=== PATIENT | male | born 1955 | race African-American/Black ===

== ENCOUNTER → 2017-11-17 | Day surgery (SDC) | payer OTHER ==
[2017-11-16 10:23] VITALS: Ht 172.7 cm; Wt 116.4 kg
[~2017-11-17] VITALS: Ht 172.7 cm; Wt 116.4 kg
[~2017-11-17] MED LIST: ATOR-24 PO; LIDOCAINE HCL 1% MPF 5 ML VIAL ONE; LOSA50TA6 PO; NAPR1TAB9 PO; SODIUM CHLORIDE 0.9% INJ 10 ML VIAL ONE
--- NOTE | 2017-11-17 14:51 | History & Physical Bridge - [place] ---
H&P Re-Evaluation Bridge Note: I have examined the patient, reviewed the History & Physical and in the interval since the performance of the History & Physical I have noted the following changes of clinical significance: No changes noted
--- NOTE | 2017-11-17 15:10 | [facility] Post Operative Brief Note ---
Immediate Operative Summary Operative Date Nov 17, 2017. Pre-Operative Diagnosis Lumbar spondylosis, history of lumbar diskectomy with increased onset bilateral S1 radiculopathies Post-Operative Diagnosis Same Procedure(s) Performed Caudal Epidural Steroid Injection Surgeon Dr. Josue Eid Hyperbaric Nurse Surgeon(s) None Estimated Blood Loss 0 Findings Consistent with Post-Op Diagnosis Specimens NA Drains None Anesthesia Type Local Complication(s) none Disposition Disposition:
[2017-11-17 15:11] VITALS: TEMP 36.7
--- NOTE | 2017-11-17 15:11 | Discharge Instructions ---
Discharge Instructions Date of Service Nov 17, 2017. Visit Reason for Visit: Radiculopathy,Lumbar Region Discharge Discharge Diagnosis / Problem: bilateral leg pain Discharge Goals Goal(s): Decrease discomfort, Improve function Activity Recommendations Activity Limitations: resume your previous activity Anesthesia . Post Anesthesia Instructions: If you have had General Anesthesia or IV Sedation: * Do not drive today. * Resume driving when surgeon permits. * Do not make important decisions or sign legal documents today. * Call surgeon for: 1. Temperature elevations greater than 101 degrees F. 2. Uncontrollable pain. 3. Excessive bleeding. 4. Persistent nausea and vomiting. 5. Medication intolerance (nausea, vomiting or rash). * For nausea and vomiting use only clear liquids such as: tea, soda, bouillon until nausea subsides, then gradually increase diet as tolerated. * If you have any concerns or questions, call your surgeon's office. If physician is unavailable and it is an emergency, call 911 or go to the nearest emergency room. . Diet Recommendations Recommended Home Diet: resume previous diet Procedures Procedures Performed: Caudal Epidural Steroid Injection Pending Studies Studies pending at discharge: no Medical Emergencies . Who to Call and When: Medical Emergencies: If at any time you feel your situation is an emergency, please call 911 immediately. . Non-Emergent Contact Non-Emergency issues call your: Specialist . . "Provider Documentation" section prepared by Gerard Eid. .
--- NOTE | 2017-11-17 15:26 | OPERATIVE REPORT ---
DATE OF OPERATION: 11/17/2017 PREOPERATIVE DIAGNOSIS: Lumbar spondylosis with bilateral S1 radiculopathies. POSTOPERATIVE DIAGNOSES: Same. OPERATIVE PROCEDURE: Caudal epidural steroid injection under fluoroscopic guidance. INDICATIONS: The patient is a 61-year-old -[place] male who was seen 2 years ago and responded favorably to caudal injection for chronic radicular pain. He reports that he is managed since that time, recently has been increasing in severity. He presents today for an injection to provide him with relief. He is describing classic S1 dermatomal pain that radiates down into the bottom to the both feet. PHYSICAL EXAMINATION: Pleasant male seated comfortably. He is without focal weakness. Positive seated straight leg raise with decreased subjective sensations in the S1 dermatomes bilaterally. CONSENT: Verbal and written consent was obtained from the patient. Risks and benefits were reviewed. Risks include but are not limited to abscess and allergic reaction and wishes to proceed. DESCRIPTION OF PROCEDURE: The patient was taken back to the special procedures room of the [facility] where he was maintained in a prone position. Backside was cleansed with Betadine x3 and a dry sterile dressing was applied. Fluoroscope was used to identify the sacral hiatus and overlying skin was anesthetized with 5 mL of lidocaine 1% with a 25 gauge 1.5-inch needle. A 22 gauge 5-inch spinal needle was then directed under lateral fluoroscopic guidance into the sacral hiatus and advanced into the sacral canal distance of a few inches. He then underwent injection after negative aspiration of 40 mg of Depo-Medrol and 4 mL of preservative free sodium chloride. Injection was fairly well tolerated and reproduced a familiar transient radicular sensation down the legs. DISPOSITION: 1. The patient is taken out into the discharge recovery area where he will be discharged home once discharge criteria are met. 2. Follow up in the [facility] office in 2-4 weeks. I attest to the content of the Intraoperative Record and any orders documented therein. Any exception s are noted below.
[2017-11-17 15:34] VITALS: BP 198/100; PULSE 62; O2SAT 99
== END | disposition home or self-care (01) ==
LOC: X.SURG 14:02
PROVIDERS: ATTEND Physical Medicine & Rehabilitation
DX: M47.896 Other spondylosis, lumbar region (principal)

== ENCOUNTER 2019-10-01 14:29 | Observation (INO) ==
[2019-10-01] MEDS ORDERED: LOSARTAN POTASSIUM 50 MG TAB PO STA (15:03)
[2019-10-01 15:50] LABS: Basophils # (auto) 0.01 K/uL (0-0.2); Basophils % (auto) 0.1 %; Eosinophils # (auto) 0.11 K/uL (0-0.5); Eosinophils % (auto) 1.2 %; Hematocrit (blood only) 42.5 % (42-52); Hemoglobin 13.3 g/dL (14.0-18.0); Immature Granulocytes # (auto) 0.02 K/uL (0.00-0.02); Immature Granulocytes % (auto) 0.2 %; Lymphocytes # (auto) 3.14 K/uL (1.2-3.4); Lymphocytes % (auto) 35.4 %; Mean Corpuscular Hemoglobin 26.9 pg (25-34); Mean Corpuscular Hgb Conc 31.3 g/dL (32-36); Mean Corpuscular Volume 85.9 fL (80-100); Mean Platelet Volume 11.7 fL (7.4-10.4); Monocytes # (auto) 0.47 K/uL (0.11-0.59); Monocytes % (auto) 5.3 %; Neutrophils # (auto) 5.12 K/uL (1.4-6.5); Neutrophils % (auto) 57.8 %; Platelet Count 158 K/uL (130-400); RDW Coefficient of Variation 14.7 % (11.5-14.5); Red Blood Count 4.95 M/uL (4.7-6.1); White Blood Count 8.87 K/uL (4.8-10.8)
[2019-10-01 15:59] LABS: Partial Thromboplastin Ratio 0.9; Partial Thromboplastin Time 23.1 Seconds (21.0-31.0); Prothrombin Time 10.5 Seconds (9.0-12.0)
[2019-10-01 16:10] LABS: Albumin Globulin Ratio 0.9 (0.9-2); Albumin Level 3.6 gm/dl (3.4-5.0); BUN Creatinine Ratio 14.2 (10-20); Bilirubin,Total 0.3 mg/dl (0.2-1); Calcium 8.8 mg/dl (8.5-10.1); Creatinine Clr Calc Pharmacy 64.2 ml/min; Est GFR (African American) 66.4; Est GFR (Non-African American) 57.3; Globulin 4.2 gm/dl (2.5-4.0); Total Protein 7.8 gm/dl (6.4-8.2)
[2019-10-01 16:19] LABS: Potassium 4.1 mmol/L (3.5-5.1)
[2019-10-01] MEDS ORDERED: IOVERSOL 100ml IV PRN (16:34)
--- NOTE | 2019-10-01 16:46 | CT Scan Report ---
CT SCAN OF THE ABDOMEN AND PELVIS WITH IV CONTRAST CLINICAL HISTORY: Left lower quadrant abdominal pain. Hematochezia. COMPARISON STUDY: No priors. TECHNIQUE: Following the IV administration of 94 cc of Optiray 320, CT scan of the abdomen and pelvi s is performed from the lung bases to the proximal femora. Images are reviewed in the axial, sagittal , and coronal planes. IV contrast was administered without complication. A dose lowering technique wa s utilized adhering to the principles of ALARA. CT DOSE: 1468.70 mGy.cm FINDINGS: Lung bases: The heart is normal in size and without pericardial effusion. There are coronary artery c alcifications. The lung bases are clear. Liver: The contrast-enhanced liver is normal in size, contour, and attenuation. There is no intrahepa tic biliary ductal dilatation. The hepatic veins and portal veins are patent. Gallbladder: Unremarkable. Spleen: Normal in size and attenuation. A 1.5 cm splenic calcification is of doubtful significance. Pancreas: Unremarkable. Adrenal glands: Unremarkable. Kidneys: The contrast enhanced kidneys are normal in size and without hydronephrosis. The kidneys enh ance symmetrically. There are small bilateral nonobstructing renal calculi. Abdominal vasculature: The abdominal aorta is normal in course and caliber noting moderate atheroscle rotic calcification. Bowel: There is moderate colonic diverticulosis without CT evidence of acute diverticulitis. Moderate fecal retention is seen throughout the colon. The appendix is not identified and reported surgicall y absent. Peritoneum: There is no intraperitoneal free air or abdominal ascites. There is a large fat-containin g umbilical hernia. Lymphadenopathy: None. Pelvic viscera: The prostate gland is enlarged and heterogeneous, measuring 5.5 cm in transverse diam eter. There is median lobe hypertrophy. The bladder wall is thickened and trabeculated indicating chr onic outlet obstruction. Skeletal structures: No lytic or blastic lesions are seen. IMPRESSION: 1. There are no acute infectious or inflammatory findings identified in the abdomen or pelvis. 2. Moderate colonic diverticulosis without clear CT evidence of acute diverticulitis. 3. Moderate constipation. 4. Nephrolithiasis. 5. Additional findings as above. ACT 112: Negative or not required by law. Electronically signed by: Edmar Field M.D. 10/01/2019 4:45 PM
--- NOTE | 2019-10-01 17:37 | Emergency Department Note ---
Entered by Maya Haq acting as a scribe for Yojana Zimmerman MD History of Present Illness General Chief complaint: Rectal Bleed Stated complaint: PASSING BLOOD Source: patient History of Present Illness Provider complaint: Rectal Bleed Onset (ago): day(s) 1 Location: abdomen Relieved By: + none Exacerbated By: + none Associated symptoms: + denies other symptoms (Dizziness) and + other (Diarrhea); no weakness The patient is a 63 year old male who presents to the Emergency Room with complaints of rectal bleeding that began yesterday around 1pm. The patient states that his symptoms are not relieved nor exacerbated by anything specific. The patient reports experiencing diarrhea but denies any dizziness or weakness. The patient denies taking any blood thinners but does note that he has had diverticulitis before, with diverticulosis and polyps noted on colonoscopy. Home Medications Home Medications Medication Instructions Recorded Confirmed Type atorvastatin 40 mg PO QAM 10/21/18 10/01/19 History naproxen sodium [Aleve] 2 tab PO QAM 10/21/18 10/01/19 History travoprost [Travatan Z] 1 drp OPB HS 10/21/18 10/01/19 History losartan 50 mg PO QAM 10/01/19 10/01/19 History Allergies Allergy/AdvReac Type Severity Reaction Status Date / Time Sulfa (Sulfonamide Allergy Mild RASH Verified 10/01/19 14:56 Antibiotics) Past Med/Surg History Medical History Glaucoma Hyperlipidemia Hypertension Osteoarthritis Pre-diabetes Sleep apnea CPAP Spinal stenosis Surgical History History of adenoidectomy History of appendectomy History of arthroscopy KNEE History of carpal tunnel release RT/LEFT History of colonoscopy History of tonsillectomy History of tooth extraction Trigger finger RELEASE Family History Father Family history of diabetes mellitus Mother Family history of diabetes mellitus Social History Preferred Language: Hungarian Communication Ability: Effective [employer] Required: No Beliefs That Will Affect Care: None Current Living Situation: Spouse Feels Safe at Home: Yes Safety Concerns: Feels Safe At This Time Smoking Status: Former smoker Do You Dip or Chew Tobacco: No ; Second Hand Exposure: Yes ; Hx Alcohol Use: Yes Alcohol type: beer Hx Substance Use: No Review of Systems See HPI for pertinent positives & negatives. and A total of 10 systems reviewed and were otherwise negative Physical Exam Vital Signs Vital Signs - 24 hr 10/01/19 14:34 10/01/19 14:51 10/01/19 14:56 Temperature 36.4 C L Temperature Source Oral Pulse Rate 71 65 70 Pulse Rate [Finger] Pulse Rate from SpO2 Sensor Respiratory Rate 20 19 19 Blood Pressure 180/94 H 198/83 H Blood Pressure [Right Arm] Blood Pressure Mean 122 103 Blood Pressure Mean [Right Arm] Blood Pressure Position Sitting Pulse Oximetry 97 Oxygen Delivery Method Sepsis Recent Fever Within 48 Hours No Sepsis New/Unexplained Change in Mental Status No Sepsis Action Taken by Nursing No Action Required 10/01/19 15:00 10/01/19 15:01 10/01/19 15:03 Temperature Temperature Source Pulse Rate 69 68 66 Pulse Rate [Finger] Pulse Rate from SpO2 Sensor Respiratory Rate 17 19 20 Blood Pressure 211/102 H 222/95 H Blood Pressure [Right Arm] Blood Pressure Mean 135 159 Blood Pressure Mean [Right Arm] Blood Pressure Position Pulse Oximetry Oxygen Delivery Method Sepsis Recent Fever Within 48 Hours Sepsis New/Unexplained Change in Mental Status Sepsis Action Taken by Nursing 10/01/19 15:48 10/01/19 15:50 10/01/19 16:00 Temperature Temperature Source Pulse Rate 68 69 Pulse Rate [Finger] Pulse Rate from SpO2 Sensor Respiratory Rate 18 21 Blood Pressure Blood Pressure [Right Arm] Blood Pressure Mean Blood Pressure Mean [Right Arm] Blood Pressure Position Pulse Oximetry 99 Oxygen Delivery Method Room Air Sepsis Recent Fever Within 48 Hours Sepsis New/Unexplained Change in Mental Status Sepsis Action Taken by Nursing 10/01/19 16:01 10/01/19 16:37 10/01/19 17:00 Temperature Temperature Source Pulse Rate 69 67 70 Pulse Rate [Finger] Pulse Rate from SpO2 Sensor Respiratory Rate 17 19 19 Blood Pressure 276/117 H Blood Pressure [Right Arm] Blood Pressure Mean 160 Blood Pressure Mean [Right Arm] Blood Pressure Position Pulse Oximetry Oxygen Delivery Method Sepsis Recent Fever Within 48 Hours Sepsis New/Unexplained Change in Mental Status Sepsis Action Taken by Nursing 10/01/19 17:30 10/01/19 17:44 10/01/19 17:45 Temperature Temperature Source Pulse Rate 65 63 Pulse Rate [Finger] 64 Pulse Rate from SpO2 Sensor Respiratory Rate 17 8 L 18 Blood Pressure 209/181 H Blood Pressure [Right Arm] 209/181 H Blood Pressure Mean 187 Blood Pressure Mean [Right Arm] 190 Blood Pressure Position Pulse Oximetry 97 Oxygen Delivery Method Room Air Sepsis Recent Fever Within 48 Hours Sepsis New/Unexplained Change in Mental Status Sepsis Action Taken by Nursing 10/01/19 17:46 10/01/19 18:00 10/01/19 18:01 Temperature Temperature Source Pulse Rate 63 69 70 Pulse Rate [Finger] Pulse Rate from SpO2 Sensor Respiratory Rate 22 17 18 Blood Pressure 224/89 H 176/83 H Blood Pressure [Right Arm] Blood Pressure Mean 116 119 Blood Pressure Mean [Right Arm] Blood Pressure Position Pulse Oximetry Oxygen Delivery Method Sepsis Recent Fever Within 48 Hours Sepsis New/Unexplained Change in Mental Status Sepsis Action Taken by Nursing 10/01/19 18:30 10/01/19 18:31 10/01/19 18:32 Temperature Temperature Source Pulse Rate 72 70 72 Pulse Rate [Finger] Pulse Rate from SpO2 Sensor Respiratory Rate 18 19 21 Blood Pressure 183/78 H Blood Pressure [Right Arm] Blood Pressure Mean 97 Blood Pressure Mean [Right Arm] Blood Pressure Position Pulse Oximetry Oxygen Delivery Method Sepsis Recent Fever Within 48 Hours Sepsis New/Unexplained Change in Mental Status Sepsis Action Taken by Nursing 10/01/19 18:40 10/01/19 18:51 10/01/19 19:00 Temperature Temperature Source Pulse Rate 70 69 69 Pulse Rate [Finger] Pulse Rate from SpO2 Sensor Respiratory Rate 21 20 Blood Pressure Blood Pressure [Right Arm] Blood Pressure Mean Blood Pressure Mean [Right Arm] Blood Pressure Position Pulse Oximetry Oxygen Delivery Method Sepsis Recent Fever Within 48 Hours Sepsis New/Unexplained Change in Mental Status Sepsis Action Taken by Nursing 10/01/19 19:01 10/01/19 19:12 10/01/19 19:14 Temperature Temperature Source Pulse Rate 69 68 Pulse Rate [Finger] Pulse Rate from SpO2 Sensor 67 Respiratory Rate 18 13 19 Blood Pressure 155/108 H Blood Pressure [Right Arm] Blood Pressure Mean 120 Blood Pressure Mean [Right Arm] Blood Pressure Position Pulse Oximetry 98 Oxygen Delivery Method Sepsis Recent Fever Within 48 Hours Sepsis New/Unexplained Change in Mental Status Sepsis Action Taken by Nursing 10/01/19 19:16 10/01/19 19:21 Temperature Temperature Source Pulse Rate 66 68 Pulse Rate [Finger] Pulse Rate from SpO2 Sensor 66 68 Respiratory Rate 16 14 Blood Pressure 208/91 H Blood Pressure [Right Arm] Blood Pressure Mean 120 Blood Pressure Mean [Right Arm] Blood Pressure Position Pulse Oximetry 98 98 Oxygen Delivery Method Sepsis Recent Fever Within 48 Hours Sepsis New/Unexplained Change in Mental Status Sepsis Action Taken by Nursing Vital signs reviewed: patient noted to be hypertensive. General: Well-appearing male, in no significant distress, obese abdomen. HEENT: No scleral icterus, PERRLA, neck supple. Atraumatic. Cardiovascular: Regular rate and rhythm, no extra sounds. Pulmonary: Clear to auscultation bilaterally, normal work of breathing. Abdomen: Soft, nontender, nondistended, positive bowel sounds. Musculoskeletal: Atraumatic, no peripheral edema. Rectal: Normal external mucosa with melanotic stool. Neurologic: Patient awake alert and oriented x 3 Skin: Warm, dry, no rash Course Course 1501: Past medical records reviewed. The patient was evaluated in room C12B. A complete history and physical exam was performed. 1740: I spoke with Dr. Bliss- Hospitalist about the patient's case and he will accept the patient for further evaluation. Administered Medications Pantoprazole Sodium 40 mg/ (Dextrose) 100 mls @ 20 mls/hr IV Q5H DEVORAH Stop: 10/31/19 17:59 Last Admin: 10/01/19 19:28 Dose: 20 mls/hr Documented by: [id number] Ioversol (Optiray 320 100ml) 94 ml IV ONCE PRN PRN Reason: Interaction Checking Stop: 10/05/19 16:33 Last Admin: 10/01/19 16:35 Dose: 94 ml Documented by: [id number] Discontinued Medications Hydralazine HCl (Hydralazine Hcl) 10 mg IV NOW STA Stop: 10/01/19 17:48 Last Admin: 10/01/19 17:52 Dose: 10 mg Documented by: [id number] Pantoprazole Sodium 80 mg/ (Dextrose) 120 mls @ 480 mls/hr IV NOW ONE Stop: 10/01/19 17:59 Last Infusion: 10/01/19 19:29 Dose: 0 mls/hr Documented by: [id number] Admin: 10/01/19 19:10 Dose: 480 mls/hr Documented by: [id number] Losartan Potassium (Cozaar) 50 mg PO NOW STA Stop: 10/01/19 15:04 Last Admin: 10/01/19 15:20 Dose: 50 mg Documented by: [id number] Medical Decision Making Differential Diagnosis Differential diagnosis: Etiologies such as esophagitis, variceal bleed, Boer[place]aves, [place] tear, gastritis, peptic ulcer disease, AVM, inflammatory bowel disease, ischemia, diverticulosis, colitis, malignancy, coagulopathy, thrombocytopenia, fissure, hemorrhoid, epistaxis , as well as others were entertained. Medical Records Attestation: I reviewed the patient's medical records. Home Medications Current Medication List: was personally reviewed by me Laboratory Data Attestation: I reviewed the patient's lab results. Result diagrams: 10/01/19 15:42 10/01/19 15:42 Lab Results 10/01/19 10/01/19 10/01/19 Range/Units 15:42 15:42 15:42 WBC 8.87 (4.8-10.8) K/uL RBC 4.95 (4.7-6.1) M/uL Hgb 13.3 L (14.0-18.0) g/dL Hct 42.5 (42-52) % MCV 85.9 (80-100) fL MCH 26.9 (25-34) pg MCHC 31.3 L (32-36) g/dL RDW Std Deviation 46.0 (36.4-46.3) fL RDW Coeff of Anisha 14.7 H (11.5-14.5) % Plt Count 158 (130-400) K/uL MPV 11.7 H (7.4-10.4) fL Immature Gran % (Auto) 0.2 % Neut % (Auto) 57.8 % Lymph % (Auto) 35.4 % [place] % (Auto) 5.3 % Eos % (Auto) 1.2 % Baso % (Auto) 0.1 % Immature Gran # (Auto) 0.02 (0.00-0.02) K/uL Neut # (Auto) 5.12 (1.4-6.5) K/uL Lymph # (Auto) 3.14 (1.2-3.4) K/uL [place] # (Auto) 0.47 (0.11-0.59) K/uL Eos # (Auto) 0.11 (0-0.5) K/uL Baso # (Auto) 0.01 (0-0.2) K/uL PT 10.5 (9.0-12.0) Seconds INR 1.0 (0.9-1.1) APTT 23.1 (21.0-31.0) Seconds PTT Ratio 0.9 Sodium 141 (136-145) mmol/L Potassium 4.1 (3.5-5.1) mmol/L Chloride 108 H (98-107) mmol/L Carbon Dioxide 31 (21-32) mmol/L Anion Gap 2.0 L (3-11) BUN 18 (7-18) mg/dl Creatinine 1.30 (0.6-1.4) mg/dl Est Cr Clr Drug Dosing 64.2 ml/min Est GFR ( Amer) 66.4 Est GFR (Non-Af Amer) 57.3 BUN/Creatinine Ratio 14.2 (10-20) Glucose 87 (70-99) mg/dl Calcium 8.8 (8.5-10.1) mg/dl Total Bilirubin 0.3 (0.2-1) mg/dl AST 14 L (15-37) U/L ALT 26 (12-78) U/L Alkaline Phosphatase 61 (45-117) U/L Total Protein 7.8 (6.4-8.2) gm/dl Albumin 3.6 (3.4-5.0) gm/dl Globulin 4.2 H (2.5-4.0) gm/dl Albumin/Globulin Ratio 0.9 (0.9-2) Specimen Hemolysis Blood Type Antibody Screen Crossmatch 10/01/19 Range/Units 15:42 WBC (4.8-10.8) K/uL RBC (4.7-6.1) M/uL Hgb (14.0-18.0) g/dL Hct (42-52) % MCV (80-100) fL MCH (25-34) pg MCHC (32-36) g/dL RDW Std Deviation (36.4-46.3) fL RDW Coeff of Anisha (11.5-14.5) % Plt Count (130-400) K/uL MPV (7.4-10.4) fL Immature Gran % (Auto) % Neut % (Auto) % Lymph % (Auto) % [place] % (Auto) % Eos % (Auto) % Baso % (Auto) % Immature Gran # (Auto) (0.00-0.02) K/uL Neut # (Auto) (1.4-6.5) K/uL Lymph # (Auto) (1.2-3.4) K/uL [place] # (Auto) (0.11-0.59) K/uL Eos # (Auto) (0-0.5) K/uL Baso # (Auto) (0-0.2) K/uL PT (9.0-12.0) Seconds INR (0.9-1.1) APTT (21.0-31.0) Seconds PTT Ratio Sodium (136-145) mmol/L Potassium (3.5-5.1) mmol/L Chloride (98-107) mmol/L Carbon Dioxide (21-32) mmol/L Anion Gap (3-11) BUN (7-18) mg/dl Creatinine (0.6-1.4) mg/dl Est Cr Clr Drug Dosing ml/min Est GFR ( Amer) Est GFR (Non-Af Amer) BUN/Creatinine Ratio (10-20) Glucose (70-99) mg/dl Calcium (8.5-10.1) mg/dl Total Bilirubin (0.2-1) mg/dl AST (15-37) U/L ALT (12-78) U/L Alkaline Phosphatase (45-117) U/L Total Protein (6.4-8.2) gm/dl Albumin (3.4-5.0) gm/dl Globulin (2.5-4.0) gm/dl Albumin/Globulin Ratio (0.9-2) Specimen Hemolysis Blood Type B Negative Antibody Screen NEGATIVE Crossmatch See Detail Imaging Data Radiologist's Impression: Radiology results as stated below per my review and the radiologist's interpretation: CT SCAN OF THE ABDOMEN AND PELVIS WITH IV CONTRAST CLINICAL HISTORY: Left lower quadrant abdominal pain. Hematochezia. COMPARISON STUDY: No priors. TECHNIQUE: Following the IV administration of 94 cc of Optiray 320, CT scan of the abdomen and pelvis is performed from the lung bases to the proximal femora. Images are reviewed in the axial, sagittal, and coronal planes. IV contrast was administered without complication. A dose lowering technique was utilized a dhering to the principles of ALARA. CT DOSE: 1468.70 mGy.cm FINDINGS: Lung bases: The heart is normal in size and without pericardial effusion. There are coronary artery calcifications. The lung bases are clear. Liver: The contrast-enhanced liver is normal in size, contour, and attenuation. There is no intrahepatic biliary ductal dilatation. The hepatic veins and portal veins are patent. Gallbladder: Unremarkable. Spleen: Normal in size and attenuation. A 1.5 cm splenic calcification is of doubtful significance. Pancreas: Unremarkable. Adrenal glands: Unremarkable. Kidneys: The contrast enhanced kidneys are normal in size and without hydronephrosis. The kidneys enhance symmetrically. There are small bilateral nonobstructing renal calculi. Abdominal vasculature: The abdominal aorta is normal in course and caliber noting moderate atherosclerotic calcification. Bowel: There is moderate colonic diverticulosis without CT evidence of acute diverticulitis. Moderate fecal retention is seen throughout the colon. The appendix is not identified and reported surgically absent. Peritoneum: There is no intraperitoneal free air or abdominal ascites. There is a large fat-containing umbilical hernia. Lymphadenopathy: None. Pelvic viscera: The prostate gland is enlarged and heterogeneous, measuring 5.5 cm in transverse diameter. There is median lobe hypertrophy. The bladder wall is thickened and trabeculated indicating chronic outlet obstruction. Skeletal structures: No lytic or blastic lesions are seen. IMPRESSION: 1. There are no acute infectious or inflammatory findings identified in the abdomen or pelvis. 2. Moderate colonic diverticulosis without clear CT evidence of acute diverticulitis. 3. Moderate constipation. 4. Nephrolithiasis. 5. Additional findings as above. ACT 112: Negative or not required by law. Electronically signed by: Edmar Field M.D. 10/01/2019 4:45 PM ECG Data Attestation: I personally reviewed and interpreted this ECG as follows: Indication: + other (GI Bleed) Rate (beats per minute): 69 Rhythm: + normal sinus ECG Intervals/blocks: + Normal QT-c ECG ST segments: no ST depression and no ST elevation ECG Findings: no PACs and no PVCs Additional Comments: An order was placed for cardiac monitoring and the patient was found to be in a normal sinus rhythm at 63 bpm. Blood Pressure Blood Pressure Findings: Elevated blood pressure Blood Pressure Disposition: further management by hospitalist HERLINDA Narrative This patient was evaluated and appeared to be in no significant distress. IV access was obtained and laboratory work was drawn. The patient was placed on the cardiac rn and found to be in a normal sinus rhythm. Patient was noted to be tender in the left lower quadrant. Given the GI bleed, CT scan of the abdomen pelvis was ordered. CT imaging reveals no acute infectious or inflammatory findings. There is evidence of diverticulosis without evidence of acute diverticulitis. Patient's hemoglobin is stable at 13.3. Follow-up rectal exam reveals melanotic stool. Stool is guaiac positive. Patient is markedly hypertensive despite the p.o. losartan, his home medication. He was given 10 mg of IV hydralazine and started on a Protonix bolus and drip. He will be evaluated by the hospitalist service for further management. Patient is aware of the plan and agrees. Impression & Plan GI bleed, Hypertension Discharge Plan Visit Data *Final* Discharge Date/Time: 10/01/19 20:20 Chief Complaint: Rectal Bleed Stated Complaint: PASSING BLOOD ED Provider: Yojana Zimmerman Discharge Problem: GI bleed, Hypertension Patient Disposition: Admitted As Inpatient Discharge Instructions Interventions: ED Discharge Assessment Last Done: 10/01/19 20:20 Discharge Problem: GI bleed Qualifiers: GI bleed type/associated pathology: unspecified gastrointestinal hemorrhage type Qualified Code(s): K92.2 - Gastrointestinal hemorrhage, unspecified Hypertension Qualifiers: Hypertension type: unspecified Qualified Code(s): I10 - Essential (primary) hypertension The scribe's documentation has been prepared under my direction and personally reviewed by me in its entirety. I confirm that the note above accurately refle cts all work, treatment, procedures, and medical decision making performed by me.
[2019-10-01] MEDS ORDERED: PANTOprazole 80 MG in DEXTROSE 5% 100 ML IV ONE (17:45)
[2019-10-01] MEDS ORDERED: HydrALAZINE HCL 20 MG/ML VIAL IV STA (17:47)
--- NOTE | 2019-10-01 19:23 | History & Physical Report ---
Date of Service October 01, 2019 Assessment & Plan (1) GI bleed: Presented with 24 hours of dark red blood per rectum and had gross melena on exam by ER MD Last colonoscopy 2013 normal Never had EGD, no symptoms of GERD Hemodynamically stable, actually hypertensive Hgb unknown recent baseline but 13.3 on admission and then down to 12.4 Takes daily Aleve but no signs or symptoms of PUD -follow serial CBCs q4 hours -typed and cross matched for 2 units PRBCs, consent signed on admission -transfuse if continues to actively bleed and hemodynamically unstable, or transfuse if Hgb<7-8 -consult GI-discussed with Dr. Grigsby on phone--> ok for clears this evening and then NPO after midnight for EGD tomorrow -started Protonix gtt -give gentle IVFs while NPO (2) Acute blood loss anemia: as above (3) Hypertensive urgency: BPs severely elevated-he missed his meds today Losartan 50mg was given po x 1 and IV hydralazine given in ER, yet BPs remain quite high -continue losartan but is actually 100mg daily -continue hydralazine 10mg IV q8hr prn -give IV labetalol 10mg IV q6h prn (4) Hypertension: uncontrolled -continue losartan and IV labetalol, hydralazine as above (5) Sleep apnea: noncompliant at home as pressure set too high -ordered CPAP for here at 10 mmHg (6) Pre-diabetes: holding home metformin -check hgb A1C -no need for glucose checks (7) Osteoarthritis: hold Aleve and would recommend tylenol instead (8) Glaucoma: continue home eye drops (9) Hyperlipidemia: continue statin (10) DVT prophylaxis: SCDs Dispo-admit to Tele unit EGD tomorrow History of Present Illness Chief Complaint: Rectal bleeding Primary Care Provider: Matilda Fallon MD This pt is a 63 yo male with a h/o HTN, obesity, prediabetes, arthritis, and QUOC noncompliant with CPAP, who presents to the ER with 2 days of rectal bleeding. He reports he ate Life cereal with milk that turned out to be sour on Sat AM. A few hours later he had a bowel movement that had dark red blood in it. He then had another similar episode both Sat evening and again this AM, some clots. He had some left flank pain in the middle of last week after doing some painting of baseboard and having to lie on his side on the floor, but that resolved before the bleeding occurred. Otherwise no abdominal pain or back pain. No N/V. He denies lightheadedness or chest pain, no SOB. He came to the ER and was found to have gross melena on rectal exam by ER MD. Hgb at 13 on arrival. He reports having a colonoscopy in 2013 that showed polyps. Never had an EGD He takes 2 Aleve every day. BPs severely elevated and was given IV hydralazine in the ER. He will be admitted for observation for GI bleeding. Allergies Allergy/AdvReac Type Severity Reaction Status Date / Time Sulfa (Sulfonamide Allergy Mild RASH Verified 10/01/19 14:56 Antibiotics) Home Medications Home Medications Medication Instructions Recorded Confirmed Type atorvastatin 40 mg PO QAM 10/21/18 10/01/19 History naproxen sodium [Aleve] 2 tab PO QAM 10/21/18 10/01/19 History travoprost [Travatan Z] 1 drp OPB HS 10/21/18 10/01/19 History losartan 100 mg PO QAM 10/01/19 10/02/19 History metformin 1,000 mg PO BID 10/02/19 10/02/19 History Past Med/Surg History Family History Father Family history of diabetes mellitus Mother Family history of diabetes mellitus Social History Preferred Language: Yemeni Communication Ability: Effective Recovery Operator Required: No Beliefs That Will Affect Care: None Current Living Situation: Spouse Feels Safe at Home: Yes Safety Concerns: Feels Safe At This Time Smoking Status: Former smoker Do You Dip or Chew Tobacco: No ; Second Hand Exposure: Yes ; Hx Alcohol Use: Yes Alcohol type: beer Hx Substance Use: No Review of Systems Review of Systems: All systems reviewed & are unremarkable except as noted in HPI & below Physical Exam Constitutional: WD/WN, vitals as above + morbidly obese Eyes: PERRL, conjunctivae normal, anicteric sclerae ENMT: external ear and nose normal, oropharynx normal Neck: trachea midline, no thyromegaly Respiratory: normal respiratory effort, lungs clear to auscultation Cardiovascular: RRR, no murmur, no edema Chest (Breasts): Chest: normal inspection of chest Gastrointestinal (Abdomen): normal bowel sounds, soft, nontender, no hepatosplenomegaly Musculoskeletal: Extremities: extremities normal to inspection; no cyanosis and no clubbing Skin: no rashes, warm and dry Neurologic: moves all extremities and awake; no focal motor deficits Psychiatric: Orientation: alert and oriented x 3 Eye Contact: good eye contact Affect: + anxious affect Mood: + anxious mood Lymphatic: no lymphedema Results & Data Vital Signs (Past 12 Hours) Vital Signs Temp Pulse Pulse Resp BP BP Pulse Ox 10/01/19 18:51 69 10/01/19 18:40 70 21 10/01/19 18:32 72 21 10/01/19 18:31 70 19 183/78 H 10/01/19 18:30 72 18 10/01/19 18:01 70 18 176/83 H 10/01/19 18:00 69 17 10/01/19 17:46 63 22 224/89 H 10/01/19 17:45 63 18 209/181 H 10/01/19 17:44 64 8 L 209/181 H 97 10/01/19 17:30 65 17 10/01/19 17:00 70 19 10/01/19 16:37 67 19 10/01/19 16:01 69 17 276/117 H 10/01/19 16:00 69 21 10/01/19 15:50 99 10/01/19 15:48 68 18 10/01/19 15:03 66 20 222/95 H 10/01/19 15:01 68 19 10/01/19 15:00 69 17 211/102 H 10/01/19 14:56 70 19 10/01/19 14:51 65 19 198/83 H 10/01/19 14:34 36.4 C L 71 20 180/94 H 97 Laboratory Results 10/01/19 10/01/19 10/01/19 Range/Units 23:59 21:03 21:03 WBC 8.33 9.29 (4.8-10.8) K/uL RBC 4.70 4.64 L (4.7-6.1) M/uL Hgb 12.6 L 12.4 L (14.0-18.0) g/dL Hct 39.8 L 38.9 L (42-52) % MCV 84.7 83.8 (80-100) fL MCH 26.8 26.7 (25-34) pg MCHC 31.7 L 31.9 L (32-36) g/dL RDW Std Deviation 45.1 45.0 (36.4-46.3) fL RDW Coeff of Anisha 14.5 14.5 (11.5-14.5) % Plt Count 156 163 (130-400) K/uL MPV 11.3 H 10.4 (7.4-10.4) fL Immature Gran % (Auto) 0.2 0.2 % Neut % (Auto) 52.5 54.9 % Lymph % (Auto) 40.2 38.5 % [place] % (Auto) 5.3 5.0 % Eos % (Auto) 1.6 1.3 % Baso % (Auto) 0.2 0.1 % Immature Gran # (Auto) 0.02 0.02 (0.00-0.02) K/uL Neut # (Auto) 4.37 5.10 (1.4-6.5) K/uL Lymph # (Auto) 3.35 3.58 H (1.2-3.4) K/uL [place] # (Auto) 0.44 0.46 (0.11-0.59) K/uL Eos # (Auto) 0.13 0.12 (0-0.5) K/uL Baso # (Auto) 0.02 0.01 (0-0.2) K/uL PT (9.0-12.0) Seconds INR (0.9-1.1) APTT (21.0-31.0) Seconds PTT Ratio Sodium (136-145) mmol/L Potassium (3.5-5.1) mmol/L Chloride (98-107) mmol/L Carbon Dioxide (21-32) mmol/L Anion Gap (3-11) BUN (7-18) mg/dl Creatinine (0.6-1.4) mg/dl Est Cr Clr Drug Dosing ml/min Est GFR ( Amer) Est GFR (Non-Af Amer) BUN/Creatinine Ratio (10-20) Glucose (70-99) mg/dl Calcium (8.5-10.1) mg/dl Total Bilirubin (0.2-1) mg/dl AST (15-37) U/L ALT (12-78) U/L Alkaline Phosphatase (45-117) U/L Total Protein (6.4-8.2) gm/dl Albumin (3.4-5.0) gm/dl Globulin (2.5-4.0) gm/dl Albumin/Globulin Ratio (0.9-2) Specimen Hemolysis Blood Type Blood Type Recheck B Negative Antibody Screen Crossmatch 10/01/19 10/01/19 10/01/19 Range/Units 15:42 15:42 15:42 WBC (4.8-10.8) K/uL RBC (4.7-6.1) M/uL Hgb (14.0-18.0) g/dL Hct (42-52) % MCV (80-100) fL MCH (25-34) pg MCHC (32-36) g/dL RDW Std Deviation (36.4-46.3) fL RDW Coeff of Anisha (11.5-14.5) % Plt Count (130-400) K/uL MPV (7.4-10.4) fL Immature Gran % (Auto) % Neut % (Auto) % Lymph % (Auto) % [place] % (Auto) % Eos % (Auto) % Baso % (Auto) % Immature Gran # (Auto) (0.00-0.02) K/uL Neut # (Auto) (1.4-6.5) K/uL Lymph # (Auto) (1.2-3.4) K/uL [place] # (Auto) (0.11-0.59) K/uL Eos # (Auto) (0-0.5) K/uL Baso # (Auto) (0-0.2) K/uL PT 10.5 (9.0-12.0) Seconds INR 1.0 (0.9-1.1) APTT 23.1 (21.0-31.0) Seconds PTT Ratio 0.9 Sodium 141 (136-145) mmol/L Potassium 4.1 (3.5-5.1) mmol/L Chloride 108 H (98-107) mmol/L Carbon Dioxide 31 (21-32) mmol/L Anion Gap 2.0 L (3-11) BUN 18 (7-18) mg/dl Creatinine 1.30 (0.6-1.4) mg/dl Est Cr Clr Drug Dosing 64.2 ml/min Est GFR ( Amer) 66.4 Est GFR (Non-Af Amer) 57.3 BUN/Creatinine Ratio 14.2 (10-20) Glucose 87 (70-99) mg/dl Calcium 8.8 (8.5-10.1) mg/dl Total Bilirubin 0.3 (0.2-1) mg/dl AST 14 L (15-37) U/L ALT 26 (12-78) U/L Alkaline Phosphatase 61 (45-117) U/L Total Protein 7.8 (6.4-8.2) gm/dl Albumin 3.6 (3.4-5.0) gm/dl Globulin 4.2 H (2.5-4.0) gm/dl Albumin/Globulin Ratio 0.9 (0.9-2) Specimen Hemolysis Blood Type B Negative Blood Type Recheck Antibody Screen NEGATIVE Crossmatch See Detail 10/01/19 Range/Units 15:42 WBC 8.87 (4.8-10.8) K/uL RBC 4.95 (4.7-6.1) M/uL Hgb 13.3 L (14.0-18.0) g/dL Hct 42.5 (42-52) % MCV 85.9 (80-100) fL MCH 26.9 (25-34) pg MCHC 31.3 L (32-36) g/dL RDW Std Deviation 46.0 (36.4-46.3) fL RDW Coeff of Anisha 14.7 H (11.5-14.5) % Plt Count 158 (130-400) K/uL MPV 11.7 H (7.4-10.4) fL Immature Gran % (Auto) 0.2 % Neut % (Auto) 57.8 % Lymph % (Auto) 35.4 % [place] % (Auto) 5.3 % Eos % (Auto) 1.2 % Baso % (Auto) 0.1 % Immature Gran # (Auto) 0.02 (0.00-0.02) K/uL Neut # (Auto) 5.12 (1.4-6.5) K/uL Lymph # (Auto) 3.14 (1.2-3.4) K/uL [place] # (Auto) 0.47 (0.11-0.59) K/uL Eos # (Auto) 0.11 (0-0.5) K/uL Baso # (Auto) 0.01 (0-0.2) K/uL PT (9.0-12.0) Seconds INR (0.9-1.1) APTT (21.0-31.0) Seconds PTT Ratio Sodium (136-145) mmol/L Potassium (3.5-5.1) mmol/L Chloride (98-107) mmol/L Carbon Dioxide (21-32) mmol/L Anion Gap (3-11) BUN (7-18) mg/dl Creatinine (0.6-1.4) mg/dl Est Cr Clr Drug Dosing ml/min Est GFR ( Amer) Est GFR (Non-Af Amer) BUN/Creatinine Ratio (10-20) Glucose (70-99) mg/dl Calcium (8.5-10.1) mg/dl Total Bilirubin (0.2-1) mg/dl AST (15-37) U/L ALT (12-78) U/L Alkaline Phosphatase (45-117) U/L Total Protein (6.4-8.2) gm/dl Albumin (3.4-5.0) gm/dl Globulin (2.5-4.0) gm/dl Albumin/Globulin Ratio (0.9-2) Specimen Hemolysis Blood Type Blood Type Recheck Antibody Screen Crossmatch Code Status & VTE Plan Code Status FULL CODE VTE Prophylaxis Plan VTE Prophylaxis will be ordered: Yes PG Care Time/CCT Total # of Minutes Spent Total Time Spent with Patient: Total time spent is greater than 50% in coordin ation of care (as documented) at patient's floor/unit and/or counseling patient: Coding Level of Care Code 66038 OBS Care - Level 3 Diagnoses GI bleed K92.2 GI bleed type/associated pathology: unspecified gastrointestinal hemorrhage type Acute blood loss anemia D62 Hypertensive urgency I16.0 Hypertension I10 Sleep apnea G47.30 Pre-diabetes R73.03 Osteoarthritis M19.90 Glaucoma H40.9 Hyperlipidemia E78.5 DVT prophylaxis Z29.9 (1) GI bleed GI bleed type/associated pathology: unspecified gastrointestinal hemorrhage type Qualified Code(s): K92.2 - Gastrointestinal hemorrhage, unspecified
[2019-10-01] MEDS: PANTOprazole 40 MG in DEXTROSE 5% 100 ML IV SCH (19:28)
[2019-10-01] MEDS ORDERED: SODIUM CHLORIDE 0.9% 250 ML IV PRN (20:39)
[2019-10-01] MEDS ORDERED: ACETAMINOPHEN 325 MG TAB PO PRN (20:39)
[2019-10-01] MEDS ORDERED: ONDANSETRON INJ 2 MG/ML 2 ML VIAL IV PRN (20:39)
[2019-10-01] MEDS ORDERED: TRAVOPROST Z 0.004% OPH SOLN 2.5 ML BTL OPB SCH (21:00)
[2019-10-01 21:12] LABS: Basophils # (auto) 0.01 K/uL (0-0.2); Basophils % (auto) 0.1 %; Eosinophils # (auto) 0.12 K/uL (0-0.5); Eosinophils % (auto) 1.3 %; Hematocrit (blood only) 38.9 % (42-52); Hemoglobin 12.4 g/dL (14.0-18.0); Immature Granulocytes # (auto) 0.02 K/uL (0.00-0.02); Immature Granulocytes % (auto) 0.2 %; Lymphocytes # (auto) 3.58 K/uL (1.2-3.4); Lymphocytes % (auto) 38.5 %; Mean Corpuscular Hemoglobin 26.7 pg (25-34); Mean Corpuscular Hgb Conc 31.9 g/dL (32-36); Mean Corpuscular Volume 83.8 fL (80-100); Mean Platelet Volume 10.4 fL (7.4-10.4); Monocytes # (auto) 0.46 K/uL (0.11-0.59); Neutrophils % (auto) 54.9 %; Platelet Count 163 K/uL (130-400); RDW Coefficient of Variation 14.5 % (11.5-14.5); Red Blood Count 4.64 M/uL (4.7-6.1); White Blood Count 9.29 K/uL (4.8-10.8)
[2019-10-01] MEDS: HydrALAZINE HCL 20 MG/ML VIAL IV PRN (23:56)
[2019-10-01] MEDS: SODIUM CHLORIDE 0.9% 1000ML 1,000 ML IV SCH (23:57)
[2019-10-02 00:23] LABS: Basophils # (auto) 0.02 K/uL (0-0.2); Basophils % (auto) 0.2 %; Eosinophils # (auto) 0.13 K/uL (0-0.5); Eosinophils % (auto) 1.6 %; Hematocrit (blood only) 39.8 % (42-52); Hemoglobin 12.6 g/dL (14.0-18.0); Immature Granulocytes # (auto) 0.02 K/uL (0.00-0.02); Immature Granulocytes % (auto) 0.2 %; Lymphocytes # (auto) 3.35 K/uL (1.2-3.4); Lymphocytes % (auto) 40.2 %; Mean Corpuscular Hemoglobin 26.8 pg (25-34); Mean Corpuscular Hgb Conc 31.7 g/dL (32-36); Mean Corpuscular Volume 84.7 fL (80-100); Mean Platelet Volume 11.3 fL (7.4-10.4); Monocytes # (auto) 0.44 K/uL (0.11-0.59); Monocytes % (auto) 5.3 %; Neutrophils # (auto) 4.37 K/uL (1.4-6.5); Neutrophils % (auto) 52.5 %; Platelet Count 156 K/uL (130-400); RDW Coefficient of Variation 14.5 % (11.5-14.5); RDW Standard Deviation 45.1 fL (36.4-46.3); White Blood Count 8.33 K/uL (4.8-10.8)
[2019-10-02] MEDS: PANTOprazole 40 MG in DEXTROSE 5% 100 ML IV SCH ×4 (00:27→15:26)
[2019-10-02] MEDS ORDERED: LABETALOL HCL IV 5 MG/ML 20ML IV PRN (01:29)
[2019-10-02 06:18] LABS: Basophils # (auto) 0.01 K/uL (0-0.2); Basophils % (auto) 0.1 %; Eosinophils # (auto) 0.09 K/uL (0-0.5); Eosinophils % (auto) 1.2 %; Hematocrit (blood only) 40.8 % (42-52); Hemoglobin 12.7 g/dL (14.0-18.0); Immature Granulocytes # (auto) 0.01 K/uL (0.00-0.02); Immature Granulocytes % (auto) 0.1 %; Lymphocytes # (auto) 1.99 K/uL (1.2-3.4); Lymphocytes % (auto) 26.5 %; Mean Corpuscular Hemoglobin 26.4 pg (25-34); Mean Corpuscular Hgb Conc 31.1 g/dL (32-36); Mean Corpuscular Volume 84.8 fL (80-100); Mean Platelet Volume 11.6 fL (7.4-10.4); Monocytes # (auto) 0.33 K/uL (0.11-0.59); Monocytes % (auto) 4.4 %; Neutrophils # (auto) 5.09 K/uL (1.4-6.5); Neutrophils % (auto) 67.7 %; Platelet Count 163 K/uL (130-400); RDW Coefficient of Variation 14.5 % (11.5-14.5); RDW Standard Deviation 45.3 fL (36.4-46.3); Red Blood Count 4.81 M/uL (4.7-6.1); White Blood Count 7.52 K/uL (4.8-10.8)
[2019-10-02 06:54] LABS: BUN Creatinine Ratio 12.4 (10-20); Calcium 8.5 mg/dl (8.5-10.1); Creatinine Clr Calc Pharmacy 89.9 ml/min; Est GFR (African American) 85.9; Est GFR (Non-African American) 74.1; Estimated Average Glucose 151 mg/dl; Hemoglobin A1C 6.9 % (4.5-5.6); Potassium 3.8 mmol/L (3.5-5.1)
[2019-10-02] MEDS ORDERED: LOSARTAN POTASSIUM 50 MG TAB PO SCH ×2 (09:00)
[2019-10-02] MEDS ORDERED: ATORVASTATIN 40 MG TAB PO SCH (09:00)
[2019-10-02] MEDS: HydrALAZINE HCL 20 MG/ML VIAL IV PRN (12:21)
[2019-10-02] MEDS: SODIUM CHLORIDE 0.9% 1000ML 1,000 ML IV SCH (15:26)
--- NOTE | 2019-10-02 15:28 | History & Physical Report ---
Date of Service October 02, 2019 History of Present Illness Chief Complaint: Melena Primary Care Provider: Matilda Fallon MD For EGD Allergies Allergy/AdvReac Type Severity Reaction Status Date / Time Sulfa (Sulfonamide Allergy Mild RASH Verified 10/01/19 14:56 Antibiotics) Home Medications Home Medications Medication Instructions Recorded Confirmed Type atorvastatin 40 mg PO QAM 10/21/18 10/01/19 History naproxen sodium [Aleve] 2 tab PO QAM 10/21/18 10/01/19 History travoprost [Travatan Z] 1 drp OPB HS 10/21/18 10/01/19 History losartan 100 mg PO QAM 10/01/19 10/02/19 History metformin 1,000 mg PO BID 10/02/19 10/02/19 History Past Med/Surg History Medical History Glaucoma Hyperlipidemia Hypertension Osteoarthritis Pre-diabetes Sleep apnea CPAP Spinal stenosis Surgical History History of adenoidectomy History of appendectomy History of arthroscopy KNEE History of carpal tunnel release RT/LEFT History of colonoscopy History of tonsillectomy History of tooth extraction Trigger finger RELEASE Family History Father Family history of diabetes mellitus Mother Family history of diabetes mellitus Social History Preferred Language: Latvian Communication Ability: Effective Talent Partner Required: No Beliefs That Will Affect Care: None Current Living Situation: Spouse Feels Safe at Home: Yes Safety Concerns: Feels Safe At This Time Smoking Status: Former smoker Do You Dip or Chew Tobacco: No ; Second Hand Exposure: Yes ; Hx Alcohol Use: Yes Alcohol type: beer Hx Substance Use: No Physical Exam Constitutional: + obese Respiratory: normal respiratory effort Cardiovascular: Rate/Rhythm: regular rate and regular rhythm Gastrointestinal (Abdomen): Percussion/Palpation: abdomen soft Results & Data Vital Signs (Past 12 Hours) Vital Signs Temp Pulse Pulse Resp BP BP Pulse Ox 10/02/19 15:23 81 10/02/19 15:07 36 C L 83 18 188/96 H 98 10/02/19 12:20 71 185/79 H 10/02/19 11:25 36.4 C L 72 19 184/100 H 97 10/02/19 08:00 69 10/02/19 07:41 66 158/96 H 10/02/19 07:13 36.5 C 64 20 192/100 H 95 Code Status & VTE Plan VTE Prophylaxis Plan VTE Prophylaxis will be ordered: Yes
--- NOTE | 2019-10-02 15:29 | Anesthesiology Consultation ---
Date of Service October 02, 2019 Assessment & Plan Chart Review Chart Review: Acceptable Risk for Surgery and Patient NOT seen in Pre Admission Testing Consults Requested none ASA ASA3 Proposed Anesthesia Anesthesia Type: MAC Risk / Benefits Reviewed With: PT / POA / Parent / Guardian, Accepts Plan and Informed Consent Obtained History Surgery Operation Date: 10/02/19 17:45 Proposed Procedures p Esophagogastroduodenoscopy Dr Seb Grigsby Height/Weight Height: 5 ft 8 in Weight: 124 kg Allergies Allergy/AdvReac Type Severity Reaction Status Date / Time Sulfa (Sulfonamide Allergy Mild RASH Verified 10/01/19 14:56 Antibiotics) Medications Home Medications Medication Instructions Recorded Confirmed Last Taken atorvastatin 40 mg PO QAM 10/21/18 10/01/19 10/01/19 naproxen sodium [Aleve] 2 tab PO QAM 10/21/18 10/01/19 10/01/19 travoprost [Travatan Z] 1 drp OPB HS 10/21/18 10/01/19 09/30/19 losartan 100 mg PO QAM 10/01/19 10/02/19 10/01/19 metformin 1,000 mg PO BID 10/02/19 10/02/19 Unknown Active Medications Generic Name Dose Route Start Last Admin Trade Name Freq PRN Reason Stop Dose Admin Atorvastatin Calcium 40 mg 10/02/19 09:00 10/02/19 07:43 Lipitor PO 11/01/19 08:59 40 mg QAM DEVORAH Administration Hydralazine HCl 10 mg 10/01/19 20:39 10/02/19 12:21 Hydralazine Hcl IV 10/31/19 20:38 10 mg Q8 PRN Administration SBP>180 or DBP>110 Pantoprazole Sodium 40 mg/ 100 mls @ 20 mls/hr 10/01/19 18:00 10/02/19 15:26 Dextrose IV 10/31/19 17:59 Not Given Q5H DEVORAH Sodium Chloride 1,000 mls @ 70 mls/hr 10/01/19 23:59 10/02/19 15:26 Nss 1000ml IV 10/31/19 23:58 Not Given .[id number] DEVORAH Ioversol 94 ml 10/01/19 16:34 10/01/19 16:35 Optiray 320 100ml IV 10/05/19 16:33 94 ml ONCE PRN Administration Interaction Checking Losartan Potassium 100 mg 10/02/19 09:00 10/02/19 07:42 Cozaar PO 11/01/19 08:59 100 mg QAM DEVORAH Administration NPO Date Last Intake of Fluids: 10/02/19 Time Last Intake of Fluids: 09:00 Date Last Intake of Solids: 10/01/19 Time Last Intake of Solids: 09:00 Past Medical History Medical History Glaucoma Hyperlipidemia Hypertension Osteoarthritis Pre-diabetes Sleep apnea CPAP Spinal stenosis Exercise / Class Metabolic Activity II 4-5 Yardwork/Stairs/Walk up hill Past Family History Family History Father Family history of diabetes mellitus Mother Family history of diabetes mellitus Past Surgical History Surgical History History of adenoidectomy History of appendectomy History of arthroscopy KNEE History of carpal tunnel release RT/LEFT History of colonoscopy History of tonsillectomy History of tooth extraction Trigger finger RELEASE Past Anesthesia History No Hx of Anesthesia Complications and No Family Hx of Anesthesia Complications Social History Smoking Status: Former smoker Do You Dip or Chew Tobacco: No Hx Alcohol Use: Yes Alcohol type: beer alcohol intake frequency: holidays/special occasions only Hx Substance Use: No substance use type: does not use Review of Systems no chest pain or sob Physical Exam Vital Signs Last Vital Signs Temp 36 C L 10/02/19 15:07 Pulse 81 10/02/19 15:23 Resp 18 10/02/19 15:07 BP 188/96 H 10/02/19 15:07 Pulse Ox 98 10/02/19 15:07 ENMT Mouth: no TMJ abnormality Thyromental Distance: > or= 3.5 Finger Breadths Mallampati Class: II Neck normal visual inspection Respiratory normal respiratory effort Auscultation: lungs clear to auscultation bilaterally Cardiovascular Rate/Rhythm: regular rate and regular rhythm Neurologic moves all extremities Psychiatric Orientation: alert and oriented x 3 Testing Laboratory Results 10/02/19 06:01 10/02/19 06:01 PT 10.5 Seconds (9.0-12.0) 10/01/19 15:42 INR 1.0 (0.9-1.1) 10/01/19 15:42 APTT 23.1 Seconds (21.0-31.0) 10/01/19 15:42 Hemoglobin A1c 6.9 % (4.5-5.6) H 10/02/19 06:01 Blood Type B Negative 10/01/19 15:42 Antibody Screen NEGATIVE 10/01/19 15:42 10/02/19 11:25 WBC Smear - Final Stool
[2019-10-02] MEDS ORDERED: SODIUM CHLORIDE 0.9% 1000ML 1,000 ML IV SCH (15:30)
--- NOTE | 2019-10-02 15:55 | GI REPORT ---
Patient Name: Joe Reardon Procedure Date: 10/02/2019 3:17 PM Date of : 1955 Admit Type: Inpatient Age: 63 Gender: Male Attending MD: Rashad Grigsby MD Procedure: Upper GI endoscopy Providers: Rashad Grigsby MD Referring MD: Eber Daniels Md Indications: Melena Medicines: Propofol total dose 170 mg IV, Lidocaine 80 mg IV Complications: No immediate complications. Estimated Blood Loss: Estimated blood loss: none. Procedure: Pre-Anesthesia Assessment: - Prior to the procedure, a History and Physical was performed, and patient medications, allergies and sensitivities were reviewed. The patient's tolerance of previous anesthesia was reviewed. - The risks and benefits of the procedure and the sedation options and risks were discussed with the patient. All questions were answered and informed consent was obtained. After obtaining informed consent, the endoscope was passed under direct vision. Throughout the procedure, the patient's blood pressure, pulse, and oxygen saturations were monitored continuously. The Endoscope was introduced through the mouth, and advanced to the second part of duodenum. The upper GI endoscopy was accomplished without difficulty. The patient tolerated the procedure well. Findings: The Z-line was regular and was found 40 cm from the incisors. The examined esophagus was normal. Three non-bleeding linear gastric ulcers with pigmented material were found at the incisura. The largest lesion was 6 mm in largest dimension. Estimated blood loss: none. A 10 mm scar was found in the duodenal bulb. The scar tissue was healthy in appearance. Impression: - Z-line regular, 40 cm from the incisors. - Normal esophagus. - Non-bleeding gastric ulcers with pigmented material. - Duodenal scar. - No specimens collected. Recommendation: - [facility]. Rashad Grigsby M.D. Rashad Grigsby MD 10/02/2019 3:55:06 PM This report has been signed electronically. Note Initiated On: 10/02/2019 3:17 PM Number of Addenda: 0 I attest to the content of the Intraoperative Record and orders documented therein, exceptions below {[id number]}
[2019-10-02] MEDS ORDERED: PROPOFOL IV EMULSION 10 MG/ML 20 ML VIAL IV ONE (15:59)
[2019-10-02] MEDS ORDERED: LIDOCAINE HCL 2% 2 ML VIAL/AMP(20MG/ML) INFIL ONE (15:59)
--- NOTE | 2019-10-02 16:10 | Anesthesiology Progress Note ---
Date of Service October 02, 2019 Anesthesia Post Procedure Vital Signs Vital Signs: Temp Pulse Pulse Resp BP BP BP 10/02/19 15:54 36 C L 95 H 18 147/74 H 10/02/19 15:23 81 10/02/19 15:07 36 C L 83 18 188/96 H 10/02/19 12:20 71 185/79 H 10/02/19 11:25 36.4 C L 72 19 184/100 H 10/02/19 08:00 69 10/02/19 07:41 66 158/96 H 10/02/19 07:13 36.5 C 64 20 192/100 H 10/02/19 02:28 36.4 C L 70 19 150/73 H 10/01/19 23:45 36.8 C 67 16 208/84 H 10/01/19 20:39 36.3 C L 70 16 175/109 H 10/01/19 19:51 68 20 10/01/19 19:40 68 19 10/01/19 19:31 64 20 10/01/19 19:30 67 17 10/01/19 19:21 68 14 10/01/19 19:16 66 16 208/91 H 10/01/19 19:14 68 19 10/01/19 19:12 13 10/01/19 19:01 69 18 155/108 H 10/01/19 19:00 69 20 10/01/19 18:51 69 10/01/19 18:40 70 21 10/01/19 18:32 72 21 10/01/19 18:31 70 19 183/78 H 10/01/19 18:30 72 18 10/01/19 18:01 70 18 176/83 H 10/01/19 18:00 69 17 10/01/19 17:46 63 22 224/89 H 10/01/19 17:45 63 18 209/181 H 10/01/19 17:44 64 8 L 209/181 H 10/01/19 17:30 65 17 10/01/19 17:00 70 19 10/01/19 16:37 67 19 Pulse Ox Pulse Ox 10/02/19 15:54 98 10/02/19 15:23 10/02/19 15:07 98 10/02/19 12:20 10/02/19 11:25 97 10/02/19 08:00 10/02/19 07:41 10/02/19 07:13 95 10/02/19 02:28 96 10/01/19 23:45 97 10/01/19 20:39 96 96 10/01/19 19:51 97 10/01/19 19:40 98 10/01/19 19:31 98 10/01/19 19:30 97 10/01/19 19:21 98 10/01/19 19:16 98 10/01/19 19:14 98 10/01/19 19:12 10/01/19 19:01 10/01/19 19:00 10/01/19 18:51 10/01/19 18:40 10/01/19 18:32 10/01/19 18:31 10/01/19 18:30 10/01/19 18:01 10/01/19 18:00 10/01/19 17:46 10/01/19 17:45 10/01/19 17:44 97 10/01/19 17:30 10/01/19 17:00 10/01/19 16:37 Transfer of Care Handoff Completed per policy Notes Mental Status: alert / awake / arousable Patient Amnestic to Procedure: Yes Nausea / Vomiting: adequately controlled Pain: adequately controlled Airway Patency, RR, SpO2: stable & adequate BP & HR: stable & adequate Hydration State: stable & adequate Anesthetic Complications: no major complications apparent and Pt Satisfied with anesthetic care
--- NOTE | 2019-10-02 16:13 | Hospitalist Progress Note ---
Date of Service October 02, 2019 Assessment & Plan (1) GI bleed: Due to multiple ulcers seen in the stomach with some mild oozing noted during EGD. - Continue PPI IV for now - Will discuss with GI re: further care (2) Acute blood loss anemia: Due to acute GI bleeding. - As above (3) Hypertension: BPs severely elevated on admission due to missed his meds. BP today is 165/95. - Continue home losartan 100mg daily - Continue hydralazine IV PRN (4) Sleep apnea: Non-compliant at home as pressure set too high. - Continue CPAP at 10 mmHg (5) Pre-diabetes: A1c is 6.9%. - Holding home metformin - Sliding scale insulin (6) Osteoarthritis: Hold Aleve and would recommend tylenol instead. (7) Glaucoma: No acute issues. - Continue home eye drops (8) Hyperlipidemia: - Continue statin (9) DVT prophylaxis: SCDs - No heparin due to bleeding. Admission and Anticipated Discharge Date Admission Date: October 01, 2019 Anticipated date of discharge: 10/03/19 Subjective No further abdominal pain, but having some dark stools. Reports no fevers/chills, chest pain, shortness of breath, abdominal pain, nausea, or vomiting. Physical Exam Constitutional: WD/WN, vitals as above Eyes: EOM intact bilaterally; no conjunctival abnormality ENMT: external ear and nose normal, oropharynx normal Neck: trachea midline, no thyromegaly normal visual inspection Respiratory: normal respiratory effort, lungs clear to auscultation no respiratory distress Cardiovascular: RRR, no murmur, no edema Gastrointestinal (Abdomen): Inspection/Auscultation: abdomen normal to inspection; abdomen not distended Musculoskeletal: no cyanosis or clubbing, extremities motor strength 5/5 Skin: no rashes, warm and dry Neurologic: moves all extremities and awake Psychiatric: Orientation: alert, oriented to person and cooperative Results & Data ([facility]) Vital Signs (Past 12 Hours) Vital Signs Temp Pulse Pulse Resp BP BP Pulse Ox 10/02/19 15:54 36 C L 95 H 18 147/74 H 98 10/02/19 15:23 81 10/02/19 15:07 36 C L 83 18 188/96 H 98 10/02/19 12:20 71 185/79 H 10/02/19 11:25 36.4 C L 72 19 184/100 H 97 10/02/19 08:00 69 10/02/19 07:41 66 158/96 H 10/02/19 07:13 36.5 C 64 20 192/100 H 95 PG Care Time/CCT Total # of Minutes Spent Total Time Spent with Patient: Total time spent is greater than 50% in coordination of care (as documented) at patient's floor/unit and/or counseling patient: Coding Level of Care Code 78086 Subseq Hosp Care Lvl 3 Diagnoses GI bleed K92.2 GI bleed type/associated pathology: unspecified gastrointestinal hemorrhage type Acute blood loss anemia D62 Hypertension I10 Sleep apnea G47.30 Pre-diabetes R73.03 Osteoarthritis M19.90 Glaucoma H40.9 Hyperlipidemia E78.5 DVT prophylaxis Z29.9 (1) GI bleed GI bleed type/associated pathology: unspecified gastrointestinal hemorrhage type Qualified Code(s): K92.2 - Gastrointestinal hemorrhage, unspecified
--- NOTE | 2019-10-02 16:15 | Consultation Report ---
DATE OF CONSULTATION: 10/02/2019 REASON FOR EVALUATION: Melena. 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 The patient presented to the hospital with melena for 2 days. He reports no abdominal pain. The patient has had no hematemesis. His vital signs are normal. At baseline his hemoglobin is 13.3; when seen in the Emergency Room it was 12.4. He was typed and crossed and admitted for further evaluation while being started on a Protonix drip and having his Aleve held. PAST MEDICAL HISTORY: Remarkable for hypertension, sleep apnea, prediabetes, osteoarthritis, glaucoma, and hyperlipidemia. MEDICATIONS: Atorvastatin, Naprosyn, Travatan, losartan and Metformin. ALLERGIES: SULFA. FAMILY HISTORY: Noncontributory. SOCIAL HISTORY: The patient is and lives with his spouse. Former smoker, drinks alcohol in the form of beer. REVIEW OF SYSTEMS: Otherwise negative other than what has stated in his HPI. PHYSICAL EXAMINATION: GENERAL: The patient is overweight, in no acute distress. VITAL SIGNS: Normal. LUNGS: Clear. HEART: Showed normal S1 and S2. Regular rate and rhythm. ABDOMEN: Soft and nontender. EGD was performed in the endoscopy center under propofol sedation. The patient's esophagus was normal. Stomach showed 3 superficial ulcers in the lesser curve of the stomach with some adherent blood, but no active bleeding. Duodenal bulb showed some scarring probably from an old ulcer, but no active ulcer in the duodenal bulb or second portion. Endoscopic treatment of the ulcers was not necessary at this time. IMPRESSION: The patient has gastric ulcers, most likely associated with the Naprosyn that he has been taking for back pain. I recommend that the patient continue taking Protonix for 2 months to heal the ulcers. Will do a stool test for H. pylori and instead of Aleve recommend Tylenol and lidocaine patches for his back pain to prevent further ulcerations.
--- NOTE | 2019-10-02 17:06 | Discharge Summary ---
Date of Service October 02, 2019 Admission HPI Per Admitting Provider For EGD Principal Diagnosis Stomach ulcers Discharge Exam Constitutional WD/WN, vitals as above Eyes EOM intact bilaterally; no conjunctival abnormality ENMT external ear and nose normal, oropharynx normal Neck trachea midline, no thyromegaly normal visual inspection Respiratory normal respiratory effort, lungs clear to auscultation no respiratory distress Cardiovascular RRR, no murmur, no edema Gastrointestinal (Abdomen) Inspection/Auscultation: abdomen normal to inspection; abdomen not distended Musculoskeletal no cyanosis or clubbing, extremities motor strength 5/5 Skin no rashes, warm and dry Neurologic moves all extremities and awake Psychiatric Orientation: alert, oriented to person and cooperative Discharge Data Allergies Allergy/AdvReac Type Severity Reaction Status Date / Time Sulfa (Sulfonamide Allergy Mild RASH Verified 10/01/19 14:56 Antibiotics) Consultations 10/01/19 17:40 ED Decision to Admit Stat 10/01/19 20:39 Consult Gastroenterology Routine Procedures Performed Operation Date: 10/02/19 17:45 Actual Procedures p Esophagogastroduodenoscopy - Rashad Grigsby Ordered Studies 10/01/19 15:04 CT abd pelvis IV con only Stat Hospital Course (1) GI bleed: Due to multiple ulcers seen in the stomach with some mild oozing noted during EGD. - PPI daily x 2 months. - Stop Aleve; start Tylenol and lidocaine patch instead. - Follow up H. pylori testing as an outpatient. (2) Acute blood loss anemia: Due to acute GI bleeding. - As above (3) Hypertension: BPs severely elevated on admission due to missed his meds. BP today is 165/95. - Continue home losartan 100mg daily - Continue hydralazine IV PRN - Will need to get BP check with PCP in 1-2 weeks. (4) Sleep apnea: Non-compliant at home as pressure set too high. - Continue CPAP at 10 mmHg (5) Pre-diabetes: A1c is 6.9%. - Resume home metformin on discharge. (6) Osteoarthritis: Hold Aleve and would recommend Tylenol instead. (7) Glaucoma: No acute issues. - Continue home eye drops (8) Hyperlipidemia: - Continue statin (9) DVT prophylaxis: SCDs - No heparin due to bleeding. Total Time Total Time Spent Total Time Spent (In Minutes): 35 Total Time Includes: Medication Reconciliation Discharge Plan Discharge Items Patient Disposition: Home - Self-Care Reason For Visit: GI BLEED Discharge Diagnosis: Stomach ulcers -> Presumed to be from NSAID use (ibuprofen, Motrin, naproxen) Activity: Resume your previous activity Non-emergency contact: Primary Care Provider Call non-emergency contact if: your symptoms worsen, your pain is not controlled, your pain is worsening and your temperature is above 101 Follow-up/Referrals: Matilda Fallon MD [Primary Care Provider] - Diet: Carb Consistent or DM2 and Heart Healthy Addtl Attending Provider Instructions: You were admitted to the hospital for dark stools. This was caused by stomach ulcers. The stomach ulcers were likely caused by the naproxen that you were using for your back pain. We would like you to switch from naproxen to Tylenol (acetaminophen) for your back pain. We also sent in lidocaine patches to the pharmacy to help. If these are not covered by your insurance, you can also try A[employer]-[place] with lidocaine patches over the counter which are about $6-$8 per box at a pharmacy. Please take the pantoprazole 1 time per day for the next two months. This will help your stomach ulcers heal and avoid any further bleeding. You can stop the pantoprazole after 2 months. However, if you restart any NSAID (for example, naproxen, ibuprofen, Motrin, Aleve, etc.), you need to be on a stomach acid que to prevent more ulcers from forming. Please follow up with your PCP about the stool testing that is still pending. If it is positive, you may need to start on antibiotics. You might have some dark stools over the next few days as the blood that is already in your intestines is passed. Your stool should gradually get equipment scheduler and more back to normal. If it gets darker, if you feel lightheaded or dizzy, if you pass out, or have other concerning symptoms, call your doctor or go to the Emergency Department. Pending Studies at Discharge: Yes (H. pylori stool testing) Stand-Alone Forms: My [employer] Ratio, Smoking Cessation Medications and DC Order Prescriptions: New pantoprazole 40 mg tablet,delayed release (DR/EC) 40 mg PO DAILY Qty: 30 RF: 0 lidocaine 5 % adhesive patch,medicated 1 patch TOP DAILY Qty: 30 RF: 0 acetaminophen [Mapap (acetaminophen)] 325 mg Tablet 650 mg PO Q4H PRN (Reason: pain) Qty: 1 RF: 0 Continued losartan 50 mg Tablet 100 mg PO QAM RF: 0 metformin 500 mg tablet 1,000 mg PO BID RF: 0 atorvastatin 40 mg Tablet 40 mg PO QAM RF: 0 travoprost [Travatan Z] 0.004 % Drops 1 drp OPB HS RF: 0 Discontinued naproxen sodium [Aleve] 220 mg Capsule 2 tab PO QAM RF: 0 Discharge Orders: Discharge Order (Routine); Ordered 10/02/19 Ordered By: Eber Lagunas/Other Patient Handouts: Diabetes Mcc Complications, Diabetes Healthy Meals, Understanding Carbohydrates, Diabetes Exercise Benefits, A1C Admission Data Admit Date/Time: 10/01/19 19:22 Attending Provider: Eber Daniels Admit Provider: Beata Bliss Primary Care Provider: Matilda Fallon Other Providers: Rashad Grigsby ; Eber Daniels Other Interventions: Discharge Summary Assessment (RN) Last Done: 10/02/19 16:20 Coding Level of Care Code 00778 OBS Care - Discharge Diagnoses GI bleed K92.2 GI bleed type/associated pathology: unspecified gastrointestinal hemorrhage type Acute blood loss anemia D62 Hypertension I10 Sleep apnea G47.30 Pre-diabetes R73.03 Osteoarthritis M19.90 Glaucoma H40.9 Hyperlipidemia E78.5 DVT prophylaxis Z29.9
--- NOTE | 2019-10-02 22:46 | Electrocardiogram Report ---
Test Reason : Blood Pressure : / mmHG Vent. Rate : 069 BPM Atrial Rate : 069 BPM P-R Int : 142 ms QRS Dur : 078 ms QT Int : 410 ms P-R-T Axes : 056 012 040 degrees QTc Int : 439 ms Normal sinus rhythm Possible Left atrial enlargement Borderline ECG When compared with ECG of 01-JUL-2007 13:06, QT has lengthened Confirmed by Guillermo Membreno ([id number]) on 10/02/2019 10:46:28 PM Referred By: REFERRED SELF Confirmed By:Guillermo Membreno
== END 2019-10-02 18:10 | disposition home or self-care (01) ==
LOC: ED 14:29 → 2S 14:29 → SUATTDRO 19:22 → 2S 20:20

== ENCOUNTER 2021-03-11 05:22 | Inpatient (IN) ==
--- NOTE | 2021-02-13 11:24 | PAT Medication Instructions ---
Medication Instructions Date of Service February 13, 2021 Home Medications travoprost [Travatan Z] 1 drp OPB HS losartan 100 mg PO QAM metformin 1,000 mg PO BID ibuprofen 600 mg PO Q6H PRN ASK your surgeon for instructions ibuprofen 600 mg PO Q6H PRN DO NOT take the morning of surgery losartan 100 mg PO QAM metformin 1,000 mg PO BID Take evening before surgery travoprost [Travatan Z] 1 drp OPB HS metformin 1,000 mg PO BID Other Notes If you have any questions please call us at [phone] or [phone] or [phone] or [phone]
--- NOTE | 2021-02-17 15:28 | Anesthesiology Consultation ---
Date of Service February 17, 2021 Assessment & Plan (1) Encounter for pre-operative examination: - COVID screening: Per assessment on 02/17: Travel screen- Returned from travel to [facility] 02/14 via car. Travelled for vacation with and granddaughter (all vaccinated). No large crowds and masked in public. Preop COVID testing will be > 2 weeks prior to preop COVID testing. No known COVID-19 positive contacts or current COVID-19 related symptoms. Surgeon arranging preop COVID testing. Awaiting results. - Check BSG AM DOS - PCP office visit (02/17/21): " He does note a past history of exertional shortness of breath, although appropriate for activity and fitness level. He is able to climb stairs on his own. Denies any anginal symptoms. He did have the symptoms of shortness of breath worked up in 2014 with a normal stress test. Today we did get an EKG which showed normal sinus rhythm, no ST changes. we will have cardiology review.. RCRI score is low to moderate risk for orthopedic surgery at 3.9% risk. I discussed this with the patient. While his conditions are stable, well controlled, he has a number of risk factors that are not captured by this calculator. His risk factors include#1 tenuous management of chronic conditionsdiabetes, hypertension although well controlled over the past 4 months #2 obesity/QUOC." Chart Review Chart Review: Acceptable Risk for Surgery (pending preop EKG) and Patient seen in Pre Admission Testing History Surgery Operation Date: 03/11/21 10:20 Proposed Procedures p Right Total Knee Arthroplasty - Joe Preciado MD Height/Weight Height: 5 ft 8 in Weight: 124.6 kg Allergies Allergy/AdvReac Type Severity Reaction Status Date / Time Sulfa (Sulfonamide Allergy Intermediate Hives Verified 02/13/21 11:05 Antibiotics) Medications Home Medications Medication Instructions Recorded Confirmed Last Taken travoprost [Travatan Z] 1 drp OPB HS 10/21/18 02/13/21 12/24/20 losartan 100 mg PO QAM 10/01/19 02/13/21 12/24/20 metformin 1,000 mg PO BID 10/02/19 02/13/21 12/24/20 ibuprofen 600 mg PO Q6H PRN 02/13/21 02/13/21 Unknown Past Medical History Medical History Chronic anemia baseline hgb 12-13 range per chart review Diabetes mellitus, type 2 NIDDM Glaucoma History of stomach ulcers 1+ years ago Hyperlipidemia Hypertension Morbid obesity Osteoarthritis Sleep apnea No CPAP currently > "does not work" per pt Spinal stenosis Exercise / Class Metabolic Activity III < 4 Walking/Shop/Light housework (one FS (no CP, + SOB)) Past Family History Family History Father Family history of diabetes mellitus Mother Family history of diabetes mellitus Other No family history of adverse response to anesthesia Past Surgical History Surgical History History of appendectomy History of arthroscopy Right knee History of carpal tunnel release R/L History of colonoscopy History of esophagogastroduodenoscopy (EGD) EGD (10/02/19): MAC at [facility] History of tonsillectomy and adenoidectomy History of tooth extraction S/P epidural steroid injection Trigger finger Left hand trigger finger release Past Anesthesia History No Hx of Anesthesia Complications and No Family Hx of Anesthesia Complications History of PONV No Hx of PONV and No Hx of Motion Sickness Social History Smoking Status: Former smoker tobacco type: cigarettes Do You Dip or Chew Tobacco: No Smoking End Date: Quit 2001 Hx Alcohol Use: Yes Alcohol type: beer alcohol intake frequency: holidays/special occasions only Hx Substance Use: No substance use type: does not use Review of Systems Patient denies chest pain, shortness of breath, fever, chills, cough, wheezing, palpitations. Physical Exam Vital Signs VITALS BP 142/2 P 72 TEMP 98.8 SP02 97%RA RESP 18 PHYSICAL Full cervical extension range of motion. Full TMJ range of motion. TMD 3.5 finger breaths Mallampati Score 3 Dentition: missing molars, + cap Lungs: clear throughout to auscultation Cardiac: regular rate and rhythm, no murmurs noted Spine: normal Carotid arteries: negative bruit Extremities: no edema Very short, thick neck Lab Results Anesthesia Preop Results Results Anesthesia Widget: WBC 9.49 K/uL (4.8-10.8) 02/17/21 Hgb 12.5 g/dL (14.0-18.0) L 02/17/21 Hct 39.6 % (42-52) L 02/17/21 Plt 178 K/uL (130-400) 02/17/21 Na 143 mmol/L (136-145) 02/17/21 K 4.0 mmol/L (3.5-5.1) 02/17/21 Cl 107 mmol/L (98-107) 02/17/21 CO2 35 mmol/L (21-32) H 02/17/21 BUN 16 mg/dl (7-18) 02/17/21 Creat 1.17 mg/dl (0.6-1.4) 02/17/21 Glucose Level 145 mg/dl (70-99) H 02/17/21 PT 10.3 Seconds (9.0-12.0) 02/17/21 PTT 26.2 Seconds (21.0-31.0) 02/17/21 INR 1.0 (0.9-1.1) 02/17/21 Blood Type B Negative 02/17/21 Antibody Screen NEGATIVE 02/17/21 Testing Chest X-Ray Date: 02/17/21 FINDINGS: The cardiac silhouette is top normal in size. The lungs are clear. No pleural effusions. No pneumothorax. Calcification within the left upper quadrant is likely splenic. There is an old, healed right clavicle fracture. IMPRESSION: No acute process. Stress Test Date: 12/02/14 Type: exercise LVEF 60%. Negative stress exercise ECG/stress echo for ischemia at 83% MPHR. 6 METS.
[2021-03-11] MEDS ORDERED: METOCLOPRAMIDE HCL 10 MG TABLET PO SCH (06:00)
[2021-03-11] MEDS ORDERED: TRANEXAMIC ACID 1,000 MG **IV Pre-op IV SCH (06:00)
[2021-03-11] MEDS ORDERED: traMADol HCL 50 MG TABLET PO SCH (06:00)
[2021-03-11] MEDS ORDERED: ACETAMINOPHEN 500 MG TAB PO SCH (06:00)
[2021-03-11] MEDS ORDERED: ROPIVACAINE 0.5% HCL/PF 150 MG, BUPIVACAINE 0.75% MPF 20 ML, EPINEPHrine 0.15 MG, Ketor... INFIL SCH (06:00)
[2021-03-11] MEDS ORDERED: LR 500ML BOLUS, THEN 15ML/HR IV SCH (06:00)
[2021-03-11] MEDS ORDERED: cloNIDine HCL 0.1 MG/24 HR TRANSDERM SYS TD SCH (06:00)
[2021-03-11] MEDS ORDERED: TRANEXAMIC ACID 1,000 MG **IV Intra-op IV SCH (06:00)
[2021-03-11] MEDS ORDERED: LR 60ML/HR IV SCH (06:00)
[2021-03-11] MEDS ORDERED: FAMOTIDINE 20 MG TAB PO SCH (06:00)
[2021-03-11] MEDS ORDERED: oxyCODONE HCL 10 MG TABCR (OxyCONTIN) PO SCH (06:00)
[2021-03-11] MEDS ORDERED: GABAPENTIN 300 MG CAP ONE (06:06)
[2021-03-11] MEDS ORDERED: BUPIVACAINE 0.5 % 5 MG/1 ML PF 10ML VIAL ONE (06:26)
[2021-03-11] MEDS ORDERED: ROPIVACAINE 0.5% 5 MG/ML 30 ML VIAL ONE (06:26)
[2021-03-11] MEDS ORDERED: EPINEPHrine INJ 1 MG/ML AMP ONE (06:26)
[2021-03-11] MEDS ORDERED: ORTHO JOINT ANESTHETIC ONE (06:36)
[2021-03-11] MEDS ORDERED: MIDAZOLAM HCL 1 MG/ML 2ML VIAL ONE (06:38)
[2021-03-11] MEDS ORDERED: VANCOMYCIN HCL 1000MG/20ML VIAL ONE ×2 (06:50→07:17)
--- NOTE | 2021-03-11 06:59 | History & Physical Bridge Note ---
Date of Service March 11, 2021 History & Physical Bridge Note I have examined the patient, reviewed the History & Physical and in the interval since the performance of the History & Physical I have noted the following changes of clinical significance: no changes noted, BP high, stopped all meds ??
[2021-03-11] MEDS ORDERED: HYDROmorphone INJ 1 MG/ML SYRINGE IV PRN (08:23)
[2021-03-11] MEDS ORDERED: fentaNYL citrate 100 MCG/2 ML VIAL IV PRN (08:23)
[2021-03-11] MEDS ORDERED: ONDANSETRON INJ 2 MG/ML 2 ML VIAL IV PRN ×2 (08:23→13:24)
[2021-03-11] MEDS ORDERED: ATROPINE SULFATE 0.1 MG/ML 10ML SYR IV PRN (08:23)
[2021-03-11] MEDS ORDERED: ePHEDrine sulfate 50 MG/ML AMP IV PRN (08:23)
[2021-03-11] MEDS ORDERED: PHENYLEPHRINE 100MCG/ML 5ML SYR IV PRN (08:23)
[2021-03-11] MEDS ORDERED: LIDOCAINE 2% 2 ML VIAL/AMP(20MG/ML) INFIL ONE (09:09)
[2021-03-11] MEDS ORDERED: PROPOFOL IV EMULSION 10 MG/ML 20 ML VIAL IV ONE ×2 (09:09)
--- NOTE | 2021-03-11 10:53 | Operative Report ---
Post Operative Report Pre & Post Diagnosis Operation Date: 03/11/21 07:00 Pre-Op Diagnosis: Right Knee degenerative joint disease Post-Op Diagnosis: Right Knee degenerative joint disease I identified the patient and participated in the time-out.: Yes Procedure Operation Date: 03/11/21 07:00 Actual Procedures p Right Total Knee Arthroplasty(Right) - Joe Preciado MD Surgeon Joe Preciado MD Housing Relocation Dulce Presley physicians shop assistant no resident or fellow available. Estimated Blood Loss 5 Findings Consistent with Post-Op Diagnosis Short patellar tendon. Medial compartment degenerative change. Extensive scarring. Specimens Bone and soft tissue. Drains None Anesthesia Type MAC Spinal Regional Complications None Disposition Disposition: Recovery Room Indications Joe 65 years old and he has right knee arthritis refractory to nonsurgical methods of management and he wishes to have operative intervention in the form of a knee replacement. Description of Procedure Informed consent obtained. Patient identified. He identified the operative site as the right knee. I marked with my initials. A preoperative surgical timeout was performed and a preop dose of IV antibiotics was given. He was taken to the operating room positioned supine on the OR table. A tourniquet was applied to the right thigh and a bump under the right hip and under the right calf. The leg was prepped and draped in the usual sterile fashion. DVT prophylaxis with foot pumps intraoperatively early mobility and Lovenox postoperatively. The exam under anesthesia revealed range of motion 0/3/115. The knee was stable to varus and valgus stress. Midline longitudinal incision was made followed by medial parapatellar arthrotomy. There was significant scarring around the patella and the patellar tendon was short resulting in difficulty with lateral displacement and eversion of the patella. The retropatellar fat pad was resected. The synovial reflection in the lateral gutter was released. Soft tissue on the anterior aspect distal femur was released. A medial release on the tibia was performed. The patella was able to be everted but the patellar tendon attached just centimeter or so distal to the crest of the plateau making exposure anteversion difficult. I inserted a pin to prevent avulsion and eventually after trying other releases around the patella and the lateral gutter I needed to do a quadriceps snip up into the vastus lateralis. The tendon at this area was se parated into 2 portions on the superior lateral aspect. I went ahead and imbricated this together with some #1 Vicryl. Thereafter was able to better jamin the patella but still the patellar tendon which was enlarged was obstructing the lateral compartment. There were grade 3 changes of the patella. The lateral compartment was relatively normal with an intact meniscus. The trochlea also had grade 3 changes. There were wholesale grade 4 changes on the femoral condyle over its entire area and a thin rim of cartilage remaining on the tibia. Marginal osteophytes are noted throughout the knee and these were removed as well. There were no loose bodies. I resected the cruciate ligaments and exposed the tibial plateau after resecting the menisci. The tibial tubercle was marked. A harbor pilot hole was placed just in front of and between the tibial spines and an intramedullary alignment guide was inserted. The guide was set to resect 10 mm off of the lateral side corresponding to a 4 mm cut medially. This was a 0 degree cutting block. This was pinned in place and the extra medullary alignment guide showed a few degrees of posterior slope which was partially corrected by torquing the guide and inserting another pin. The coronal alignment bisected the ankle joint and the second ray. The guide was pinned in place and this cut was carefully made using the large and small sawblade. I cannot thoroughly cut the entire plateau and had to freehand the far lateral and posterior medial aspect. I checked that the surface was flat and a meter recut as necessary. Flat in all planes. Then went ahead and drilled a harbor pilot hole in the distal femur inserted the distal femoral cutting guide 12 mm thick cut with a 6 degree valgus angle based upon preoperative templating. The guide was pinned into place and that cut was made. The extension gap was a symmetrical 10. I then marked out the transepicondylar access and applied the distal femoral sizing guide. It was a 4-1/2. I pinned i t for a 5 and then used a anterior down size 4 cutting block to make the cuts without notching. Collateral ligaments were protected. The back of the knee was inspected and osteophytes posterior medially were removed. The box cutting guide was applied and lateralized. This box cut was made and the trial component was inserted fitting well. The tibia was sized to a 4 and it was lateralized. Pinned in place keel was drilled and punched and trialing was performed. The knee was fully straight without any hyperextension. The knee was stable in full extension had 1+ laxity at 30 degrees for the LCL and was stable at 90. The patella measured 24 mm in thickness and the guide was set to preserve 15 mm of bone. The provided guide was utilized and the patella was resected. The residual thickness was 15 mm. The 38 mm 3 peg oval dome patella was applied distal lysed and medialized. It was aligned to the trochlea of the knee and the lug holes were drilled. Tracking showed lateral subluxation with no hands technique. This was corrected once the tourniquet was let down. The trial components were removed. The canals were plugged. Ortho joint mix was injected in the back of the knee and the bony surfaces were prepared with meticulous irrigation. 2 bags of Simplex P cement were mixed. 2 g of vancomycin per bag for total 4 g of vancomycin were pulverized and mixed into the cement. The cement was mixed for 1 minute and then the femur tibia and patella were cemented into place and the knee was held in full extension told cement hardened. This occurred at 130 minutes of inflation of the tourniquet which was then let down. There was no significant bleeding and meticulous hemostasis was performed. The back of the knee was inspected and some cement flakes were removed. There was no notable bleeding. The back of the knee was irrigated and trialing demonstrated that the size 10 was appropriate with the after mentioned laxity profile. The final 10 mm thick polyethylene insert was applied. Patellar tracking was fine with no hands technique. After the extensor mechanism was closed the gravity assisted flexion was 115 degrees. The knee had 0 degrees of extension. 1+ LCL laxity in mid position otherwise stable. Composite patellar thickness was 24 mm. The quad tendon was repaired using interrupted #2 FiberWire from the equator of the patella above. I reinforced this with running #1 Vicryl in a locked fashion and also repaired the quadriceps snip in a likewise fashion. The proximal and distal extents of the snip were incorporated into the medial quad tendon. Below the equator the patella interrupted and running 0 Vicryl were utilized.. 0 and 2-0 Vicryl in the skin followed by sheela. Leg was cleaned with wet and dry sponges bulky soft sterile dressing was applied Xeroform 4 x 4's ABD cast padding full-length Stewart wrap plus knee immobilizer. Patient was awakened from anesthesia without difficulty and taken to the recovery room in stable condition. There were no complications. The resected bone was sent for specimen. Counts were correct and blood loss is estimated to be 5 cc. At the conclusion the operation spoke the patient's informed her of my findings and postop instructions were given. Lovenox will start the evening of surgery and he will be given TXA. He will be rehabilitated according to the TKA protocol. He will receive a routine course of postop IV antibiotics. Components inserted with a [employer] PFC Sigma rotating platform knee. 38 mm 3 peg oval dome patella size 4 keeled tibial tray and a size 4 posterior stabilized right femur with a 10 mm thick mobile-bearing posterior stabilized polyethylene insert. I attest to the content of the Intraoperative Record and any orders documented therein. Any exceptions are noted below.
--- NOTE | 2021-03-11 11:09 | Operative Report ---
Post Operative Report Pre & Post Diagnosis Operation Date: 03/11/21 07:00 Pre-Op Diagnosis: Right Knee degenerative joint disease Post-Op Diagnosis: Right Knee degenerative joint disease I identified the patient and participated in the time-out.: Yes Procedure Operation Date: 03/11/21 07:00 Actual Procedures p Right Total Knee Arthroplasty(Right) - Joe Preciado MD Surgeon Naye Hogue. Purchasing Department Clerk Dulce Presley physicians research study assistant no resident or fellow available. Estimated Blood Loss 5 Findings Consistent with Post-Op Diagnosis DJD right knee Specimens Bone and soft tissue Drains None Description of Procedure Patient was taken to the operating room, placed under anesthesia, given 3gm IV ancef for surgical prophylaxis. Time out performed, prepped and draped in routine sterile fashion. I was present during the entire case, please see Dr. Preciado's operative report for further detail. Patient was awakened and taken to the recovery room in stable condition. I attest to the content of the Intraoperative Record and any orders documented therein. Any exceptions are noted below.
[2021-03-11] MEDS: LABETALOL HCL IV 5 MG/ML 20ML IV PRN ×3 (11:11→11:25)
[2021-03-11] MEDS ORDERED: PHARMACY GLYCEMIC MGMT CONSULT PRN (11:15)
[2021-03-11] MEDS ORDERED: hydrALAZINE HCL 20 MG/ML VIAL IV STA (11:28)
--- NOTE | 2021-03-11 11:44 | Anesthesiology Progress Note ---
Date of Service March 11, 2021 Anesthesia Post Procedure Vital Signs Vital Signs: Temp Pulse Pulse Resp BP Pulse Ox 03/11/21 11:40 36.6 C 70 15 156/96 H 95 03/11/21 11:30 68 15 149/105 H 94 03/11/21 11:20 70 14 138/100 93 03/11/21 11:10 75 14 148/109 H 94 03/11/21 11:00 77 14 146/112 H 99 03/11/21 10:52 36.4 C L 78 16 153/125 H 99 03/11/21 05:51 37.1 C 73 20 209/110 H 96 Pain Intensity Right Knee: Pain Intensity: 1 Transfer of Care Handoff Completed per policy Notes Mental Status: alert / awake / arousable Patient Amnestic to Procedure: Yes Nausea / Vomiting: adequately controlled Pain: adequately controlled Airway Patency, RR, SpO2: stable & adequate BP & HR: stable & adequate and see Notes below Hydration State: stable & adequate Neuraxial Anesthesia: was administered and sensory block is resolving Anesthetic Complications: no major complications apparent and Pt Satisfied with anesthetic care Notes: The patient had significant hypertension preoperatively due to not taking his BP meds for several days. He had a spinal anesthetic with a block and tolerated the procedure well. He was treated with labetalol and hydralazine in PACU and his BP is now 130s/80s. His other vital signs are stable. He is awake and comfortable. The patient was instructed to not skip his BP meds for several days if he has surgery again and to follow the preoperative instructions for any medications.
--- NOTE | 2021-03-11 11:55 | XRay Report ---
XR knee RT 1 or 2V routine CLINICAL HISTORY: Surgical Post Op COMPARISON: Right knee radiograph January 06, 2021. FINDINGS: Alignment of the total right knee arthroplasty is anatomic. No periprosthetic fracture or unexpected radiopaque foreign body. There are skin sheela. IMPRESSION: Expected findings following total right knee arthroplasty. ACT 112: Negative or not required by law. Electronically signed by: Grupo Li M.D. 03/11/2021 11:54 AM
[2021-03-11] MEDS ORDERED: traMADol HCL 50 MG TABLET PO PRN (13:24)
[2021-03-11] MEDS ORDERED: NALOXONE HCL 0.4 MG/1 ML VIAL/CARP IV PRN (13:24)
[2021-03-11] MEDS ORDERED: METOCLOPRAMIDE HCL INJ 5 MG/ML 2 ML VIAL IV PRN (13:24)
[2021-03-11] MEDS ORDERED: bisacodyL 10 MG SUPP PR PRN (13:24)
[2021-03-11] MEDS ORDERED: HYDROmorphone INJ 0.5 MG/0.5 ML SYR IV PRN (13:24)
[2021-03-11] MEDS: CHECK CLONIDINE PATCH PLACEMENT SCH ×3 (14:45→23:13)
[2021-03-11] MEDS: INSULIN ASPART 100 UNITS/ML 3 ML PEN SC SCH ×3 (15:01→21:55)
[2021-03-11] MEDS: SODIUM CHLORIDE 0.9% 1000ML 1,000 ML IV SCH ×2 (15:18→23:13)
[2021-03-11] MEDS: ACETAMINOPHEN 500 MG TAB PO SCH ×2 (15:20→20:55)
[2021-03-11] MEDS: KETOROLAC TROMETHAMINE 15 MG/ML VIAL IV SCH ×2 (15:21→20:55)
[2021-03-11] MEDS: LOSARTAN POTASSIUM 50 MG TAB PO SCH (16:32)
[2021-03-11] MEDS: amLODIPine BESYLATE 5 MG TAB PO SCH (16:32)
--- NOTE | 2021-03-11 16:41 | Orthopedic Progress Note ---
Date of Service March 11, 2021 Assessment & Plan (1) Status post total right knee replacement: Plan: POD 0 - right total knee arthroplasty Allowed out of bed, wbat RLE with walker Ice to right knee as needed for pain/swelling Regular diet as ordered Lovenox to start this evening for DVT prophylaxis. AV impulse boots and Teds stockings in place IS as ordered Pain medication as prescribed DM diet - glucose management consult place. Appreciate assistance. PT/OT to start tomorrow Case management for disposition - plan for discharge to home tomorrow with home health. Will discuss findings with Dr. Preciado. Will re-eval in the AM (2) Hypertension: Plan: Continue Hydralazine as ordered Discussed with nursing, chiloay to give regular BP home meds this afternoon. May need hospitalist consult if BP continues to be uncontrolled or elevated in lieu of treatment. Admission and Anticipated Discharge Date Admission Date: March 11, 2021 Subjective Patient doing well, resting in bed comfortably. No complaints of pain, chest pain or shortness of breath. States that he's eating well and no issues with nausea or vomiting. Has not been out of bed yet. Physical Exam Musculoskeletal: Dressings intact right leg. Distal N/V function normal. Full strength with platarflexion and dorsiflexion. Toes move well. Distal sensation normal. No calf tenderness, ice on right knee. Results & Data ([facility]) Vital Signs (Past 12 Hours) Vital Signs Temp Pulse Pulse Pulse Resp BP Pulse Ox 03/11/21 16:04 36.8 C 70 16 169/81 H 96 03/11/21 15:15 36.3 C L 72 18 173/97 H 96 03/11/21 14:10 36.7 C 70 18 172/80 H 97 03/11/21 13:40 36.8 C 69 18 168/86 H 98 03/11/21 13:10 36.7 C 71 18 166/84 H 98 03/11/21 12:40 70 12 139/91 95 03/11/21 12:25 69 12 129/99 96 03/11/21 12:10 70 16 145/107 H 96 03/11/21 12:00 69 12 126/92 96 03/11/21 11:50 67 12 122/101 H 93 03/11/21 11:40 36.6 C 70 15 156/96 H 95 03/11/21 11:30 68 15 149/105 H 94 03/11/21 11:20 70 14 138/100 93 03/11/21 11:10 75 14 148/109 H 94 03/11/21 11:00 77 14 146/112 H 99 03/11/21 10:52 36.4 C L 78 16 153/125 H 99 03/11/21 05:51 37.1 C 73 20 209/110 H 96 Diagnostic Findings XR knee RT 1 or 2V routine CLINICAL HISTORY: Surgical Post Op COMPARISON: Right knee radiograph January 06, 2021. FINDINGS: Alignment of the total right knee arthroplasty is anatomic. No periprosthetic fracture or unexpected radiopaque foreign body. There are skin sheela. IMPRESSION: Expected findings following total right knee arthroplasty.
[2021-03-11] MEDS: ceFAZolin 2000MG 2,000 MG/15 ML SYR IV SCH ×2 (16:55→23:13)
[2021-03-11] MEDS: SENNA 8.6 MG TAB PO SCH (20:54)
[2021-03-11] MEDS: TRAVOPROST Z 0.004% OPH SOLN 2.5 ML BTL OPB SCH ×2 (20:54→20:57)
[2021-03-11] MEDS: TAMSULOSIN HCL 0.4 MG CAP PO SCH (20:54)
[2021-03-11] MEDS: DOCUSATE SODIUM 100 MG CAP PO SCH (20:55)
[2021-03-11] MEDS: ENOXAPARIN INJ 30 MG/0.3 ML SYR SQ SCH (20:56)
[2021-03-11] MEDS ORDERED: INSULIN GLARGINE SOLOSTAR 100 UNITS/ML 3 ML PEN SC SCH (21:00)
[2021-03-11] MEDS: hydrALAZINE HCL 20 MG/ML VIAL IV PRN (21:04)
[2021-03-12] MEDS: KETOROLAC TROMETHAMINE 15 MG/ML VIAL IV SCH ×2 (03:04→09:04)
[2021-03-12] MEDS: oxyCODONE HCL IR 5 MG TAB (IMMEDIATE RELEASE) PO PRN (03:12)
[2021-03-12] MEDS: ACETAMINOPHEN 500 MG TAB PO SCH ×3 (05:32→20:55)
[2021-03-12 05:57] LABS: Hemoglobin 11.4 g/dL (14.0-18.0); Mean Corpuscular Hgb Conc 31.7 g/dL (32-36); Mean Corpuscular Volume 85.1 fL (80-100); Mean Platelet Volume 10.9 fL (7.4-10.4); Platelet Count 145 K/uL (130-400); RDW Coefficient of Variation 14.6 % (11.5-14.5); RDW Standard Deviation 45.8 fL (36.4-46.3); Red Blood Count 4.23 M/uL (4.7-6.1)
[2021-03-12 06:23] LABS: BUN Creatinine Ratio 13.5 (10-20); Calcium 8.4 mg/dl (8.5-10.1); Creatinine Clr Calc Pharmacy 77.8 ml/min; Est GFR (African American) 73.6 ml/min; Est GFR (Non-African American) 63.5 ml/min; Potassium 4.2 mmol/L (3.5-5.1)
[2021-03-12] MEDS: DOCUSATE SODIUM 100 MG CAP PO SCH ×2 (09:03→20:11)
[2021-03-12] MEDS: MULTIVITAMIN TAB PO SCH (09:03)
[2021-03-12] MEDS: CHECK CLONIDINE PATCH PLACEMENT SCH ×2 (09:05→16:28)
[2021-03-12] MEDS: INSULIN ASPART 100 UNITS/ML 3 ML PEN SC SCH ×4 (09:07→20:58)
[2021-03-12] MEDS: amLODIPine BESYLATE 5 MG TAB PO SCH (09:39)
[2021-03-12] MEDS: LOSARTAN POTASSIUM 50 MG TAB PO SCH (09:39)
--- NOTE | 2021-03-12 09:42 | Orthopedic Progress Note ---
Date of Service March 12, 2021 Assessment & Plan (1) Status post total right knee replacement: Plan: Doing well. Surgical findings discussed. Blood pressure running a little bit high. He was off his meds for for 5 days preop. We will see how he does today. Importance of adherence to medication protocols is stressed. Especially diabetes control postoperatively. We talked about appropriate activity levels. Bathing wound care medications. Home health services will likely be set up. If he does well we may consider discharge today after reviewing results of PT this afternoon. X-rays look fine. DVT prophylaxis with Lovenox has been started. (2) Hypertension: Admission and Anticipated Discharge Date Admission Date: March 11, 2021 Subjective Doing well. Pain is well controlled. No problems are noted. Physical Exam Physical Exam: Right leg examined. Posterior tib 1+ dressing clean and dry sensation intact ankle and toe plantarflexion dorsiflexion and eversion 5 out of 5. Results & Data ([facility]) Vital Signs (Past 12 Hours) Vital Signs Temp Pulse Pulse Pulse Resp BP Pulse Ox 03/12/21 07:59 36.8 C 81 18 179/97 H 97 03/12/21 04:15 82 148/85 H 03/12/21 02:58 37.1 C 75 16 164/75 H 95 03/11/21 23:12 68 137/75 03/11/21 23:03 36.9 C 65 16 95 Laboratory Results 03/12/21 03/12/21 03/12/21 Range/Units 08:09 05:33 05:33 WBC 9.90 (4.8-10.8) K/uL RBC 4.23 L (4.7-6.1) M/uL Hgb 11.4 L (14.0-18.0) g/dL Hct 36.0 L (42-52) % MCV 85.1 (80-100) fL MCH 27.0 (25-34) pg MCHC 31.7 L (32-36) g/dL RDW Std Deviation 45.8 (36.4-46.3) fL RDW Coeff of Anisha 14.6 H (11.5-14.5) % Plt Count 145 (130-400) K/uL MPV 10.9 H (7.4-10.4) fL Sodium 138 (136-145) mmol/L Potassium 4.2 (3.5-5.1) mmol/L Chloride 108 H (98-107) mmol/L Carbon Dioxide 27 (21-32) mmol/L Anion Gap 3.0 (3-11) BUN 16 (7-18) mg/dl Creatinine 1.18 (0.6-1.4) mg/dl Est Cr Clr Drug Dosing 77.8 ml/min Est GFR ( Amer) 73.6 ml/min Est GFR (Non-Af Amer) 63.5 ml/min BUN/Creatinine Ratio 13.5 (10-20) Glucose 169 H (70-99) mg/dl POC Glucose 154 H (70-99) mg/dl Calcium 8.4 L (8.5-10.1) mg/dl 03/11/21 03/11/21 03/11/21 Range/Units 20:31 17:11 13:42 WBC (4.8-10.8) K/uL RBC (4.7-6.1) M/uL Hgb (14.0-18.0) g/dL Hct (42-52) % MCV (80-100) fL MCH (25-34) pg MCHC (32-36) g/dL RDW Std Deviation (36.4-46.3) fL RDW Coeff of Anisha (11.5-14.5) % Plt Count (130-400) K/uL MPV (7.4-10.4) fL Sodium (136-145) mmol/L Potassium (3.5-5.1) mmol/L Chloride (98-107) mmol/L Carbon Dioxide (21-32) mmol/L Anion Gap (3-11) BUN (7-18) mg/dl Creatinine (0.6-1.4) mg/dl Est Cr Clr Drug Dosing ml/min Est GFR ( Amer) ml/min Est GFR (Non-Af Amer) ml/min BUN/Creatinine Ratio (10-20) Glucose (70-99) mg/dl POC Glucose 134 H 163 H 138 H (70-99) mg/dl Calcium (8.5-10.1) mg/dl 03/11/21 Range/Units 10:52 WBC (4.8-10.8) K/uL RBC (4.7-6.1) M/uL Hgb (14.0-18.0) g/dL Hct (42-52) % MCV (80-100) fL MCH (25-34) pg MCHC (32-36) g/dL RDW Std Deviation (36.4-46.3) fL RDW Coeff of Anisha (11.5-14.5) % Plt Count (130-400) K/uL MPV (7.4-10.4) fL Sodium (136-145) mmol/L Potassium (3.5-5.1) mmol/L Chloride (98-107) mmol/L Carbon Dioxide (21-32) mmol/L Anion Gap (3-11) BUN (7-18) mg/dl Creatinine (0.6-1.4) mg/dl Est Cr Clr Drug Dosing ml/min Est GFR ( Amer) ml/min Est GFR (Non-Af Amer) ml/min BUN/Creatinine Ratio (10-20) Glucose (70-99) mg/dl POC Glucose 161 H (70-99) mg/dl Calcium (8.5-10.1) mg/dl (1) Hypertension Hypertension type: unspecified Qualified Code(s): I10 - Essential (primary) hypertension
[2021-03-12] MEDS: ENOXAPARIN INJ 30 MG/0.3 ML SYR SQ SCH ×2 (10:41→20:57)
[2021-03-12] MEDS: hydrALAZINE HCL 20 MG/ML VIAL IV PRN (14:54)
--- NOTE | 2021-03-12 15:13 | Pharmacy Report ---
Pharmacy Glycemic Short Note 2 - Date of Service March 12, 2021 - Glycemic Short BSG Results (Last 24 hours): 03/11/21 03/11/21 03/12/21 17:11 20:31 05:33 Glucose 169 H POC Glucose 163 H 134 H 03/12/21 03/12/21 08:09 12:16 Glucose POC Glucose 154 H 144 H OUTPATIENT ANTIDIABETIC REGIMEN: * HbA1c = 7.5% * Metformin 1000 mg PO BID ASSESSMENT: * 65 y/o M admitted for R knee TKA. Pt with Type 2 DM managed only on oral Metformin at home. * Metformin was put on hold post op yesterday and patient was managed only on Novolog bolus based on BSG trends. * Fasting BSG was 154 mg/dl today without any basal yesterday. * Post-prandial BSGs have been near or at goal. Continued Novolog CF. * Metformin resumed with dinner today. Removed Novolog CR PLAN FOR INPATIENT GLYCEMIC CONTROL: * Resumed Metformin 1000 mg BID with dinner today. * Basal insulin * none * Bolus insulin: removed CR * NovoLog per scale ACHS or Q6hrs while NPO * Goal Range: Low 110 mg/dL - High 140 mg/dL * Correction Factor: 20 mg/dL/unit * Nutritional / Prandial insulin per carb ratio of 1 unit per __ grams CHO consumed PLAN FOR DISCHARGE: * HbA1c = 7.5%, Goal A1c is less than 7%. * Continue with Metformin 1000 mg PO BID on discharge.
[2021-03-12] MEDS ORDERED: metFORMIN HCL 500 MG TAB PO SCH (17:00)
[2021-03-12] MEDS ORDERED: hydrALAZINE HCL 20 MG/ML VIAL IV STA (17:41)
--- NOTE | 2021-03-12 18:01 | Hospitalist Consultation ---
Date of Consultation March 12, 2021 Assessment & Plan (1) Hypertension: BP elevated throughout entire admission reported not taking his BP medications 5 days prior to admission but had been getting them while inpatient BPs 207/113 this afternoon with fatigue, difficulty with word finding, htn urgency Got 2 doses of 5mg IV hydralazine since admission Clonidine patch operative perior Ordered Hydralazine 10mg IV x1 NOW STAT Will obtain CT head in setting of HTN urgency, does not appear to have focal deficit at this time but more confusion/slowed responses Has been on Lovenox, SCDs, radha hose for DVT prophylaxis Afebrile, WBC wnl CT HEAD -No acute intracranial hemorrhage, no midline shift or space occupying lesions. -No acute depressed skull fractures. -Chronic small vessel ischemia. Few lacunar infarcts within right and left basal ganglia. Cognition improved but still with aphasia after hydralazine administration. HCTZ 25mg x 1 now No official stroke alert given recent surgery and not candidate for TPA but will complete stroke work-up with CT angio head/neck, ECHO, EKG, labs, speech Will make NPO for now x chips/sips until clears dysphagia screening Aspirin 324mg x 1 now, ASA 81mg daily --> Of notes, issues with GI bleeding in past. Will order PPI push, consider oral at d/c however patient with poor medical compliance/taking pills Speech eval Moving to med tele Continue to monitor (2) Status post total right knee replacement: POD 1 s/p R TKA with Dr. Preciado Post-op management per ortho Lovenox ordered for DVT prophylaxis (3) Sleep apnea: CPAP HS -- ordered for tonight Has at home but has not been compliant per -- discussed importance of compliance as long standing untreated QUOC and worsening HTN (4) Hyperlipidemia: Reported hx although not on any medications Adding lipid panel to AM labs rec statin for prevention given his DM (5) Diabetes mellitus: Most recent A1c 7.5 Metformin 1000mg BID [employer] BSGs acceptable Will place metformin on hold and continue with ISS Continue to monitor Thank you for allowing hospitalist service to participate in the care of Mr Reardon. Hospitalist service will follow along while inpatient. Supervising Physician Co-Signing Physician Notes Patient seen and examined, chart reviewed, case discussed with PRESTON Mcrae and I agree with her assessment and plan as above. In brief, patient is a 65yo male with history of HTN, DM, HLP and QUOC s/p right TKA performed by Dr. Preciado yesterday 03/11/21. Surgery was well tolerated - no complications identified. We have been consulted to assist in management of hypertension as well as AMS. Blood pressure is elevated at baseline - upon review of records his systolic has been as high as 251 mmHg in October 2018. Patient is on Amlodipine and Losartan at home but has not been taking his medications for several days. He also has history of QUOC. Nursing notes some cognitive slowing, increased somnolence and difficulty word finding throughout the day. On exam he is afebrile, hypertensive and tachycardic. NAD Resting comfortably - answers some questions appropriately - oriented to self and location, slow to respond Skin - intact HEENT - NC/AT, PERRL, Neck supple Heart - +S1/S2, regular, no m/r/g Lungs- CTA Abd - +BS, soft, NT/ND Ext - RLE with dressing in place, c/d/i Neuro - AA&O to person and place, did not answer to date, slow to answer with word finding difficulty - speech is clear. CN II - XII grossly intact, sensation to light touch intact, MS 5/5 in UE/LE bilaterally Labs and images reviewed. WBC=13.12, Hgb=11.9, Hct=37.5 Vdw=689 CT with chronic small vessel ischemia. Few lacunar infarcts within right and left basal ganglia. CTA head and neck performed - read pending Assessment/Plan - 65yo male with HTN, DM, QUOC s/p right TKA with poorly controlled BP and AMS. Suspect HTN urgency rather than CVA. -BP management - patient should continue Amlodipine as well as Losartan. Will add HCTZ - preferred first line agent in AA -Hydralazine PRN -Neuro checks -Will transfer to monitored unit for CCM -Remainder of plan as above History of Present Illness Reason for Consultation: HTN Requesting Physician: Dr Preciado Attending Physician: Joe Preciado MD History of Present Illness 65yo male with PMHx significant for HTN, HLD, DM II (NIDDM, last A1c 7.5), obesity, glaucoma, QUOC on CPAP presented for R TKA with Dr Preciado on 03/11. Patient had been hypertensive since admission. Admitted to choosing not to take his blood pressure medications for 5 days prior to surgery, but had gotten his amlodipine 5mg and losartan 100mg during admission along with clonidine patch during surgery which could be causing worsening rebound HTN. Never tried HCTZ in the past. Got 2 doses 5mg IV hydralazine. Increased fatigue and lethargy this afternoon. Confirmed with at bedside, who states patient had been up in bed smiling and talking with her but has been very slow and stuporous since she arrived for visitation. She notes every provider that has asked if any visual changes, headache, blurred vision, chest pain, or shortness of breath have been denied but patient is slow with his responses. Endorses he knows what he wants to say but is having difficulty with word finding. Discussed with and patient we will order stat CT and give dose of hydralazine NOW, but consideration for addition of HCTZ should be considered. No fever, chills, chest pain, shortness of breath, abdominal pain, nausea, vomiting reported. Father drinker, at age 57 from [place], but per history did not have ischemia heart disease. Patient evaluated in 2014 with stress test that was negative at that time. Lives in one floor home with . Allergies Allergy/AdvReac Type Severity Reaction Status Date / Time Sulfa (Sulfonamide Allergy Intermediate Hives Verified 03/11/21 05:50 Antibiotics) Home Medications Medication Instructions Recorded Confirmed Type travoprost 0.004 % eye drops 1 drp OPB HS 10/21/18 03/11/21 History (Travatan Z) losartan 50 mg tablet 100 mg PO QAM 10/01/19 03/11/21 History metformin 500 mg tablet 1,000 mg PO BID 10/02/19 03/11/21 History ibuprofen 200 mg tablet 600 mg PO Q6H PRN 02/13/21 03/11/21 History amlodipine 5 mg tablet 5 mg PO DAILY 03/11/21 03/11/21 History tamsulosin 0.4 mg capsule 0.4 mg PO HS 03/11/21 03/11/21 History enoxaparin 30 mg/0.3 mL 30 mg SUBCUT Q12H 14 Days #8.4 ml 03/12/21 Rx subcutaneous syringe (Lovenox) Patient History Medical History Chronic anemia baseline hgb 12-13 range per chart review Diabetes mellitus, type 2 NIDDM Glaucoma History of stomach ulcers 1+ years ago Hyperlipidemia Hypertension Morbid obesity Osteoarthritis Sleep apnea No CPAP currently > "does not work" per pt Spinal stenosis Surgical History History of appendectomy History of arthroscopy Right knee History of carpal tunnel release R/L History of colonoscopy History of esophagogastroduodenoscopy (EGD) EGD (10/02/19): MAC at [facility] History of tonsillectomy and adenoidectomy History of tooth extraction S/P epidural steroid injection Trigger finger Left hand trigger finger release Family History Father Family history of diabetes mellitus Mother Family history of diabetes mellitus Other No family history of adverse response to anesthesia Social History Smoking Status: Former smoker Smoking End Date: Quit 2001; Second Hand Exposure: Yes (IN THE PAST); Do You Dip or Chew Tobacco: No; Tobacco Cessation Education Requested by Patient: No Hx Alcohol Use: Yes Alcohol type: beer Hx Substance Use: No Preferred Language: French Communication Ability: Effective Authorization Rep Required: No Beliefs That Will Affect Care: None marital status: Current Living Situation: Family Current Living Situation Comment: AND ADOPTED GRANDAUGHTER How many Children do You have: 2 Feels Safe at Home: Yes Safety Concerns: Feels Safe At This Time Assistive Devices: Glasses and Walker Review of Systems Review of Systems: All systems reviewed & are unremarkable except as noted in HPI & below Physical Exam Physical Exam: WD, WN, obese male, sitting up in chair, no acute distress but slowed with responses to questions. Alert and oriented, but difficulty with word finding. Able to give name, , difficulty naming year. Follows commands with frequent instruction Eyes: glaucoma, equal pupil size and reactive to light ENT: mmm, trachea midline without deviation Resp: CTAB, no w/c/r, diminished in the bases CV: tachycardia (102bpm), regular rhythm, no m/r/g appreciated ABD: +BS (decreased), distended, non-tender to palpation, no obvious organomegaly Ext: dressing to R knee c/d/i, drain with scant output, prevena intact. pulses palpable bilaterally, 1+ to posterior tibial. minimal edema, plantar/dorsiflexion intact Neuro: alert, oriented, reflexes intact, sensation to pressure, decreased to light touch, slowed responses, unable to evaluate gait, EOMI, no nystagmus, no pronator drift Results & Data Results & Data ([facility]) Vital Signs (Past 12 Hours) Vital Signs Temp Pulse Resp BP Pulse Ox 03/12/21 17:17 105 H 207/113 H 96 03/12/21 15:39 100 H 16 184/84 H 96 03/12/21 15:11 37.3 C 99 H 18 181/97 H 95 03/12/21 14:42 97 H 18 175/106 H 95 03/12/21 11:49 37.4 C 85 18 184/96 H 94 03/12/21 07:59 36.8 C 81 18 179/97 H 97 Laboratory Results 03/12/21 03/12/21 03/12/21 Range/Units 17:09 12:16 08:09 WBC (4.8-10.8) K/uL RBC (4.7-6.1) M/uL Hgb (14.0-18.0) g/dL Hct (42-52) % MCV (80-100) fL MCH (25-34) pg MCHC (32-36) g/dL RDW Std Deviation (36.4-46.3) fL RDW Coeff of Anisha (11.5-14.5) % Plt Count (130-400) K/uL MPV (7.4-10.4) fL Sodium (136-145) mmol/L Potassium (3.5-5.1) mmol/L Chloride (98-107) mmol/L Carbon Dioxide (21-32) mmol/L Anion Gap (3-11) BUN (7-18) mg/dl Creatinine (0.6-1.4) mg/dl Est Cr Clr Drug Dosing ml/min Est GFR ( Amer) ml/min Est GFR (Non-Af Amer) ml/min BUN/Creatinine Ratio (10-20) Glucose (70-99) mg/dl POC Glucose 136 H 144 H 154 H (70-99) mg/dl Calcium (8.5-10.1) mg/dl 07/03/12/21 03/11/21 Range/Units 05:33 05:33 20:31 WBC 9.90 (4.8-10.8) K/uL RBC 4.23 L (4.7-6.1) M/uL Hgb 11.4 L (14.0-18.0) g/dL Hct 36.0 L (42-52) % MCV 85.1 (80-100) fL MCH 27.0 (25-34) pg MCHC 31.7 L (32-36) g/dL RDW Std Deviation 45.8 (36.4-46.3) fL RDW Coeff of Anisha 14.6 H (11.5-14.5) % Plt Count 145 (130-400) K/uL MPV 10.9 H (7.4-10.4) fL Sodium 138 (136-145) mmol/L Potassium 4.2 (3.5-5.1) mmol/L Chloride 108 H (98-107) mmol/L Carbon Dioxide 27 (21-32) mmol/L Anion Gap 3.0 (3-11) BUN 16 (7-18) mg/dl Creatinine 1.18 (0.6-1.4) mg/dl Est Cr Clr Drug Dosing 77.8 ml/min Est GFR ( Amer) 73.6 ml/min Est GFR (Non-Af Amer) 63.5 ml/min BUN/Creatinine Ratio 13.5 (10-20) Glucose 169 H (70-99) mg/dl POC Glucose 134 H (70-99) mg/dl Calcium 8.4 L (8.5-10.1) mg/dl Diagnostic Findings Head CT 03/12/21 17:41 CT head/brain wo con CLINICAL HISTORY: ams, htn urgency COMPARISON STUDY: No previous studies for comparison. TECHNIQUE: Axial CT of the brain is performed from the vertex to the skull base. IV contrast was not administered for this examination. A dose lowering technique was utilized adhering to the principles of ALARA. CT DOSE: 884.08 mGy.cm FINDINGS: No acute intracranial hemorrhage, no midline shift or space occupying lesions are seen. There are patchy white matter hypodensities likely on a small vessel basis. There are a few lacunar infarct are seen within right and left basal ganglia. There is no evidence of pathologic ventricular dilatation. There is no acute depressed skull fractures seen. Visualized paranasal sinuses and mastoid air cells are patent and well-aerated. IMPRESSION: No acute intracranial hemorrhage, no midline shift or space occupying lesions. No acute depressed skull fractures. Chronic small vessel ischemia. Few lacunar infarcts within right and left basal ganglia. ACT 112: Negative or not required by law. The above report was generated using voice recognition software. It may contain grammatical, syntax or spelling errors. Electronically signed by: Nanette Eaton DO 03/12/2021 6:18 PM Medications Administered Acetaminophen (Acetaminophen 500 Mg Tab) 1,000 mg PO Q8 DEVORAH Stop: 04/10/21 13:59 Last Admin: 03/12/21 13:38 Dose: 1,000 mg Documented by: [id number] Admin: 03/12/21 05:32 Dose: 1,000 mg Documented by: [id number] Admin: 03/11/21 20:55 Dose: 1,000 mg Documented by: [id number] Admin: 03/11/21 15:20 Dose: 1,000 mg Documented by: [id number] Amlodipine Besylate (Amlodipine Besylate 5 Mg Tab) 5 mg PO DAILY DEVORAH Stop: 04/11/21 08:59 Last Admin: 03/12/21 09:39 Dose: 5 mg Documented by: [id number] Admin: 03/11/21 16:32 Dose: 5 mg Documented by: [id number] Docusate Sodium (Docusate Sodium 100 Mg Cap) 100 mg PO BID DEVORAH Stop: 04/10/21 20:59 Last Admin: 03/12/21 09:03 Dose: 100 mg Documented by: [id number] Admin: 03/11/21 20:55 Dose: 100 mg Documented by: [id number] Enoxaparin Sodium (Enoxaparin Inj 30 Mg/0.3 Ml Syr) 30 mg SQ Q12H DEVORAH Stop: 04/10/21 21:59 Last Admin: 03/12/21 10:41 Dose: 30 mg Documented by: [id number] Admin: 03/11/21 20:56 Dose: 30 mg Documented by: [id number] Hydralazine HCl (Hydralazine Hcl 20 Mg/Ml Vial) 5 mg IV Q8H PRN PRN Reason: Blood Pressure - High Stop: 04/10/21 11:05 Last Admin: 03/12/21 14:54 Dose: 5 mg Documented by: [id number] Admin: 03/11/21 21:04 Dose: 5 mg Documented by: [id number] Insulin Aspart (Insulin Aspart 100 Units/Ml 3 Ml Pen) 0 units SC ACHS [facility] Stop: 04/10/21 13:29 Last Admin: 03/12/21 13:10 Dose: Not Given Documented by: [id number] Admin: 03/12/21 09:07 Dose: 4 units Documented by: [id number] Cosigned by: [id number] Admin: 03/11/21 21:55 Dose: Not Given Documented by: [id number] Cosigned by: [id number] Admin: 03/11/21 17:47 Dose: 7 units Documented by: [id number] Cosigned by: [id number] Admin: 03/11/21 15:01 Dose: Not Given Documented by: [id number] Cosigned by: [id number] Losartan Potassium (Losartan Potassium 50 Mg Tab) 100 mg PO QAM [facility] Stop: 04/11/21 08:59 Last Admin: 03/12/21 09:39 Dose: 100 mg Documented by: [id number] Admin: 03/11/21 16:32 Dose: 100 mg Documented by: [id number] Miscellaneous (Check Clonidine Patch Placement) 1 ea N/A QS [facility] Stop: 04/10/21 00:00 Last Admin: 03/12/21 16:28 Dose: 1 ea Documented by: [id number] Admin: 03/12/21 09:05 Dose: 1 ea Documented by: [id number] Admin: 03/11/21 23:13 Dose: 1 ea Documented by: [id number] Admin: 03/11/21 17:46 Dose: 1 ea Documented by: [id number] Admin: 03/11/21 14:45 Dose: Not Given Documented by: [id number] Admin: 03/11/21 14:45 Dose: Not Given Documented by: [id number] [facility]ivitamins (Multivitamin Tab) [address] [place] Stop: 04/11/21 08:59 Last Admin: 03/12/21 09:03 Dose: 1 tab Documented by: [id number] Oxycodone HCl (Oxycodone Hcl Ir 5 Mg Tab (Immediate Release)) 5 - 10 mg PO Q4H PRN PRN Reason: Pain or Pre PT Stop: 03/25/21 13:23 Last Admin: 03/12/21 03:12 Dose: 10 mg Documented by: [id number] Sennosides (Senna 8.6 Mg Tab) 17.2 mg PO [facility] Stop: 04/10/21 20:59 Last Admin: 03/11/21 20:54 Dose: 17.2 mg Documented by: [id number] Tamsulosin HCl (Tamsulosin Hcl 0.4 Mg Cap) 0.4 mg PO [facility] Stop: 04/10/21 20:59 Last Admin: 03/11/21 20:54 Dose: 0.4 mg Documented by: [id number] Tramadol HCl (Tramadol Hcl 50 Mg Tablet) 50 - 100 mg PO Q4H PRN PRN Reason: Pain & Pre PT Stop: 04/10/21 13:23 Last Admin: 03/12/21 10:39 Dose: 100 mg Documented by: [id number] Travoprost (Travoprost Z 0.004% Oph Soln 2.5 Ml Btl) 1 drops OPB [facility] Stop: 04/10/21 20:59 Last Admin: 03/11/21 20:57 Dose: Not Given Documented by: [id number] PG Care Time/CCT Total # of Minutes Spent Total Time Spent with Patient: Total time spent is greater than 50% in coordination of care (as documented) at patient's floor/unit and/or counseling patient: Coding Level of Care Code 03333 Office/OBS Consult Lvl 3 Diagnoses Status post total right knee replacement Z96.651 Hypertension I10 Hypertension type: unspecified Sleep apnea G47.30 Hyperlipidemia E78.5 Diabetes mellitus E11.9 (1) Hypertension Hypertension type: unspecified Qualified Code(s): I10 - Essential (primary) hypertension
[2021-03-12] MEDS ORDERED: hydrALAZINE HCL 20 MG/ML VIAL IV PRN (18:16)
--- NOTE | 2021-03-12 18:19 | CT Scan Report ---
CT head/brain wo con CLINICAL HISTORY: ams, htn urgency COMPARISON STUDY: No previous studies for comparison. TECHNIQUE: Axial CT of the brain is performed from the vertex to the skull base. IV contrast was not administered for this examination. A dose lowering technique was utilized adhering to the principles of ALARA. CT DOSE: 884.08 mGy.cm FINDINGS: No acute intracranial hemorrhage, no midline shift or space occupying lesions are seen. There are patchy white matter hypodensities likely on a small vessel basis. There are a few lacunar i nfarct are seen within right and left basal ganglia. There is no evidence of pathologic ventricular dilatation. There is no acute depressed skull fractures seen. Visualized paranasal sinuses and mastoid air cells are patent and well-aerated. IMPRESSION: No acute intracranial hemorrhage, no midline shift or space occupying lesions. No acute depressed skull fractures. Chronic small vessel ischemia. Few lacunar infarcts within right and left basal ganglia. ACT 112: Negative or not required by law. The above report was generated using voice recognition software. It may contain grammatical, syntax o r spelling errors. Electronically signed by: Nanette Eaton DO 03/12/2021 6:18 PM
[2021-03-12] MEDS ORDERED: hydroCHLOROthiazide 25 MG TAB PO STA (18:34)
[2021-03-12] MEDS ORDERED: ASPIRIN 81 MG CHEW PO ONE (18:45)
[2021-03-12] MEDS ORDERED: ASPIRIN 81 MG CHEW ONE (18:49)
[2021-03-12 19:49] LABS: Basophils # (auto) 0.01 K/uL (0-0.2); Basophils % (auto) 0.1 %; Eosinophils # (auto) 0.11 K/uL (0-0.5); Eosinophils % (auto) 0.8 %; Hematocrit (blood only) 37.5 % (42-52); Hemoglobin 11.9 g/dL (14.0-18.0); Immature Granulocytes # (auto) 0.05 K/uL (0.00-0.02); Immature Granulocytes % (auto) 0.4 %; Lymphocytes # (auto) 1.04 K/uL (1.2-3.4); Lymphocytes % (auto) 7.9 %; Mean Corpuscular Hemoglobin 26.4 pg (25-34); Mean Corpuscular Hgb Conc 31.7 g/dL (32-36); Mean Corpuscular Volume 83.1 fL (80-100); Mean Platelet Volume 11.1 fL (7.4-10.4); Monocytes # (auto) 0.61 K/uL (0.11-0.59); Monocytes % (auto) 4.6 %; Neutrophils % (auto) 86.2 %; Platelet Count 127 K/uL (130-400); RDW Coefficient of Variation 14.5 % (11.5-14.5); RDW Standard Deviation 44.3 fL (36.4-46.3); Red Blood Count 4.51 M/uL (4.7-6.1); White Blood Count 13.12 K/uL (4.8-10.8)
[2021-03-12] MEDS ORDERED: OPTIRAY 320 125ml IV ONE (19:49)
[2021-03-12 19:50] LABS: Alanine Aminotransferase 17 U/L (12-78); Albumin Level 3.1 gm/dl (3.4-5.0); Aspartate Aminotransferase 13 U/L (15-37); BUN Creatinine Ratio 13.5 (10-20); Blood Urea Nitrogen 13 mg/dl (7-18); Calcium 8.5 mg/dl (8.5-10.1); Carbon Dioxide 23 mmol/L (21-32); Chloride 105 mmol/L (98-107); Creatinine Clr Calc Pharmacy 94.6 ml/min; Est GFR (African American) 93.2 ml/min; Est GFR (Non-African American) 80.5 ml/min; Glucose 159 mg/dl (70-99); Magnesium 1.9 mg/dl (1.8-2.4); Sodium 136 mmol/L (136-145)
[2021-03-12 19:55] LABS: Albumin Globulin Ratio 0.7 (0.9-2); Alkaline Phosphatase 60 U/L (45-117); Bilirubin,Total 0.4 mg/dl (0.2-1); Globulin 4.4 gm/dl (2.5-4.0); Total Protein 7.5 gm/dl (6.4-8.2); Troponin I < 0.015 ng/ml (0-0.045)
[2021-03-12 19:58] LABS: INR 1.1 (0.9-1.1); Partial Thromboplastin Ratio 1.2; Partial Thromboplastin Time 32.7 Seconds (21.0-31.0); Prothrombin Time 11.4 Seconds (9.0-12.0)
[2021-03-12] MEDS: TAMSULOSIN HCL 0.4 MG CAP PO SCH (20:11)
[2021-03-12] MEDS: TRAVOPROST Z 0.004% OPH SOLN 2.5 ML BTL OPB SCH (20:12)
[2021-03-12] MEDS: SENNA 8.6 MG TAB PO SCH (20:12)
--- NOTE | 2021-03-12 20:24 | CT Scan Report ---
CT angio head w con CLINICAL HISTORY: Stroke Like Symptoms TECHNIQUE: CT angiography of the head was performed in a dynamic helical fashion during intravenous a dministration of 119. cc of Optiray. MIP imaging was performed. A dose lowering technique was utilize d adhering to the principles of ALARA. CT DOSE: COMPARISON STUDY: No previous studies for comparison. FINDINGS: Distal aspect of bilateral internal carotid arteries shows minimal peripheral calcifications and no e vidence of hemodynamically significant stenosis. Minimal focal narrowing of M2 segment on the left MCA is seen (3/133). Distal branches of left MCA ar e normally opacified. Bilateral anterior cerebral arteries and right anterior communicating artery are normally opacified. Few areas of nodularity /minimal luminal irregularity is seen within proximal and distal aspect of th e left anterior communicating artery. Distal aspect of bilateral vertebral arteries are normally opacified. Basilar artery is normal. Partial origin of right and left posterior cerebral arteries from M1 segments of the right and left middle cerebral arteries are seen. Diffuse narrowing of P1 segments of the right and left posterior cerebral arteries are seen likely re presenting developmental variant. No focal occlusion of bilateral technical coordinator are seen. Distal branches of b ilateral posterior cerebral arteries are normally opacified. IMPRESSION: 1. No evidence of focal occlusion of intracranial arteries are seen. 2. Minimal focal narrowing of M2 segment of the left MCA. 3. Minimal nodularity of the left anterior communicating artery with few areas of mild narrowing. 4. Partial origin of the right and left posterior cerebral arteries with minimal narrowing of P1 segment might represent developmental variant. No focal occlusion seen. ACT 112: Negative or not required by law. The above report was generated using voice recognition software. It may contain grammatical, syntax o r spelling errors. Electronically signed by: Nanette Eaton DO 03/12/2021 8:23 PM
--- NOTE | 2021-03-12 20:45 | CT Scan Report ---
CT angio neck with con CLINICAL HISTORY: Stroke Like Symptoms COMPARISON STUDY: No previous studies for comparison. TECHNIQUE: CT angiography was performed from the aortic arch to the skull base. MIP imaging was perfo rmed. The patient was scanned in a dynamic helical fashion during intravenous administration of 119 c c of Optiray. A dose lowering technique was utilized adhering to the principles of ALARA. CT DOSE: 648.81 mGy.cm Technique: CT angiogram of the carotid and vertebral arteries was obtained using intravenous contrast and 3-D reconstruction. NASCET criteria was utilized. Findings: Short retropharyngeal course of the bilateral common carotid arteries with heavy partially calcified plaques and 50-69% stenosis within right carotid bulb. Extensive partial calcified plaques within lef t carotid bulb is causing less than 50% stenosis. Peripherally calcified plaques within the distal aspect of the right and left internal carotid arteri es without hemodynamically significant stenosis. Proximal aspect of the bilateral vertebral artery appear normal. Evaluation of lower neck and thoraci c inlet is limited due to motion and beam hardening artifact from patient's body habitus. Severe, approximately 90% stenosis is seen within foraminal aspect of the right vertebral artery. Above 80% stenosis within foraminal portion of the left vertebral artery seen at the same level (4/15 5). Overall evaluation is limited due to mild motion and beam hardening artifact. Distal portion of right and left vertebral arteries are normally opacified and show no evidence of he modynamically significant stenosis, focal occlusion or aneurysmal dilatation. There is no evidence of vertebral dissection. IMPRESSION: 1. Partial calcified plaques within bilateral carotid bulb which seen within retropharyngeal region and associated with 50-69% stenosis on the right and less than 50 % stenosis on the left. 2. Focal severe stenosis within foraminal portion of the right and left vertebral arteries as detail ed above. 3. Limited exam as detailed above. Findings will be sent to emergency Department. ACT 112: Negative or not required by law. The above report was generated using voice recognition software. It may contain grammatical, syntax o r spelling errors. Electronically signed by: Nanette Eaton DO 03/12/2021 8:43 PM
[2021-03-12] MEDS ORDERED: PANTOprazole 40 MG in SYRINGE 0 ML IV ONE (21:27)
[2021-03-12] MEDS ORDERED: NALOXONE HCL INJ 1 MG/ML 2ML SYR INTNAS ONE (21:51)
[2021-03-12 22:56] LABS: Appearance Urine Clear (Clear); Bilirubin Urine Negative (Negative); Blood Urine Negative (Negative); Color Urine Yellow; Glucose Urine UA Negative (Negative); Ketones Urine 2+ (Negative); Leukocyte Esterase Urine Negative (Negative); Nitrite Urine Negative (Negative); Protein Urine Negative (Negative); Specific Gravity Urine 1.035 (1.000-1.030); Urobilinogen Urine Negative (Negative); pH Urine 6.5 (4.5-7.5)
[2021-03-13] MEDS: ACETAMINOPHEN 500 MG TAB PO SCH ×4 (05:31→21:27)
[2021-03-13 05:59] LABS: Basophils # (auto) 0.02 K/uL (0-0.2); Basophils % (auto) 0.2 %; Eosinophils # (auto) 0.13 K/uL (0-0.5); Hematocrit (blood only) 35.7 % (42-52); Hemoglobin 11.4 g/dL (14.0-18.0); Immature Granulocytes # (auto) 0.05 K/uL (0.00-0.02); Immature Granulocytes % (auto) 0.4 %; Lymphocytes # (auto) 1.32 K/uL (1.2-3.4); Lymphocytes % (auto) 10.6 %; Mean Corpuscular Hemoglobin 26.6 pg (25-34); Mean Corpuscular Hgb Conc 31.9 g/dL (32-36); Mean Corpuscular Volume 83.2 fL (80-100); Mean Platelet Volume 11.2 fL (7.4-10.4); Monocytes # (auto) 0.72 K/uL (0.11-0.59); Monocytes % (auto) 5.8 %; Neutrophils # (auto) 10.19 K/uL (1.4-6.5); Platelet Count 143 K/uL (130-400); RDW Coefficient of Variation 14.4 % (11.5-14.5); RDW Standard Deviation 43.9 fL (36.4-46.3); Red Blood Count 4.29 M/uL (4.7-6.1); White Blood Count 12.43 K/uL (4.8-10.8)
[2021-03-13 06:26] LABS: BUN Creatinine Ratio 10.2 (10-20); Calcium 8.9 mg/dl (8.5-10.1); Creatinine Clr Calc Pharmacy 92.7 ml/min; Est GFR (Non-African American) 78.5 ml/min; Potassium 3.6 mmol/L (3.5-5.1)
[2021-03-13 07:24] LABS: Estimated Average Glucose 163 mg/dl; Hemoglobin A1C 7.3 % (4.5-5.6)
[2021-03-13] MEDS ORDERED: hydroCHLOROthiazide 25 MG TAB PO STA (07:51)
--- NOTE | 2021-03-13 07:52 | Hospitalist Progress Note ---
Date of Service March 13, 2021 Assessment & Plan (1) Hypertensive encephalopathy: Plan: BP elevated throughout entire admission and prior to surgery. Not candidate for TPA given recent surgery Reported not taking BP meds 5 days prior to admit BPs up to 207/113 afternoon of 03/12 and hospitalist group consulted for persistent HTN. Had been ordered 5mg hydralazine Q8H without improvement Seen in afternoon with some difficulty word finding concerning for CVA. BSG acce ptable Moved to telemetry -- no arrhythmia noted CT Chronic small vessel ischemia. Few lacunar infarcts within right and left basal ganglia -- initially did appear to be old, but work-up initiated to be safe CTA Head/neck with significant vascular disease but no acute findings MRI Brain NEGATIVE for acute CVA but does show chronic ischemic microvascular changes, likely 2nd to his HTN/DM ECHO without valvular heart disease, does have concentric LVH likely from HTN. EF 50-55% and diastolic dysfunction grade I Imaging reviewed with Neurology and also felt old changes and does have vascular changes related to HTN/DM and would aim at better BP control HCTZ 25mg x 1 and ASA 324mg was administered on 03/11 and ASA 81mg daily scheduled (changed to Plavix for tomorrow given hx GI bleeding on aspirin and would continue at discharge) PPI added and would also continue this for GI proph Labetalol IV prn for elevated SBP/DBP Cognition improved and back to baseline, clear BP improved this morning but again elevated to 213/113 this afternoon and asked RN to administer 5mg extra amlodipine and dose of labetalol. Hydralazine also available prn Increased amlodipine to 10mg daily, scheduled 25mg HCTZ (first line in AA population) and would continue both of these. If BP remains elevated, consider increasing his losartan as well Could have some rebound HTN from removal of clonidine patch ordered operative period (d/c'd yesterday) Continue to monitor/adjustment of BP meds as needed Consideration for renal US to look for RSA Also highly recommend compliance with CPAP ALSO WOULD LIMIT PAIN MEDICATIONS -- DISCONTINUED TRAMADOL 100MG DAILY, DID GET DOSE OF OXYCODONE EARLY AM AND WAS FAIRLY LETHARGIC THIS MORNING. WOULD UTILIZE ALTERNATIVE AGENT AT DISCRETION OF PRIMARY SERVICE (2) Hypertension: Plan: As above Will need close f/u at d/c (3) Status post total right knee replacement: Plan: POD 2 s/p R TKA with Dr. Preciado Post-op management per ortho Lovenox ordered for DVT prophylaxis Plans for rehab at d/c --> SNF not able to take until Wednesday at earliest (4) Sleep apnea: Plan: CPAP HS -- ordered for tonight Has at home but has not been compliant per -- discussed importance of compliance as long standing untreated QUOC and worsening HTN Has continued to refuse -- would rec compliance given HTN as above (5) Hyperlipidemia: Plan: Reported hx although not on any medications Adding lipid panel to AM l -- acceptable, but added low dose atorvastatin given his risk factors (6) Diabetes mellitus: Plan: Most recent A1c 7.5 --> repeat 7.3 Metformin 1000mg BID LEASE BUYER BSGs acceptable Will place metformin on hold and continue with ISS Continue to monitor Plan: Thank you for allowing hospitalist service to participate in the care of Mr Reardon. Hospitalist service will follow along while inpatient. Admission and Anticipated Discharge Date Admission Date: March 11, 2021 Subjective Patient evaluated this morning. Initially by RN was lethargic and slow with responses and PO not felt safe to give. Of note, he did get oxycodone around 3-4am and this could also be contributing. Would avoid opiates moving forward and utilize tylenol or lower dose tramadol if needed at discretion of ortho. Given IV labetalol with improvement in cognition and then patient able to take PO. Passing dysphagia screening. Alert and oriented, answering questions appropriately. No fever, chills, headache, visual changes, chest pain, shortness of breath, a bdominal pain, nausea or dysuria at this time. Discussed IMPORTANCE of medication adherence to prevent CVA in future and that new medications added. Rec to check BPs at home to ensure stable and to call PCP if continues to be elevated as he would be at increased risk for stroke. Will increase amlodipine for BP 184/98 this afternoon, patient asymptomatic at this time. Review of Systems Review of Systems: All systems reviewed & are unremarkable except as noted in HPI & below Physical Exam Physical Exam: WD, WN, obese male, laying in bed, no acute distress Eyes: glaucoma, equal pupil size and reactive to light ENT: mmm, trachea midline without deviation Resp: CTAB, no w/c/r, diminished in the bases CV: tachycardia (100bpm), regular rhythm, no arrhythmia on monitor, no m/r/g appreciated ABD: +BS (decreased), distended, non-tender to palpation, no obvious organomegaly Ext: dressing to R knee c/d/i, drain with scant output, Prevena intact. pulses palpable bilaterally, 1+ to posterior tibial. minimal edema, plantar/dorsiflexi on intact Neuro: alert, oriented, reflexes intact, sensation to pressure, decreased to light touch, slowed responses alert and oriented x 4, answering questions appropriately, no focal deficits, no pronator drift, clear speech, alternating movements, finger-nose opposition intact. CN II-XII intact back to his baseline self Results & Data Results & Data ([facility]) Vital Signs (Past 12 Hours) Vital Signs Temp Pulse Pulse Pulse Resp BP BP 03/13/21 04:11 99 H 179/83 H 03/13/21 03:48 36.6 C 101 H 18 194/95 H 03/12/21 23:20 37.1 C 104 H 20 146/78 H 03/12/21 22:20 110 H 03/12/21 21:38 110 H 03/12/21 21:25 37.7 C H 108 H 18 178/94 H 03/12/21 20:50 115 H 204/117 H 03/12/21 20:01 114 H 194/102 H Pulse Ox 03/13/21 04:11 03/13/21 03:48 96 03/12/21 23:20 95 03/12/21 22:20 03/12/21 21:38 03/12/21 21:25 93 03/12/21 20:50 03/12/21 20:01 Laboratory Results 03/13/21 03/13/21 03/13/21 Range/Units 07:27 05:28 05:28 WBC 12.43 H (4.8-10.8) K/uL RBC 4.29 L (4.7-6.1) M/uL Hgb 11.4 L (14.0-18.0) g/dL Hct 35.7 L (42-52) % MCV 83.2 (80-100) fL MCH 26.6 (25-34) pg MCHC 31.9 L (32-36) g/dL RDW Std Deviation 43.9 (36.4-46.3) fL RDW Coeff of Anisha 14.4 (11.5-14.5) % Plt Count 143 (130-400) K/uL MPV 11.2 H (7.4-10.4) fL Immature Gran % (Auto) 0.4 % Neut % (Auto) 82.0 % Lymph % (Auto) 10.6 % Jack % (Auto) 5.8 % Eos % (Auto) 1.0 % Baso % (Auto) 0.2 % Neut # (Auto) 10.19 H (1.4-6.5) K/uL Lymph # (Auto) 1.32 (1.2-3.4) K/uL Jack # (Auto) 0.72 H (0.11-0.59) K/uL Eos # (Auto) 0.13 (0-0.5) K/uL Baso # (Auto) 0.02 (0-0.2) K/uL Immature Gran # (Auto) 0.05 H (0.00-0.02) K/uL PT (9.0-12.0) Seconds INR (0.9-1.1) APTT (21.0-31.0) Seconds PTT Ratio Sodium (136-145) mmol/L Potassium (3.5-5.1) mmol/L Chloride (98-107) mmol/L Carbon Dioxide (21-32) mmol/L Anion Gap (3-11) BUN (7-18) mg/dl Creatinine (0.6-1.4) mg/dl Est Cr Clr Drug Dosing ml/min Est GFR ( Amer) ml/min Est GFR (Non-Af Amer) ml/min BUN/Creatinine Ratio (10-20) Glucose (70-99) mg/dl POC Glucose 161 H (70-99) mg/dl Estimat Average Glucose 163 mg/dl Hemoglobin A1c 7.3 H (4.5-5.6) % Calcium (8.5-10.1) mg/dl Magnesium (1.8-2.4) mg/dl Total Bilirubin (0.2-1) mg/dl AST (15-37) U/L ALT (12-78) U/L Alkaline Phosphatase (45-117) U/L Troponin I (0-0.045) ng/ml Total Protein (6.4-8.2) gm/dl Albumin (3.4-5.0) gm/dl Globulin (2.5-4.0) gm/dl Albumin/Globulin Ratio (0.9-2) Triglycerides (0-150) mg/dl Cholesterol (0-200) mg/dl LDL Cholesterol, Calc mg/dl VLDL Cholesterol, Calc mg/dl HDL Cholesterol mg/dl Cholesterol/HDL Ratio Urine Color Urine Appearance (Clear) Urine pH (4.5-7.5) Ur Specific [place] (1.000-1.030) Urine Protein (Negative) Urine Glucose (UA) (Negative) Urine Ketones (Negative) Urine Blood (Negative) Urine Nitrite (Negative) Urine Bilirubin (Negative) Urine Urobilinogen (Negative) Ur Leukocyte Esterase (Negative) 03/13/21 03/12/21 03/12/21 Range/Units 05:28 22:30 20:47 WBC (4.8-10.8) K/uL RBC (4.7-6.1) M/uL Hgb (14.0-18.0) g/dL Hct (42-52) % MCV (80-100) fL MCH (25-34) pg MCHC (32-36) g/dL RDW Std Deviation (36.4-46.3) fL RDW Coeff of Anisha (11.5-14.5) % Plt Count (130-400) K/uL MPV (7.4-10.4) fL Immature Gran % (Auto) % Neut % (Auto) % Lymph % (Auto) % Jack % (Auto) % Eos % (Auto) % Baso % (Auto) % Neut # (Auto) (1.4-6.5) K/uL Lymph # (Auto) (1.2-3.4) K/uL Jack # (Auto) (0.11-0.59) K/uL Eos # (Auto) (0-0.5) K/uL Baso # (Auto) (0-0.2) K/uL Immature Gran # (Auto) (0.00-0.02) K/uL PT (9.0-12.0) Seconds INR (0.9-1.1) APTT (21.0-31.0) Seconds PTT Ratio Sodium 134 L (136-145) mmol/L Potassium 3.6 (3.5-5.1) mmol/L Chloride 102 (98-107) mmol/L Carbon Dioxide 27 (21-32) mmol/L Anion Gap 5.0 (3-11) BUN 10 (7-18) mg/dl Creatinine 0.99 (0.6-1.4) mg/dl Est Cr Clr Drug Dosing 92.7 ml/min Est GFR ( Amer) 91.0 ml/min Est GFR (Non-Af Amer) 78.5 ml/min BUN/Creatinine Ratio 10.2 (10-20) Glucose 166 H (70-99) mg/dl POC Glucose 167 H (70-99) mg/dl Estimat Average Glucose mg/dl Hemoglobin A1c (4.5-5.6) % Calcium 8.9 (8.5-10.1) mg/dl Magnesium (1.8-2.4) mg/dl Total Bilirubin (0.2-1) mg/dl AST (15-37) U/L ALT (12-78) U/L Alkaline Phosphatase (45-117) U/L Troponin I (0-0.045) ng/ml Total Protein (6.4-8.2) gm/dl Albumin (3.4-5.0) gm/dl Globulin (2.5-4.0) gm/dl Albumin/Globulin Ratio (0.9-2) Triglycerides 130 (0-150) mg/dl Cholesterol 124 (0-200) mg/dl LDL Cholesterol, Calc 61 mg/dl VLDL Cholesterol, Calc 26 mg/dl HDL Cholesterol 37 mg/dl Cholesterol/HDL Ratio 3 Urine Color Yellow Urine Appearance Clear (Clear) Urine pH 6.5 (4.5-7.5) Ur Specific [place] 1.035 H (1.000-1.030) Urine Protein Negative (Negative) Urine Glucose (UA) Negative (Negative) Urine Ketones 2+ H (Negative) Urine Blood Negative (Negative) Urine Nitrite Negative (Negative) Urine Bilirubin Negative (Negative) Urine Urobilinogen Negative (Negative) Ur Leukocyte Esterase Negative (Negative) 03/12/21 03/12/21 03/12/21 Range/Units 19:23 19:23 19:23 WBC 13.12 H (4.8-10.8) K/uL RBC 4.51 L (4.7-6.1) M/uL Hgb 11.9 L (14.0-18.0) g/dL Hct 37.5 L (42-52) % MCV 83.1 (80-100) fL MCH 26.4 (25-34) pg MCHC 31.7 L (32-36) g/dL RDW Std Deviation 44.3 (36.4-46.3) fL RDW Coeff of Anisha 14.5 (11.5-14.5) % Plt Count 127 L (130-400) K/uL MPV 11.1 H (7.4-10.4) fL Immature Gran % (Auto) 0.4 % Neut % (Auto) 86.2 % Lymph % (Auto) 7.9 % Jack % (Auto) 4.6 % Eos % (Auto) 0.8 % Baso % (Auto) 0.1 % Neut # (Auto) 11.30 H (1.4-6.5) K/uL Lymph # (Auto) 1.04 L (1.2-3.4) K/uL Jack # (Auto) 0.61 H (0.11-0.59) K/uL Eos # (Auto) 0.11 (0-0.5) K/uL Baso # (Auto) 0.01 (0-0.2) K/uL Immature Gran # (Auto) 0.05 H (0.00-0.02) K/uL PT 11.4 (9.0-12.0) Seconds INR 1.1 (0.9-1.1) APTT 32.7 H (21.0-31.0) Seconds PTT Ratio 1.2 Sodium 136 (136-145) mmol/L Potassium 4.0 (3.5-5.1) mmol/L Chloride 105 (98-107) mmol/L Carbon Dioxide 23 (21-32) mmol/L Anion Gap 8.0 (3-11) BUN 13 (7-18) mg/dl Creatinine 0.97 (0.6-1.4) mg/dl Est Cr Clr Drug Dosing 94.6 ml/min Est GFR ( Amer) 93.2 ml/min Est GFR (Non-Af Amer) 80.5 ml/min BUN/Creatinine Ratio 13.5 (10-20) Glucose 159 H (70-99) mg/dl POC Glucose (70-99) mg/dl Estimat Average Glucose mg/dl Hemoglobin A1c (4.5-5.6) % Calcium 8.5 (8.5-10.1) mg/dl Magnesium 1.9 (1.8-2.4) mg/dl Total Bilirubin 0.4 (0.2-1) mg/dl AST 13 L (15-37) U/L ALT 17 (12-78) U/L Alkaline Phosphatase 60 (45-117) U/L Troponin I < 0.015 (0-0.045) ng/ml Total Protein 7.5 (6.4-8.2) gm/dl Albumin 3.1 L (3.4-5.0) gm/dl Globulin 4.4 H (2.5-4.0) gm/dl Albumin/Globulin Ratio 0.7 L (0.9-2) Triglycerides (0-150) mg/dl Cholesterol (0-200) mg/dl LDL Cholesterol, Calc mg/dl VLDL Cholesterol, Calc mg/dl HDL Cholesterol mg/dl Cholesterol/HDL Ratio Urine Color Urine Appearance (Clear) Urine pH (4.5-7.5) Ur Specific [place] (1.000-1.030) Urine Protein (Negative) Urine Glucose (UA) (Negative) Urine Ketones (Negative) Urine Blood (Negative) Urine Nitrite (Negative) Urine Bilirubin (Negative) Urine Urobilinogen (Negative) Ur Leukocyte Esterase (Negative) 03/12/21 03/12/21 03/12/21 Range/Units 17:09 12:16 08:09 WBC (4.8-10.8) K/uL RBC (4.7-6.1) M/uL Hgb (14.0-18.0) g/dL Hct (42-52) % MCV (80-100) fL MCH (25-34) pg MCHC (32-36) g/dL RDW Std Deviation (36.4-46.3) fL RDW Coeff of Anisha (11.5-14.5) % Plt Count (130-400) K/uL MPV (7.4-10.4) fL Immature Gran % (Auto) % Neut % (Auto) % Lymph % (Auto) % Jack % (Auto) % Eos % (Auto) % Baso % (Auto) % Neut # (Auto) (1.4-6.5) K/uL Lymph # (Auto) (1.2-3.4) K/uL Jack # (Auto) (0.11-0.59) K/uL Eos # (Auto) (0-0.5) K/uL Baso # (Auto) (0-0.2) K/uL Immature Gran # (Auto) (0.00-0.02) K/uL PT (9.0-12.0) Seconds INR (0.9-1.1) APTT (21.0-31.0) Seconds PTT Ratio Sodium (136-145) mmol/L Potassium (3.5-5.1) mmol/L Chloride (98-107) mmol/L Carbon Dioxide (21-32) mmol/L Anion Gap (3-11) BUN (7-18) mg/dl Creatinine (0.6-1.4) mg/dl Est Cr Clr Drug Dosing ml/min Est GFR ( Amer) ml/min Est GFR (Non-Af Amer) ml/min BUN/Creatinine Ratio (10-20) Glucose (70-99) mg/dl POC Glucose 136 H 144 H 154 H (70-99) mg/dl Estimat Average Glucose mg/dl Hemoglobin A1c (4.5-5.6) % Calcium (8.5-10.1) mg/dl Magnesium (1.8-2.4) mg/dl Total Bilirubin (0.2-1) mg/dl AST (15-37) U/L ALT (12-78) U/L Alkaline Phosphatase (45-117) U/L Troponin I (0-0.045) ng/ml Total Protein (6.4-8.2) gm/dl Albumin (3.4-5.0) gm/dl Globulin (2.5-4.0) gm/dl Albumin/Globulin Ratio (0.9-2) Triglycerides (0-150) mg/dl Cholesterol (0-200) mg/dl LDL Cholesterol, Calc mg/dl VLDL Cholesterol, Calc mg/dl HDL Cholesterol mg/dl Cholesterol/HDL Ratio Urine Color Urine Appearance (Clear) Urine pH (4.5-7.5) Ur Specific [place] (1.000-1.030) Urine Protein (Negative) Urine Glucose (UA) (Negative) Urine Ketones (Negative) Urine Blood (Negative) Urine Nitrite (Negative) Urine Bilirubin (Negative) Urine Urobilinogen (Negative) Ur Leukocyte Esterase (Negative) Diagnostic Findings Head CT 03/12/21 17:41 CT head/brain wo con CLINICAL HISTORY: ams, htn urgency COMPARISON STUDY: No previous studies for comparison. TECHNIQUE: Axial CT of the brain is performed from the vertex to the skull base. IV contrast was not administered for this examination. A dose lowering technique was utilized adhering to the principles of ALARA. CT DOSE: 884.08 mGy.cm FINDINGS: No acute intracranial hemorrhage, no midline shift or space occupying lesions are seen. There are patchy white matter hypodensities likely on a small vessel basis. There are a few lacunar infarct are seen within right and left basal ganglia. There is no evidence of pathologic ventricular dilatation. There is no acute depressed skull fractures seen. Visualized paranasal sinuses and mastoid air cells are patent and well-aerated. IMPRESSION: No acute intracranial hemorrhage, no midline shift or space occupying lesions. No acute depressed skull fractures. Chronic small vessel ischemia. Few lacunar infarcts within right and left basal ganglia. ACT 112: Negative or not required by law. The above report was generated using voice recognition software. It may contain grammatical, syntax or spelling errors. Electronically signed by: Nanette Eaton DO 03/12/2021 6:18 PM Head CTA 03/12/21 18:41 CT angio head w con CLINICAL HISTORY: Stroke Like Symptoms TECHNIQUE: CT angiography of the head was performed in a dynamic helical fashion during intravenous administration of 119. cc of Optiray. MIP imaging was perform ed. A dose lowering technique was utilized adhering to the principles of ALARA. CT DOSE: COMPARISON STUDY: No previous studies for comparison. FINDINGS: Distal aspect of bilateral internal carotid arteries shows minimal peripheral calcifications and no evidence of hemodynamically significant stenosis. Minimal focal narrowing of M2 segment on the left MCA is seen (3/133). Distal branches of left MCA are normally opacified. Bilateral anterior cerebral arteries and right anterior communicating artery are normally opacified. Few areas of nodularity /minimal luminal irregularity is seen within proximal and distal aspect of the left anterior communicating artery. Distal aspect of bilateral vertebral arteries are normally opacified. Basilar artery is normal. Partial origin of right and left posterior cerebral arteries from M1 segments of the right and left middle cerebral arteries are seen. Diffuse narrowing of P1 segments of the right and left posterior cerebral arter ies are seen likely representing developmental variant. No focal occlusion of bilateral research scholar are seen. Distal branches of bilateral posterior cerebral arteries are normally opacified. IMPRESSION: 1. No evidence of focal occlusion of intracranial arteries are seen. 2. Minimal focal narrowing of M2 segment of the left MCA. 3. Minimal nodularity of the left anterior communicating artery with few areas of mild narrowing. 4. Partial origin of the right and left posterior cerebral arteries with minimal narrowing of P1 segment might represent developmental variant. No focal occlusion seen. ACT 112: Negative or not required by law. The above report was generated using voice recognition software. It may contain grammatical, syntax or spelling errors. Electronically signed by: Nanette Eaton DO 03/12/2021 8:23 PM Neck CTA 03/12/21 18:41 CT angio neck with con CLINICAL HISTORY: Stroke Like Symptoms COMPARISON STUDY: No previous studies for comparison. TECHNIQUE: CT angiography was performed from the aortic arch to the skull base. MIP imaging was performed. The patient was scanned in a dynamic helical fashion during intravenous administration of 119 cc of Optiray. A dose lowering technique was utilized adhering to the principles of ALARA. CT DOSE: 648.81 mGy.cm Technique: CT angiogram of the carotid and vertebral arteries was obtained using intravenous contrast and 3-D reconstruction. NASCET criteria was utilized. Findings: Short retropharyngeal course of the bilateral common carotid arteries with heavy partially calcified plaques and 50-69% stenosis within right carotid bulb. Extensive partial calcified plaques within left carotid bulb is causing less than 50% stenosis. Peripherally calcified plaques within the distal aspect of the right and left internal carotid arteries without hemodynamically significant stenosis. Proximal aspect of the bilateral vertebral artery appear normal. Evaluation of lower neck and thoracic inlet is limited due to motion and beam hardening artifact from patient's body habitus. Severe, approximately 90% stenosis is seen within foraminal aspect of the right vertebral artery. Above 80% stenosis within foraminal portion of the left vertebral artery seen at the same level (4/155). Overall evaluation is limited due to mild motion and beam hardening artifact. Distal portion of right and left vertebral arteries are normally opacified and show no evidence of hemodynamically significant stenosis, focal occlusion or aneurysmal dilatation. There is no evidence of vertebral dissection. IMPRESSION: 1. Partial calcified plaques within bilateral carotid bulb which seen within retropharyngeal region and associated with 50-69% stenosis on the right and less than 50 % stenosis on the left. 2. Focal severe stenosis within foraminal portion of the right and left vertebral arteries as detailed above. 3. Limited exam as detailed above. Findings will be sent to emergency Department. ACT 112: Negative or not required by law. The above report was generated using voice recognition software. It may contain grammatical, syntax or spelling errors. Electronically signed by: Nanette Eaton DO 03/12/2021 8:43 PM Brain MRI 03/13/21 08:03 Brain MRI WITHOUT CONTRAST HISTORY: Confusion. TECHNIQUE: Multiplanar multisequence MRI of the brain was performed without the use of contrast. COMPARISON STUDY: Head CT 03/12/2021. FINDINGS: There is no mass, hematoma, midline shift, or acute infarct. The paranasal sinuses are clear. The mastoid air cells are clear. The ventricles and sulci demonstrate mild age-related involutional changes. Patchy areas of T2 hyperintensity seen within the periventricular and subcortical white matter are nonspecific but suggestive of moderate microvascular ischemic changes. The major vascular flow voids at the skull base are well-maintained. Mild motion artifact. Old lacunar infarction within the bilateral thalami. IMPRESSION: 1. No acute infarct or intracranial hemorrhage. 2. Old bilateral thalamic lacunar infarcts. 3. Patchy periventricular matter T2 hyperintensity is nonspecific but favors moderate microvascular ischemic change. A demyelinating disease or Lyme's disease could also have a similar appearance but are considered less likely. ACT 112: Negative or not required by law. Electronically signed by: Mike Thompson M.D. 03/13/2021 10:54 AM PG Care Time/CCT Total # of Minutes Spent Total Time Spent with Patient: Total time spent is greater than 50% in coordination of care (as documented) at patient's floor/unit and/or counseling patient: Coding Level of Care Code 39570 Subseq Hosp Care Lvl 3 Diagnoses Hypertension I10 Hypertension type: unspecified Status post total right knee replacement Z96.651 Sleep apnea G47.30 Hyperlipidemia E78.5 Diabetes mellitus E11.9 Hypertensive encephalopathy I67.4 (1) Hypertension Hypertension type: unspecified Qualified Code(s): I10 - Essential (primary) hypertension
[2021-03-13] MEDS: LABETALOL HCL IV 5 MG/ML 20ML IV PRN ×2 (08:12→15:50)
[2021-03-13] MEDS: ENOXAPARIN INJ 30 MG/0.3 ML SYR SQ SCH ×2 (08:13→21:26)
[2021-03-13] MEDS: INSULIN ASPART 100 UNITS/ML 3 ML PEN SC SCH ×4 (08:14→21:23)
--- NOTE | 2021-03-13 08:23 | Electrocardiogram Report ---
Test Reason : Blood Pressure : / mmHG Vent. Rate : 108 BPM Atrial Rate : 108 BPM P-R Int : 140 ms QRS Dur : 084 ms QT Int : 334 ms P-R-T Axes : 053 030 010 degrees QTc Int : 447 ms Sinus tachycardia Borderline ECG When compared with ECG of 01-OCT-2019 15:46, Vent. rate has increased BY 39 BPM Confirmed by Stephan Holt ([id number]) on 03/13/2021 8:23:20 AM Referred By: Joe Preciado Confirmed By:Stephan Holt
[2021-03-13] MEDS: amLODIPine BESYLATE 5 MG TAB PO SCH (08:54)
[2021-03-13] MEDS: LOSARTAN POTASSIUM 50 MG TAB PO SCH (08:54)
[2021-03-13] MEDS: DOCUSATE SODIUM 100 MG CAP PO SCH ×2 (08:54→21:36)
[2021-03-13] MEDS: PANTOprazole 40 MG TAB PO SCH (08:54)
[2021-03-13] MEDS: MULTIVITAMIN TAB PO SCH (08:54)
[2021-03-13] MEDS ORDERED: ASPIRIN 81 MG ECTAB PO SCH (09:00)
[2021-03-13] MEDS ORDERED: FAMOTIDINE 20 MG in SYRINGE 3 ML IV SCH (09:00)
[2021-03-13] MEDS ORDERED: INSULIN GLARGINE SOLOSTAR 100 UNITS/ML 3 ML PEN SC SCH ×3 (09:00→21:00)
--- NOTE | 2021-03-13 09:32 | XCELERA ---
[id number]
--- NOTE | 2021-03-13 10:55 | Magnetic Resonance Report ---
Brain MRI WITHOUT CONTRAST HISTORY: Confusion. TECHNIQUE: Multiplanar multisequence MRI of the brain was performed without the use of contrast. COMPARISON STUDY: Head CT 03/12/2021. FINDINGS: There is no mass, hematoma, midline shift, or acute infarct. The paranasal sinuses are ken r. The mastoid air cells are clear. The ventricles and sulci demonstrate mild age-related involutiona l changes. Patchy areas of T2 hyperintensity seen within the periventricular and subcortical white ma tter are nonspecific but suggestive of moderate microvascular ischemic changes. The major vascular fl ow voids at the skull base are well-maintained. Mild motion artifact. Old lacunar infarction within t he bilateral thalami. IMPRESSION: 1. No acute infarct or intracranial hemorrhage. 2. Old bilateral thalamic lacunar infarcts. 3. Patchy periventricular matter T2 hyperintensity is nonspecific but favors moderate microvascular i schemic change. A demyelinating disease or Lyme's disease could also have a similar appearance but ar e considered less likely. ACT 112: Negative or not required by law. Electronically signed by: Mike Thompson M.D. 03/13/2021 10:54 AM
[2021-03-13] MEDS ORDERED: Nursing to Pharmacy Communication SCH (12:30)
[2021-03-13] MEDS: amLODIPine BESYLATE 5 MG TAB PO ONE ×2 (12:56→18:51)
--- NOTE | 2021-03-13 13:45 | Pharmacy Report ---
Pharmacy Glycemic Short Note 2 - Date of Service March 13, 2021 - Glycemic Short BSG Results (Last 24 hours): 03/12/21 03/12/21 03/12/21 17:09 19:23 20:47 Glucose 159 H POC Glucose 136 H 167 H 03/13/21 03/13/21 03/13/21 05:28 07:27 11:37 Glucose 166 H POC Glucose 161 H 140 H OUTPATIENT ANTIDIABETIC REGIMEN: * HbA1c = 7.5% * Metformin 1000 mg PO BID ASSESSMENT: 03/13 * BSGs reasonably well-controlled yesterday with only 6 units of Novolog * Patient is now reordered a diet - will reinstitute carb coverage * Fasting BSGs have been persistently above goal - will start basal insulin tod ay * Metformin was restarted yesterday, but discontinued prior to administration 03/12 * 65 y/o M admitted for R knee TKA. Pt with Type 2 DM managed only on oral Metformin at home. * Metformin was put on hold post op yesterday and patient was managed only on Novolog bolus based on BSG trends. * Fasting BSG was 154 mg/dl today without any basal yesterday. * Post-prandial BSGs have been near or at goal. Continued Novolog CF. * Metformin resumed with dinner today. Removed Novolog CR PLAN FOR INPATIENT GLYCEMIC CONTROL: * Hold metformin * Basal insulin * Lantus 8 units SC this morning * Lantus scale this evening to provide up to 8 additional units (see EHR for details) * Bolus insulin: * NovoLog per scale ACHS or Q6hrs while NPO * Goal Range: Low 110 mg/dL - High 140 mg/dL * Correction Factor: 20 mg/dL/unit * Nutritional / Prandial insulin per carb ratio of 1 unit per 7 grams CHO consumed PLAN FOR DISCHARGE: * HbA1c = 7.5%, Goal A1c is less than 7%. * May consider additional oral medication on discharge * Given patient's BMI - may benefit from addition of an SGLT-2 inhibitor such as Jardiance 10 mg PO daily, which has been associated with weight reduction * Continue with Metformin 1000 mg PO BIDM on discharge
--- NOTE | 2021-03-13 16:39 | Orthopedic Progress Note ---
Date of Service March 13, 2021 Assessment & Plan (1) Hypertensive encephalopathy: (2) Diabetes mellitus: (3) Status post total right knee replacement: Plan: Fortunately the work-up has not shown any evidence of cerebrovascular accident. He is still struggling with PT. Sounds like prison facility as an option. We will see how he does with PT tomorrow. Can transfer to the floor when permissible by medicine. We will check a Lyme test based upon the MRI report and recheck his CBC. Dressing is changed. We will continue PT and OT per protocol. (4) Acute blood loss anemia: Admission and Anticipated Discharge Date Admission Date: March 11, 2021 Subjective The events of the past 24 hours are noted. I have been in a routine contact with the medicine service via [place] text. Mr. Reardon's daughter is with him here today and he she states that he seems normal except for being in pain. He is noted that he has had to urinate a lot because of a diuretic. Otherwise he feels himself. The leg hurts. Blood pressures are better controlled. Physical Exam Physical Exam: Dressing changed. Sensation normal. Motor function intact at the foot and ankle. Mild swelling of the knee. Wound benign no drainage. No blistering. Full extension. Unable to do a leg raise. Fair quad set. Pedal pulses are 1+. He is awake and alert and oriented to person place and time except for month. Results & Data ([facility]) Vital Signs (Past 12 Hours) Vital Signs Temp Pulse Pulse Pulse Pulse Resp BP 03/13/21 15:02 37.1 C 100 H 19 03/13/21 12:02 36.6 C 93 H 19 03/13/21 08:50 86 161/91 H 03/13/21 08:40 98 H 03/13/21 07:50 37.2 C 94 H 20 205/79 H BP Pulse Ox 03/13/21 15:02 213/113 H 96 03/13/21 12:02 184/98 H 94 03/13/21 08:50 03/13/21 08:40 03/13/21 07:50 96 Laboratory Results 03/13/21 03/13/21 03/13/21 Range/Units 11:37 07:27 05:28 WBC (4.8-10.8) K/uL RBC (4.7-6.1) M/uL Hgb (14.0-18.0) g/dL Hct (42-52) % MCV (80-100) fL MCH (25-34) pg MCHC (32-36) g/dL RDW Std Deviation (36.4-46.3) fL RDW Coeff of Anisha (11.5-14.5) % Plt Count (130-400) K/uL MPV (7.4-10.4) fL Immature Gran % (Auto) % Neut % (Auto) % Lymph % (Auto) % [facility] % (Auto) % Eos % (Auto) % Baso % (Auto) % Neut # (Auto) (1.4-6.5) K/uL Lymph # (Auto) (1.2-3.4) K/uL [facility] # (Auto) (0.11-0.59) K/uL Eos # (Auto) (0-0.5) K/uL Baso # (Auto) (0-0.2) K/uL Immature Gran # (Auto) (0.00-0.02) K/uL PT (9.0-12.0) Seconds INR (0.9-1.1) APTT (21.0-31.0) Seconds PTT Ratio Sodium (136-145) mmol/L Potassium (3.5-5.1) mmol/L Chloride (98-107) mmol/L Carbon Dioxide (21-32) mmol/L Anion Gap (3-11) BUN (7-18) mg/dl Creatinine (0.6-1.4) mg/dl Est Cr Clr Drug Dosing ml/min Est GFR ( Amer) ml/min Est GFR (Non-Af Amer) ml/min BUN/Creatinine Ratio (10-20) Glucose (70-99) mg/dl POC Glucose 140 H 161 H (70-99) mg/dl Estimat Average Glucose 163 mg/dl Hemoglobin A1c 7.3 H (4.5-5.6) % Calcium (8.5-10.1) mg/dl Magnesium (1.8-2.4) mg/dl Total Bilirubin (0.2-1) mg/dl AST (15-37) U/L ALT (12-78) U/L Alkaline Phosphatase (45-117) U/L Troponin I (0-0.045) ng/ml Total Protein (6.4-8.2) gm/dl Albumin (3.4-5.0) gm/dl Globulin (2.5-4.0) gm/dl Albumin/Globulin Ratio (0.9-2) Triglycerides (0-150) mg/dl Cholesterol (0-200) mg/dl LDL Cholesterol, Calc mg/dl VLDL Cholesterol, Calc mg/dl HDL Cholesterol mg/dl Cholesterol/HDL Ratio Urine Color Urine Appearance (Clear) Urine pH (4.5-7.5) Ur Specific [place] (1.000-1.030) Urine Protein (Negative) Urine Glucose (UA) (Negative) Urine Ketones (Negative) Urine Blood (Negative) Urine Nitrite (Negative) Urine Bilirubin (Negative) Urine Urobilinogen (Negative) Ur Leukocyte Esterase (Negative) 03/13/21 03/13/21 03/12/21 Range/Units 05:28 05:28 22:30 WBC 12.43 H (4.8-10.8) K/uL RBC 4.29 L (4.7-6.1) M/uL Hgb 11.4 L (14.0-18.0) g/dL Hct 35.7 L (42-52) % MCV 83.2 (80-100) fL MCH 26.6 (25-34) pg MCHC 31.9 L (32-36) g/dL RDW Std Deviation 43.9 (36.4-46.3) fL RDW Coeff of Anisha 14.4 (11.5-14.5) % Plt Count 143 (130-400) K/uL MPV 11.2 H (7.4-10.4) fL Immature Gran % (Auto) 0.4 % Neut % (Auto) 82.0 % Lymph % (Auto) 10.6 % [facility] % (Auto) 5.8 % Eos % (Auto) 1.0 % Baso % (Auto) 0.2 % Neut # (Auto) 10.19 H (1.4-6.5) K/uL Lymph # (Auto) 1.32 (1.2-3.4) K/uL [facility] # (Auto) 0.72 H (0.11-0.59) K/uL Eos # (Auto) 0.13 (0-0.5) K/uL Baso # (Auto) 0.02 (0-0.2) K/uL Immature Gran # (Auto) 0.05 H (0.00-0.02) K/uL PT (9.0-12.0) Seconds INR (0.9-1.1) APTT (21.0-31.0) Seconds PTT Ratio Sodium 134 L (136-145) mmol/L Potassium 3.6 (3.5-5.1) mmol/L Chloride 102 (98-107) mmol/L Carbon Dioxide 27 (21-32) mmol/L Anion Gap 5.0 (3-11) BUN 10 (7-18) mg/dl Creatinine 0.99 (0.6-1.4) mg/dl Est Cr Clr Drug Dosing 92.7 ml/min Est GFR ( Amer) 91.0 ml/min Est GFR (Non-Af Amer) 78.5 ml/min BUN/Creatinine Ratio 10.2 (10-20) Glucose 166 H (70-99) mg/dl POC Glucose (70-99) mg/dl Estimat Average Glucose mg/dl Hemoglobin A1c (4.5-5.6) % Calcium 8.9 (8.5-10.1) mg/dl Magnesium (1.8-2.4) mg/dl Total Bilirubin (0.2-1) mg/dl AST (15-37) U/L ALT (12-78) U/L Alkaline Phosphatase (45-117) U/L Troponin I (0-0.045) ng/ml Total Protein (6.4-8.2) gm/dl Albumin (3.4-5.0) gm/dl Globulin (2.5-4.0) gm/dl Albumin/Globulin Ratio (0.9-2) Triglycerides 130 (0-150) mg/dl Cholesterol 124 (0-200) mg/dl LDL Cholesterol, Calc 61 mg/dl VLDL Cholesterol, Calc 26 mg/dl HDL Cholesterol 37 mg/dl Cholesterol/HDL Ratio 3 Urine Color Yellow Urine Appearance Clear (Clear) Urine pH 6.5 (4.5-7.5) Ur Specific [place] 1.035 H (1.000-1.030) Urine Protein Negative (Negative) Urine Glucose (UA) Negative (Negative) Urine Ketones 2+ H (Negative) Urine Blood Negative (Negative) Urine Nitrite Negative (Negative) Urine Bilirubin Negative (Negative) Urine Urobilinogen Negative (Negative) Ur Leukocyte Esterase Negative (Negative) 03/12/21 03/12/21 03/12/21 Range/Units 20:47 19:23 19:23 WBC (4.8-10.8) K/uL RBC (4.7-6.1) M/uL Hgb (14.0-18.0) g/dL Hct (42-52) % MCV (80-100) fL MCH (25-34) pg MCHC (32-36) g/dL RDW Std Deviation (36.4-46.3) fL RDW Coeff of Anisha (11.5-14.5) % Plt Count (130-400) K/uL MPV (7.4-10.4) fL Immature Gran % (Auto) % Neut % (Auto) % Lymph % (Auto) % [facility] % (Auto) % Eos % (Auto) % Baso % (Auto) % Neut # (Auto) (1.4-6.5) K/uL Lymph # (Auto) (1.2-3.4) K/uL [facility] # (Auto) (0.11-0.59) K/uL Eos # (Auto) (0-0.5) K/uL Baso # (Auto) (0-0.2) K/uL Immature Gran # (Auto) (0.00-0.02) K/uL PT 11.4 (9.0-12.0) Seconds INR 1.1 (0.9-1.1) APTT 32.7 H (21.0-31.0) Seconds PTT Ratio 1.2 Sodium 136 (136-145) mmol/L Potassium 4.0 (3.5-5.1) mmol/L Chloride 105 (98-107) mmol/L Carbon Dioxide 23 (21-32) mmol/L Anion Gap 8.0 (3-11) BUN 13 (7-18) mg/dl Creatinine 0.97 (0.6-1.4) mg/dl Est Cr Clr Drug Dosing 94.6 ml/min Est GFR ( Amer) 93.2 ml/min Est GFR (Non-Af Amer) 80.5 ml/min BUN/Creatinine Ratio 13.5 (10-20) Glucose 159 H (70-99) mg/dl POC Glucose 167 H (70-99) mg/dl Estimat Average Glucose mg/dl Hemoglobin A1c (4.5-5.6) % Calcium 8.5 (8.5-10.1) mg/dl Magnesium 1.9 (1.8-2.4) mg/dl Total Bilirubin 0.4 (0.2-1) mg/dl AST 13 L (15-37) U/L ALT 17 (12-78) U/L Alkaline Phosphatase 60 (45-117) U/L Troponin I < 0.015 (0-0.045) ng/ml Total Protein 7.5 (6.4-8.2) gm/dl Albumin 3.1 L (3.4-5.0) gm/dl Globulin 4.4 H (2.5-4.0) gm/dl Albumin/Globulin Ratio 0.7 L (0.9-2) Triglycerides (0-150) mg/dl Cholesterol (0-200) mg/dl LDL Cholesterol, Calc mg/dl VLDL Cholesterol, Calc mg/dl HDL Cholesterol mg/dl Cholesterol/HDL Ratio Urine Color Urine Appearance (Clear) Urine pH (4.5-7.5) Ur Specific [place] (1.000-1.030) Urine Protein (Negative) Urine Glucose (UA) (Negative) Urine Ketones (Negative) Urine Blood (Negative) Urine Nitrite (Negative) Urine Bilirubin (Negative) Urine Urobilinogen (Negative) Ur Leukocyte Esterase (Negative) 03/12/21 03/12/21 Range/Units 19:23 17:09 WBC 13.12 H (4.8-10.8) K/uL RBC 4.51 L (4.7-6.1) M/uL Hgb 11.9 L (14.0-18.0) g/dL Hct 37.5 L (42-52) % MCV 83.1 (80-100) fL MCH 26.4 (25-34) pg MCHC 31.7 L (32-36) g/dL RDW Std Deviation 44.3 (36.4-46.3) fL RDW Coeff of Anisha 14.5 (11.5-14.5) % Plt Count 127 L (130-400) K/uL MPV 11.1 H (7.4-10.4) fL Immature Gran % (Auto) 0.4 % Neut % (Auto) 86.2 % Lymph % (Auto) 7.9 % [facility] % (Auto) 4.6 % Eos % (Auto) 0.8 % Baso % (Auto) 0.1 % Neut # (Auto) 11.30 H (1.4-6.5) K/uL Lymph # (Auto) 1.04 L (1.2-3.4) K/uL [facility] # (Auto) 0.61 H (0.11-0.59) K/uL Eos # (Auto) 0.11 (0-0.5) K/uL Baso # (Auto) 0.01 (0-0.2) K/uL Immature Gran # (Auto) 0.05 H (0.00-0.02) K/uL PT (9.0-12.0) Seconds INR (0.9-1.1) APTT (21.0-31.0) Seconds PTT Ratio Sodium (136-145) mmol/L Potassium (3.5-5.1) mmol/L Chloride (98-107) mmol/L Carbon Dioxide (21-32) mmol/L Anion Gap (3-11) BUN (7-18) mg/dl Creatinine (0.6-1.4) mg/dl Est Cr Clr Drug Dosing ml/min Est GFR ( Amer) ml/min Est GFR (Non-Af Amer) ml/min BUN/Creatinine Ratio (10-20) Glucose (70-99) mg/dl POC Glucose 136 H (70-99) mg/dl Estimat Average Glucose mg/dl Hemoglobin A1c (4.5-5.6) % Calcium (8.5-10.1) mg/dl Magnesium (1.8-2.4) mg/dl Total Bilirubin (0.2-1) mg/dl AST (15-37) U/L ALT (12-78) U/L Alkaline Phosphatase (45-117) U/L Troponin I (0-0.045) ng/ml Total Protein (6.4-8.2) gm/dl Albumin (3.4-5.0) gm/dl Globulin (2.5-4.0) gm/dl Albumin/Globulin Ratio (0.9-2) Triglycerides (0-150) mg/dl Cholesterol (0-200) mg/dl LDL Cholesterol, Calc mg/dl VLDL Cholesterol, Calc mg/dl HDL Cholesterol mg/dl Cholesterol/HDL Ratio Urine Color Urine Appearance (Clear) Urine pH (4.5-7.5) Ur Specific [place] (1.000-1.030) Urine Protein (Negative) Urine Glucose (UA) (Negative) Urine Ketones (Negative) Urine Blood (Negative) Urine Nitrite (Negative) Urine Bilirubin (Negative) Urine Urobilinogen (Negative) Ur Leukocyte Esterase (Negative)
--- NOTE | 2021-03-13 16:43 | Discharge Summary ---
Date of Service March 13, 2021 Discharge Data Consultations 03/12/21 14:58 Consult Hospitalist Routine Procedures Performed Operation Date: 03/11/21 07:00 Actual Procedures p Right Total Knee Arthroplasty(Right) - Joe Preciado MD Hospital Course (1) Status post total right knee replacement: Patient was admitted to [facility] after undergoing an elective right total knee arthroplasty by Dr. Preciado on March 11, 2021. Surgery was performed with spinal anesthesia, peripheral nerve block and IV sedation. He was given 3 g of IV Ancef for surgical prophylaxis which was continued for 24 hours after surgery. He tolerated the procedure well without any intraoperative complications. Postoperative x-rays of his right knee were obtained in the recovery room and showed a stable prosthesis. Postoperatively, he was allowed out of bed, weight-bear as tolerated right lower extremity with the assistance of a knee immobilizer when out of bed and the use of a walker. Pain medication was provided with oral oxycodone, tramadol, Tylenol and IV Dilaudid. He did have some postoperative pain that was controlled with pain medication. He was seen and evaluated by physical therapy and Occupational Therapy on postoperative day 1 and needed a lot assistance when out of bed. He was not deemed safe for discharge to home. He was seen by case management and social media specialist and referrals were placed [facility] and [facility] facilities. [facility] health was denied by his insurance company. He tolerated regular diet while in the hospital, diabetic diet. He did not develop any postoperative nausea or vomiting. During his inpatient stay and even preoperatively he had elevated blood pressure which was managed with his oral blood pressure medications and IV hydralazine. His blood pressure continued to be elevated due to this treatment and hospitalist consult was placed on postoperative day 1. Postoperative day 2, dressings to his right knee were changed. His incision was noted to be clean and dry. New dressings were applied with a Vianey stocking. He was encouraged to do his bedside exercises. He was followed by physical therapy and Occupational Therapy and each day did improve with being out of bed and ambulation. He was placed on Lovenox 30mg BID for DVT prophylaxis along with AV impulse boots and VIANEY stockings. His lab work was followed daily. He continued to have slightly elevated WBC's but most likely due to post operative response. A lyme titer was ordered on 03/14/21 as well. POD 3, dressings were dry. He did better out of bed with therapy, but still not safe for discharge to home. Confirmed with case management that no bed was available to [facility] until Wednesday. States no BM yet, but passing gas. Bowel regimen ordered and taking. BP better controlled, vitals otherwise stable. POD 4 - patient continued to be unsafe in PT. POD 5 - patient seen and evaluated, continue to need assistance when out of bed and with ambulation. Will plan for discharge to [facility] on Wednesday. Case management saw and evaluated, assisted with disposition. Patient was discharged to [facility] on Wednesday03/17/21 in stable condition. On POD 6 - patient still unsafe for discharge to his home by PT/OT. Still needs too much assistance. Patient ready for discharge to [facility], but now no bed available for discharge to there today. New insurance authorization and SNF needs to be obtained. Case management will continue to follow. POD 7 - patient was doing well out of bed, continued to need assistance with getting out of bed. Continued to see PT/OT daily. HOspiltalist signed off. Authorization obtained for [facility], bed available. He was discharged to [facility] in stable condition on 03/18/21. (2) Diabetes mellitus: A glycemic consult was placed for management of diabetes during his inpatient stay. Encouraged good tight glucose control. (3) Hypertensive encephalopathy: Patient presented to the preoperative area prior to his surgery on March 11, 2021 with elevated blood pressure due to not taking his blood pressure medications for 5 days prior to his surgery. He states that he decided to stop this medication on his own. He was then given his regular home blood pressure medications with some IV hydralazine every 8 hours as needed. His blood pressure continued to be elevated and a hospitalist consult was placed for assistance with management. He was noted to have some possible aphasia and a CT scan of his head was ordered on 03/12/21, there was suggestion of lacunar infarcts and a Head and Neck CTA were performed on the same day. 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 Given IV hydralazine and EKG and SHRUTHI were ordered and performed on 03/12/21. Asprin started with PPI due to history of GI bleed. Started on Amlodipine and HCTZ, patient noncompliant with this in hospital and so on 03/13/21 he was placed on aldactone and HCTZ to only have to take things once a day. Speech eval was ordered. He was transferred to Med/Surg telemetry. He was followed by the hospitalist service during for the rest of his stay. Hospitalist recommended tight blood pressure control while at home, and getting a home blood pressure cuff. Started on Plavix for prevention of stroke prevention. Also started on PPI - protonix. Patient seen by Medicine on 03/16/21 with the following recommendations: BP remains well controlled and actually on the lower side last evening but back up to 166/79 this morning Suspect that combination Aldactone-HCTZ (decreased to 0.5 tablet on 03/15), along with 5mg amlodipine will be sufficient and will d/c losartan to prevent kidney damage/dehydration given renal US not indicated SAMARIA but upper limits of normal Sent message to Dr. Fallon with update of medication changes Continue Plavix 75mg, Atorvastatin 40mg daily, Protonix 40mg daily --. placed on d/c and discussed with primary service Mag citrate added for BM -- hopefully will also help with urinary retention
[2021-03-13] MEDS ORDERED: SPIRONOLACTONE 12.5 MG TAB PO ONE (17:36)
[2021-03-13] MEDS ORDERED: ATORVASTATIN 10 MG TAB PO SCH (21:00)
[2021-03-13] MEDS: SENNA 8.6 MG TAB PO SCH (21:28)
[2021-03-13] MEDS: TRAVOPROST Z 0.004% OPH SOLN 2.5 ML BTL OPB SCH (21:29)
[2021-03-13] MEDS: TAMSULOSIN HCL 0.4 MG CAP PO SCH (21:29)
[2021-03-14] MEDS: ACETAMINOPHEN 500 MG TAB PO SCH ×3 (06:22→20:09)
[2021-03-14 06:28] LABS: Basophils # (auto) 0.02 K/uL (0-0.2); Basophils % (auto) 0.2 %; Eosinophils # (auto) 0.17 K/uL (0-0.5); Eosinophils % (auto) 1.4 %; Hemoglobin 11.2 g/dL (14.0-18.0); Immature Granulocytes # (auto) 0.02 K/uL (0.00-0.02); Immature Granulocytes % (auto) 0.2 %; Lymphocytes # (auto) 1.86 K/uL (1.2-3.4); Mean Corpuscular Hemoglobin 26.8 pg (25-34); Mean Corpuscular Volume 83.7 fL (80-100); Monocytes # (auto) 0.79 K/uL (0.11-0.59); Monocytes % (auto) 6.4 %; Neutrophils # (auto) 9.53 K/uL (1.4-6.5); Neutrophils % (auto) 76.8 %; Platelet Count 150 K/uL (130-400); RDW Coefficient of Variation 14.4 % (11.5-14.5); RDW Standard Deviation 44.1 fL (36.4-46.3); Red Blood Count 4.18 M/uL (4.7-6.1); White Blood Count 12.39 K/uL (4.8-10.8)
[2021-03-14 06:45] LABS: BUN Creatinine Ratio 13.6 (10-20); Calcium 9.1 mg/dl (8.5-10.1); Creatinine Clr Calc Pharmacy 88.6 ml/min; Est GFR (African American) 86.7 ml/min; Est GFR (Non-African American) 74.8 ml/min; Potassium 3.5 mmol/L (3.5-5.1)
--- NOTE | 2021-03-14 08:09 | Hospitalist Progress Note ---
Date of Service March 14, 2021 Assessment & Plan (1) Hypertensive encephalopathy: Plan: BP elevated throughout entire admission and prior to surgery. Not candidate for TPA given recent surgery Reported not taking BP meds 5 days prior to admit BPs up to 207/113 afternoon of 03/12 and hospitalist group consulted for persistent HTN. Had been ordered 5mg hydralazine Q8H without improvement Seen in afternoon with some difficulty word finding concerning for CVA. BSG acce ptable Moved to telemetry -- no arrhythmia noted CT Chronic small vessel ischemia. Few lacunar infarcts within right and left basal ganglia -- initially did appear to be old, but work-up initiated to be safe CTA Head/neck with significant vascular disease but no acute findings MRI Brain NEGATIVE for acute CVA but does show chronic ischemic microvascular changes, likely 2nd to his HTN/DM ECHO without valvular heart disease, does have concentric LVH likely from HTN. EF 50-55% and diastolic dysfunction grade I Imaging reviewed with Neurology and also felt old changes and does have vascular changes related to HTN/DM and would aim at better BP control HCTZ 25mg x 1 and ASA 324mg was administered on 03/11 and ASA 81mg daily scheduled (changed to Plavix given hx GI bleeding on aspirin and would continue at discharge) PPI added and would also continue this for GI proph Labetalol IV prn for elevated SBP/DBP Cognition improved and back to baseline, clear 03/14 BPs improved today -- currently 138/87. Following changes have been made to obtain adequate control and should be continued at discharge with close follow up with PCP. Messaged Dr Fallon but will also send note on day of d/c to him:: * Amlodipine increased to 10mg daily * Continue losartan 100mg daily * HCTZ-Aldactone 25-25mg daily * Plavix 75mg daily * Atorvastatin 40mg daily * Protonix 40mg daily while on Plavix/Lovenox for DVT prophylaxis Renal Artery Duplex to look for SAMARIA pending -- may need to adjust/alter if evidence of stenosis but will continue current regimen as scheduled Recommended to ortho alternative pain control and to avoid ibuprofen which he had been taking 600mg almost daily for chronic pain Rec re-eval/compliance with CPAP as has this at home ALSO WOULD LIMIT PAIN MEDICATIONS -- DISCONTINUED TRAMADOL 100MG DAILY, DID GET DOSE OF OXYCODONE EARLY AM 03/13 AND WAS FAIRLY LETHARGIC THIS MORNING. WOULD UTILIZE ALTERNATIVE AGENT AT DISCRETION OF PRIMARY SERVICE (2) Hypertension: Plan: As above Will need close f/u at d/c forward note to Dr Fallon on day of d/c with changes as above (3) Status post total right knee replacement: Plan: POD 2 s/p R TKA with Dr. Preciado Post-op management per ortho Lovenox ordered for DVT prophylaxis Plans for rehab at d/c --> SNF not able to take until Wednesday at earliest 03/14 DIscussion with ortho about possible d/c to home tomorrow if does well in PT -- has been up and moving more today. If continues to make progress will d/c with home health/OPPT, but if not will continue to wait for bed at SNF which won't be available now until Wednesday/Wednesday next week (4) Sleep apnea: Plan: CPAP HS -- ordered for tonight Has at home but has not been compliant per -- discussed importance of compliance as long standing untreated QUOC and worsening HTN Has continued to refuse -- would rec compliance given HTN as above (5) Hyperlipidemia: Plan: Reported hx although not on any medications Adding lipid panel to AM l -- acceptable Low dose atorvastain increased to 40mg daily given his prior CVA -- continue at d/c as above (6) Diabetes mellitus: Plan: Most recent A1c 7.5 --> repeat 7.3 Metformin 1000mg BID MANAGER NUCLEAR BSGs acceptable Will place metformin on hold and continue with ISS Continue to monitor Plan: Thank you for allowing hospitalist service to participate in the care of Mr Reardon. Hospitalist service will follow along while inpatient. Admission and Anticipated Discharge Date Admission Date: March 13, 2021 Supervising Physician Co-Signing Physician Notes PA Supervision Note: I did not personally see or examine the patient today, but I verified all astudillo points of PRESTON Mcrae's assessment and plan with the following exceptions/additions: None Subjective Patient evaluated this afternoon. Moved to med/tele per primary service. NSR on monitor. Remains back at baseline cognition. Worked well with therapy and contemplating home with OPPT but will wait one more day and re-eval tomorrow. He did have reservations about taking medications given father with sudden . [place] to be crime scene but not and autopsy did not show anything wrong with him or his heart despite being on lots of medications for his heart. This has made him skeptical about medications being taken without need for such. Discussed his most recent event from high BP and that LVH and diastolic dysfunction on ECHO and need for BP control. Also with old infarcts and importance of antiplatelet and atorvastatin. Highly rec no ibuprofen while on plavix. Especially as will also be on DVT prophylaxis with Lovenox per Dr. Preciado. Patient demonstrates understanding and also discussed obtaining BP cuff at home to monitor pressures and to call PCP if SBP >180 or DBP >90. No fever, chills, chest pain, shortness of breath, abdominal pain, nausea or vomiting. Passing lots of gas but no BM. Review of Systems Review of Systems: All systems reviewed & are unremarkable except as noted in HPI & below Physical Exam Physical Exam: WD, WN, obese male, laying in bed, no acute distress Eyes: glaucoma, equal pupil size and reactive to light ENT: mmm, trachea midline without deviation Resp: CTAB, no w/c/r, diminished in the bases CV: tachycardia (100bpm), regular rhythm, no arrhythmia on monitor, no m/r/g appreciated ABD: +BS, distended, non-tender to palpation, no obvious organomegaly Ext: dressing to R knee c/d/i, drain with scant output. pulses palpable bilaterally, 1+ to posterior tibial. minimal edema, plantar/dorsiflexion intact Neuro: alert, oriented, reflexes intact, sensation to pressure, decreased to light touch alert and oriented x 4, answering questions appropriately, no focal deficits, no pronator drift, clear speech, alternating movements intact, finger-nose opposition intact. CN II-XII intact. speech clear and intact. back to his baseline self Results & Data Results & [facility] ([facility]) Vital Signs (Past 12 Hours) Vital Signs Temp Pulse Pulse Pulse Resp BP BP 03/14/21 08:03 36.6 C 89 18 147/81 H 03/14/21 03:20 96 H 03/14/21 03:15 37.1 C 95 H 18 144/83 H 03/13/21 23:06 37.3 C 100 H 18 159/99 H 03/13/21 21:20 102 H 168/89 H Pulse Ox 03/14/21 08:03 96 03/14/21 03:20 03/14/21 03:15 96 03/13/21 23:06 96 03/13/21 21:20 Laboratory Results 03/14/21 03/14/21 03/14/21 Range/Units 11:15 07:19 06:12 WBC (4.8-10.8) K/uL RBC (4.7-6.1) M/uL Hgb (14.0-18.0) g/dL Hct (42-52) % MCV (80-100) fL MCH (25-34) pg MCHC (32-36) g/dL RDW Std Deviation (36.4-46.3) fL RDW Coeff of Anisha (11.5-14.5) % Plt Count (130-400) K/uL MPV (7.4-10.4) fL Immature Gran % (Auto) % Neut % (Auto) % Lymph % (Auto) % Stewart % (Auto) % Eos % (Auto) % Baso % (Auto) % Neut # (Auto) (1.4-6.5) K/uL Lymph # (Auto) (1.2-3.4) K/uL Stewart # (Auto) (0.11-0.59) K/uL Eos # (Auto) (0-0.5) K/uL Baso # (Auto) (0-0.2) K/uL Immature Gran # (Auto) (0.00-0.02) K/uL Sodium (136-145) mmol/L Potassium (3.5-5.1) mmol/L Chloride (98-107) mmol/L Carbon Dioxide (21-32) mmol/L Anion Gap (3-11) BUN (7-18) mg/dl Creatinine (0.6-1.4) mg/dl Est Cr Clr Drug Dosing ml/min Est GFR ( Amer) ml/min Est GFR (Non-Af Amer) ml/min BUN/Creatinine Ratio (10-20) Glucose (70-99) mg/dl POC Glucose 175 H 141 H (70-99) mg/dl Calcium (8.5-10.1) mg/dl Lyme Disease IgG Ab Negative (Negative) Lyme Disease IgM Ab Negative (Negative) 03/14/21 03/14/21 03/13/21 Range/Units 06:12 06:12 20:26 WBC 12.39 H (4.8-10.8) K/uL RBC 4.18 L (4.7-6.1) M/uL Hgb 11.2 L (14.0-18.0) g/dL Hct 35.0 L (42-52) % MCV 83.7 (80-100) fL MCH 26.8 (25-34) pg MCHC 32.0 (32-36) g/dL RDW Std Deviation 44.1 (36.4-46.3) fL RDW Coeff of Anisha 14.4 (11.5-14.5) % Plt Count 150 (130-400) K/uL MPV 11.0 H (7.4-10.4) fL Immature Gran % (Auto) 0.2 % Neut % (Auto) 76.8 % Lymph % (Auto) 15.0 % Stewart % (Auto) 6.4 % Eos % (Auto) 1.4 % Baso % (Auto) 0.2 % Neut # (Auto) 9.53 H (1.4-6.5) K/uL Lymph # (Auto) 1.86 (1.2-3.4) K/uL Stewart # (Auto) 0.79 H (0.11-0.59) K/uL Eos # (Auto) 0.17 (0-0.5) K/uL Baso # (Auto) 0.02 (0-0.2) K/uL Immature Gran # (Auto) 0.02 (0.00-0.02) K/uL Sodium 135 L (136-145) mmol/L Potassium 3.5 (3.5-5.1) mmol/L Chloride 101 (98-107) mmol/L Carbon Dioxide 27 (21-32) mmol/L Anion Gap 8.0 (3-11) BUN 14 (7-18) mg/dl Creatinine 1.03 (0.6-1.4) mg/dl Est Cr Clr Drug Dosing 88.6 ml/min Est GFR ( Amer) 86.7 ml/min Est GFR (Non-Af Amer) 74.8 ml/min BUN/Creatinine Ratio 13.6 (10-20) Glucose 146 H (70-99) mg/dl POC Glucose 178 H (70-99) mg/dl Calcium 9.1 (8.5-10.1) mg/dl Lyme Disease IgG Ab (Negative) Lyme Disease IgM Ab (Negative) 03/13/21 Range/Units 16:48 WBC (4.8-10.8) K/uL RBC (4.7-6.1) M/uL Hgb (14.0-18.0) g/dL Hct (42-52) % MCV (80-100) fL MCH (25-34) pg MCHC (32-36) g/dL RDW Std Deviation (36.4-46.3) fL RDW Coeff of Anisha (11.5-14.5) % Plt Count (130-400) K/uL MPV (7.4-10.4) fL Immature Gran % (Auto) % Neut % (Auto) % Lymph % (Auto) % Stewart % (Auto) % Eos % (Auto) % Baso % (Auto) % Neut # (Auto) (1.4-6.5) K/uL Lymph # (Auto) (1.2-3.4) K/uL Stewart # (Auto) (0.11-0.59) K/uL Eos # (Auto) (0-0.5) K/uL Baso # (Auto) (0-0.2) K/uL Immature Gran # (Auto) (0.00-0.02) K/uL Sodium (136-145) mmol/L Potassium (3.5-5.1) mmol/L Chloride (98-107) mmol/L Carbon Dioxide (21-32) mmol/L Anion Gap (3-11) BUN (7-18) mg/dl Creatinine (0.6-1.4) mg/dl Est Cr Clr Drug Dosing ml/min Est GFR ( Amer) ml/min Est GFR (Non-Af Amer) ml/min BUN/Creatinine Ratio (10-20) Glucose (70-99) mg/dl POC Glucose 177 H (70-99) mg/dl Calcium (8.5-10.1) mg/dl Lyme Disease IgG Ab (Negative) Lyme Disease IgM Ab (Negative) PG Care Time/CCT Total # of Minutes Spent Total Time Spent with Patient: Total time spent is greater than 50% in coordination of care (as documented) at patient's floor/unit and/or counseling patient: Coding Level of Care Code 51796 Subseq Hosp Care Lvl 3 Diagnoses Hypertensive encephalopathy I67.4 Hypertension I10 Hypertension type: unspecified Status post total right knee replacement Z96.651 Sleep apnea G47.30 Hyperlipidemia E78.5 Diabetes mellitus E11.9 (1) Hypertension Hypertension type: unspecified Qualified Code(s): I10 - Essential (primary) hypertension
[2021-03-14] MEDS: INSULIN ASPART 100 UNITS/ML 3 ML PEN SC SCH ×4 (08:30→20:50)
[2021-03-14] MEDS: CLOPIDOGREL BISULFATE 75 MG TAB PO SCH (08:32)
[2021-03-14] MEDS: INSULIN GLARGINE SOLOSTAR 100 UNITS/ML 3 ML PEN SC SCH ×2 (08:33→20:50)
[2021-03-14] MEDS: LOSARTAN POTASSIUM 50 MG TAB PO SCH (08:34)
[2021-03-14] MEDS: PANTOprazole 40 MG TAB PO SCH (08:35)
[2021-03-14] MEDS: MULTIVITAMIN TAB PO SCH (08:35)
[2021-03-14] MEDS: DOCUSATE SODIUM 100 MG CAP PO SCH ×2 (08:35→20:09)
[2021-03-14 08:58] LABS: Lyme Ab IgG w/WB Rflx Negative (Negative); Lyme Ab IgM w/WB Rflx Negative (Negative)
[2021-03-14] MEDS ORDERED: amLODIPine BESYLATE 5 MG TAB PO SCH (09:00)
[2021-03-14] MEDS ORDERED: SPIRONOLACTONE 12.5 MG TAB PO SCH (09:00)
[2021-03-14] MEDS ORDERED: hydroCHLOROthiazide 25 MG TAB PO SCH (09:00)
[2021-03-14] MEDS ORDERED: SPIRONOLACTONE/HCTZ 25-25 PO SCH (09:00)
[2021-03-14] MEDS: ENOXAPARIN INJ 30 MG/0.3 ML SYR SQ SCH ×2 (09:29→20:06)
[2021-03-14] MEDS: MAGNESIUM HYDROXIDE SUSP 30 ML UDC PO PRN (11:00)
[2021-03-14] MEDS: oxyCODONE HCL IR 5 MG TAB (IMMEDIATE RELEASE) PO PRN (11:01)
--- NOTE | 2021-03-14 13:23 | Pharmacy Report ---
Pharmacy Glycemic Short Note 2 - Date of Service March 14, 2021 - Glycemic Short BSG Results (Last 24 hours): 03/13/21 03/13/21 03/14/21 16:48 20:26 06:12 Glucose 146 H POC Glucose 177 H 178 H 03/14/21 03/14/21 07:19 11:15 Glucose POC Glucose 141 H 175 H OUTPATIENT ANTIDIABETIC REGIMEN: * HbA1c = 7.3% (03/13/21) * Metformin 1000 mg PO BID ASSESSMENT: 03/14 * BSGs again reasonably well-controlled 161, 140, 177, 178 mg/dL * Fasting BSG of 141 mg/dL improved from yesterday with initiation of basal * Will increase by ~25% to 10 units BID today 03/13 * BSGs reasonably well-controlled yesterday with only 6 units of Novolog * Patient is now reordered a diet - will reinstitute carb coverage * Fasting BSGs have been persistently above goal - will start basal insulin today * Metformin was restarted yesterday, but discontinued prior to administration 03/12 * 65 y/o M admitted for R knee TKA. Pt with Type 2 DM managed only on oral Metformin at home. * Metformin was put on hold post op yesterday and patient was managed only on Novolog bolus based on BSG trends. * Fasting BSG was 154 mg/dl today without any basal yesterday. * Post-prandial BSGs have been near or at goal. Continued Novolog CF. * Metformin resumed with dinner today. Removed Novolog CR PLAN FOR INPATIENT GLYCEMIC CONTROL: * Hold metformin * Basal insulin * Lantus 10 units SC BID * Bolus insulin: * NovoLog per scale ACHS or Q6hrs while NPO * Goal Range: Low 110 mg/dL - High 140 mg/dL * Correction Factor: 20 mg/dL/unit * Nutritional / Prandial insulin per carb ratio of 1 unit per 7 grams CHO consumed PLAN FOR DISCHARGE: * HbA1c = 7.5%, Goal A1c is less than 7%. * May consider additional oral medication on discharge * Given patient's BMI - may benefit from addition of an SGLT-2 inhibitor such as Jardiance 10 mg PO daily, which has been associated with sustained weight reduction * Continue with Metformin 1000 mg PO BIDM on discharge
--- NOTE | 2021-03-14 14:43 | Orthopedic Progress Note ---
Date of Service March 14, 2021 Assessment & Plan (1) Diabetes mellitus: Plan: Continue ISS Will continue outpatient home medications at discharge (2) Status post total right knee replacement: Plan: POD 3 - Right total knee arthroplasty on 03/11/21 PT/OT while inpatient May WBAT RLE with assistance of a walker Continue regular diet Bowel regimen ordered Ice and elevation right leg as needed for swelling Plan for discharge to home over the weekend or to [facility] on Wednesday. (3) Hypertension: Plan: Continue medications as per hospitalist Recommended home BP machine to monitor blood pressure. Parameters to call physician to be recommended by hospitalist service CT/MRI/SHRUTHI/EKG - show not acute strokes Renal artery ultrasound report is pending. Started on Plavix by Hospitalist for prevention Started on PPI for protection of stomach (4) DVT prophylaxis: Plan: Continueu mobility, TEDS, AV impulse boots, lovenox BID (5) Acute blood loss anemia: Plan: Will continue to monitor. No need for transfusions. Subjective Patient sitting in bed, tolerating regular diet. Feeling better each day. States that he did better out of bed today, but still having pain after PT especially. states that his pain is well controlled with oral pain medication. Physical Exam Musculoskeletal: Right knee dressings in place, clean and dry. Rashaun stocking in place right leg. Minimal distal edema, full ROM right ankle. Distal sensation normal, distal pulses 1+ Results & Data ([facility]) Vital Signs (Past 12 Hours) Vital Signs Temp Pulse Pulse Pulse Resp BP BP 03/14/21 12:56 36.9 C 03/14/21 12:27 88 20 138/87 03/14/21 11:24 36.5 C 80 18 171/91 H 03/14/21 08:03 36.6 C 89 18 147/81 H 03/14/21 03:20 96 H 03/14/21 03:15 37.1 C 95 H 18 144/83 H Pulse Ox 03/14/21 12:56 03/14/21 12:27 94 03/14/21 11:24 95 03/14/21 08:03 96 03/14/21 03:20 03/14/21 03:15 96 Laboratory Results 03/14/21 03/14/21 03/14/21 Range/Units 11:15 07:19 06:12 WBC (4.8-10.8) K/uL RBC (4.7-6.1) M/uL Hgb (14.0-18.0) g/dL Hct (42-52) % MCV (80-100) fL MCH (25-34) pg MCHC (32-36) g/dL RDW Std Deviation (36.4-46.3) fL RDW Coeff of Anisha (11.5-14.5) % Plt Count (130-400) K/uL MPV (7.4-10.4) fL Immature Gran % (Auto) % Neut % (Auto) % Lymph % (Auto) % [place] % (Auto) % Eos % (Auto) % Baso % (Auto) % Neut # (Auto) (1.4-6.5) K/uL Lymph # (Auto) (1.2-3.4) K/uL [place] # (Auto) (0.11-0.59) K/uL Eos # (Auto) (0-0.5) K/uL Baso # (Auto) (0-0.2) K/uL Immature Gran # (Auto) (0.00-0.02) K/uL Sodium (136-145) mmol/L Potassium (3.5-5.1) mmol/L Chloride (98-107) mmol/L Carbon Dioxide (21-32) mmol/L Anion Gap (3-11) BUN (7-18) mg/dl Creatinine (0.6-1.4) mg/dl Est Cr Clr Drug Dosing ml/min Est GFR ( Amer) ml/min Est GFR (Non-Af Amer) ml/min BUN/Creatinine Ratio (10-20) Glucose (70-99) mg/dl POC Glucose 175 H 141 H (70-99) mg/dl Calcium (8.5-10.1) mg/dl Lyme Disease IgG Ab Negative (Negative) Lyme Disease IgM Ab Negative (Negative) 03/14/21 03/14/21 03/13/21 Range/Units 06:12 06:12 20:26 WBC 12.39 H (4.8-10.8) K/uL RBC 4.18 L (4.7-6.1) M/uL Hgb 11.2 L (14.0-18.0) g/dL Hct 35.0 L (42-52) % MCV 83.7 (80-100) fL MCH 26.8 (25-34) pg MCHC 32.0 (32-36) g/dL RDW Std Deviation 44.1 (36.4-46.3) fL RDW Coeff of Anisha 14.4 (11.5-14.5) % Plt Count 150 (130-400) K/uL MPV 11.0 H (7.4-10.4) fL Immature Gran % (Auto) 0.2 % Neut % (Auto) 76.8 % Lymph % (Auto) 15.0 % [place] % (Auto) 6.4 % Eos % (Auto) 1.4 % Baso % (Auto) 0.2 % Neut # (Auto) 9.53 H (1.4-6.5) K/uL Lymph # (Auto) 1.86 (1.2-3.4) K/uL [place] # (Auto) 0.79 H (0.11-0.59) K/uL Eos # (Auto) 0.17 (0-0.5) K/uL Baso # (Auto) 0.02 (0-0.2) K/uL Immature Gran # (Auto) 0.02 (0.00-0.02) K/uL Sodium 135 L (136-145) mmol/L Potassium 3.5 (3.5-5.1) mmol/L Chloride 101 (98-107) mmol/L Carbon Dioxide 27 (21-32) mmol/L Anion Gap 8.0 (3-11) BUN 14 (7-18) mg/dl Creatinine 1.03 (0.6-1.4) mg/dl Est Cr Clr Drug Dosing 88.6 ml/min Est GFR ( Amer) 86.7 ml/min Est GFR (Non-Af Amer) 74.8 ml/min BUN/Creatinine Ratio 13.6 (10-20) Glucose 146 H (70-99) mg/dl POC Glucose 178 H (70-99) mg/dl Calcium 9.1 (8.5-10.1) mg/dl Lyme Disease IgG Ab (Negative) Lyme Disease IgM Ab (Negative) 03/13/21 Range/Units 16:48 WBC (4.8-10.8) K/uL RBC (4.7-6.1) M/uL Hgb (14.0-18.0) g/dL Hct (42-52) % MCV (80-100) fL MCH (25-34) pg MCHC (32-36) g/dL RDW Std Deviation (36.4-46.3) fL RDW Coeff of Anisha (11.5-14.5) % Plt Count (130-400) K/uL MPV (7.4-10.4) fL Immature Gran % (Auto) % Neut % (Auto) % Lymph % (Auto) % [place] % (Auto) % Eos % (Auto) % Baso % (Auto) % Neut # (Auto) (1.4-6.5) K/uL Lymph # (Auto) (1.2-3.4) K/uL [place] # (Auto) (0.11-0.59) K/uL Eos # (Auto) (0-0.5) K/uL Baso # (Auto) (0-0.2) K/uL Immature Gran # (Auto) (0.00-0.02) K/uL Sodium (136-145) mmol/L Potassium (3.5-5.1) mmol/L Chloride (98-107) mmol/L Carbon Dioxide (21-32) mmol/L Anion Gap (3-11) BUN (7-18) mg/dl Creatinine (0.6-1.4) mg/dl Est Cr Clr Drug Dosing ml/min Est GFR ( Amer) ml/min Est GFR (Non-Af Amer) ml/min BUN/Creatinine Ratio (10-20) Glucose (70-99) mg/dl POC Glucose 177 H (70-99) mg/dl Calcium (8.5-10.1) mg/dl Lyme Disease IgG Ab (Negative) Lyme Disease IgM Ab (Negative) (1) Hypertension Hypertension type: unspecified Qualified Code(s): I10 - Essential (primary) hypertension
[2021-03-14] MEDS: POLYETHYLENE (MIRALAX) 17 GM PACK PO SCH (14:45)
--- NOTE | 2021-03-14 17:08 | Ultrasound Report ---
ACT 112: Negative or not required by law. DOPPLER ULTRASOUND OF THE RENAL ARTERIES CLINICAL HISTORY: Hypertension. COMPARISON STUDY: None TECHNIQUE: Doppler sonography of the renal arteries was performed to assess renal artery stenosis. Im ages are reviewed in the transverse and longitudinal planes. FINDINGS: Significantly limited exam due to patient's body habitus and prominent bowel gas. Right kidney is measuring 13 cm in size without evidence of hydronephrosis. 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 Highest resistive index measure 0.66 within mid pole of the right kidney. Right renal arteries: Is poorly visualized, but systolic velocity was seen within its distal aspect o nly and measured 34 cm/s. Right renal vein is patent. Left kidneys measured 12.2 cm in size and show no evidence of hydronephrosis. Highest resistive in the measured 0.68 and seen with within upper pole. Left renal artery is poorly visualized. Peak systolic velocity within its distal portion measured 170 .3 cm/s. Left renal vein is patent. IMPRESSION: Significantly limited exam due to patient body habitus and overlying bowel gas. Right and left resistive indicis less than 0.7 which is within upper limits of normal, no sonographi c evidence of renal artery stenosis is seen on this limited exam. No hydronephrosis. Right and left renal veins are patent. ACT 112: Negative or not required by law. Electronically signed by: Nanette Eaton DO 03/14/2021 5:06 PM
[2021-03-14] MEDS ORDERED: SODIUM CHLORIDE 0.9% 1000ML 250 ML IV ONE (19:31)
[2021-03-14] MEDS: SENNA 8.6 MG TAB PO SCH (20:06)
[2021-03-14] MEDS: TAMSULOSIN HCL 0.4 MG CAP PO SCH (20:07)
[2021-03-14] MEDS: ATORVASTATIN 40 MG TAB PO SCH (20:07)
[2021-03-14] MEDS: TRAVOPROST Z 0.004% OPH SOLN 2.5 ML BTL OPB SCH (20:08)
[2021-03-15] MEDS: oxyCODONE HCL IR 5 MG TAB (IMMEDIATE RELEASE) PO PRN ×3 (03:39→18:06)
[2021-03-15] MEDS: ACETAMINOPHEN 500 MG TAB PO SCH ×3 (06:15→20:32)
[2021-03-15] MEDS: POLYETHYLENE (MIRALAX) 17 GM PACK PO SCH (08:40)
[2021-03-15] MEDS: MAGNESIUM HYDROXIDE SUSP 30 ML UDC PO PRN (08:40)
[2021-03-15] MEDS: DOCUSATE SODIUM 100 MG CAP PO SCH ×2 (08:42→20:32)
[2021-03-15] MEDS: CLOPIDOGREL BISULFATE 75 MG TAB PO SCH (08:42)
[2021-03-15] MEDS: SPIRONOLACTONE/HCTZ 25-25 PO SCH (08:43)
[2021-03-15] MEDS: INSULIN GLARGINE SOLOSTAR 100 UNITS/ML 3 ML PEN SC SCH ×2 (08:44→20:23)
[2021-03-15] MEDS: LOSARTAN POTASSIUM 50 MG TAB PO SCH (08:44)
[2021-03-15] MEDS: MULTIVITAMIN TAB PO SCH (08:45)
[2021-03-15] MEDS: PANTOprazole 40 MG TAB PO SCH (08:45)
[2021-03-15] MEDS: ENOXAPARIN INJ 30 MG/0.3 ML SYR SQ SCH ×2 (08:46→20:18)
[2021-03-15] MEDS: INSULIN ASPART 100 UNITS/ML 3 ML PEN SC SCH ×4 (08:48→20:24)
--- NOTE | 2021-03-15 09:30 | Hospitalist Progress Note ---
Date of Service March 15, 2021 Assessment & Plan (1) Hypertensive encephalopathy: Plan: BP elevated throughout entire admission and prior to surgery. Not candidate for TPA given recent surgery Reported not taking BP meds 5 days prior to admit BPs up to 207/113 afternoon of 03/12 and hospitalist group consulted for persistent HTN. Had been ordered 5mg hydralazine Q8H without improvement Seen in afternoon with some difficulty word finding concerning for CVA. BSG acce ptable Moved to telemetry -- no arrhythmia noted CT Chronic small vessel ischemia. Few lacunar infarcts within right and left basal ganglia -- initially did appear to be old, but work-up initiated to be safe CTA Head/neck with significant vascular disease but no acute findings MRI Brain NEGATIVE for acute CVA but does show chronic ischemic microvascular changes, likely 2nd to his HTN/DM ECHO without valvular heart disease, does have concentric LVH likely from HTN. EF 50-55% and diastolic dysfunction grade I Imaging reviewed with Neurology and also felt old changes and does have vascular changes related to HTN/DM and would aim at better BP control HCTZ 25mg x 1 and ASA 324mg was administered on 03/11 and ASA 81mg daily scheduled (changed to Plavix given hx GI bleeding on aspirin and would continue at discharge) PPI added and would also continue this for GI proph Labetalol IV prn for elevated SBP/DBP Cognition improved and back to baseline, clear 03/14 BPs improved today -- currently 138/87. Following changes have been made to obtain adequate control and should be continued at discharge with close follow up with PCP. Updated Dr Fallon (PCP) 03/14: * Amlodipine increased to 10mg daily * Continue losartan 100mg daily * HCTZ-Aldactone 25-25mg daily * Plavix 75mg daily * Atorvastatin 40mg daily * Protonix 40mg daily while on Plavix/Lovenox for DVT prophylaxis Renal Artery Duplex to look for SAMARIA pending -- may need to adjust/alter if evidence of stenosis but will continue current regimen as scheduled Recommended to ortho alternative pain control and to avoid ibuprofen which he had been taking 600mg almost daily for chronic pain Rec re-eval/compliance with CPAP as has this at home 03/15 BPs much better controlled today and actually low normal last night and 250cc NSS bolus administered given increased diuretics Holding AM amlodipine (backed down to 5mg) Suspect that the HCTZ-aldactone will be sufficient --> decreased to 1/2 tablet for today and would monitor response/labs Monitor on Aldactazide, losartan for now Would be ideal if this combination would be sufficient as less medications for compliance would be best If regimen effective will update Dr. Fallon again regarding changes BP currently 111/74 --> Hypokalemia with K 3.4 likely from diuretic. Supplementation ordered but will check mag as well. If BP stable and electrolytes normal with adequate BP control, consider following regimen for BP/prevention at d/c: * Possible d/c amlodipine * Continue losartan 100mg daily * Decrease HCTZ-aldactone to 0.5 tablets daily as outlined * Continue Plavix 75mg, Atorvastatin 40mg daily, Protonix 40mg daily ALSO WOULD LIMIT PAIN MEDICATIONS -- DISCONTINUED TRAMADOL 100MG DAILY, DID GET DOSE OF OXYCODONE EARLY AM 03/13 AND WAS FAIRLY LETHARGIC THIS MORNING. 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 Preciado Post-op management per ortho Lovenox ordered for DVT prophylaxis Plans for rehab at d/c --> SNF not able to take until Wednesday at earliest 03/14 DIscussion with ortho about possible d/c to home tomorrow if does well in PT -- has been up and moving more today. If continues to make progress will d/c with home health/OPPT, but if not will continue to wait for bed at SNF which won't be available now until Wednesday/Wednesday next week 03/15--> still needing increased assistance and awaiting SNF on Wednesday (4) Sleep apnea: Plan: CPAP HS -- ordered for tonight Has at home but has not been compliant per -- discussed importance of compliance as long standing untreated QUOC and worsening HTN Has continued to refuse -- would rec compliance given HTN as above (5) Hyperlipidemia: Plan: Reported hx although not on any medications Adding lipid panel to AM l -- acceptable Low dose atorvastain increased to 40mg daily given his prior CVA -- continue at d/c as above (6) Diabetes mellitus: Plan: Most recent A1c 7.5 --> repeat 7.3 Metformin 1000mg BID [employer] BSGs acceptable Will place metformin on hold and continue with ISS Continue to monitor Plan: Thank you for allowing hospitalist service to participate in the care of Mr Reardon. Hospitalist service will follow along while inpatient. Admission and Anticipated Discharge Date Admission Date: March 13, 2021 Subjective Evaluated this afternoon. BP well controlled and feeling comfortable with decreased dose of the Aldactazide and continue to monitor. If stable on this and the losartan can d/c the amlodipine altogether to prevent extra number of pills to take. Patient agreeable to plan. Feeling well and back to baseline. Pain controlled with oral agents. [place] on BM. From ortho standpoint patient not stable for d/c and will await [facility] on Wednesday. Review of Systems Review of Systems: All systems reviewed & are unremarkable except as noted in HPI & below Physical Exam Physical Exam: WD, WN, obese male, laying in bed, no acute distress Eyes: glaucoma, equal pupil size and reactive to light ENT: mmm, trachea midline without deviation Resp: CTAB, no w/c/r, diminished in the bases CV: regular rate, regular rhythm, no arrhythmia on monitor, no m/r/g appreciated ABD: +BS, distended, non-tender to palpation, no obvious organomegaly Ext: dressing to R knee c/d/i, drain with scant output. pulses palpable bilaterally, 1+ to posterior tibial. minimal edema, plantar/dorsiflexion intact Neuro: alert, oriented, reflexes intact, sensation to pressure, decreased to light touch alert and oriented x 4, answering questions appropriately, no focal deficits, no pronator drift, clear speech, alternating movements intact, finger-nose opposition intact. CN II-XII intact. speech clear and intact. back to his baseline self Results & Data Results & [facility]) Vital Signs (Past 12 Hours) Vital Signs Temp Pulse Resp BP BP Pulse Ox 03/15/21 08:42 37.0 C 81 20 111/74 96 03/15/21 02:52 37 C 63 18 117/73 99 03/14/21 23:22 37.1 C 83 18 132/75 94 Laboratory Results 03/15/21 03/15/21 03/15/21 Range/Units 11:42 09:56 09:56 WBC 11.70 H (4.8-10.8) K/uL RBC 3.97 L (4.7-6.1) M/uL Hgb 10.8 L (14.0-18.0) g/dL Hct 33.5 L (42-52) % MCV 84.4 (80-100) fL MCH 27.2 (25-34) pg MCHC 32.2 (32-36) g/dL RDW Std Deviation 45.3 (36.4-46.3) fL RDW Coeff of Anisha 14.5 (11.5-14.5) % Plt Count 179 (130-400) K/uL MPV 10.8 H (7.4-10.4) fL Immature Gran % (Auto) 0.2 % Neut % (Auto) 71.2 % Lymph % (Auto) 20.9 % [place] % (Auto) 5.7 % Eos % (Auto) 1.9 % Baso % (Auto) 0.1 % Neut # (Auto) 8.34 H (1.4-6.5) K/uL Lymph # (Auto) 2.44 (1.2-3.4) K/uL [place] # (Auto) 0.67 H (0.11-0.59) K/uL Eos # (Auto) 0.22 (0-0.5) K/uL Baso # (Auto) 0.01 (0-0.2) K/uL Immature Gran # (Auto) 0.02 (0.00-0.02) K/uL Sodium 135 L (136-145) mmol/L Potassium 3.4 L (3.5-5.1) mmol/L Chloride 100 (98-107) mmol/L Carbon Dioxide 29 (21-32) mmol/L Anion Gap 6.0 (3-11) BUN 24 H D (7-18) mg/dl Creatinine 1.24 (0.6-1.4) mg/dl Est Cr Clr Drug Dosing 75.0 ml/min Est GFR ( Amer) 69.3 ml/min Est GFR (Non-Af Amer) 59.8 ml/min BUN/Creatinine Ratio 19.1 (10-20) Glucose 168 H (70-99) mg/dl POC Glucose 122 H (70-99) mg/dl Calcium 8.7 (8.5-10.1) mg/dl 03/15/21 03/14/21 03/14/21 Range/Units 07:49 20:33 16:41 WBC (4.8-10.8) K/uL RBC (4.7-6.1) M/uL Hgb (14.0-18.0) g/dL Hct (42-52) % MCV (80-100) fL MCH (25-34) pg MCHC (32-36) g/dL RDW Std Deviation (36.4-46.3) fL RDW Coeff of Anisha (11.5-14.5) % Plt Count (130-400) K/uL MPV (7.4-10.4) fL Immature Gran % (Auto) % Neut % (Auto) % Lymph % (Auto) % [place] % (Auto) % Eos % (Auto) % Baso % (Auto) % Neut # (Auto) (1.4-6.5) K/uL Lymph # (Auto) (1.2-3.4) K/uL [place] # (Auto) (0.11-0.59) K/uL Eos # (Auto) (0-0.5) K/uL Baso # (Auto) (0-0.2) K/uL Immature Gran # (Auto) (0.00-0.02) K/uL Sodium (136-145) mmol/L Potassium (3.5-5.1) mmol/L Chloride (98-107) mmol/L Carbon Dioxide (21-32) mmol/L Anion Gap (3-11) BUN (7-18) mg/dl Creatinine (0.6-1.4) mg/dl Est Cr Clr Drug Dosing ml/min Est GFR ( Amer) ml/min Est GFR (Non-Af Amer) ml/min BUN/Creatinine Ratio (10-20) Glucose (70-99) mg/dl POC Glucose 138 H 130 H 176 H (70-99) mg/dl Calcium (8.5-10.1) mg/dl Diagnostic Findings Renal Artery Duplex 03/14/21 00:00 ACT 112: Negative or not required by law. DOPPLER ULTRASOUND OF THE RENAL ARTERIES CLINICAL HISTORY: Hypertension. COMPARISON STUDY: None TECHNIQUE: Doppler sonography of the renal arteries was performed to assess renal artery stenosis. Images are reviewed in the transverse and longitudinal planes. FINDINGS: Significantly limited exam due to patient's body habitus and prominent bowel gas. Right kidney is measuring 13 cm in size without evidence of hydronephrosis. 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 Highest resistive index measure 0.66 within mid pole of the right kidney. Right renal arteries: Is poorly visualized, but systolic velocity was seen within its distal aspect only and measured 34 cm/s. Right renal vein is patent. Left kidneys measured 12.2 cm in size and show no evidence of hydronephrosis. Highest resistive in the measured 0.68 and seen with within upper pole. Left renal artery is poorly visualized. Peak systolic velocity within its distal portion measured 170.3 cm/s. Left renal vein is patent. IMPRESSION: Significantly limited exam due to patient body habitus and overlying bowel gas. Right and left resistive indicis less than 0.7 which is within upper limits of normal, no sonographic evidence of renal artery stenosis is seen on this limited exam. No hydronephrosis. Right and left renal veins are patent. ACT 112: Negative or not required by law. Electronically signed by: Nanette Eaton DO 03/14/2021 5:06 PM PG Care Time/CCT Total # of Minutes Spent Total Time Spent with Patient: Total time spent is greater than 50% in coordination of care (as documented) at patient's floor/unit and/or counseling patient: Coding Level of Care Code 02878 Subseq Hosp Care Lvl 3 Diagnoses Hypertensive encephalopathy I67.4 Hypertension I10 Hypertension type: unspecified Status post total right knee replacement Z96.651 Sleep apnea G47.30 Hyperlipidemia E78.5 Diabetes mellitus E11.9 (1) Hypertension Hypertension type: unspecified Qualified Code(s): I10 - Essential (primary) hypertension
[2021-03-15 10:13] LABS: Basophils # (auto) 0.01 K/uL (0-0.2); Basophils % (auto) 0.1 %; Eosinophils # (auto) 0.22 K/uL (0-0.5); Eosinophils % (auto) 1.9 %; Hematocrit (blood only) 33.5 % (42-52); Hemoglobin 10.8 g/dL (14.0-18.0); Immature Granulocytes # (auto) 0.02 K/uL (0.00-0.02); Immature Granulocytes % (auto) 0.2 %; Lymphocytes # (auto) 2.44 K/uL (1.2-3.4); Lymphocytes % (auto) 20.9 %; Mean Corpuscular Hemoglobin 27.2 pg (25-34); Mean Corpuscular Hgb Conc 32.2 g/dL (32-36); Mean Corpuscular Volume 84.4 fL (80-100); Mean Platelet Volume 10.8 fL (7.4-10.4); Monocytes # (auto) 0.67 K/uL (0.11-0.59); Monocytes % (auto) 5.7 %; Neutrophils # (auto) 8.34 K/uL (1.4-6.5); Neutrophils % (auto) 71.2 %; Platelet Count 179 K/uL (130-400); RDW Coefficient of Variation 14.5 % (11.5-14.5); RDW Standard Deviation 45.3 fL (36.4-46.3); Red Blood Count 3.97 M/uL (4.7-6.1)
[2021-03-15 10:29] LABS: BUN Creatinine Ratio 19.1 (10-20); Calcium 8.7 mg/dl (8.5-10.1); Est GFR (African American) 69.3 ml/min; Est GFR (Non-African American) 59.8 ml/min; Potassium 3.4 mmol/L (3.5-5.1)
--- NOTE | 2021-03-15 10:46 | Orthopedic Progress Note ---
Date of Service March 15, 2021 Assessment & Plan (1) Status post total right knee replacement: Plan: POD 4- s/p RIght TKA PT/OT to continue We assisted patient out of bed to chair today, required two people min-mod assist Continue Knee immobilizer - patient unable to control leg encouraged exercises continue Lovenox for DVT prophylaxis. Ice PRN WBAT RLE with walker Regular diet Bowel regimen as needed still not safe for discharge to his home. Needs too much assistance to get out of bed and ambulate. Will plan for [facility] on Wednesday. (2) Diabetes mellitus: Plan: Continue same course of treatment (3) Hypertensive encephalopathy: Plan: Blood pressure controlled, stable Continue present treatment Continue Plavix Will continue to follow. Admission and Anticipated Discharge Date Admission Date: March 13, 2021 Subjective Patient is doing well. Minimal pain, but controlled with oral pain medication. Resting in bed, has not been out of bed yet today. No PT yet today. Feels back to normal. Physical Exam Musculoskeletal: Incision right knee dressings clean, dry and intact. NO distal edema Distal pulses 1+ Rashaun stocking in place, no calf tenderness, calf supple Full ankle strength and motion Toes move well. Unable to independently SLR Results & Data ([facility]) Vital Signs (Past 12 Hours) Vital Signs Temp Pulse Resp BP BP Pulse Ox 03/15/21 08:42 37.0 C 81 20 111/74 96 03/15/21 02:52 37 C 63 18 117/73 99 03/14/21 23:22 37.1 C 83 18 132/75 94 Laboratory Results 03/15/21 03/15/21 03/15/21 Range/Units 09:56 09:56 07:49 WBC 11.70 H (4.8-10.8) K/uL RBC 3.97 L (4.7-6.1) M/uL Hgb 10.8 L (14.0-18.0) g/dL Hct 33.5 L (42-52) % MCV 84.4 (80-100) fL MCH 27.2 (25-34) pg MCHC 32.2 (32-36) g/dL RDW Std Deviation 45.3 (36.4-46.3) fL RDW Coeff of Anisha 14.5 (11.5-14.5) % Plt Count 179 (130-400) K/uL MPV 10.8 H (7.4-10.4) fL Immature Gran % (Auto) 0.2 % Neut % (Auto) 71.2 % Lymph % (Auto) 20.9 % [place] % (Auto) 5.7 % Eos % (Auto) 1.9 % Baso % (Auto) 0.1 % Neut # (Auto) 8.34 H (1.4-6.5) K/uL Lymph # (Auto) 2.44 (1.2-3.4) K/uL [place] # (Auto) 0.67 H (0.11-0.59) K/uL Eos # (Auto) 0.22 (0-0.5) K/uL Baso # (Auto) 0.01 (0-0.2) K/uL Immature Gran # (Auto) 0.02 (0.00-0.02) K/uL Sodium 135 L (136-145) mmol/L Potassium 3.4 L (3.5-5.1) mmol/L Chloride 100 (98-107) mmol/L Carbon Dioxide 29 (21-32) mmol/L Anion Gap 6.0 (3-11) BUN 24 H D (7-18) mg/dl Creatinine 1.24 (0.6-1.4) mg/dl Est Cr Clr Drug Dosing 75.0 ml/min Est GFR ( Amer) 69.3 ml/min Est GFR (Non-Af Amer) 59.8 ml/min BUN/Creatinine Ratio 19.1 (10-20) Glucose 168 H (70-99) mg/dl POC Glucose 138 H (70-99) mg/dl Calcium 8.7 (8.5-10.1) mg/dl 03/14/21 03/14/21 03/14/21 Range/Units 20:33 16:41 11:15 WBC (4.8-10.8) K/uL RBC (4.7-6.1) M/uL Hgb (14.0-18.0) g/dL Hct (42-52) % MCV (80-100) fL MCH (25-34) pg MCHC (32-36) g/dL RDW Std Deviation (36.4-46.3) fL RDW Coeff of Anisha (11.5-14.5) % Plt Count (130-400) K/uL MPV (7.4-10.4) fL Immature Gran % (Auto) % Neut % (Auto) % Lymph % (Auto) % [place] % (Auto) % Eos % (Auto) % Baso % (Auto) % Neut # (Auto) (1.4-6.5) K/uL Lymph # (Auto) (1.2-3.4) K/uL [place] # (Auto) (0.11-0.59) K/uL Eos # (Auto) (0-0.5) K/uL Baso # (Auto) (0-0.2) K/uL Immature Gran # (Auto) (0.00-0.02) K/uL Sodium (136-145) mmol/L Potassium (3.5-5.1) mmol/L Chloride (98-107) mmol/L Carbon Dioxide (21-32) mmol/L Anion Gap (3-11) BUN (7-18) mg/dl Creatinine (0.6-1.4) mg/dl Est Cr Clr Drug Dosing ml/min Est GFR ( Amer) ml/min Est GFR (Non-Af Amer) ml/min BUN/Creatinine Ratio (10-20) Glucose (70-99) mg/dl POC Glucose 130 H 176 H 175 H (70-99) mg/dl Calcium (8.5-10.1) mg/dl
[2021-03-15] MEDS ORDERED: POTASSIUM CHLORIDE CRTAB 20 MEQ TABCR PO STA (11:58)
[2021-03-15] MEDS ORDERED: MAGNESIUM CITRATE 296 ML/BTL PO ONE (16:01)
[2021-03-15] MEDS: SENNA 8.6 MG TAB PO SCH (20:18)
[2021-03-15] MEDS: ATORVASTATIN 40 MG TAB PO SCH (20:18)
[2021-03-15] MEDS: TAMSULOSIN HCL 0.4 MG CAP PO SCH (20:18)
[2021-03-15] MEDS: TRAVOPROST Z 0.004% OPH SOLN 2.5 ML BTL OPB SCH (20:18)
[2021-03-16] MEDS: ACETAMINOPHEN 500 MG TAB PO SCH ×3 (05:25→20:55)
[2021-03-16 06:59] LABS: Hematocrit (blood only) 33.2 % (42-52); Hemoglobin 10.3 g/dL (14.0-18.0); Mean Corpuscular Hemoglobin 26.5 pg (25-34); Mean Corpuscular Volume 85.6 fL (80-100); Platelet Count 197 K/uL (130-400); RDW Coefficient of Variation 14.6 % (11.5-14.5); RDW Standard Deviation 45.7 fL (36.4-46.3); Red Blood Count 3.88 M/uL (4.7-6.1); White Blood Count 10.49 K/uL (4.8-10.8)
[2021-03-16 07:32] LABS: BUN Creatinine Ratio 26.1 (10-20); Calcium 8.7 mg/dl (8.5-10.1); Creatinine Clr Calc Pharmacy 79.4 ml/min; Est GFR (African American) 74.3 ml/min; Est GFR (Non-African American) 64.1 ml/min; Potassium 3.6 mmol/L (3.5-5.1)
--- NOTE | 2021-03-16 07:43 | Hospitalist Progress Note ---
Date of Service March 16, 2021 Assessment & Plan (1) Hypertensive encephalopathy: Plan: BP elevated throughout entire admission and prior to surgery. Not candidate for TPA given recent surgery Reported not taking BP meds 5 days prior to admit BPs up to 207/113 afternoon of 03/12 and hospitalist group consulted for persistent HTN. Had been ordered 5mg hydralazine Q8H without improvement Seen in afternoon with some difficulty word finding concerning for CVA. BSG acc eptable Moved to telemetry -- no arrhythmia noted CT Chronic small vessel ischemia. Few lacunar infarcts within right and left basal ganglia -- initially did appear to be old, but work-up initiated to be safe CTA Head/neck with significant vascular disease but no acute findings MRI Brain NEGATIVE for acute CVA but does show chronic ischemic microvascular changes, likely 2nd to his HTN/DM ECHO without valvular heart disease, does have concentric LVH likely from HTN. EF 50-55% and diastolic dysfunction grade I Imaging reviewed with Neurology and also felt old changes and does have vascular changes related to HTN/DM and would aim at better BP control HCTZ 25mg x 1 and ASA 324mg was administered on 03/11 and ASA 81mg daily scheduled (changed to Plavix given hx GI bleeding on aspirin and would continue at discharge) PPI added and would also continue this for GI proph Labetalol IV prn for elevated SBP/DBP Cognition improved and back to baseline, clear 03/14 BPs improved today -- currently 138/87. Following changes have been made to obtain adequate control and should be continued at discharge with close follow up with PCP. Updated Dr Fallon (PCP) 03/14: * Amlodipine increased to 10mg daily * Continue losartan 100mg daily * HCTZ-Aldactone 25-25mg daily * Plavix 75mg daily * Atorvastatin 40mg daily * Protonix 40mg daily while on Plavix/Lovenox for DVT prophylaxis Renal Artery Duplex to look for SAMARIA pending -- may need to adjust/alter if evidence of stenosis but will continue current regimen as scheduled Recommended to ortho alternative pain control and to avoid ibuprofen which he had been taking 600mg almost daily for chronic pain Rec re-eval/compliance with CPAP as has this at home 03/15 BPs much better controlled today and actually low normal last night and 250cc NSS bolus administered given increased diuretics Holding AM amlodipine (backed down to 5mg) Suspect that the HCTZ-aldactone will be sufficient --> decreased to 1/2 tablet for today and would monitor response/labs Monitor on Aldactazide, losartan for now Would be ideal if this combination would be sufficient as less medications for compliance would be best If regimen effective will update Dr. Fallon again regarding changes BP currently 111/74 --> Hypokalemia with K 3.4 likely from diuretic. Supplementation ordered but will check mag as well. If BP stable and electrolytes normal with adequate BP control, consider following regimen for BP/prevention at d/c: * Possible d/c amlodipine * Continue losartan 100mg daily * Decrease HCTZ-aldactone to 0.5 tablets daily as outlined 03/16 BP remains well controlled and actually on the lower side last evening but back up to 166/79 this morning Suspect that combination Aldactone-HCTZ (decreased to 0.5 tablet on 03/15), along with 5mg amlodipine will be sufficient and will d/c losartan to prevent kidney damage/dehydration given renal US not indicated SAMARIA but upper limits of normal Sent message to Dr. Fallon with update of medication changes Continue Plavix 75mg, Atorvastatin 40mg daily, Protonix 40mg daily --. placed on d/c and discussed with primary service Mag citrate added for BM -- hopefully will also help with urinary retention Waiting SNF tomorrow (2) Hypertension: Plan: As above Will need close f/u at d/c forward note to Dr Fallon on day of d/c with changes as above (3) Status post total right knee replacement: Plan: POD 4 s/p R TKA with Dr. Preciado Post-op management per ortho Lovenox ordered for DVT prophylaxis Plans for rehab at d/c --> SNF not able to take until Wednesday at earliest 03/14 DIscussion with ortho about possible d/c to home tomorrow if does well in PT -- has been up and moving more today. If continues to make progress will d/c with home health/OPPT, but if not will continue to wait for bed at SNF which won't be available now until Wednesday/Wednesday next week 03/15--> still needing increased assistance and awaiting SNF on Friday 03/16--> plans for SNF tomorrow (4) Sleep apnea: Plan: CPAP HS -- ordered for tonight Has at home but has not been compliant per -- discussed importance of compliance as long standing untreated QUOC and worsening HTN Has continued to refuse -- would rec compliance given HTN as above (5) Hyperlipidemia: Plan: Reported hx although not on any medications Adding lipid panel to AM l -- acceptable Low dose atorvastain increased to 40mg daily given his prior CVA -- continue at d/c as above (6) Diabetes mellitus: Plan: Most recent A1c 7.5 --> repeat 7.3 Metformin 1000mg BID [employer] BSGs acceptable Will place metformin on hold and continue with ISS Continue to monitor Plan: Thank you for allowing hospitalist service to participate in the care of Mr Reardon. Hospitalist service will chart check for BPs tomorrow/make final recommendations but will not see tomorrow unless needed. Please call with any questions/concerns. Admission and Anticipated Discharge Date Admission Date: March 13, 2021 Subjective Eval this morning. Pain controlled. Continues on 0.5 tablet HCTZ-aldactone. Bps up a little this morning but hadn't received medications. Discussed continue amlodipine 5mg and will d/c losartan and update PCP Dr Fallon. Urinary retention but also hasn't moved bowels. BS for 400 but wanting to wait for BM. Would like to go to the bathroom over using bedpan as this makes it difficult to go. No pain, and is passing gas. Per ortho, still requiring assistance with ambulation and will await SNF tomorrow. No fever, chills, chest pain, shortness of breath, nausea, vomiting at this time. Review of Systems Review of Systems: All systems reviewed & are unremarkable except as noted in HPI & below Physical Exam Physical Exam: WD, WN, obese male, laying in bed, no acute distress Eyes: glaucoma, equal pupil size and reactive to light ENT: mmm, trachea midline without deviation Resp: CTAB, no w/c/r, diminished in the bases CV: regular rate, regular rhythm, no arrhythmia on monitor, no m/r/g appreciated ABD: +BS, distended, non-tender to palpation, no obvious organomegaly Ext: dressing to R knee c/d/i, drain with scant output. pulses palpable bilaterally, 1+ to posterior tibial. minimal edema, plantar/dorsiflexion intact Neuro: alert, oriented, reflexes intact, sensation to pressure, decreased to light touch alert and oriented x 4, answering questions appropriately, no focal deficits, no pronator drift, clear speech, alternating movements intact, finger-nose opposition intact. CN II-XII intact. speech clear and intact. back to his baseline self Results & Data Results & Data ([facility]) Vital Signs (Past 12 Hours) Vital Signs Temp Pulse Resp BP Pulse Ox 03/15/21 23:03 37.2 C 60 18 107/68 98 Laboratory Results 03/16/21 03/16/21 03/15/21 Range/Units 06:28 06:28 20:15 WBC 10.49 (4.8-10.8) K/uL RBC 3.88 L (4.7-6.1) M/uL Hgb 10.3 L (14.0-18.0) g/dL Hct 33.2 L (42-52) % MCV 85.6 (80-100) fL MCH 26.5 (25-34) pg MCHC 31.0 L (32-36) g/dL RDW Std Deviation 45.7 (36.4-46.3) fL RDW Coeff of Anisha 14.6 H (11.5-14.5) % Plt Count 197 (130-400) K/uL MPV 11.0 H (7.4-10.4) fL Immature Gran % (Auto) % Neut % (Auto) % Lymph % (Auto) % Mcmullen % (Auto) % Eos % (Auto) % Baso % (Auto) % Neut # (Auto) (1.4-6.5) K/uL Lymph # (Auto) (1.2-3.4) K/uL Mcmullen # (Auto) (0.11-0.59) K/uL Eos # (Auto) (0-0.5) K/uL Baso # (Auto) (0-0.2) K/uL Immature Gran # (Auto) (0.00-0.02) K/uL Sodium 137 (136-145) mmol/L Potassium 3.6 (3.5-5.1) mmol/L Chloride 101 (98-107) mmol/L Carbon Dioxide 29 (21-32) mmol/L Anion Gap 7.0 (3-11) BUN 31 H (7-18) mg/dl Creatinine 1.17 (0.6-1.4) mg/dl Est Cr Clr Drug Dosing 79.4 ml/min Est GFR ( Amer) 74.3 ml/min Est GFR (Non-Af Amer) 64.1 ml/min BUN/Creatinine Ratio 26.1 H (10-20) Glucose 123 H (70-99) mg/dl POC Glucose 109 H (70-99) mg/dl Calcium 8.7 (8.5-10.1) mg/dl Magnesium (1.8-2.4) mg/dl 03/15/21 03/15/21 03/15/21 Range/Units 17:03 11:42 09:56 WBC (4.8-10.8) K/uL RBC (4.7-6.1) M/uL Hgb (14.0-18.0) g/dL Hct (42-52) % MCV (80-100) fL MCH (25-34) pg MCHC (32-36) g/dL RDW Std Deviation (36.4-46.3) fL RDW Coeff of Anisha (11.5-14.5) % Plt Count (130-400) K/uL MPV (7.4-10.4) fL Immature Gran % (Auto) % Neut % (Auto) % Lymph % (Auto) % Mcmullen % (Auto) % Eos % (Auto) % Baso % (Auto) % Neut # (Auto) (1.4-6.5) K/uL Lymph # (Auto) (1.2-3.4) K/uL Mcmullen # (Auto) (0.11-0.59) K/uL Eos # (Auto) (0-0.5) K/uL Baso # (Auto) (0-0.2) K/uL Immature Gran # (Auto) (0.00-0.02) K/uL Sodium (136-145) mmol/L Potassium (3.5-5.1) mmol/L Chloride (98-107) mmol/L Carbon Dioxide (21-32) mmol/L Anion Gap (3-11) BUN (7-18) mg/dl Creatinine (0.6-1.4) mg/dl Est Cr Clr Drug Dosing ml/min Est GFR ( Amer) ml/min Est GFR (Non-Af Amer) ml/min BUN/Creatinine Ratio (10-20) Glucose (70-99) mg/dl POC Glucose 149 H 122 H (70-99) mg/dl Calcium (8.5-10.1) mg/dl Magnesium 2.5 H (1.8-2.4) mg/dl 03/15/21 03/15/21 03/15/21 Range/Units 09:56 09:56 07:49 WBC 11.70 H (4.8-10.8) K/uL RBC 3.97 L (4.7-6.1) M/uL Hgb 10.8 L (14.0-18.0) g/dL Hct 33.5 L (42-52) % MCV 84.4 (80-100) fL MCH 27.2 (25-34) pg MCHC 32.2 (32-36) g/dL RDW Std Deviation 45.3 (36.4-46.3) fL RDW Coeff of Anisha 14.5 (11.5-14.5) % Plt Count 179 (130-400) K/uL MPV 10.8 H (7.4-10.4) fL Immature Gran % (Auto) 0.2 % Neut % (Auto) 71.2 % Lymph % (Auto) 20.9 % Mcmullen % (Auto) 5.7 % Eos % (Auto) 1.9 % Baso % (Auto) 0.1 % Neut # (Auto) 8.34 H (1.4-6.5) K/uL Lymph # (Auto) 2.44 (1.2-3.4) K/uL Mcmullen # (Auto) 0.67 H (0.11-0.59) K/uL Eos # (Auto) 0.22 (0-0.5) K/uL Baso # (Auto) 0.01 (0-0.2) K/uL Immature Gran # (Auto) 0.02 (0.00-0.02) K/uL Sodium 135 L (136-145) mmol/L Potassium 3.4 L (3.5-5.1) mmol/L Chloride 100 (98-107) mmol/L Carbon Dioxide 29 (21-32) mmol/L Anion Gap 6.0 (3-11) BUN 24 H D (7-18) mg/dl Creatinine 1.24 (0.6-1.4) mg/dl Est Cr Clr Drug Dosing 75.0 ml/min Est GFR ( Amer) 69.3 ml/min Est GFR (Non-Af Amer) 59.8 ml/min BUN/Creatinine Ratio 19.1 (10-20) Glucose 168 H (70-99) mg/dl POC Glucose 138 H (70-99) mg/dl Calcium 8.7 (8.5-10.1) mg/dl Magnesium (1.8-2.4) mg/dl PG Care Time/CCT Total # of Minutes Spent Total Time Spent with Patient: Total time spent is greater than 50% in coordination of care (as documented) at patient's floor/unit and/or counseling patient: Coding Level of Care Code 24470 Subseq Hosp Care Lvl 2 Diagnoses Hypertensive encephalopathy I67.4 Hypertension I10 Hypertension type: unspecified Status post total right knee replacement Z96.651 Sleep apnea G47.30 Hyperlipidemia E78.5 Diabetes mellitus E11.9 (1) Hypertension Hypertension type: unspecified Qualified Code(s): I10 - Essential (primary) hypertension
[2021-03-16] MEDS: PANTOprazole 40 MG TAB PO SCH (08:05)
[2021-03-16] MEDS: CLOPIDOGREL BISULFATE 75 MG TAB PO SCH (08:05)
[2021-03-16] MEDS: MULTIVITAMIN TAB PO SCH (08:05)
[2021-03-16] MEDS: SPIRONOLACTONE/HCTZ 25-25 PO SCH (08:05)
[2021-03-16] MEDS: DOCUSATE SODIUM 100 MG CAP PO SCH ×2 (08:05→19:28)
[2021-03-16] MEDS: POLYETHYLENE (MIRALAX) 17 GM PACK PO SCH (08:06)
[2021-03-16] MEDS: INSULIN ASPART 100 UNITS/ML 3 ML PEN SC SCH ×4 (08:39→20:40)
[2021-03-16] MEDS: INSULIN GLARGINE SOLOSTAR 100 UNITS/ML 3 ML PEN SC SCH (08:39)
[2021-03-16] MEDS ORDERED: MAGNESIUM CITRATE 296 ML/BTL PO STA (09:00)
--- NOTE | 2021-03-16 09:20 | Pharmacy Report ---
Pharmacy Glycemic Short Note 2 - Date of Service March 16, 2021 - Glycemic Short BSG Results (Last 24 hours): 03/15/21 03/15/21 03/15/21 09:56 11:42 17:03 Glucose 168 H POC Glucose 122 H 149 H 03/15/21 03/16/21 03/16/21 20:15 06:28 07:55 Glucose 123 H POC Glucose 109 H 119 H OUTPATIENT ANTIDIABETIC REGIMEN: * HbA1c = 7.3% (03/13/21) * Metformin 1000 mg PO BID ASSESSMENT: 03/16/21 * BSGs yesterday were [phone] mg/dL with insulin dose of 51 units/ day (20 units of basal and 31 units of bolus). * Fasting today 119 mg/dL which has been trending down since 03/13. Continue Lantus 10 units BID with an 8 unit dose if BSG < 140 mg/dL. * Tightened carbohydrate ratio yesterday to keep all BSGs < 150 mg/dL to improve surgery outcomes. * Continue Novolog. 03/14 * BSGs again reasonably well-controlled 161, 140, 177, 178 mg/dL * Fasting BSG of 141 mg/dL improved from yesterday with initiation of basal * Will increase by ~25% to 10 units BID today 03/13 * BSGs reasonably well-controlled yesterday with only 6 units of Novolog * Patient is now reordered a diet - will reinstitute carb coverage * Fasting BSGs have been persistently above goal - will start basal insulin today * Metformin was restarted yesterday, but discontinued prior to administration 03/12 * 65 y/o M admitted for R knee TKA. Pt with Type 2 DM managed only on oral Metformin at home. * Metformin was put on hold post op yesterday and patient was managed only on Novolog bolus based on BSG trends. * Fasting BSG was 154 mg/dl today without any basal yesterday. * Post-prandial BSGs have been near or at goal. Continued Novolog CF. * Metformin resumed with dinner today. Removed Novolog CR PLAN FOR INPATIENT GLYCEMIC CONTROL: * Hold metformin * Basal insulin * Lantus 10 units SC BID (8 units if BSG < 140 mg/dL) * Bolus insulin: * NovoLog per scale ACHS or Q6hrs while NPO * Goal Range: Low 110 mg/dL - High 140 mg/dL * Correction Factor: 20 mg/dL/unit * Nutritional / Prandial insulin per carb ratio of 1 unit per 6 grams CHO consumed PLAN FOR DISCHARGE: * HbA1c = 7.5%, Goal A1c is less than 7%. * May consider additional oral medication on discharge * Given patient's BMI - may benefit from addition of an SGLT-2 inhibitor such as Jardiance 10 mg PO daily, which has been associated with sustained weight reduction * Continue with Metformin 1000 mg PO BIDM on discharge
--- NOTE | 2021-03-16 09:37 | Orthopedic Progress Note ---
Date of Service March 16, 2021 Assessment & Plan (1) Status post total right knee replacement: Plan: POD 5- s/p RIght TKA PT/OT to continue We assisted patient out of bed to chair today, required two people min-mod assist Continue Knee immobilizer - patient unable to control leg encouraged exercises continue Lovenox for DVT prophylaxis. Ice PRN WBAT RLE with walker Regular diet Bowel regimen. still not safe for discharge to his home. Needs too much assistance to get out of bed and ambulate. Will plan for [facility] on Wednesday. (2) Diabetes mellitus: Plan: Continue same course of treatment (3) Hypertensive encephalopathy: Plan: Blood pressure controlled, stable Continue present treatment Appreciate Medical Assistance. Continue Plavix Will continue to follow. Admission and Anticipated Discharge Date Admission Date: March 13, 2021 Subjective Patient resting in bed, states that his pain is controlled, still feels like his normal self. Has not had a bowel movement since Wednesday, denies abdominal pain, taking all the bowel regimen medications. Passing gas. Denies nausea, vomiting or diarrhea. Physical Exam Musculoskeletal: Right knee dressing intact. Proximal incision is visible and clean, dry and intact. Unable to independently SLR Right lower extremity Strength right ankle 5/5 Normal sensation right foot. No calf tenderness, calf is supple. Distal pulses 1+ Results & Data ([facility]) Vital Signs (Past 12 Hours) Vital Signs Temp Pulse Pulse Resp BP Pulse Ox 03/16/21 08:03 37.1 C 80 18 166/79 H 95 03/15/21 23:03 37.2 C 60 18 107/68 98 Laboratory Results 03/16/21 03/16/21 03/16/21 Range/Units 07:55 06:28 06:28 WBC 10.49 (4.8-10.8) K/uL RBC 3.88 L (4.7-6.1) M/uL Hgb 10.3 L (14.0-18.0) g/dL Hct 33.2 L (42-52) % MCV 85.6 (80-100) fL MCH 26.5 (25-34) pg MCHC 31.0 L (32-36) g/dL RDW Std Deviation 45.7 (36.4-46.3) fL RDW Coeff of Anisha 14.6 H (11.5-14.5) % Plt Count 197 (130-400) K/uL MPV 11.0 H (7.4-10.4) fL Immature Gran % (Auto) % Neut % (Auto) % Lymph % (Auto) % Sierra % (Auto) % Eos % (Auto) % Baso % (Auto) % Neut # (Auto) (1.4-6.5) K/uL Lymph # (Auto) (1.2-3.4) K/uL Sierra # (Auto) (0.11-0.59) K/uL Eos # (Auto) (0-0.5) K/uL Baso # (Auto) (0-0.2) K/uL Immature Gran # (Auto) (0.00-0.02) K/uL Sodium 137 (136-145) mmol/L Potassium 3.6 (3.5-5.1) mmol/L Chloride 101 (98-107) mmol/L Carbon Dioxide 29 (21-32) mmol/L Anion Gap 7.0 (3-11) BUN 31 H (7-18) mg/dl Creatinine 1.17 (0.6-1.4) mg/dl Est Cr Clr Drug Dosing 79.4 ml/min Est GFR ( Amer) 74.3 ml/min Est GFR (Non-Af Amer) 64.1 ml/min BUN/Creatinine Ratio 26.1 H (10-20) Glucose 123 H (70-99) mg/dl POC Glucose 119 H (70-99) mg/dl Calcium 8.7 (8.5-10.1) mg/dl Magnesium (1.8-2.4) mg/dl 03/15/21 03/15/21 03/15/21 Range/Units 20:15 17:03 11:42 WBC (4.8-10.8) K/uL RBC (4.7-6.1) M/uL Hgb (14.0-18.0) g/dL Hct (42-52) % MCV (80-100) fL MCH (25-34) pg MCHC (32-36) g/dL RDW Std Deviation (36.4-46.3) fL RDW Coeff of Anisha (11.5-14.5) % Plt Count (130-400) K/uL MPV (7.4-10.4) fL Immature Gran % (Auto) % Neut % (Auto) % Lymph % (Auto) % Sierra % (Auto) % Eos % (Auto) % Baso % (Auto) % Neut # (Auto) (1.4-6.5) K/uL Lymph # (Auto) (1.2-3.4) K/uL Sierra # (Auto) (0.11-0.59) K/uL Eos # (Auto) (0-0.5) K/uL Baso # (Auto) (0-0.2) K/uL Immature Gran # (Auto) (0.00-0.02) K/uL Sodium (136-145) mmol/L Potassium (3.5-5.1) mmol/L Chloride (98-107) mmol/L Carbon Dioxide (21-32) mmol/L Anion Gap (3-11) BUN (7-18) mg/dl Creatinine (0.6-1.4) mg/dl Est Cr Clr Drug Dosing ml/min Est GFR ( Amer) ml/min Est GFR (Non-Af Amer) ml/min BUN/Creatinine Ratio (10-20) Glucose (70-99) mg/dl POC Glucose 109 H 149 H 122 H (70-99) mg/dl Calcium (8.5-10.1) mg/dl Magnesium (1.8-2.4) mg/dl 03/15/21 03/15/21 03/15/21 Range/Units 09:56 09:56 09:56 WBC 11.70 H (4.8-10.8) K/uL RBC 3.97 L (4.7-6.1) M/uL Hgb 10.8 L (14.0-18.0) g/dL Hct 33.5 L (42-52) % MCV 84.4 (80-100) fL MCH 27.2 (25-34) pg MCHC 32.2 (32-36) g/dL RDW Std Deviation 45.3 (36.4-46.3) fL RDW Coeff of Anisha 14.5 (11.5-14.5) % Plt Count 179 (130-400) K/uL MPV 10.8 H (7.4-10.4) fL Immature Gran % (Auto) 0.2 % Neut % (Auto) 71.2 % Lymph % (Auto) 20.9 % Sierra % (Auto) 5.7 % Eos % (Auto) 1.9 % Baso % (Auto) 0.1 % Neut # (Auto) 8.34 H (1.4-6.5) K/uL Lymph # (Auto) 2.44 (1.2-3.4) K/uL Sierra # (Auto) 0.67 H (0.11-0.59) K/uL Eos # (Auto) 0.22 (0-0.5) K/uL Baso # (Auto) 0.01 (0-0.2) K/uL Immature Gran # (Auto) 0.02 (0.00-0.02) K/uL Sodium 135 L (136-145) mmol/L Potassium 3.4 L (3.5-5.1) mmol/L Chloride 100 (98-107) mmol/L Carbon Dioxide 29 (21-32) mmol/L Anion Gap 6.0 (3-11) BUN 24 H D (7-18) mg/dl Creatinine 1.24 (0.6-1.4) mg/dl Est Cr Clr Drug Dosing 75.0 ml/min Est GFR ( Amer) 69.3 ml/min Est GFR (Non-Af Amer) 59.8 ml/min BUN/Creatinine Ratio 19.1 (10-20) Glucose 168 H (70-99) mg/dl POC Glucose (70-99) mg/dl Calcium 8.7 (8.5-10.1) mg/dl Magnesium 2.5 H (1.8-2.4) mg/dl
[2021-03-16] MEDS: ENOXAPARIN INJ 30 MG/0.3 ML SYR SQ SCH ×2 (09:41→20:55)
[2021-03-16] MEDS: oxyCODONE HCL IR 5 MG TAB (IMMEDIATE RELEASE) PO PRN (11:50)
[2021-03-16] MEDS ORDERED: amLODIPine BESYLATE 5 MG TAB PO ONE (17:13)
[2021-03-16] MEDS: TRAVOPROST Z 0.004% OPH SOLN 2.5 ML BTL OPB SCH (19:28)
[2021-03-16] MEDS: SENNA 8.6 MG TAB PO SCH (19:28)
[2021-03-16] MEDS: ATORVASTATIN 40 MG TAB PO SCH (19:29)
[2021-03-16] MEDS: TAMSULOSIN HCL 0.4 MG CAP PO SCH (19:29)
[2021-03-16] MEDS ORDERED: INSULIN GLARGINE SOLOSTAR 100 UNITS/ML 3 ML PEN SC SCH (21:00)
[2021-03-17] MEDS: ACETAMINOPHEN 500 MG TAB PO SCH ×3 (05:37→21:10)
[2021-03-17] MEDS: amLODIPine BESYLATE 5 MG TAB PO SCH (08:48)
[2021-03-17] MEDS: INSULIN ASPART 100 UNITS/ML 3 ML PEN SC SCH ×4 (08:48→21:10)
[2021-03-17] MEDS: MULTIVITAMIN TAB PO SCH (08:48)
[2021-03-17] MEDS: CLOPIDOGREL BISULFATE 75 MG TAB PO SCH (08:48)
[2021-03-17] MEDS: SPIRONOLACTONE/HCTZ 25-25 PO SCH (08:48)
[2021-03-17 08:50] LABS: BUN Creatinine Ratio 23.8 (10-20); Calcium 8.7 mg/dl (8.5-10.1); Creatinine Clr Calc Pharmacy 82.3 ml/min; Est GFR (African American) 80.1 ml/min; Est GFR (Non-African American) 69.1 ml/min; Potassium 3.7 mmol/L (3.5-5.1)
[2021-03-17] MEDS: DOCUSATE SODIUM 100 MG CAP PO SCH ×2 (08:50→20:19)
[2021-03-17] MEDS: POLYETHYLENE (MIRALAX) 17 GM PACK PO SCH (08:52)
[2021-03-17] MEDS: oxyCODONE HCL IR 5 MG TAB (IMMEDIATE RELEASE) PO PRN ×2 (08:57→19:11)
[2021-03-17] MEDS ORDERED: INSULIN GLARGINE SOLOSTAR 100 UNITS/ML 3 ML PEN SC SCH (09:00)
--- NOTE | 2021-03-17 10:21 | Orthopedic Progress Note ---
Date of Service March 17, 2021 Assessment & Plan (1) Status post total right knee replacement: Plan: POD 6- s/p Right TKA PT/OT to continue. Per therapy this am mod assist in/out of bed. improvement with walking moore with walker and CG. Good quad control. DC immobilizer. WBAT with walker. Continue Lovenox for DVT prophylaxis. Dry dressing to incision. Change prior to D/C. Ice PRN Regular diet Bowel regimen. Still not safe for discharge to his home. Needs too much assistance to get out of bed. Will plan for [employer] hopefully today pending insurance auth. Left message for case management and spoke to nursing. Follow-up as scheduled in our office for 2wk post-op. (2) Diabetes mellitus: Plan: Continue same course of treatment (3) Hypertensive encephalopathy: Plan: Blood pressure controlled, stable Continue present treatment Appreciate Medical Assistance. Continue Plavix Will continue to follow. Admission and Anticipated Discharge Date Admission Date: March 13, 2021 Subjective Patient resting in bed. Pain controlled. Feels he is ready to go to SNF today. Denies f/c/s, SOB, chest pain. Physical therapy was about to see patient as well. Physical Exam Physical Exam: R LE: immobilizer on. dressings C/D/I. B LE: radha hose donned. NV intact. Palpable DP and PT pulses. 5/5 B EHL, TA, gastroc strength. 1+ edema R LE. calves soft, neg homans. Results & Data ([facility]) Vital Signs (Past 12 Hours) Vital Signs Temp Pulse Resp BP Pulse Ox 03/17/21 08:47 36.8 C 78 18 152/87 H 93 03/16/21 22:45 36.5 C 83 17 154/81 H 95 Laboratory Results 03/17/21 03/17/21 03/16/21 Range/Units 07:51 07:40 20:30 Sodium 136 (136-145) mmol/L Potassium 3.7 (3.5-5.1) mmol/L Chloride 101 (98-107) mmol/L Carbon Dioxide 29 (21-32) mmol/L Anion Gap 6.0 (3-11) BUN 26 H (7-18) mg/dl Creatinine 1.10 (0.6-1.4) mg/dl Est Cr Clr Drug Dosing 82.3 ml/min Est GFR ( Amer) 80.1 ml/min Est GFR (Non-Af Amer) 69.1 ml/min BUN/Creatinine Ratio 23.8 H (10-20) Glucose 126 H (70-99) mg/dl POC Glucose 128 H 140 H (70-99) mg/dl Calcium 8.7 (8.5-10.1) mg/dl 03/16/21 03/16/21 Range/Units 17:04 11:45 Sodium (136-145) mmol/L Potassium (3.5-5.1) mmol/L Chloride (98-107) mmol/L Carbon Dioxide (21-32) mmol/L Anion Gap (3-11) BUN (7-18) mg/dl Creatinine (0.6-1.4) mg/dl Est Cr Clr Drug Dosing ml/min Est GFR ( Amer) ml/min Est GFR (Non-Af Amer) ml/min BUN/Creatinine Ratio (10-20) Glucose (70-99) mg/dl POC Glucose 113 H 177 H (70-99) mg/dl Calcium (8.5-10.1) mg/dl
--- NOTE | 2021-03-17 11:34 | Hospitalist Progress Note ---
Date of Service March 17, 2021 Assessment & Plan (1) Hypertensive encephalopathy: Plan: BP elevated throughout entire admission and prior to surgery Reported not taking BP medications 5 days prior to admit BPs up to 207/113 afternoon of 03/12 and hospitalist group consulted for persistent HTN Seen in afternoon with some difficulty word finding concerning for CVA. BSG acceptable Moved to telemetry -- no arrhythmia noted CT Chronic small vessel ischemia. Few lacunar infarcts within right and left basal ganglia -- initially did appear to be old, but work-up initiated to be safe CTA Head/neck with significant vascular disease but no acute findings MRI Brain NEGATIVE for acute CVA but does show chronic ischemic microvascular changes, likely 2nd to his HTN/DM ECHO without valvular heart disease, does have concentric LVH likely from HTN. EF 50-55% and diastolic dysfunction grade I Imaging reviewed with Neurology and also felt old changes and does have vascular changes related to HTN/DM and would aim at better BP control HCTZ 25mg x 1 and ASA 324mg was administered on 03/11 and ASA 81mg daily scheduled (changed to Plavix given hx GI bleeding on aspirin and would continue at discharge) PPI added and would also continue this for GI proph Labetalol IV prn for elevated SBP/DBP Cognition improved and back to baseline, clear 03/14 BPs improved today -- currently 138/87. Following changes have been made to obtain adequate control and should be continued at discharge with close follow up with PCP. Updated Dr Fallon (PCP) 03/14: * Amlodipine increased to 10mg daily * Continue losartan 100mg daily * HCTZ-Aldactone 25-25mg daily * Plavix 75mg daily * Atorvastatin 40mg daily * Protonix 40mg daily while on Plavix/Lovenox for DVT prophylaxis Renal Artery Duplex to look for SAMARIA pending -- may need to adjust/alter if evidence of stenosis but will continue current regimen as scheduled Recommended to ortho alternative pain control and to avoid ibuprofen which he had been taking 600mg almost daily for chronic pain Rec re-eval/compliance with CPAP as has this at home 03/15 BPs much better controlled today and actually low normal last night and 250cc NSS bolus administered given increased diuretics Holding AM amlodipine (backed down to 5mg) Suspect that the HCTZ-aldactone will be sufficient --> decreased to 1/2 tablet for today and would monitor response/labs Monitor on Aldactazide, losartan for now Would be ideal if this combination would be sufficient as less medications for compliance would be best If regimen effective will update Dr. Fallon again regarding changes BP currently 111/74 --> Hypokalemia with K 3.4 likely from diuretic. Supplementation ordered but will check mag as well. If BP stable and electrolytes normal with adequate BP control, consider following regimen for BP/prevention at d/c: * Possible d/c amlodipine * Continue losartan 100mg daily * Decrease HCTZ-aldactone to 0.5 tablets daily as outlined 03/16 BP remains well controlled and actually on the lower side last evening but back up to 166/79 this morning Suspect that combination Aldactone-HCTZ (decreased to 0.5 tablet on 03/15), along with 5mg amlodipine will be sufficient and will d/c losartan to prevent kidney damage/dehydration given renal US not indicated SAMARIA but upper limits of normal Sent message to Dr. Fallon with update of medication changes Continue Plavix 75mg, Atorvastatin 40mg daily, Protonix 40mg daily --. placed on d/c and discussed with primary service Mag citrate added for BM -- hopefully will also help with urinary retention Waiting SNF tomorrow 03/17 BP stable, 150's systolic all day, will continue Norvasc and Aldactone- HCTZ 1/2 tablet follow up in clinic for BP check, if still not at goal then consider increasing one of two medications medicine will sign off as he is awaiting placement updated his on the phone today (2) Hypertension: Plan: As above Will need close f/u at d/c with Dr. Fallon (3) Status post total right knee replacement: Plan: POD 4 s/p R TKA with Dr. Preciado Post-op management per ortho Cielonox ordered for DVT prophylaxis Plans for rehab at d/c --> SNF not able to take until Wednesday at earliest 03/14 DIscussion with ortho about possible d/c to home tomorrow if does well in PT -- has been up and moving more today. If continues to make progress will d/c with home health/OPPT, but if not will continue to wait for bed at SNF which won't be available now until Wednesday/Wednesday next week 03/15--> still needing increased assistance and awaiting SNF on Saturday 03/17: stable for SNF, no beds at [facility] today (4) Sleep apnea: Plan: CPAP HS -- ordered for tonight Has at home but has not been compliant per -- discussed importance of compliance as long standing untreated QUOC and worsening HTN Has continued to refuse -- would rec compliance given HTN as above (5) Hyperlipidemia: Plan: Reported hx although not on any medications Adding lipid panel to AM l -- acceptable Low dose atorvastain increased to 40mg daily given his prior CVA -- continue at d/c as above (6) Diabetes mellitus: Plan: Most recent A1c 7.5 --> repeat 7.3 Metformin 1000mg BID [employer] BSGs acceptable Will place metformin on hold and continue with ISS Continue to monitor Plan: Thank you for allowing hospitalist service to participate in the care of Mr Reardon. Hospitalist service will sign off Admission and Anticipated Discharge Date Admission Date: March 13, 2021 Subjective patient doing well, BP is 150s systolic, reviewed chart and plans his knee pain is well controlled, 3 out of 10 while resting, can increase to 6 out of 10 with therapy CM says that SNF has no beds today will sign off for time being Review of Systems Review of Systems: All systems reviewed & are unremarkable except as noted in Subjective Constitutional: no fever, no chills, no sweats, no fatigue and no weakness Respiratory: no cough and no dyspnea Cardiovascular: no chest pain, no palpitations and no edema Gastrointestinal: no abdominal pain, no nausea, no vomiting, no constipation and no diarrhea/loose stools Musculoskeletal: + joint pain (knee pain) Physical Exam Constitutional: well developed, well nourished and + obese; no acute distress Neck: trachea midline, no thyromegaly Respiratory: normal respiratory effort, lungs clear to auscultation Cardiovascular: RRR, no murmur, no edema Gastrointestinal (Abdomen): normal bowel sounds, soft, nontender, no hepatosplenomegaly Musculoskeletal: no cyanosis or clubbing, extremities motor strength 5/5 (knee swelling) Skin: no rashes, warm and dry Neurologic: patellar DTR's 2+ bilat, sensation intact and PERRL, EOMI, accommodation nl, no face palsy, no dysarthria Psychiatric: A+Ox3, euthymic affect Lymphatic: no cervical or axillary lymphadenopathy Results & Data Results & Data ([facility]) Vital Signs (Past 12 Hours) Vital Signs Temp Pulse Resp BP Pulse Ox 03/17/21 08:47 36.8 C 78 18 152/87 H 93 Laboratory Results Laboratory Results - last 24 hr 03/16/21 03/16/21 03/16/21 11:45 17:04 20:30 Sodium Potassium Chloride Carbon Dioxide Anion Gap BUN Creatinine Est Cr Clr Drug Dosing Est GFR ( Amer) Est GFR (Non-Af Amer) BUN/Creatinine Ratio Glucose POC Glucose 177 H 113 H 140 H Calcium 03/17/21 03/17/21 07:40 07:51 Sodium 136 Potassium 3.7 Chloride 101 Carbon Dioxide 29 Anion Gap 6.0 BUN 26 H Creatinine 1.10 Est Cr Clr Drug Dosing 82.3 Est GFR ( Amer) 80.1 Est GFR (Non-Af Amer) 69.1 BUN/Creatinine Ratio 23.8 H Glucose 126 H POC Glucose 128 H Calcium 8.7 Medications Administered Current Inpatient Medications Acetaminophen (Acetaminophen 500 Mg Tab) 1,000 mg PO Q8 DEVORAH Stop: 04/10/21 13:59 Last Admin: 03/17/21 05:37 Dose: 1,000 mg Documented by: Amlodipine Besylate (Amlodipine Besylate 5 Mg Tab) 5 mg PO DAILY [facility] Stop: 04/14/21 08:59 Last Admin: 03/17/21 08:48 Dose: 5 mg Documented by: Atorvastatin Calcium (Atorvastatin 40 Mg Tab) 40 mg PO HS [facility] Stop: 04/13/21 20:59 Last Admin: 03/16/21 19:29 Dose: 40 mg Documented by: Bisacodyl (Bisacodyl 10 Mg Supp) 10 mg AR DAILY PRN PRN Reason: Constipation Stop: 04/10/21 13:23 Clopidogrel Bisulfate (Clopidogrel Bisulfate 75 Mg Tab) 75 mg PO QAM [facility] Stop: 04/13/21 08:59 Last Admin: 03/17/21 08:48 Dose: 75 mg Documented by: Docusate Sodium (Docusate Sodium 100 Mg Cap) 100 mg PO BID [facility] Stop: 04/10/21 20:59 Last Admin: 03/17/21 08:50 Dose: Not Given Documented by: Enoxaparin Sodium (Enoxaparin Inj 30 Mg/0.3 Ml Syr) 30 mg SQ Q12H DEVORAH Stop: 04/10/21 21:59 Last Admin: 03/16/21 20:55 Dose: 30 mg Documented by: HCTZ/Spironolactone (Spironolactone/Hctz 25-25) 0.5 tab PO QAM [facility] Stop: 04/14/21 08:59 Last Admin: 03/17/21 08:48 Dose: 0.5 tab Documented by: Hydralazine HCl (Hydralazine Hcl 20 Mg/Ml Vial) 10 mg IV Q6H PRN PRN Reason: hypertension Stop: 04/11/21 18:15 Last Admin: 03/13/21 17:46 Dose: 10 mg Documented by: Hydromorphone HCl (Hydromorphone Inj 0.5 Mg/0.5 Ml Syr) 0.5 mg IV Q4H PRN PRN Reason: Pain or Pre PT Stop: 03/25/21 13:23 Insulin Aspart (Insulin Aspart 100 Units/Ml 3 Ml Pen) 0 units SC ACHS [facility] Stop: 04/12/21 16:29 Last Admin: 03/17/21 08:48 Dose: 7 units Documented by: Insulin Glargine (Insulin Glargine Solostar 100 Units/Ml 3 Ml Pen) 10 units SC DAILY [facility] Stop: 04/16/21 08:59 Last Admin: 03/17/21 08:49 Dose: 10 units Documented by: Losartan Potassium (Losartan Potassium 50 Mg Tab) [facility] Stop: 04/11/21 08:59 Last Admin: 03/15/21 08:44 Dose: 100 mg Documented by: Magnesium Hydroxide (Magnesium Hydroxide Susp 30 Ml Udc) 30 ml PO Q6H PRN PRN Reason: Constipation Stop: 04/10/21 13:23 Last Admin: 03/15/21 08:40 Dose: 30 ml Documented by: Metoclopramide HCl (Metoclopramide Hcl Inj 5 Mg/Ml 2 Ml Vial) 10 mg IV Q6H PRN PRN Reason: Nausea And Vomiting Stop: 04/10/21 13:23 Miscellaneous Information (Pharmacy Glycemic Mgmt Consult) 1 ea N/A UD PRN PRN Reason: Consult Stop: 04/10/21 11:14 Multivitamins (Multivitamin Tab) 1 [facility] [place] Stop: 04/11/21 08:59 Last Admin: 03/17/21 08:48 Dose: 1 tab Documented by: Naloxone HCl (Naloxone Hcl 0.4 Mg/1 Ml Vial/Carp) 0.1 mg IV Q5M PRN PRN Reason: Oversedation/Resp Depression Stop: 04/10/21 13:23 Ondansetron HCl (Ondansetron Inj 2 Mg/Ml 2 Ml Vial) 4 mg IV Q6H PRN PRN Reason: Nausea And Vomiting Stop: 04/10/21 13:23 Oxycodone HCl (Oxycodone Hcl Ir 5 Mg Tab (Immediate Release)) 5 - 10 mg PO Q4H PRN PRN Reason: Pain or Pre PT Stop: 03/25/21 13:23 Last Admin: 03/17/21 08:57 Dose: 5 mg Documented by: Polyethylene Glycol (Polyethylene (Miralax) 17 Gm Pack) 17 gm PO DAILY DEVORAH Stop: 04/13/21 13:59 Last Admin: 03/17/21 08:52 Dose: Not Given Documented by: Sennosides (Senna 8.6 Mg Tab) 17.2 mg PO HS [facility] Stop: 04/10/21 20:59 Last Admin: 03/16/21 19:28 Dose: 17.2 mg Documented by: Tamsulosin HCl (Tamsulosin Hcl 0.4 Mg Cap) 0.4 mg PO HS DEVORAH Stop: 04/10/21 20:59 Last Admin: 03/16/21 19:29 Dose: 0.4 mg Documented by: Travoprost (Travoprost Z 0.004% Oph Soln 2.5 Ml Btl) 1 drops OPB HS [facility] Stop: 04/10/21 20:59 Last Admin: 03/16/21 19:28 Dose: 1 drops Documented by: PG Care Time/CCT Total # of Minutes Spent Total Time Spent with Patient: Total time spent is greater than 50% in coordination of care (as documented) at patient's floor/unit and/or counseling patient: Coding Level of Care Code 57006 Subseq Hosp Care Lvl 2 Diagnoses Hypertensive encephalopathy I67.4 Hypertension I10 Hypertension type: unspecified Status post total right knee replacement Z96.651 Sleep apnea G47.30 Hyperlipidemia E78.5 Diabetes mellitus E11.9 (1) Hypertension Hypertension type: unspecified Qualified Code(s): I10 - Essential (primary) hypertension
[2021-03-17] MEDS ORDERED: INSULIN GLARGINE SOLOSTAR 100 UNITS/ML 3 ML PEN SC ONE (12:00)
[2021-03-17] MEDS: ENOXAPARIN INJ 30 MG/0.3 ML SYR SQ SCH ×2 (12:14→21:21)
--- NOTE | 2021-03-17 15:00 | Pharmacy Report ---
Pharmacy Glycemic Short Note 2 - Date of Service March 17, 2021 - Glycemic Short BSG Results (Last 24 hours): 03/16/21 03/16/21 03/17/21 17:04 20:30 07:40 Glucose POC Glucose 113 H 140 H 128 H 03/17/21 03/17/21 07:51 11:37 Glucose 126 H POC Glucose 239 H OUTPATIENT ANTIDIABETIC REGIMEN: * HbA1c = 7.3% (03/13/21) * Metformin 1000 mg PO BID ASSESSMENT: 03/17/21 * Patient received total of 30 units of insulin yesterday, of which 10 units were basal * Fasting BSG 126 mg/dL - Patient stable on 10 units bid, did not receive any basal last evening - anticipate BSGs to trend up * Plan to give 20 units basal this AM, then 20 units daily thereafter 03/16/21 * BSGs yesterday were [phone] mg/dL with insulin dose of 51 units/ day (20 units of basal and 31 units of bolus). * Fasting today 119 mg/dL which has been trending down since 03/13. Continue Lantus 10 units BID with an 8 unit dose if BSG < 140 mg/dL. * Tightened carbohydrate ratio yesterday to keep all BSGs < 150 mg/dL to improve surgery outcomes. * Continue Novolog. 03/14 * BSGs again reasonably well-controlled 161, 140, 177, 178 mg/dL * Fasting BSG of 141 mg/dL improved from yesterday with initiation of basal * Will increase by ~25% to 10 units BID today 03/13 * BSGs reasonably well-controlled yesterday with only 6 units of Novolog * Patient is now reordered a diet - will reinstitute carb coverage * Fasting BSGs have been persistently above goal - will start basal insulin today * Metformin was restarted yesterday, but discontinued prior to administration 03/12 * 65 y/o M admitted for R knee TKA. Pt with Type 2 DM managed only on oral Metformin at home. * Metformin was put on hold post op yesterday and patient was managed only on Novolog bolus based on BSG trends. * Fasting BSG was 154 mg/dl today without any basal yesterday. * Post-prandial BSGs have been near or at goal. Continued Novolog CF. * Metformin resumed with dinner today. Removed Novolog CR PLAN FOR INPATIENT GLYCEMIC CONTROL: * Hold metformin * Basal insulin * Lantus 20 units daily * Bolus insulin: * NovoLog per scale ACHS or Q6hrs while NPO * Goal Range: Low 110 mg/dL - High 140 mg/dL * Correction Factor: 20 mg/dL/unit * Nutritional / Prandial insulin per carb ratio of 1 unit per 6 grams CHO consumed PLAN FOR DISCHARGE: * HbA1c = 7.5%, Goal A1c is less than 7%. * May consider additional oral medication on discharge * Given patient's BMI - may benefit from addition of an SGLT-2 inhibitor such as Jardiance 10 mg PO daily, which has been associated with sustained weight reduction * Continue with Metformin 1000 mg PO BIDM on discharge
[2021-03-17] MEDS: TRAVOPROST Z 0.004% OPH SOLN 2.5 ML BTL OPB SCH (20:18)
[2021-03-17] MEDS: ATORVASTATIN 40 MG TAB PO SCH (20:18)
[2021-03-17] MEDS: TAMSULOSIN HCL 0.4 MG CAP PO SCH (20:18)
[2021-03-17] MEDS: SENNA 8.6 MG TAB PO SCH (20:19)
[2021-03-18] MEDS: ACETAMINOPHEN 500 MG TAB PO SCH ×2 (05:59→13:49)
[2021-03-18] MEDS: amLODIPine BESYLATE 5 MG TAB PO SCH (08:33)
[2021-03-18] MEDS: CLOPIDOGREL BISULFATE 75 MG TAB PO SCH (08:34)
[2021-03-18] MEDS: SPIRONOLACTONE/HCTZ 25-25 PO SCH (08:35)
[2021-03-18] MEDS: DOCUSATE SODIUM 100 MG CAP PO SCH (08:35)
[2021-03-18] MEDS: MULTIVITAMIN TAB PO SCH (08:37)
[2021-03-18] MEDS: POLYETHYLENE (MIRALAX) 17 GM PACK PO SCH (08:37)
[2021-03-18] MEDS ORDERED: INSULIN GLARGINE SOLOSTAR 100 UNITS/ML 3 ML PEN SC SCH ×2 (09:00)
[2021-03-18] MEDS: INSULIN ASPART 100 UNITS/ML 3 ML PEN SC SCH ×2 (09:11→13:43)
[2021-03-18] MEDS: oxyCODONE HCL IR 5 MG TAB (IMMEDIATE RELEASE) PO PRN (09:37)
[2021-03-18] MEDS: ENOXAPARIN INJ 30 MG/0.3 ML SYR SQ SCH (11:07)
--- NOTE | 2021-03-18 13:52 | Pharmacy Report ---
Pharmacy Glycemic Short Note 2 - Date of Service March 18, 2021 - Glycemic Short BSG Results (Last 24 hours): 03/17/21 03/17/21 03/18/21 16:24 20:26 08:13 POC Glucose 123 H 194 H 131 H 03/18/21 03/18/21 08:42 12:20 POC Glucose 137 H 182 H OUTPATIENT ANTIDIABETIC REGIMEN: * HbA1c = 7.3% (03/13/21) * Metformin 1000 mg PO BID ASSESSMENT: 03/18: * Joe received a total of 55 units of insulin yesterday, nearly double what he received two days ago * 20 units basal + 35 units bolus * BSGs were: [phone] mg/dL - acceptable * Fasting BSG was 131 mg/dL this AM - remains at goal but continues with upward trend * Increased basal 20% today * Postprandial hyperglycemia noted after breakfast and dinner * Tightened carb ratio today - may need tighter coverage with these meals only 03/17: * Patient received total of 30 units of insulin yesterday, of which 10 units were basal * Fasting BSG 126 mg/dL - Patient stable on 10 units bid, did not receive any basal last evening - anticipate BSGs to trend up * Plan to give 20 units basal this AM, then 20 units daily thereafter 03/16: * BSGs yesterday were [phone] mg/dL with insulin dose of 51 units/ day (20 units of basal and 31 units of bolus). * Fasting today 119 mg/dL which has been trending down since 03/13. Continue Lantus 10 units BID with an 8 unit dose if BSG < 140 mg/dL. * Tightened carbohydrate ratio yesterday to keep all BSGs < 150 mg/dL to improve surgery outcomes. * Continue Novolog. PLAN FOR INPATIENT GLYCEMIC CONTROL: * Hold Metformin * Basal insulin - increased * Lantus 24 units daily * Bolus insulin - tightened CR * NovoLog per scale ACHS or Q6hrs while NPO * Goal Range: Low 110 mg/dL - High 140 mg/dL * Correction Factor: 20 mg/dL/unit * Nutritional / Prandial insulin per carb ratio of 1 unit per 5 grams CHO consumed PLAN FOR DISCHARGE: * HbA1c = 7.5%, Goal A1c is less than 7%. * May consider additional oral medication on discharge * Given patient's BMI - may benefit from addition of an SGLT-2 inhibitor such as Jardiance 10 mg PO daily, which has been associated with sustained weight reduction * Continue with Metformin 1000 mg PO BIDM on discharge
--- NOTE | 2021-03-18 15:18 | Orthopedic Progress Note ---
Date of Service March 18, 2021 Assessment & Plan (1) Status post total right knee replacement: Plan: POD 7 - S/P right TKA PT/OT Pain medication as prescribed. Discharge today to [facility]. Follow up as scheduled as outpatient. Discharge instructions reviewed and all questions answered Continue Lovenox and BP meds as ordered. Admission and Anticipated Discharge Date Admission Date: March 13, 2021 Subjective Patient doing well, better with getting out of bed and being more idependent. pain controlled. Physical Exam Musculoskeletal: Right knee dressings intact. No active drainage, sutures retained. Sitting at side of bed. No distal edema, VIANEY stockings in place. Results & Data ([facility]) Vital Signs (Past 12 Hours) Vital Signs Temp Pulse Pulse Pulse Pulse Pulse Resp 03/18/21 14:29 37.0 C 95 H 66 80 95 H 81 18 03/18/21 07:37 37.0 C 66 18 BP BP Pulse Ox 03/18/21 14:29 166/79 H 161/84 H 98 03/18/21 07:37 161/84 H 98
== END 2021-03-18 15:38 | DRG 470 ==
LOC: 3E 05:22 → ASU 05:22 → 2S 03-12 18:37 → 2N 03-13 16:44 → 3N 03-17 22:43

== ENCOUNTER 2022-02-20 16:27 | Inpatient (IN) ==
[2022-02-20] MEDS ORDERED: ASPIRIN CHEW 324 MG PO STA (16:50)
[2022-02-20] MEDS ORDERED: NITROGLYCERIN SL 0.4 MG/TAB TAB SL STA ×3 (16:50→18:31)
[2022-02-20 17:01] LABS: Basophils # (auto) 0.04 K/uL (0-0.2); Basophils % (auto) 0.4 %; Eosinophils # (auto) 0.19 K/uL (0-0.50); Eosinophils % (auto) 1.7 %; Hematocrit (blood only) 40.8 % (40.1-51.0); Hemoglobin 12.7 g/dl (14.0-18.0); Immature Granulocytes # (auto) 0.02 K/uL (0.00-0.02); Immature Granulocytes % (auto) 0.2 %; Lymphocytes % (auto) 27.8 %; Mean Corpuscular Hemoglobin 26.2 pg (25.0-34.0); Mean Corpuscular Hgb Conc 31.1 g/dL (32.0-36.0); Mean Corpuscular Volume 84.1 fL (80.0-100.0); Mean Platelet Volume 11.6 fL (9.4-12.4); Monocytes # (auto) 0.73 K/uL (0.24-0.82); Monocytes % (auto) 6.5 %; Neutrophils # (auto) 7.08 K/uL (1.4-6.5); Neutrophils % (auto) 63.4 %; Platelet Count 214 K/uL (130-400); RDW Coefficient of Variation 15.4 % (11.5-14.5); RDW Standard Deviation 47.2 fL (36.4-46.3); Red Blood Count 4.85 M/uL (4.63-6.08); White Blood Count 11.16 K/ul (4.8-10.8)
--- NOTE | 2022-02-20 17:16 | XRay Report ---
SINGLE VIEW CHEST CLINICAL HISTORY: Atypical chest pain. FINDINGS: 2 AP, portable, upright chest radiographs are compared to study dated 02/17/2021. The examina tion is degraded by portable technique and apical lordotic positioning. The heart is enlarged. There is pulmonary vascular congestion. Scarring/atelectasis is noted at the lung bases. Bilateral airspace opacities likely represent pulmonary edema. No large pleural effusion or pneumothorax is seen. The s keletal structures are osteopenic. The bony thorax is grossly intact. IMPRESSION: 1. Cardiomegaly with pulmonary vascular congestion. 2. Bilateral airspace opacities likely represent pulmonary edema. Correlate clinically for evidence o f a superimposed infectious/inflammatory pneumonitis. 3. No large pleural effusion is identified. ACT 112: Negative or not required by law. Electronically signed by: Edmar Field M.D. 02/20/2022 5:15 PM
[2022-02-20 17:25] LABS: iSTAT Creatinine 1.4 mg/dl (0.6-1.3); iSTAT Hemoglobin 14.3 g/dl (14.0-18.0); iSTAT Ionized Calcium 1.25 mmol/l (1.12-1.32); iSTAT Potassium 3.8 mmol/L (3.3-5.0)
[2022-02-20 17:25] LABS: Partial Thromboplastin Time 26.2 Seconds (21.0-31.0); Prothrombin Time 10.7 Seconds (9.0-12.0)
[2022-02-20] MEDS ORDERED: OPTIRAY 320 125ml IV ONE (17:26)
[2022-02-20 17:27] LABS: Troponin I High Sensitivity 32.7 pg/ml (0-20)
[2022-02-20 17:38] LABS: Alanine Aminotransferase 18 U/L (7-52); Albumin Globulin Ratio 1.2 (0.9-2); Albumin Level 4.4 gm/dl (3.4-5.0); Alkaline Phosphatase 60 U/L (34-104); Anion Gap 8 (3-11); BUN Creatinine Ratio 15.9 (10-20); Bilirubin,Total 0.4 mg/dl (0.2-1.0); Blood Urea Nitrogen 23 mg/dl (6-23); Calcium 9.2 mg/dl (8.5-10.1); Carbon Dioxide 26 mmol/L (21-32); Chloride 107 mmol/L (98-107); Creatinine Clr Calc Pharmacy 61.5 ml/min; Est GFR (African American) 56.9 ml/min; Est GFR (Non-African American) 49.1 ml/min; Globulin 3.7 gm/dl (2.5-4.0); Glucose 115 mg/dl (70-99(Fasting)); Sodium 141 mmol/L (136-145); Total Protein 8.1 gm/dl (6.0-8.3)
--- NOTE | 2022-02-20 17:46 | CT Scan Report ---
CT ANGIOGRAM OF THE ABDOMEN AND PELVIS CLINICAL HISTORY: Atypical chest pain. Dyspnea. Generalized abdominal pain. COMPARISON STUDY: Abdominal CT dated 10/01/2019. TECHNIQUE: Following the IV administration of 120 cc of Optiray 320, CT angiogram of the abdomen and pelvis was performed from the lung bases the proximal femora. Images are reviewed in the axial, sagit pat, and coronal planes. 3-D MIPS images are created and assessed. IV contrast was administered witho ut complication. A dose lowering technique was utilized adhering to the principles of ALARA. CT DOSE: 3280.07 mGy.cm FINDINGS: Lower chest: The heart is probably in large and without pericardial effusion. The lung bases are ken r noting bibasilar scarring/atelectasis. There is a small hiatal hernia. Liver: The contrast-enhanced liver is normal in size, contour, and attenuation. There is no intrahepa tic biliary ductal dilatation. Gallbladder: Unremarkable. Spleen: Normal in size and attenuation noting heterogeneous arterial phase enhancement. A 1.5 cm sple tommy calcification is unchanged. Pancreas: Unremarkable. Adrenal glands: Unremarkable. Kidneys: The contrast enhanced kidneys are normal in size and without hydronephrosis. The kidneys enh ance symmetrically. Abdominal aorta and iliac arteries: There is advanced atherosclerotic calcification of the abdominal aorta which is normal in caliber. No dissection is seen. The abdominal aorta is widely patent, as are the iliac arteries. Major branches of the abdominal aorta: The superior mesenteric and inferior mesenteric arteries are p atent. Atherosclerotic plaque causes mild stenosis of the proximal superior mesenteric artery. The le ft gastric artery and the splenic artery arises directly from the abdominal aorta. The splenic artery is patent. Hepatic arterial anatomy is conventional. Single bilateral renal arteries are widely martins nt bilaterally. Bowel: There is advanced colonic diverticulosis without CT evidence of acute diverticulitis. No bowel obstruction is seen. There is moderate constipation. The appendix is not identified and reported sifuentes rgically absent. Peritoneum: There is no intraperitoneal free air or abdominal ascites. There is a large fat-containin g umbilical hernia. Lymphadenopathy: None. Pelvic viscera: The prostate gland is enlarged and heterogeneous noting median lobe hypertrophy. The bladder wall appears thickened and trabeculated indicating chronic outlet obstruction. Skeletal structures: There is mild lumbosacral spondylosis. No lytic or blastic bony lesion is seen. IMPRESSION: 1. Unremarkable CT angiogram of the abdominal aorta noting atherosclerotic plaque and irregularity. N o dissection is seen. 2. There is mild stenosis of the proximal superior mesenteric artery. 3. Otherwise unremarkable CT angiogram of the major branches of the abdominal aorta. 4. No acute infectious or inflammatory findings are identified in the abdomen or pelvis. 5. Advanced colonic diverticulosis without CT evidence of acute diverticulitis. 6. Additional findings as above. ACT 112: Negative or not required by law. Electronically signed by: Edmar Field M.D. 02/20/2022 5:44 PM
--- NOTE | 2022-02-20 17:55 | CT Scan Report ---
CHEST CTA for AORTIC DISSECTION CT DOSE: HISTORY: Atypical chest pain. Shortness of breath. Assess for an aortic dissection. TECHNIQUE: Multiaxial CT images of the chest were performed both before and after the intravenous adm inistration of contrast to evaluate the aorta. Maximal intensity projection images were also obtained . A dose lowering technique was utilized adhering to the principles of ALARA. COMPARISON STUDY: None. FINDINGS: Noncontrast imaging through the chest shows no evidence for an intramural hematoma within t he thoracic aorta. Moderate to severe calcified plaque within the coronary arteries. There is mild ca lcified plaque within the thoracic aorta. Normal caliber thoracic aorta with no evidence for dissecti on. The central pulmonary arteries are patent. No fractures within the visualized osseous structures. The central airways are patent. There is mild peribronchial thickening with mild interlobular septal thickening within the lung apices. There are few small groundglass densities within the right lung. These findings could represent developing asymmetric pulmonary edema. No pleural or pericardial effus ions. The heart is normal in size. Calcified granuloma within the spleen. Normal esophagus. The thyro id gland enhances normally. No mediastinal or hilar lymphadenopathy. IMPRESSION: 1. No evidence for an aortic dissection. 2. Moderate to severe calcified plaque within the coronary arteries. 3. Mild interlobular septal thickening within the lung apices with peribronchial vascular thickening and a few small groundglass densities within the right lung. This likely represents developing asymme tric pulmonary edema. An atypical pneumonitis is considered less likely but not entirely excluded. ACT 112: Negative or not required by law. Electronically signed by: Mike Thompson M.D. 02/20/2022 5:52 PM
[2022-02-20 18:09] LABS: Potassium 3.8 mmol/L (3.5-5.1)
[2022-02-20] MEDS ORDERED: NITROGLYCERIN 2% OINTMENT 30GM TUBE EXT STA (18:46)
[2022-02-20] MEDS ORDERED: POTASSIUM CHLORIDE CRTAB 20 MEQ TABCR PO STA (19:27)
[2022-02-20] MEDS ORDERED: FUROSEMIDE 40 MG/4 ML VIAL IV ONE (19:27)
[2022-02-20] MEDS ORDERED: hydrALAZINE HCL 20 MG/ML VIAL IV STA (19:31)
[2022-02-20] MEDS ORDERED: Heparin IV Adult Wt-Based Low-Dose WITH Bolus Protocol STA (19:49)
[2022-02-20] MEDS ORDERED: HEPARIN SOD (PORCINE) 1000 UNIT/ML IV ONE (20:08)
--- NOTE | 2022-02-20 20:08 | Emergency Department Note ---
History of Present Illness General Chief Complaint: Chest Pain Stated Complaint: CHEST PAIN AND TIGHTNESS Time Seen by Provider: 02/20/22 16:45 History of Present Illness Provider Complaint: chest pain Onset (ago): hour(s) less than 1 Duration: constant Onset: during rest Pain Location: substernal Pain Radiation: RUE Severity: severe Maximum Pain Intensity: 10 Current Pain Intensity: 10 Quality: + aching, + heaviness and + dull Relieved By: + nothing Exacerbated By: + nothing Context: no recent illness, no recent surgery, no recent immobilization, no recent travel, no trauma/injury, no new medications or no history of DVT/PE Associated symptoms: + diaphoresis, + dyspnea and + sense of impending doom; no vomiting, no syncope (near sycnope), no palpitations or no leg swelling Home Medications Medication Instructions Recorded Confirmed Type metformin 500 mg tablet 1,000 mg PO BID 10/02/19 02/20/22 History atorvastatin 40 mg tablet 40 mg PO HS #30 tab 03/15/21 02/20/22 Rx amlodipine 10 mg tablet 10 mg PO DAILY 02/20/22 02/20/22 History losartan 50 mg tablet 50 mg PO BID 02/20/22 02/20/22 History Allergies Allergy/AdvReac Type Severity Reaction Status Date / Time Sulfa (Sulfonamide Allergy Intermediate Hives Verified 02/20/22 18:35 Antibiotics) Past Med/Surg History Medical History Chronic anemia baseline hgb 12-13 range per chart review Diabetes mellitus, type 2 NIDDM Glaucoma History of stomach ulcers 1+ years ago Hyperlipidemia Hypertension Morbid obesity Osteoarthritis Sleep apnea No CPAP currently > "does not work" per pt Spinal stenosis Surgical History History of appendectomy History of arthroscopy Right knee History of carpal tunnel release R/L History of colonoscopy History of esophagogastroduodenoscopy (EGD) EGD (10/02/19): [facility] at [facility] History of tonsillectomy and adenoidectomy History of tooth extraction S/P epidural steroid injection Trigger finger Left hand trigger finger release Family History Father Family history of diabetes mellitus Mother Family history of diabetes mellitus Other No family history of adverse response to anesthesia Social History Smoking Status: Never smoker Second Hand Exposure: Yes (IN THE PAST); Hx Alcohol Use: Yes Alcohol type: beer Hx Substance Use: No Preferred Language: Mongolian Communication Ability: Effective Clinical Account Specialist Required: No Beliefs That Will Affect Care: None marital status: Current Living Situation: Family Current Living Situation Comment: AND ADOPTED GRANDAUGHTER How many Children do You have: 2 Feels Safe at Home: Yes Assistive Devices: Walker Review of Systems A total of 10 systems reviewed and were otherwise negative Physical Exam Vital Signs Vital Signs - 24 hr 02/20/22 16:29 02/20/22 16:36 02/20/22 16:54 Temperature 36.8 C Temperature Source Temporal Artery Scan Pulse Rate 68 79 Pulse Rate [Apical] Pulse Rate from SpO2 Sensor Respiratory Rate 18 18 Respiratory Effort / Characteristics Non-Labored Respiratory Depth Normal Blood Pressure 238/123 H Blood Pressure [Left Arm] Blood Pressure [Right Arm] Blood Pressure Mean 161 Blood Pressure Mean [Left Arm] Blood Pressure Mean [Right Arm] Pulse Oximetry 96 97 Oxygen Delivery Method Room Air Room Air Oxygen Flow Rate Sepsis Recent Fever Within 48 Hours No Sepsis New/Unexplained Change in Mental Status No Sepsis Action Taken by Nursing No Action Required 02/20/22 16:57 02/20/22 17:00 02/20/22 17:10 Temperature Temperature Source Pulse Rate 97 H 70 Pulse Rate [Apical] 88 Pulse Rate from SpO2 Sensor 69 Respiratory Rate 18 17 18 Respiratory Effort / Characteristics Respiratory Depth Blood Pressure Blood Pressure [Left Arm] 261/123 H Blood Pressure [Right Arm] Blood Pressure Mean Blood Pressure Mean [Left Arm] 169 Blood Pressure Mean [Right Arm] Pulse Oximetry 97 98 Oxygen Delivery Method Room Air Oxygen Flow Rate Sepsis Recent Fever Within 48 Hours Sepsis New/Unexplained Change in Mental Status Sepsis Action Taken by Nursing 02/20/22 17:35 02/20/22 17:40 02/20/22 17:48 Temperature Temperature Source Pulse Rate 68 72 Pulse Rate [Apical] 76 Pulse Rate from SpO2 Sensor 71 Respiratory Rate 20 18 Respiratory Effort / Characteristics Respiratory Depth Blood Pressure Blood Pressure [Left Arm] 210/100 H Blood Pressure [Right Arm] 208/110 H Blood Pressure Mean Blood Pressure Mean [Left Arm] 136 Blood Pressure Mean [Right Arm] 142 Pulse Oximetry 100 98 Oxygen Delivery Method Nasal Cannula Oxygen Flow Rate 2 Sepsis Recent Fever Within 48 Hours Sepsis New/Unexplained Change in Mental Status Sepsis Action Taken by Nursing 02/20/22 17:50 02/20/22 18:00 02/20/22 18:10 Temperature Temperature Source Pulse Rate 68 66 69 Pulse Rate [Apical] Pulse Rate from SpO2 Sensor 68 66 68 Respiratory Rate 20 19 18 Respiratory Effort / Characteristics Respiratory Depth Blood Pressure Blood Pressure [Left Arm] Blood Pressure [Right Arm] Blood Pressure Mean Blood Pressure Mean [Left Arm] Blood Pressure Mean [Right Arm] Pulse Oximetry 99 100 100 Oxygen Delivery Method Oxygen Flow Rate Sepsis Recent Fever Within 48 Hours Sepsis New/Unexplained Change in Mental Status Sepsis Action Taken by Nursing 02/20/22 18:20 02/20/22 18:30 02/20/22 18:33 Temperature Temperature Source Pulse Rate 65 58 L 63 Pulse Rate [Apical] Pulse Rate from SpO2 Sensor 64 59 L 62 Respiratory Rate 14 22 14 Respiratory Effort / Characteristics Respiratory Depth Blood Pressure 188/99 H Blood Pressure [Left Arm] Blood Pressure [Right Arm] Blood Pressure Mean 128 Blood Pressure Mean [Left Arm] Blood Pressure Mean [Right Arm] Pulse Oximetry 99 99 100 Oxygen Delivery Method Oxygen Flow Rate Sepsis Recent Fever Within 48 Hours Sepsis New/Unexplained Change in Mental Status Sepsis Action Taken by Nursing 02/20/22 18:40 02/20/22 18:50 02/20/22 19:00 Temperature Temperature Source Pulse Rate 64 69 61 Pulse Rate [Apical] Pulse Rate from SpO2 Sensor 64 65 61 Respiratory Rate 15 20 19 Respiratory Effort / Characteristics Non-Labored Respiratory Depth Normal Blood Pressure Blood Pressure [Left Arm] Blood Pressure [Right Arm] Blood Pressure Mean Blood Pressure Mean [Left Arm] Blood Pressure Mean [Right Arm] Pulse Oximetry 99 97 100 Oxygen Delivery Method Oxygen Flow Rate Sepsis Recent Fever Within 48 Hours Sepsis New/Unexplained Change in Mental Status Sepsis Action Taken by Nursing Physical Exam GENERAL: Diaphoretic distressed ill-appearing HENT: Exam performed. - Head: Normocephalic and atraumatic. - Right Ear: External ear normal. No mastoid tenderness. - Left Ear: External ear normal. No mastoid tenderness. - Mouth/Throat: The oropharynx is clear and moist. No trismus in the jaw. No dental abscesses or uvula swelling. No oropharyngeal exudate or tonsillar abscesses. EYES: Conjunctivae and EOM are normal. Pupils are equal, round, and reactive to light. Right eye exhibits no discharge. Left eye exhibits no discharge. No scleral icterus. NECK: Normal range of motion. Neck supple. No JVD present. No spinous process tenderness present. No carotid bruit present. No rigidity. No tracheal deviation and normal range of motion present. No Brudzinski's sign and no Kernig's sign noted. CV: Normal rate, regular rhythm, normal heart sounds and intact distal pulses. There is no peripheral edema. Palpable radial pulses bue. PULM/CHEST: Effort normal and breath sounds normal. No respiratory distress. No stridor. He has no wheezes. He has no rales. - Chest Wall: He exhibits no tenderness. ABD: The abdomen is soft. Bowel sounds are normal. He has no distension. No mass is present. There is no tenderness. There is no rebound, no guarding, no Cárdenas's sign and no tenderness at McBurney's point. Rovsig negative. MUSC/SKEL: Normal range of motion. There is no peripheral edema, tenderness or deformity. LYMPH: No cervical adenopathy. NEURO: He is alert and oriented to person, place, and time. He has normal strength. No cranial nerve deficit or sensory deficit. Coordination and gait normal. GCS eye subscore is 4. GCS verbal subscore is 5. GCS motor subscore is 6. Cerebellar tests wnl. SKIN: Diaphoretic. PSYCH: He has a normal mood and affect. Behavior is normal. Judgment and thought content normal. Course Course 1645: The patient was evaluated in room C3. A complete history and physical exam was performed Cardiac monitoring: An order was placed for continuous cardiac monitoring. The monitor shows a rate of 70 with sinus rhythm Patient is diaphoretic and complaining of chest pain. EKG shows no STEMI. 1 4 IV access was obtained. Patient has equal blood pressures in both upper extremities. I-STAT will be conducted. Sublingual nitroglycerin and aspirin administered to the patient. Creatinine within normal limits. Patient will be sent to CTA to rule out dissection. 1715: Vital signs stable. Blood pressure still elevated but improved. Patient reports his chest pain has gone from a 10 out of 10 to 7 out of 10 after 1 nitroglycerin. Repeat nitroglycerin will be administered. 1830: Vital signs improved. Patient's chest pain is currently 4 out of 10 after second nitroglycerin. Repeat nitroglycerin will be administered. CTA of the chest shows no dissection. Discussed the case with cardiology Dr. Aiken who states to hold off on heparin at this time. [facility]. 1954: Vital signs stable. Patient reports no chest pain at this time after receiving third nitroglycerin. Patient's delta [id number]. Repeat EKG shows no ST elevation or ST depression. Discussed the case with cardiology Dr. Aiken who agrees with starting heparin at this time. [facility] Game[facility] has evaluated the patient and is aware of delta troponin. Administered Medications Discontinued Medications Aspirin (Aspirin Chew 324 Mg) 324 mg PO NOW STA Stop: 02/20/22 16:51 Last Admin: 02/20/22 16:55 Dose: 324 mg Documented by: [id number] Furosemide (Furosemide 40 Mg/4 Ml Vial) 40 mg IV ONE ONE Stop: 02/20/22 19:28 Last Admin: 02/20/22 19:54 Dose: 40 mg Documented by: [id number] Hydralazine HCl (Hydralazine Hcl 20 Mg/Ml Vial) 10 mg IV NOW STA Stop: 02/20/22 19:32 Last Admin: 02/20/22 20:12 Dose: 10 mg Documented by: [id number] Ioversol (Optiray 320 125ml) 120 ml IV ONCE ONE Stop: 02/20/22 17:27 Last Admin: 02/20/22 17:31 Dose: 120 ml Documented by: [id number] Nitroglycerin (Nitroglycerin Sl 0.4 Mg/Tab Tab) 0.4 mg SL NOW STA Stop: 02/20/22 16:51 Last Admin: 02/20/22 16:55 Dose: 0.4 mg Documented by: [id number] Nitroglycerin (Nitroglycerin Sl 0.4 Mg/Tab Tab) 0.4 mg SL NOW STA Stop: 02/20/22 17:16 Last Admin: 02/20/22 17:17 Dose: 0.4 mg Documented by: [id number] Nitroglycerin (Nitroglycerin Sl 0.4 Mg/Tab Tab) 0.4 mg SL NOW STA Stop: 02/20/22 18:32 Last Admin: 02/20/22 18:34 Dose: 0.4 mg Documented by: [id number] Nitroglycerin (Nitroglycerin 2% Ointment 30gm Tube) 2 inch EXT ONE STA Stop: 02/20/22 18:47 Last Admin: 02/20/22 19:00 Dose: 2 inch Documented by: [id number] Potassium Chloride (Potassium Chloride Crtab 20 Meq Tabcr) 40 meq PO NOW STA Stop: 02/20/22 19:28 Last Admin: 02/20/22 20:12 Dose: 40 meq Documented by: [id number] Medical Decision Making Laboratory Data Result diagrams: 02/20/22 16:40 02/20/22 17:00 Labs: Lab Results 02/20/22 02/20/22 02/20/22 Range/Units 16:40 16:40 16:40 WBC 11.16 H (4.8-10.8) K/ul RBC 4.85 (4.63-6.08) M/uL Hgb 12.7 L (14.0-18.0) g/dl POC Hgb (14.0-18.0) g/dl Hct 40.8 (40.1-51.0) % POC Hct (42-52) % MCV 84.1 (80.0-100.0) fL MCH 26.2 (25.0-34.0) pg MCHC 31.1 L (32.0-36.0) g/dL RDW Std Deviation 47.2 H (36.4-46.3) fL RDW Coeff of Anisha 15.4 H (11.5-14.5) % Plt Count 214 (130-400) K/uL MPV 11.6 (9.4-12.4) fL Immature Gran % (Auto) 0.2 % Neut % (Auto) 63.4 % Lymph % (Auto) 27.8 % [place] % (Auto) 6.5 % Eos % (Auto) 1.7 % Baso % (Auto) 0.4 % Neut # (Auto) 7.08 H (1.4-6.5) K/uL Lymph # (Auto) 3.10 (1.2-3.4) K/uL [place] # (Auto) 0.73 (0.24-0.82) K/uL Eos # (Auto) 0.19 (0-0.50) K/uL Baso # (Auto) 0.04 (0-0.2) K/uL Immature Gran # (Auto) 0.02 (0.00-0.02) K/uL PT 10.7 (9.0-12.0) Seconds INR 1.0 (0.9-1.1) APTT 26.2 (21.0-31.0) Seconds PTT Ratio 1.0 POC Sodium (135-144) mmol/L Sodium 141 (136-145) mmol/L POC Potassium (3.3-5.0) mmol/L Potassium TNP POC Chloride (101-112) mmol/L Chloride 107 (98-107) mmol/L Carbon Dioxide 26 (21-32) mmol/L POC Total CO2 (24-31) mmol/L Anion Gap 8 (3-11) POC Anion Gap (16-25) mmol/L POC BUN (7-18) mg/dl BUN 23 (6-23) mg/dl Creatinine 1.45 H (0.6-1.4) mg/dl POC Creatinine (0.6-1.3) mg/dl Est Cr Clr Drug Dosing 61.5 ml/min Est GFR ( Amer) 56.9 ml/min Est GFR (Non-Af Amer) 49.1 ml/min BUN/Creatinine Ratio 15.9 (10-20) Glucose 115 H (70-99(Fasting)) mg/dl POC Glucose (other) (70-99) mg/dl Calcium 9.2 (8.5-10.1) mg/dl POC Ioniz Calcium Mika (1.12-1.32) mmol/l Magnesium (1.7-2.4) mg/dl Total Bilirubin 0.4 (0.2-1.0) mg/dl AST TNP ALT 18 (7-52) U/L Alkaline Phosphatase 60 (34-104) U/L Troponin I High Sens 32.7 H (0-20) pg/ml Total Protein 8.1 (6.0-8.3) gm/dl Albumin 4.4 (3.4-5.0) gm/dl Globulin 3.7 (2.5-4.0) gm/dl Albumin/Globulin Ratio 1.2 (0.9-2) 02/20/22 02/20/22 02/20/22 Range/Units 16:40 17:00 17:10 WBC (4.8-10.8) K/ul RBC (4.63-6.08) M/uL Hgb (14.0-18.0) g/dl POC Hgb 14.3 (14.0-18.0) g/dl Hct (40.1-51.0) % POC Hct 42 (42-52) % MCV (80.0-100.0) fL MCH (25.0-34.0) pg MCHC (32.0-36.0) g/dL RDW Std Deviation (36.4-46.3) fL RDW Coeff of Anisha (11.5-14.5) % Plt Count (130-400) K/uL MPV (9.4-12.4) fL Immature Gran % (Auto) % Neut % (Auto) % Lymph % (Auto) % [place] % (Auto) % Eos % (Auto) % Baso % (Auto) % Neut # (Auto) (1.4-6.5) K/uL Lymph # (Auto) (1.2-3.4) K/uL [place] # (Auto) (0.24-0.82) K/uL Eos # (Auto) (0-0.50) K/uL Baso # (Auto) (0-0.2) K/uL Immature Gran # (Auto) (0.00-0.02) K/uL PT (9.0-12.0) Seconds INR (0.9-1.1) APTT (21.0-31.0) Seconds PTT Ratio POC Sodium 145 H (135-144) mmol/L Sodium (136-145) mmol/L POC Potassium 3.8 (3.3-5.0) mmol/L Potassium 3.8 POC Chloride 107 (101-112) mmol/L Chloride (98-107) mmol/L Carbon Dioxide (21-32) mmol/L POC Total CO2 26 (24-31) mmol/L Anion Gap (3-11) POC Anion Gap 17.0 (16-25) mmol/L POC BUN 24 H (7-18) mg/dl BUN (6-23) mg/dl Creatinine (0.6-1.4) mg/dl POC Creatinine 1.4 H (0.6-1.3) mg/dl Est Cr Clr Drug Dosing ml/min Est GFR ( Amer) ml/min Est GFR (Non-Af Amer) ml/min BUN/Creatinine Ratio (10-20) Glucose (70-99(Fasting)) mg/dl POC Glucose (other) 127 H (70-99) mg/dl Calcium (8.5-10.1) mg/dl POC Ioniz Calcium Mika 1.25 (1.12-1.32) mmol/l Magnesium 2.0 (1.7-2.4) mg/dl Total Bilirubin (0.2-1.0) mg/dl AST 15 ALT (7-52) U/L Alkaline Phosphatase (34-104) U/L Troponin I High Sens (0-20) pg/ml Total Protein (6.0-8.3) gm/dl Albumin (3.4-5.0) gm/dl Globulin (2.5-4.0) gm/dl Albumin/Globulin Ratio (0.9-2) /04/06 Range/Units 19:01 WBC (4.8-10.8) K/ul RBC (4.63-6.08) M/uL Hgb (14.0-18.0) g/dl POC Hgb (14.0-18.0) g/dl Hct (40.1-51.0) % POC Hct (42-52) % MCV (80.0-100.0) fL MCH (25.0-34.0) pg MCHC (32.0-36.0) g/dL RDW Std Deviation (36.4-46.3) fL RDW Coeff of Anisha (11.5-14.5) % Plt Count (130-400) K/uL MPV (9.4-12.4) fL Immature Gran % (Auto) % Neut % (Auto) % Lymph % (Auto) % [place] % (Auto) % Eos % (Auto) % Baso % (Auto) % Neut # (Auto) (1.4-6.5) K/uL Lymph # (Auto) (1.2-3.4) K/uL [place] # (Auto) (0.24-0.82) K/uL Eos # (Auto) (0-0.50) K/uL Baso # (Auto) (0-0.2) K/uL Immature Gran # (Auto) (0.00-0.02) K/uL PT (9.0-12.0) Seconds INR (0.9-1.1) APTT (21.0-31.0) Seconds PTT Ratio POC Sodium (135-144) mmol/L Sodium (136-145) mmol/L POC Potassium (3.3-5.0) mmol/L Potassium POC Chloride (101-112) mmol/L Chloride (98-107) mmol/L Carbon Dioxide (21-32) mmol/L POC Total CO2 (24-31) mmol/L Anion Gap (3-11) POC Anion Gap (16-25) mmol/L POC BUN (7-18) mg/dl BUN (6-23) mg/dl Creatinine (0.6-1.4) mg/dl POC Creatinine (0.6-1.3) mg/dl Est Cr Clr Drug Dosing ml/min Est GFR ( Amer) ml/min Est GFR (Non-Af Amer) ml/min BUN/Creatinine Ratio (10-20) Glucose (70-99(Fasting)) mg/dl POC Glucose (other) (70-99) mg/dl Calcium (8.5-10.1) mg/dl POC Ioniz Calcium Mika (1.12-1.32) mmol/l Magnesium (1.7-2.4) mg/dl Total Bilirubin (0.2-1.0) mg/dl AST ALT (7-52) U/L Alkaline Phosphatase (34-104) U/L Troponin I High Sens 452.5 H* D (0-20) pg/ml Total Protein (6.0-8.3) gm/dl Albumin (3.4-5.0) gm/dl Globulin (2.5-4.0) gm/dl Albumin/Globulin Ratio (0.9-2) Imaging Data CT scan - chest: Radiologist's impression: Chest X-Ray 02/20/22 16:36 SINGLE VIEW CHEST CLINICAL HISTORY: Atypical chest pain. FINDINGS: 2 AP, portable, upright chest radiographs are compared to study dated 02/17/2021. The examination is degraded by portable technique and apical lordotic positioning. The heart is enlarged. There is pulmonary vascular congestion. Scarring/atelectasis is noted at the lung bases. Bilateral airspace opacities likely represent pulmonary edema. No large pleural effusion or pneumothorax is seen. The skeletal structures are osteopenic. The bony thorax is grossly intact. IMPRESSION: 1. Cardiomegaly with pulmonary vascular congestion. 2. Bilateral airspace opacities likely represent pulmonary edema. Correlate clinically for evidence of a superimposed infectious/inflammatory pneumonitis. 3. No large pleural effusion is identified. ACT 112: Negative or not required by law. Electronically signed by: Edmar Field M.D. 02/20/2022 5:15 PM Abdomen/Pelvis CTA 02/20/22 17:05 CT ANGIOGRAM OF THE ABDOMEN AND PELVIS CLINICAL HISTORY: Atypical chest pain. Dyspnea. Generalized abdominal pain. COMPARISON STUDY: Abdominal CT dated 10/01/2019. TECHNIQUE: Following the IV administration of 120 cc of Optiray 320, CT angiogram of the abdomen and pelvis was performed from the lung bases the proximal femora. Images are reviewed in the axial, sagittal, and coronal planes. 3-D MIPS images are created and assessed. IV contrast was administered without complication. A dose lowering technique was utilized adhering to the principles of ALARA. CT DOSE: 3280.07 mGy.cm FINDINGS: Lower chest: The heart is probably in large and without pericardial effusion. The lung bases are clear noting bibasilar scarring/atelectasis. There is a small hiatal hernia. Liver: The contrast-enhanced liver is normal in size, contour, and attenuation. There is no intrahepatic biliary ductal dilatation. Gallbladder: Unremarkable. Spleen: Normal in size and attenuation noting heterogeneous arterial phase enhancement. A 1.5 cm splenic calcification is unchanged. Pancreas: Unremarkable. Adrenal glands: Unremarkable. Kidneys: The contrast enhanced kidneys are normal in size and without hydro nephrosis. The kidneys enhance symmetrically. Abdominal aorta and iliac arteries: There is advanced atherosclerotic calcification of the abdominal aorta which is normal in caliber. No dissection is seen. The abdominal aorta is widely patent, as are the iliac arteries. Major branches of the abdominal aorta: The superior mesenteric and inferior mesenteric arteries are patent. Atherosclerotic plaque causes mild stenosis of the proximal superior mesenteric artery. The left gastric artery and the splenic artery arises directly from the abdominal aorta. The splenic artery is patent. Hepatic arterial anatomy is conventional. Single bilateral renal arteries are widely patent bilaterally. Bowel: There is advanced colonic diverticulosis without CT evidence of acute diverticulitis. No bowel obstruction is seen. There is moderate constipation. The appendix is not identified and reported surgically absent. Peritoneum: There is no intraperitoneal free air or abdominal ascites. There is a large fat-containing umbilical hernia. Lymphadenopathy: None. Pelvic viscera: The prostate gland is enlarged and heterogeneous noting median lobe hypertrophy. The bladder wall appears thickened and trabeculated indicating chronic outlet obstruction. Skeletal structures: There is mild lumbosacral spondylosis. No lytic or blastic bony lesion is seen. IMPRESSION: 1. Unremarkable CT angiogram of the abdominal aorta noting atherosclerotic plaque and irregularity. No dissection is seen. 2. There is mild stenosis of the proximal superior mesenteric artery. 3. Otherwise unremarkable CT angiogram of the major branches of the abdominal aorta. 4. No acute infectious or inflammatory findings are identified in the abdomen or pelvis. 5. Advanced colonic diverticulosis without CT evidence of acute diverticulitis. 6. Additional findings as above. ACT 112: Negative or not required by law. Electronically signed by: Edmar Field M.D. 02/20/2022 5:44 PM Chest CTA 02/20/22 17:05 CHEST CTA for AORTIC DISSECTION CT DOSE: HISTORY: Atypical chest pain. Shortness of breath. Assess for an aortic dissection. TECHNIQUE: Multiaxial CT images of the chest were performed both before and after the intravenous administration of contrast to evaluate the aorta. Maximal intensity projection images were also obtained. A dose lowering technique was utilized adhering to the principles of ALARA. COMPARISON STUDY: None. FINDINGS: Noncontrast imaging through the chest shows no evidence for an intramural hematoma within the thoracic aorta. Moderate to severe calcified plaque within the coronary arteries. There is mild calcified plaque within the thoracic aorta. Normal caliber thoracic aorta with no evidence for dissection. The central pulmonary arteries are patent. No fractures within the visualized osseous structures. The central airways are patent. There is mild peribronchial thickening with mild interlobular septal thickening within the lung apices. There are few small groundglass densities within the right lung. These findings could represent developing asymmetric pulmonary edema. No pleural or pericardial effusions. The heart is normal in size. Calcified granuloma within the spleen. Normal esophagus. The thyroid gland enhances normally. No mediastinal or hilar lymphadenopathy. IMPRESSION: 1. No evidence for an aortic dissection. 2. Moderate to severe calcified plaque within the coronary arteries. 3. Mild interlobular septal thickening within the lung apices with peribronchial vascular thickening and a few small groundglass densities within the right lung. This likely represents developing asymmetric pulmonary edema. An atypical pneumonitis is considered less likely but not entirely excluded. ACT 112: Negative or not required by law. Electronically signed by: Mike Thompson M.D. 02/20/2022 5:52 PM ECG Data Additional Comments: EKG 1: Sinus rhythm with rate of 69. TX QRS and QTc intervals within normal limits. No ST elevation or ST depression. T wave inversion in lead III and aVF. EKG #2: Sinus rhythm with rate of 57. TX 142 QRS [address] elevation or ST depression. MDM Narrative 1645: The patient was evaluated in room C3. A complete history and physical exam was performed Cardiac monitoring: An order was placed for continuous cardiac monitoring. The monitor shows a rate of 70 with sinus rhythm Patient is diaphoretic and complaining of chest pain. EKG shows no STEMI. 1 4 IV access was obtained. Patient has equal blood pressures in both upper extremities. I-STAT will be conducted. Sublingual nitroglycerin and aspirin administered to the patient. Creatinine within normal limits. Patient will be sent to CTA to rule out dissection. 1715: Vital signs stable. Blood pressure still elevated but improved. Patient reports his chest pain has gone from a 10 out of 10 to 7 out of 10 after 1 nitroglycerin. Repeat nitroglycerin will be administered. 1830: Vital signs improved. Patient's chest pain is currently 4 out of 10 after second nitroglycerin. Repeat nitroglycerin will be administered. CTA of the chest shows no dissection. Discussed the case with cardiology Dr. Aiken who states to hold off on heparin at this time. [facility]. 1954: Vital signs stable. Patient reports no chest pain at this time after receiving third nitroglycerin. Patient's delta [id number]. Repeat EKG shows no ST elevation or ST depression. Discussed the case with cardiology Dr. Aiken who agrees with starting heparin at this time. [facility] Game[facility] has evaluated the patient and is aware of delta troponin. Impression & Plan Non-ST elevation LA (NSTEMI) Critical Care Time Critical Care Time: Yes Total Critical Care Time: 86 I have personally spent greater than 86 minutes of critical care time in the direct management of this patient. This includes bedside care, interpretation of diagnostic studies, and testing, discussion with consultants, patient, and family members, and other required patient management activities. This 86 minutes is in excess of all separately billable procedures. Discharge Plan Visit Data Chief Complaint: Chest Pain Stated Complaint: CHEST PAIN AND TIGHTNESS ED Provider: Mohinder Parham Discharge Problem: Non-ST elevation LA (NSTEMI) Patient Disposition: Admitted As Inpatient Forms Stand Alone Forms: [facility] Prescriptions Prescriptions: No Action metformin 500 mg tablet 1,000 mg PO BID RF: 0 atorvastatin 40 mg Tablet 40 mg PO HS Qty: 30 RF: 1 losartan 50 mg tablet 50 mg PO BID RF: 0 amlodipine 10 mg tablet 10 mg PO DAILY RF: 0 Referrals Referrals: Dylan Fallon MD [Primary Care Provider] -
--- NOTE | 2022-02-20 20:33 | History & Physical Report ---
Date of Service February 20, 2022 Assessment & Plan (1) Non-ST elevation NH (NSTEMI): Plan: NSTEMI/acute diastolic CHF- The patient will be admitted to telemetry for serial cardiac enzymes, serial EKG's, cardiac rhythm monitoring and a 2-D echocardiogram with Dopplers. Most recent echo on 03/13/2021 with ejection fraction 55-60% In the ED received: Aspirin 324 mg, nitroglycerin sublingual x3, Nitropaste 2 inches, hydralazine 10 mg IV x1, furosemide 40 mg IV x1, and heparin drip was started Nitropaste 2 inches to anterior chest wall every 6 hours Aspirin 81 mg every morning Heparin drip per protocol Furosemide 40 mg IV every morning Hydralazine 10 mg IV every 4 hours as needed for systolic blood pressure greater than 160 Consult cardiology (2) Acute diastolic CHF (congestive heart failure): Plan: See above (3) Acute kidney injury: Plan: Creatinine 1.45 on admission, with base 1.10 Hold losartan Serial renal profile Follow with diuresis as noted (4) Diabetes mellitus: Plan: Hold metformin Place on Accu-Cheks before meals and at bedtime NovoLog coverage per scale Check hemoglobin A1c (5) GI bleed: Plan: History of GI bleed/3 nonbleeding gastric ulcers and duodenal scar- noted on EGD on 10/02/2019 Famotidine 20 mg IV every 12 hours (6) History of stomach ulcers: Plan: See above (7) Hypertensive encephalopathy: Plan: History of admission for hypertensive encephalopathy 10/05 Patient was noted at that time to also not be taking his antihypertensives (8) Hypertension: Plan: See above (9) Hyperlipidemia: Plan: Continue atorvastatin 40 mg at bedtime Check a fasting lipid panel (10) Sleep apnea: Plan: CPAP at bedtime as needed History of Present Illness Chief Complaint: The patient presents to the emergency department with complaint of progressively worsening chest heaviness and shortness of breath that began while he was going to get laboratories for an upcoming surgery. He was driving his car, and due to worsening pain, turned around from going home, and came to the ED for assessment Primary Care Provider: Dylan Fallon MD The patient is a 66-year-old male with past medical history including hypertensive encephalopathy, diabetes mellitus, right total knee arthroplasty, gastric ulcers causing GI bleed, hypertension, sleep apnea, hypertension, glaucoma, hyperlipidemia and morbid obesity. He presents to the emergency department with severe chest discomfort, and elevated blood pressure. The patient has not been taking his blood pressure medications recently. In the emergency department, he had improvement in his chest discomfort with aspirin, and sublingual glycerin x3. Nitropaste 2 inch was added, and IV hydralazine 10 mg for improvement in blood pressure control. While in the ED, patient was also started on heparin drip, and will be admitted to the PCU for continued cardiac work-up Allergies Allergy/AdvReac Type Severity Reaction Status Date / Time Sulfa (Sulfonamide Allergy Intermediate Hives Verified 02/20/22 18:35 Antibiotics) Home Medications Medication Instructions Recorded Confirmed Type metformin 500 mg tablet 1,000 mg PO BID 10/02/19 02/20/22 History atorvastatin 40 mg tablet 40 mg PO HS #30 tab 03/15/21 02/20/22 Rx amlodipine 10 mg tablet 10 mg PO DAILY 02/20/22 02/20/22 History losartan 50 mg tablet 50 mg PO BID 02/20/22 02/20/22 History Past Med/Surg History Medical History (Updated 02/21/22 @ 02:24 by Rubén Pedraza MD) Chronic anemia baseline hgb 12-13 range per chart review Diabetes mellitus, type 2 NIDDM Glaucoma History of stomach ulcers 1+ years ago Hyperlipidemia Hypertension Morbid obesity Osteoarthritis Sleep apnea No CPAP currently > "does not work" per pt Spinal stenosis Surgical History History of appendectomy History of arthroscopy Right knee History of carpal tunnel release R/L History of colonoscopy History of esophagogastroduodenoscopy (EGD) EGD (10/02/19): MAC at [facility] History of tonsillectomy and adenoidectomy History of tooth extraction S/P epidural steroid injection Trigger finger Left hand trigger finger release Family History Father Family history of diabetes mellitus Mother Family history of diabetes mellitus Other No family history of adverse response to anesthesia Social History Smoking Status: Former smoker Second Hand Exposure: Yes (IN THE PAST); Hx Alcohol Use: Yes Alcohol type: beer Hx Substance Use: No Preferred Language: Turkmen Communication Ability: Effective Pharmacy Order Entry Technician Required: No Beliefs That Will Affect Care: None marital status: Current Living Situation: Family Current Living Situation Comment: AND ADOPTED GRANDAUGHTER How many Children do You have: 2 Other Information That Helps Us Care for You: No Feels Safe at Home: Yes Safety Concerns: Feels Safe At This Time Assistive Devices: None and Walker Review of Systems Review of Systems: The patient denies palpitations, cough, lower extremity swelling, sore throat, fevers, chills, nausea, vomiting, diarrhea , constipation, abdominal pain, pelvic pain, blood in urine or stool, dysuria, urinary frequency or urgency, lightheadedness, dizziness, headache, memory loss, loss of consciousness, rash, abnormal bruising or bleeding, imbalance, focal or generalized weakness, numbness or tingling in arms or legs, generalized arthralgias or myalgias, back or neck pain, or night sweats. The review of systems is otherwise negative other than for that already noted above, and at least 10 systems have been reviewed. Physical Exam Physical Exam: The patient is awake, alert and oriented 3, well developed and well nourished, normocephalic and atraumatic, lying in bed and in no acute distress. HEENT--PERRL, EOMI, mucous membranes and oropharynx normal. Neck--supple. No JVD. No bruits. Thyroid normal, trachea midline, no adenopathy. Heart--normal S1 and S2. No murmurs, rubs or gallops. Lungs--clear bilaterally, no respiratory distress, no accessory muscle use. Abdomen--normal bowel sounds and soft. Nontender. Nondistended. Morbidly obese Extremities--no cyanosis or clubbing. Right lower extremity with 2+ pitting edema associated with right total knee arthroplasty. Left lower extremity with 1+ pitting edema. Dermatologic--normal skin turgor, normal color, no abnormal lymph nodes, no rash. Neurologic--cranial nerves II through XII grossly intact. Rheumatologic--normal range of motion. Psychiatric--normal affect. Results & Data Results & Data ([facility]) Vital Signs (Past 12 Hours) Vital Signs Temp Pulse Pulse Resp BP BP BP 02/20/22 19:00 61 19 02/20/22 18:50 69 20 02/20/22 18:40 64 15 02/20/22 18:33 63 14 188/99 H 02/20/22 18:30 58 L 22 02/20/22 18:20 65 14 02/20/22 18:10 69 18 02/20/22 18:00 66 19 02/20/22 17:50 68 20 02/20/22 17:48 76 18 210/100 H 208/110 H 02/20/22 17:40 72 20 02/20/22 17:35 68 02/20/22 17:10 70 18 02/20/22 17:00 97 H 17 02/20/22 16:57 88 18 261/123 H 02/20/22 16:54 79 18 02/20/22 16:36 02/20/22 16:29 36.8 C 68 18 238/123 H Pulse Ox 02/20/22 19:00 100 02/20/22 18:50 97 02/20/22 18:40 99 02/20/22 18:33 100 02/20/22 18:30 99 02/20/22 18:20 99 02/20/22 18:10 100 02/20/22 18:00 100 02/20/22 17:50 99 02/20/22 17:48 98 02/20/22 17:40 100 02/20/22 17:35 02/20/22 17:10 98 02/20/22 17:00 02/20/22 16:57 97 02/20/22 16:54 02/20/22 16:36 97 02/20/22 16:29 96 Laboratory Results Laboratory Results WBC 11.16 K/ul (4.8-10.8) H 02/20/22 16:40 RBC 4.85 M/uL (4.63-6.08) 02/20/22 16:40 Hgb 12.7 g/dl (14.0-18.0) L 02/20/22 16:40 POC Hgb 14.3 g/dl (14.0-18.0) 02/20/22 17:10 Hct 40.8 % (40.1-51.0) 02/20/22 16:40 POC Hct 42 % (42-52) 02/20/22 17:10 MCV 84.1 fL (80.0-100.0) 02/20/22 16:40 MCH 26.2 pg (25.0-34.0) 02/20/22 16:40 MCHC 31.1 g/dL (32.0-36.0) L 02/20/22 16:40 RDW Std Deviation 47.2 fL (36.4-46.3) H 02/20/22 16:40 RDW Coeff of Anisha 15.4 % (11.5-14.5) H 02/20/22 16:40 Plt Count 214 K/uL (130-400) 02/20/22 16:40 MPV 11.6 fL (9.4-12.4) 02/20/22 16:40 Immature Gran % (Auto) 0.2 % 02/20/22 16:40 Neut % (Auto) 63.4 % 02/20/22 16:40 Lymph % (Auto) 27.8 % 02/20/22 16:40 [place] % (Auto) 6.5 % 02/20/22 16:40 Eos % (Auto) 1.7 % 02/20/22 16:40 Baso % (Auto) 0.4 % 02/20/22 16:40 Neut # (Auto) 7.08 K/uL (1.4-6.5) H 02/20/22 16:40 Lymph # (Auto) 3.10 K/uL (1.2-3.4) 02/20/22 16:40 [place] # (Auto) 0.73 K/uL (0.24-0.82) 02/20/22 16:40 Eos # (Auto) 0.19 K/uL (0-0.50) 02/20/22 16:40 Baso # (Auto) 0.04 K/uL (0-0.2) 02/20/22 16:40 Immature Gran # (Auto) 0.02 K/uL (0.00-0.02) 02/20/22 16:40 PT 10.7 Seconds (9.0-12.0) 02/20/22 16:40 INR 1.0 (0.9-1.1) 02/20/22 16:40 APTT 26.2 Seconds (21.0-31.0) 02/20/22 16:40 PTT Ratio 1.0 02/20/22 16:40 POC Sodium 145 mmol/L (135-144) H 02/20/22 17:10 Sodium 141 mmol/L (136-145) 02/20/22 16:40 POC Potassium 3.8 mmol/L (3.3-5.0) 02/20/22 17:10 Potassium 3.8 mmol/L (3.5-5.1) 02/20/22 17:00 POC Chloride 107 mmol/L (101-112) 02/20/22 17:10 Chloride 107 mmol/L (98-107) 02/20/22 16:40 Carbon Dioxide 26 mmol/L (21-32) 02/20/22 16:40 POC Total CO2 26 mmol/L (24-31) 02/20/22 17:10 Anion Gap 8 (3-11) 02/20/22 16:40 POC Anion Gap 17.0 mmol/L (16-25) 02/20/22 17:10 POC BUN 24 mg/dl (7-18) H 02/20/22 17:10 BUN 23 mg/dl (6-23) 02/20/22 16:40 Creatinine 1.45 mg/dl (0.6-1.4) H 02/20/22 16:40 POC Creatinine 1.4 mg/dl (0.6-1.3) H 02/20/22 17:10 Est Cr Clr Drug Dosing 61.5 ml/min 02/20/22 16:40 Est GFR ( Amer) 56.9 ml/min 02/20/22 16:40 Est GFR (Non-Af Amer) 49.1 ml/min 02/20/22 16:40 BUN/Creatinine Ratio 15.9 (10-20) 02/20/22 16:40 Glucose 115 mg/dl (70-99(Fasting)) H 02/20/22 16:40 POC Glucose 164 mg/dl (70-99) H 02/20/22 23:17 POC Glucose (other) 127 mg/dl (70-99) H 02/20/22 17:10 Calcium 9.2 mg/dl (8.5-10.1) 02/20/22 16:40 POC Ioniz Calcium Mika 1.25 mmol/l (1.12-1.32) 02/20/22 17:10 Magnesium 2.0 mg/dl (1.7-2.4) 02/20/22 16:40 Total Bilirubin 0.4 mg/dl (0.2-1.0) 02/20/22 16:40 AST 15 U/L (13-39) 02/20/22 17:00 ALT 18 U/L (7-52) 02/20/22 16:40 Alkaline Phosphatase 60 U/L (34-104) 02/20/22 16:40 Troponin I High Sens 452.5 pg/ml (0-20) H* D 02/20/22 19:01 Total Protein 8.1 gm/dl (6.0-8.3) 02/20/22 16:40 Albumin 4.4 gm/dl (3.4-5.0) 02/20/22 16:40 Globulin 3.7 gm/dl (2.5-4.0) 02/20/22 16:40 Albumin/Globulin Ratio 1.2 (0.9-2) 02/20/22 16:40 Triglycerides 229 mg/dl (0-150) H 02/20/22 16:40 Cholesterol 180 mg/dl (0-200) 02/20/22 16:40 LDL Cholesterol, Calc 95 mg/dl 02/20/22 16:40 VLDL Cholesterol, Calc 46 mg/dl (0-30) H 02/20/22 16:40 HDL Cholesterol 39 mg/dl 02/20/22 16:40 Cholesterol/HDL Ratio 4.6 (0-5) 02/20/22 16:40 SARS-CoV-2, RNA, NAAT NEGATIVE (NEGATIVE) 02/20/22 20:05 Impressions Chest X-Ray 02/20/22 16:36 SINGLE VIEW CHEST CLINICAL HISTORY: Atypical chest pain. FINDINGS: 2 AP, portable, upright chest radiographs are compared to study dated 02/17/2021. The examination is degraded by portable technique and apical lordotic positioning. The heart is enlarged. There is pulmonary vascular congestion. Scarring/atelectasis is noted at the lung bases. Bilateral airspace opacities likely represent pulmonary edema. No large pleural effusion or pneumothorax is s een. The skeletal structures are osteopenic. The bony thorax is grossly intact. IMPRESSION: 1. Cardiomegaly with pulmonary vascular congestion. 2. Bilateral airspace opacities likely represent pulmonary edema. Correlate clinically for evidence of a superimposed infectious/inflammatory pneumonitis. 3. No large pleural effusion is identified. ACT 112: Negative or not required by law. Electronically signed by: Edmar Field M.D. 02/20/2022 5:15 PM Abdomen/Pelvis CTA 02/20/22 17:05 CT ANGIOGRAM OF THE ABDOMEN AND PELVIS CLINICAL HISTORY: Atypical chest pain. Dyspnea. Generalized abdominal pain. COMPARISON STUDY: Abdominal CT dated 10/01/2019. TECHNIQUE: Following the IV administration of 120 cc of Optiray 320, CT angiogram of the abdomen and pelvis was performed from the lung bases the proximal femora. Images are reviewed in the axial, sagittal, and coronal planes. 3-D MIPS images are created and assessed. IV contrast was administered without complication. A dose lowering technique was utilized adhering to the principles of ALARA. CT DOSE: 3280.07 mGy.cm FINDINGS: Lower chest: The heart is probably in large and without pericardial effusion. The lung bases are clear noting bibasilar scarring/atelectasis. There is a small hiatal hernia. Liver: The contrast-enhanced liver is normal in size, contour, and attenuation. There is no intrahepatic biliary ductal dilatation. Gallbladder: Unremarkable. Spleen: Normal in size and attenuation noting heterogeneous arterial phase enhancement. A 1.5 cm splenic calcification is unchanged. Pancreas: Unremarkable. Adrenal glands: Unremarkable. Kidneys: The contrast enhanced kidneys are normal in size and without hydronephrosis. The kidneys enhance symmetrically. Abdominal aorta and iliac arteries: There is advanced atherosclerotic calcification of the abdominal aorta which is normal in caliber. No dissection is seen. The abdominal aorta is widely patent, as are the iliac arteries. Major branches of the abdominal aorta: The superior mesenteric and inferior mesenteric arteries are patent. Atherosclerotic plaque causes mild stenosis of the proximal superior mesenteric artery. The left gastric artery and the splenic artery arises directly from the abdominal aorta. The splenic artery is patent. Hepatic arterial anatomy is conventional. Single bilateral renal arteries are widely patent bilaterally. Bowel: There is advanced colonic diverticulosis without CT evidence of acute diverticulitis. No bowel obstruction is seen. There is moderate constipation. Th e appendix is not identified and reported surgically absent. Peritoneum: There is no intraperitoneal free air or abdominal ascites. There is a large fat-containing umbilical hernia. Lymphadenopathy: None. Pelvic viscera: The prostate gland is enlarged and heterogeneous noting median lobe hypertrophy. The bladder wall appears thickened and trabeculated indicating chronic outlet obstruction. Skeletal structures: There is mild lumbosacral spondylosis. No lytic or blastic bony lesion is seen. IMPRESSION: 1. Unremarkable CT angiogram of the abdominal aorta noting atherosclerotic plaq ue and irregularity. No dissection is seen. 2. There is mild stenosis of the proximal superior mesenteric artery. 3. Otherwise unremarkable CT angiogram of the major branches of the abdominal aorta. 4. No acute infectious or inflammatory findings are identified in the abdomen or pelvis. 5. Advanced colonic diverticulosis without CT evidence of acute diverticulitis. 6. Additional findings as above. ACT 112: Negative or not required by law. Electronically signed by: Edmar Field M.D. 02/20/2022 5:44 PM Chest CTA 02/20/22 17:05 CHEST CTA for AORTIC DISSECTION CT DOSE: HISTORY: Atypical chest pain. Shortness of breath. Assess for an aortic dissection. TECHNIQUE: Multiaxial CT images of the chest were performed both before and after the intravenous administration of contrast to evaluate the aorta. Maximal intensity projection images were also obtained. A dose lowering technique was utilized adhering to the principles of ALARA. COMPARISON STUDY: None. FINDINGS: Noncontrast imaging through the chest shows no evidence for an intramural hematoma within the thoracic aorta. Moderate to severe calcified plaque within the coronary arteries. There is mild calcified plaque within the thoracic aorta. Normal caliber thoracic aorta with no evidence for dissection. The central pulmonary arteries are patent. No fractures within the visualized osseous structures. The central airways are patent. There is mild peribronchial thickening with mild interlobular septal thickening within the lung apices. There are few small groundglass densities within the right lung. These findings could represent developing asymmetric pulmonary edema. No pleural or pericardial effusions. The heart is normal in size. Calcified granuloma within the spleen. Normal esophagus. The thyroid gland enhances normally. No mediastinal or hilar lymphadenopathy. IMPRESSION: 1. No evidence for an aortic dissection. 2. Moderate to severe calcified plaque within the coronary arteries. 3. Mild interlobular septal thickening within the lung apices with peribronchial vascular thickening and a few small groundglass densities within the right lung. This likely represents developing asymmetric pulmonary edema. An atypical pneumonitis is considered less likely but not entirely excluded. ACT 112: Negative or not required by law. Electronically signed by: Mike Thompson M.D. 02/20/2022 5:52 PM Code Status & VTE Plan Code Status Full code VTE Prophylaxis Plan VTE Prophylaxis will be ordered: Yes PG Care Time/CCT Total # of Minutes Spent Total Time Spent with Patient: Total time spent is greater than 50% in coordination of care (as documented) at patient's floor/unit and/or counseling patient: Coding Level of Care Code 45440 Initial Inpt Care Lvl 3 Diagnoses Non-ST elevation NH (NSTEMI) I21.4 Hypertensive encephalopathy I67.4 Diabetes mellitus E11.9 GI bleed K92.2 GI bleed type/associated pathology: unspecified gastrointestinal hemorrhage type History of stomach ulcers Z87.19 Hypertension I10 Hypertension type: unspecified Sleep apnea G47.30 Hyperlipidemia E78.5 Acute diastolic CHF (congestive heart failure) I50.31 Acute kidney injury N17.9 (1) GI bleed GI bleed type/associated pathology: unspecified gastrointestinal hemorrhage type Qualified Code(s): K92.2 - Gastrointestinal hemorrhage, unspecified (2) Hypertension Hypertension type: unspecified Qualified Code(s): I10 - Essential (primary) hypertension
[2022-02-20] MEDS: HEPARIN SODIUM/DEXTROSE 25,000 UNITS/500 ML BAG IV SCH (20:56)
[2022-02-20] MEDS ORDERED: DEXTROSE 50% 50 ML SYRINGE IV PRN (22:29)
[2022-02-20] MEDS ORDERED: ONDANSETRON INJ 2 MG/ML 2 ML VIAL IV PRN (22:29)
[2022-02-20] MEDS ORDERED: GLUCOSE 10 TAB/TUBE PO PRN (22:29)
[2022-02-20] MEDS ORDERED: ACETAMINOPHEN 325 MG TAB PO PRN (22:29)
[2022-02-20] MEDS ORDERED: CARBOHYDRATES FOR HYPOGLYCEMIA PO PRN (22:29)
[2022-02-20] MEDS ORDERED: GLUCOSE 40% GEL 15 GM TUBE PO PRN (22:29)
[2022-02-20] MEDS ORDERED: GLUCAGON FOR INJ 1 MG VIAL SQ PRN (22:29)
[2022-02-20 23:11] LABS: Chol HDL Ratio 4.6 (0-5)
[2022-02-20] MEDS: INSULIN ASPART PER UNIT SC SCH (23:54)
[2022-02-21] MEDS: ATORVASTATIN 40 MG TAB PO SCH ×2 (00:05→20:46)
[2022-02-21] MEDS: NITROGLYCERIN 2% OINTMENT 30GM TUBE EXT SCH ×5 (00:05→23:09)
[2022-02-21] MEDS ORDERED: NITROGLYCERIN SL 0.4 MG/TAB TAB SL STA (02:18)
[2022-02-21] MEDS ORDERED: MoRPHine SULFATE 2 MG/ML CARP IV STA (02:18)
--- NOTE | 2022-02-21 02:29 | Communication Note ---
Date of Service: February 21, 2022 Patient reports that he was awoken from sleep around 1:55 AM with recurrent 10/10 midsternal chest pain radiating up to the lower neck. + associated nausea but no vomiting. Currently w/ nitropaste on. Has received sublingual nitro x3 in ED w/ benefit. Admitted for NSTEMI; trop increased from 32.7 to 452.5. Already on IV heparin. Patient states that prior to the pain that brought him to the ED, he has no hx of similar episodes of CP. No prior cardiac cath. On exam, in mild distress secondary to pain, holding midsternal chest region. No tenderness to palpation of the chest wall. Heart RRR. Anterior lung woody CTAB. Skin is warm and dry; not diaphoretic. EKG ordered at bedside -- NSR, rate 60, no ST elevation or depression. STAT repeat HS-troponin ordered. SL Nitro 0.4 mg and Morphine 2mg IV ordered. Continue IV heparin gtt as ordered. Recheck BP in 15 min. Will continue to monitor symptoms. May need to consider medical therapy advancem ent to nitro gtt. --- Update: Patient with improvement of symptoms to 3/10 about 20 minutes after administration of SL Nitro and Morphine. Repeat hs-trop resulted at 1948. Called on-call educator senior clinical, Dr. Xiong at 3:20 AM and reviewed case; recommends transfer from PCU to ICU for nitro gtt. Will continue to monitor sxs. Continue to trend troponin to peak. Resident Activity Tracking Resident Involvement: Resident Care Provided Care Provided: Adult [facility]
[2022-02-21 04:02] LABS: Basophils # (auto) 0.03 K/uL (0-0.2); Basophils % (auto) 0.3 %; Eosinophils # (auto) 0.12 K/uL (0-0.50); Eosinophils % (auto) 1.1 %; Hematocrit (blood only) 36.9 % (40.1-51.0); Hemoglobin 11.5 g/dl (14.0-18.0); Immature Granulocytes # (auto) 0.02 K/uL (0.00-0.02); Immature Granulocytes % (auto) 0.2 %; Lymphocytes # (auto) 2.02 K/uL (1.2-3.4); Lymphocytes % (auto) 18.6 %; Mean Corpuscular Hgb Conc 31.2 g/dL (32.0-36.0); Mean Corpuscular Volume 83.5 fL (80.0-100.0); Mean Platelet Volume 11.1 fL (9.4-12.4); Monocytes # (auto) 0.52 K/uL (0.24-0.82); Monocytes % (auto) 4.8 %; Neutrophils # (auto) 8.15 K/uL (1.4-6.5); Platelet Count 184 K/uL (130-400); RDW Coefficient of Variation 15.2 % (11.5-14.5); RDW Standard Deviation 46.3 fL (36.4-46.3); Red Blood Count 4.42 M/uL (4.63-6.08); White Blood Count 10.86 K/ul (4.8-10.8)
[2022-02-21 04:19] LABS: Partial Thromboplastin Ratio 1.4; Partial Thromboplastin Time 38.7 Seconds (21.0-31.0)
[2022-02-21 04:29] LABS: Albumin Globulin Ratio 1.1 (0.9-2); Albumin Level 3.9 gm/dl (3.4-5.0); BUN Creatinine Ratio 18.7 (10-20); Bilirubin,Total 0.4 mg/dl (0.2-1.0); Calcium 9.1 mg/dl (8.5-10.1); Creatinine Clr Calc Pharmacy 83.4 ml/min; Est GFR (African American) 82.2 ml/min; Globulin 3.5 gm/dl (2.5-4.0); Potassium 3.6 mmol/L (3.5-5.1); Total Protein 7.4 gm/dl (6.0-8.3)
[2022-02-21 04:37] LABS: Troponin I High Sensitivity 1259.8 pg/ml (0-20)
[2022-02-21] MEDS ORDERED: STAT IV Infusion **Titration per Protocol STA (05:28)
[2022-02-21] MEDS ORDERED: NITROGLYCERIN/D5W 100MCG/ML 250 ML IV SCH (05:30)
[2022-02-21 06:00] LABS: Estimated Average Glucose 140 mg/dl; Hemoglobin A1C 6.5 % (4.5-5.6)
[2022-02-21] MEDS: FAMOTIDINE 20 MG in SYRINGE 3 ML IV SCH ×2 (06:03→17:19)
--- NOTE | 2022-02-21 06:04 | Critical Care Consultation ---
Date of Consultation February 21, 2022 Assessment & Plan (1) Admitted to intensive care unit: Reason Critically Ill: 66-year-old male with concerns for unstable angina requiring ongoing heparin drips and initiation of nitroglycerin drip for return of chest discomfort. NEURO - * CAM ICU: NEGATIVE CARDIAC/VASCULAR - * Unstable angina: * Initially tolerating nitroglycerin drip and topical nitroglycerin paste. Unfortunately, patient with return of chest pain necessitating additional oral dose of nitroglycerin. Troponin continues to rise. Per interventional cardiology. Patient restarted on nitroglycerin drip. Thankfully, the patient is chest pain-free upon the time he arrived in the ICU. * EKG without ST elevations. No other significant findings were appreciated. * An echocardiogram. * Continue to trend troponins. * Low threshold for emergent coronary intervention if patient not to improve. * EKG: Sinus bradycardia 57 bpm. Q wave in lead III. No ST elevations noted. QTc 432 ms. * Monitor on telemetry. RESPIRATORY - * No history of pulmonary disease. * Saturating well on room air. GI/NUTRITION - * AHA diet RENAL/LYTES - * Initially presented with SOLEDAD. Now resolved. * No significant electrolyte derangements. - * No concerns at this time. ENDO - * DMII * BSGs per unit protocol. ISS --> gtt per unit policy. HEME - * Stable H&H ID - * No concerns for infection at this time. LINES/IV ACCESS - * PIVs x2 DVT PROPHYLAXIS - * Heparin gtt * SCDs I have personally spent 32 minutes of critical care time in the direct management of this patient. This is a life/limb threatening event. This includes time spent evaluating patient, direct bedside care, chart review, placing orde rs, interpretation of diagnostic studies, discussion with consultants, patient, and family members, as well as other required patient management activities. This time is exclusive of all separately billable procedures, and teaching time and separate from and in addition to any other critical care service time. Thank you for allowing us to participate in the care of this patient. Please refer to my attending physician's documentation for any further recommendations. (2) Unstable angina: (3) Acute kidney injury: (4) Non-ST elevation SD (NSTEMI): (5) Diabetes mellitus: History of Present Illness Attending Physician: Rubén Pedraza MD History of Present Illness Patient is a 66-year-old male with a significant past medical history of hypertension, hyperlipidemia, osteoarthritis, prediabetes, sleep apnea. Patient reports that he was enjoying his typical state of health up until later in the afternoon. He reports that he developed an abrupt onset of central chest pain with radiation up to his neck. He had associated sweatiness as well. His symptoms persisted which eventually prompted him to visit the emergency department. Upon evaluation, the patient was not noted to have any EKG changes consistent with [facility], however he did require 3 separate doses of nitroglycerin which did eventually tasha his symptoms. Patient was admitted for chest pain work-up and was chest pain-free upon arriving on the floor, however the patient had an abrupt onset of what he describes as 10 out of 10 chest pain earlier this morning. Patient was with Nitropaste in place. He did receive 1 oral dose of nitroglycerin and a dose of morphine which took approximately 25 minutes to provide him with relief. Eventually, he developed complete relief of chest pain. In conjunction with this, the patient's cardiac enzymes continue to elevate. He is on a heparin drip. Per interventional cardiology, patient to be started on nitroglycerin drip as well. Patient to be monitored in the ICU for any change or worsening symptoms. Upon my evaluation in the ICU, the patient is awake, alert, and oriented. He describes 0 complaints of chest pain at this time. He has never experienced similar chest pain in the past. He denies any precipitating symptoms over the last several days to weeks. Otherwise, he reports feeling generally well. He denies complaints of headaches, dizziness, lightheadedness, palpitations, shortness of breath, pleuritic pain, nausea, vomiting, or abdominal discomfort. Allergies Allergy/AdvReac Type Severity Reaction Status Date / Time Sulfa (Sulfonamide Allergy Intermediate Hives Verified 02/20/22 18:35 Antibiotics) Home Medications Medication Instructions Recorded Confirmed Type metformin 500 mg tablet 1,000 mg PO BID 10/02/19 02/20/22 History atorvastatin 40 mg tablet 40 mg PO HS #30 tab 03/15/21 02/20/22 Rx amlodipine 10 mg tablet 10 mg PO DAILY 02/20/22 02/20/22 History losartan 50 mg tablet 50 mg PO BID 02/20/22 02/20/22 History Patient History Medical History Chronic anemia baseline hgb 12-13 range per chart review Diabetes mellitus, type 2 NIDDM Glaucoma History of stomach ulcers 1+ years ago Hyperlipidemia Hypertension Morbid obesity Osteoarthritis Sleep apnea No CPAP currently > "does not work" per pt Spinal stenosis Surgical History History of appendectomy History of arthroscopy Right knee History of carpal tunnel release R/L History of colonoscopy History of esophagogastroduodenoscopy (EGD) EGD (10/02/19): [facility] at [facility] History of tonsillectomy and adenoidectomy History of tooth extraction S/P epidural steroid injection Trigger finger Left hand trigger finger release Family History Father Family history of diabetes mellitus Mother Family history of diabetes mellitus Other No family history of adverse response to anesthesia Social History Smoking Status: Former smoker Second Hand Exposure: Yes (IN THE PAST); Hx Alcohol Use: Yes Alcohol type: beer Hx Substance Use: No Preferred Language: Senegalese Communication Ability: Effective Nnp Required: No Beliefs That Will Affect Care: None marital status: Current Living Situation: Family Current Living Situation Comment: AND ADOPTED GRANDAUGHTER How many Children do You have: 2 Other Information That Helps Us Care for You: No Feels Safe at Home: Yes Safety Concerns: Feels Safe At This Time Assistive Devices: None and Walker Review of Systems Review of Systems: A complete 10 point review of systems was reviewed with the patient with pertinent positives and negatives as per history of present illness. All else were negative. Physical Exam Physical Exam: VITAL SIGNS - Vital signs and nursing notes were reviewed. GENERAL - 66-year-old male appearing his stated age who is in no acute distress. Communicates well with provider and answers questions appropriately. HEAD - NC/AT. EYES - PERRL with EOMI bilaterally. Sclera anicteric. EARS - No deformities of external structures noted on gross examination bilaterally. NOSE - Midline and without cyanosis. No epistaxis or purulent drainage noted. MOUTH/OROPHARYNX - Without perioral cyanosis. NECK - Neck with FROM. LUNGS - Chest wall symmetric without accessory muscle use, intercostals retractions, or central cyanosis. Normal vesicular breath sounds CTA B/L. No wheezes, rales, or rhonchi appreciated. CARDIAC - RRR with S1/S2. No murmur, rubs, or gallops appreciated. No reproducible tenderness to palpation appreciated over the anterior chest wall. ABDOMEN - Abdominal contour obese without pulsations or visible masses. BS normoactive all four quadrants. No tenderness, palpable masses, hepatosplenomegaly, or ascites noted. EXTREMITIES - No clubbing or peripheral cyanosis. No pretibial edema present. +3/5 radial and dorsalis pedis pulses palpated throughout. +5/5 strength noted in UE/LE bilaterally. NEUROLOGIC - Cranial nerves II through XII grossly intact. Sensory intact to light touch throughout. PSYCH - A&Ox3 and cooperates fully with examiner. Pt is very pleasant and interacts well with examiner. Results & Data Results & Data ([facility]) Vital Signs (Past 12 Hours) Vital Signs Temp Pulse Pulse Resp BP BP Pulse Ox 02/21/22 04:30 36.7 C 70 20 168/87 H 96 02/20/22 23:27 76 02/20/22 23:08 36.8 C 74 16 145/87 H 97 02/20/22 22:29 02/20/22 22:16 72 18 176/84 H 98 02/20/22 19:00 61 19 100 02/20/22 18:50 69 20 97 02/20/22 18:40 64 15 99 02/20/22 18:33 63 14 188/99 H 100 02/20/22 18:30 58 L 22 99 02/20/22 18:20 65 14 99 02/20/22 18:10 69 18 100 02/20/22 18:00 66 19 100 Pulse Ox 02/21/22 04:30 02/20/22 23:27 02/20/22 23:08 02/20/22 22:29 97 02/20/22 22:16 02/20/22 19:00 02/20/22 18:50 02/20/22 18:40 02/20/22 18:33 02/20/22 18:30 02/20/22 18:20 02/20/22 18:10 02/20/22 18:00 Coding Level of Care Code Critical Care 1st 30-74 mins Diagnoses Admitted to intensive care unit Z78.9 Unstable angina I20.0 Acute kidney injury N17.9 Non-ST elevation SD (NSTEMI) I21.4 Diabetes mellitus E11.9 Time Spent (min) 32
[2022-02-21] MEDS: hydrALAZINE HCL 20 MG/ML VIAL IV PRN ×2 (06:06→14:13)
--- NOTE | 2022-02-21 07:07 | Hospitalist Progress Note ---
Date of Service February 21, 2022 Assessment & Plan (1) Non-ST elevation [place] (NSTEMI): Plan: NSTEMI/acute diastolic CHF - SHRUTHI 03/13/2021 with ejection fraction 55-60% -In the ED received: Aspirin 324 mg, nitroglycerin sublingual x3, Nitropaste 2 inches, hydralazine 10 mg IV x1, furosemide 40 -mg IV x1, and heparin drip was started -Nitropaste 2 inches to anterior chest wall every 6 hours - EKG: No acute ST segment changes, sinus batsheva. - Overnight 02/21 awoke with 10/ return of chest pain, not improved on nitro paste. 4/10 with nitro paste. Is read ICU on nitro gtt. that evening per discussion with interventional -hs-trop peak at 1948, downtrended to 1259 -Aspirin 81 mg every morning - CTA-Chest: No evidence for an aortic dissection. Moderate to severe calcified plaque within the coronary arteries. Mild interlobular septal thickening within the lung apices with peribronchial vascular thickening and a few small groundglass densities within the right lung. This likely represents developing asymmetric pulmonary edema. An atypical pneumonitis is considered less likely but not entirely excluded. - CTA-A/P: Unremarkable CT angiogram of the abdominal aorta noting atherosclerotic plaque and irregularity. No dissection is seen. There is mild stenosis of the proximal superior mesenteric artery. Otherwise unremarkable CT angiogram of the major branches of the abdominal aorta. No acute infectious or inflammatory findings are identified in the abdomen or pelvis.. Advanced colonic diverticulosis without CT evidence of acute diverticulitis. Additional findings as above. - COVID negative -LeukoCytosis to 11 downtrending to 10, suspect stress demargination - Hgb 11.5 Troponin retrended after recurrent chest pain morning of 02/21 Echo: LV SF normal, moderate concentric LVH, grade 1 diastolic dysfunction, normal LV wall motion Nitro drip subsequently weaned, patient remains pain-free. Okay for downgrade to PCU, anticipate cath on Wednesday - heparin gtt (2) Acute diastolic CHF (congestive heart failure): Plan: See above (3) Acute kidney injury: Plan: -Creatinine 1.45 on admission, with base 1.10 -Normalized to 1.07 02/21 -Follow with diuresis as noted -STEW resumed (4) Diabetes mellitus: Plan: -[employer] metformin held - BSG AC/HS - Hgb A1c 6.5% -SSI CF 30, ratio 15. (5) GI bleed: Plan: -EGD 09/2019: Normal esophagus, nonbleeding gastric ulcers, duodenal scar - Famotidine 20 mg IV every 12 hours - PPI PPx (6) History of stomach ulcers: Plan: See above (7) Hypertensive encephalopathy: Plan: - History of admission for hypertensive encephalopathy 10/05 -At time of hypertensive emergency patient was not taking antihyperten siveshydralazine every 4 hours as needed on-call Lisinopril resumed, metoprolol tartrate 25mg 3 times daily added Labetalol x10 mg given in ICU with good response (8) Hypertension: Plan: See above (9) Hyperlipidemia: Plan: Atorvastatin 40 mg nightly --> 80 pending eval above Cholesterol 180, LDL 95, HDL 39 (10) Sleep apnea: Plan: CPAP at bedtime as needed Admission and Anticipated Discharge Date Admission Date: February 20, 2022 Subjective Seen at the bedside for morning assessment. Patient reports he has been pain- free since around 2:00 in the morning. Did have nitro drip, which has subsequently been weaned and discontinued. No lightheadedness, dizziness, shortness of breath, difficulty breathing, diaphoresis this morning. Echo normal. Lisinopril, metoprolol have been restarted and got a dose of labetalol for hypertension, which did improve. Has not yet seen cardiology yet this morning, his curious to know planned but otherwise no questions or concerns at bedside. Review of Systems Review of Systems: All systems reviewed & are unremarkable except as noted in Subjective Physical Exam Physical Exam: General: A&Ox3. NAD. Cooperative. HEENT: Atraumatic, normocephalic. Vision and hearing grossly intact Pulm: CTAB A&P. -wheezes, -rales, -rhonchi. Symmetrical chest rise. No increase in work of breathing. No respiratory distress. Cardiac: RRR, -mrg. Radial pulses intact and symmetrical. Abdominal: Nontender, nondistended, soft. BS present. Extremities: Lower extremities without edema. Utilization Review Rn strength and ankle dorsiflexion/plantarflexion intact and symmetrical. Sensation soft touch intact in hands and feet. Results & Data Results & Data ([facility]) Vital Signs (Past 12 Hours) Vital Signs Temp Pulse Pulse Resp BP BP Pulse Ox 02/21/22 06:30 74 24 96 02/21/22 06:00 67 18 178/83 H 95 02/21/22 05:30 65 16 97 02/21/22 05:00 68 18 178/90 H 95 02/21/22 04:30 36.7 C 69 70 20 168/87 H 97 02/20/22 23:27 76 02/20/22 23:08 36.8 C 74 16 145/87 H 97 02/20/22 22:29 02/20/22 22:16 72 18 176/84 H 98 Pulse Ox 02/21/22 06:30 02/21/22 06:00 02/21/22 05:30 02/21/22 05:00 02/21/22 04:30 02/20/22 23:27 02/20/22 23:08 02/20/22 22:29 97 02/20/22 22:16 PG Care Time/CCT Total # of Minutes Spent Total Time Spent with Patient: Total time spent is greater than 50% in coordination of care (as documented) at patient's floor/unit and/or counseling patient: Coding Level of Care Code 76828 Subseq Hosp Care Lvl 3 Diagnoses Non-ST elevation [place] (NSTEMI) I21.4 Acute diastolic CHF (congestive heart failure) I50.31 Acute kidney injury N17.9 Diabetes mellitus E11.9 GI bleed K92.2 GI bleed type/associated pathology: unspecified gastrointestinal hemorrhage type History of stomach ulcers Z87.19 Hypertensive encephalopathy I67.4 Hypertension I10 Hypertension type: unspecified Hyperlipidemia E78.5 Sleep apnea G47.30 (1) GI bleed GI bleed type/associated pathology: unspecified gastrointestinal hemorrhage type Qualified Code(s): K92.2 - Gastrointestinal hemorrhage, unspecified (2) Hypertension Hypertension type: unspecified Qualified Code(s): I10 - Essential (primary) hypertension
[2022-02-21] MEDS: INSULIN ASPART PER UNIT SC SCH ×4 (07:57→20:53)
[2022-02-21] MEDS: FUROSEMIDE 40 MG/4 ML VIAL IV SCH (08:58)
[2022-02-21] MEDS: ASPIRIN 81 MG ECTAB PO SCH (08:58)
[2022-02-21] MEDS ORDERED: LABETALOL HCL IV 5 MG/ML 20ML IV STA ×3 (09:38→18:04)
--- NOTE | 2022-02-21 09:42 | Communication Note ---
Date of Service: February 21, 2022 Patient seen and examined. EMR reviewed. Discussed with critical care MICHELLE overnight. Patient's completed his echocardiogram. He is chest pain-free. He is on a minimal amount of nitro. He remains significantly hypertensive. Will discontinue nitro, start lisinopril, metoprolol, and give 1 dose of labetalol to try and improve blood pressure for now. Continue IV heparin. Continue to trend troponin until they peak. Formal cardiology consultation is pending. Suspect the patient may require cardiac catheterization at some point but again defer to cardiology. He appears hemodynamically stable and appropriate to transfer out of the ICU to telemetry status unless they plan on taking the patient for cardiac catheterization today. Coding Level of Care Code None
[2022-02-21] MEDS ORDERED: lisinopril 10 MG TAB PO SCH (09:45)
--- NOTE | 2022-02-21 11:04 | XCELERA ---
[id number]
[2022-02-21 11:09] LABS: Partial Thromboplastin Ratio 1.4; Partial Thromboplastin Time 37.9 Seconds (21.0-31.0)
[2022-02-21] MEDS ORDERED: HEPARIN SOD (PORCINE) 1000 UNIT/ML IV ONE (11:51)
--- NOTE | 2022-02-21 12:10 | Cardiology Consultation ---
Date of Consultation February 21, 2022 Assessment & Plan (1) Non-ST elevation [place] (NSTEMI): (2) Hypertension: 1. NSTEMI: Patient has elevated biomarkers consistent with an NSTEMI. The mechanism of his injury however is unclear. He had an extended episode of severe chest discomfort. There were no objective findings of ischemia other than the elevated biomarkers. His EKG was normal at the time of admission and symptoms. I would have expected a higher degree of troponin elevation were this severe ischemia. Also, no regional wall motion abnormalities on his echocardiogram. He was somewhat tender to palpation in the sternal area this morning. He described the symptoms as similar to what he experienced yesterday but less severe. The fact that his symptoms started with change in position early this morning also suggest a noncardiac etiology for his chest pain. He did have severe high blood pressure at the time of admission this certainly could have caused his biomarker elevation. In any event, we will treat him like an acute coronary syndrome until he can have a coronary evaluation. He will continue on systemic anticoagulation. Nitrates have been discontinued in favor of beta blockade and Stewart inhibition. 2. Hypertension: Severely hypertensive the time of admission. He may have suboptimal control of his blood pressure at baseline. This may have been made worse recently by his regular use of nonsteroidal medication. Lisinopril has been administered. Metoprolol has been administered. We could give extra doses of Stewart inhibitors or amlodipine if his blood pressure is not improved by this afternoon. He is also given doses of furosemide based on the abnormal chest x- ray. History of Present Illness Reason for Consultation: NSTEMI Requesting Physician: Milo Attending Physician: Joe Garnica MD History of Present Illness The patient is a 58-year-old gentleman without a known history of cardiac disease who experienced an episode of severe chest discomfort yesterday. The patient was driving at that time. He describes the onset of the pain is fairly sudden and precordial in location. He states that it was quite severe and there was some radiation to the neck. The symptoms were fairly persistent, but the patient was able to drive his car to another location, undergo phlebotomy and eventually seek medical attention. He feels that his symptoms lasted at least an hour before he got to the hospital he did not resolve immediately with treatment. He did not describe a pleuritic component. There did not appear to be associated shortness of breath or dizziness. At the time of his initial evaluation he was markedly hypertensive. He was administered nitroglycerin and eventually started on infusion with resolution of his symptoms. He had another episode of chest discomfort early this morning when he was changing positions in bed. This again started very suddenly and was similar in character. He was administered nitroglycerin and underwent infusion. Morphine was also administered in his symptoms resolved. Currently feeling well. He has some difficulty with activity due to right knee discomfort. He is actually scheduled for arthroscopy this coming week. He had a previous knee replacement on the right side. He still able to ambulate on occasion. He recently vacationed at the [place] and was ambulatory for extended periods. He did not report chest pain associated with activity. No limiting dyspnea. No dizziness or lightheadedness. No history of syncope. No palpitations. He claims to be compliant with his medical therapy and reports common blood pressures at home running 150 to 60 systolic. Allergies Allergy/AdvReac Type Severity Reaction Status Date / Time Sulfa (Sulfonamide Allergy Intermediate Hives Verified 02/20/22 18:35 Antibiotics) Home Medications Medication Instructions Recorded Confirmed Type metformin 500 mg tablet 1,000 mg PO BID 10/02/19 02/20/22 History atorvastatin 40 mg tablet 40 mg PO HS #30 tab 03/15/21 02/20/22 Rx amlodipine 10 mg tablet 10 mg PO DAILY 02/20/22 02/20/22 History losartan 50 mg tablet 50 mg PO BID 02/20/22 02/20/22 History Patient History Medical History Chronic anemia baseline hgb 12-13 range per chart review Diabetes mellitus, type 2 NIDDM Glaucoma History of stomach ulcers 1+ years ago Hyperlipidemia Hypertension Morbid obesity Osteoarthritis Sleep apnea No CPAP currently > "does not work" per pt Spinal stenosis Surgical History History of appendectomy History of arthroscopy Right knee History of carpal tunnel release R/L History of colonoscopy History of esophagogastroduodenoscopy (EGD) EGD (10/02/19): MAC at [facility] History of tonsillectomy and adenoidectomy History of tooth extraction S/P epidural steroid injection Trigger finger Left hand trigger finger release Family History Father Family history of diabetes mellitus Mother Family history of diabetes mellitus Other No family history of adverse response to anesthesia Social History Smoking Status: Former smoker Second Hand Exposure: Yes (IN THE PAST); Hx Alcohol Use: Yes Alcohol type: beer Hx Substance Use: No Preferred Language: [place] Verdean Communication Ability: Effective Sack Sewer Machine Required: No Beliefs That Will Affect Care: None marital status: Current Living Situation: Family Current Living Situation Comment: AND ADOPTED GRANDAUGHTER How many Children do You have: 2 Other Information That Helps Us Care for You: No Feels Safe at Home: Yes Safety Concerns: Feels Safe At This Time Assistive Devices: None and Walker Review of Systems Review of Systems: Per HPI. He did report starting nonsteroidal therapy for his leg discomfort recently Physical Exam Physical Exam: The patient is alert and oriented. Mood and affect appeared normal. He answered all questions appropriately. HEENT: Pupils are equal and reactive to light and accommodation. Extraocular movements are intact. The sclerae are anicteric. Neuro: Cranial nerves intact Lungs: Clear to auscultation bilaterally. He has good air movement without use of accessory muscles. No rales wheezes or rhonchi. Cardiac: Heart demonstrates a regular rate and rhythm. Normal S1 and S2. No murmurs on examination. Pulses: The patient has palpable radial pulses bilaterally that are equal in intensity Extremities: There was no evidence of hypoperfusion. There is no cyanosis or clubbing. There is no edema. Mild tenderness to the patellar area and lateral area of the right knee Skin: I did not appreciate any rashes on examination today. Results & Data ([facility]) Vital Signs (Past 12 Hours) Vital Signs Temp Pulse Pulse Resp BP BP Pulse Ox 02/21/22 10:56 73 17 158/80 H 95 02/21/22 10:31 71 21 97 02/21/22 10:30 74 19 96 02/21/22 10:02 70 16 160/79 H 98 02/21/22 10:00 68 20 97 02/21/22 09:57 72 18 134/71 95 02/21/22 09:31 76 17 184/96 H 96 02/21/22 09:30 79 20 96 02/21/22 09:03 81 02/21/22 08:30 77 17 179/72 H 96 02/21/22 08:07 74 02/21/22 08:04 36.7 C 02/21/22 08:00 79 15 159/69 H 95 02/21/22 07:30 79 24 96 02/21/22 07:00 68 17 160/79 H 96 02/21/22 06:30 74 24 96 02/21/22 06:00 67 18 178/83 H 95 02/21/22 05:30 65 16 97 02/21/22 05:00 68 18 178/90 H 95 02/21/22 04:30 36.7 C 69 70 20 168/87 H 97 Laboratory Results Abnormal Lab Results 02/20/22 02/20/22 02/20/22 16:40 16:40 16:40 WBC 11.16 H RBC 4.85 Hgb 12.7 L POC Hgb Hct 40.8 POC Hct MCV 84.1 MCH 26.2 MCHC 31.1 L RDW Std Deviation 47.2 H RDW Coeff of Anisha 15.4 H Plt Count 214 MPV 11.6 Immature Gran % (Auto) 0.2 Neut % (Auto) 63.4 Lymph % (Auto) 27.8 [place] % (Auto) 6.5 Eos % (Auto) 1.7 Baso % (Auto) 0.4 Neut # (Auto) 7.08 H Lymph # (Auto) 3.10 [place] # (Auto) 0.73 Eos # (Auto) 0.19 Baso # (Auto) 0.04 Immature Gran # (Auto) 0.02 PT 10.7 INR 1.0 APTT 26.2 PTT Ratio 1.0 POC Sodium Sodium 141 POC Potassium Potassium TNP POC Chloride Chloride 107 Carbon Dioxide 26 POC Total CO2 Anion Gap 8 POC Anion Gap POC BUN BUN 23 Creatinine 1.45 H POC Creatinine Est Cr Clr Drug Dosing 61.5 Est GFR ( Amer) 56.9 Est GFR (Non-Af Amer) 49.1 BUN/Creatinine Ratio 15.9 Glucose 115 H POC Glucose POC Glucose (other) Estimat Average Glucose Hemoglobin A1c Calcium 9.2 POC Ioniz Calcium Mika Magnesium Total Bilirubin 0.4 AST TNP ALT 18 Alkaline Phosphatase 60 Troponin I High Sens 32.7 H Total Protein 8.1 Albumin 4.4 Globulin 3.7 Albumin/Globulin Ratio 1.2 Triglycerides Cholesterol LDL Cholesterol, Calc VLDL Cholesterol, Calc HDL Cholesterol Cholesterol/HDL Ratio SARS-CoV-2, RNA, NAAT 02/20/22 02/20/22 02/20/22 16:40 16:40 17:00 WBC RBC Hgb POC Hgb Hct POC Hct MCV MCH MCHC RDW Std Deviation RDW Coeff of Anisha Plt Count MPV Immature Gran % (Auto) Neut % (Auto) Lymph % (Auto) [place] % (Auto) Eos % (Auto) Baso % (Auto) Neut # (Auto) Lymph # (Auto) [place] # (Auto) Eos # (Auto) Baso # (Auto) Immature Gran # (Auto) PT INR APTT PTT Ratio POC Sodium Sodium POC Potassium Potassium 3.8 POC Chloride Chloride Carbon Dioxide POC Total CO2 Anion Gap POC Anion Gap POC BUN BUN Creatinine POC Creatinine Est Cr Clr Drug Dosing Est GFR ( Amer) Est GFR (Non-Af Amer) BUN/Creatinine Ratio Glucose POC Glucose POC Glucose (other) Estimat Average Glucose Hemoglobin A1c Calcium POC Ioniz Calcium Mika Magnesium 2.0 Total Bilirubin AST 15 ALT Alkaline Phosphatase Troponin I High Sens Total Protein Albumin Globulin Albumin/Globulin Ratio Triglycerides 229 H Cholesterol 180 LDL Cholesterol, Calc 95 VLDL Cholesterol, Calc 46 H HDL Cholesterol 39 Cholesterol/HDL Ratio 4.6 SARS-CoV-2, RNA, NAAT 02/20/22 02/20/22 02/20/22 17:10 19:01 20:05 WBC RBC Hgb POC Hgb 14.3 Hct POC Hct 42 MCV MCH MCHC RDW Std Deviation RDW Coeff of Anisha Plt Count MPV Immature Gran % (Auto) Neut % (Auto) Lymph % (Auto) [place] % (Auto) Eos % (Auto) Baso % (Auto) Neut # (Auto) Lymph # (Auto) [place] # (Auto) Eos # (Auto) Baso # (Auto) Immature Gran # (Auto) PT INR APTT PTT Ratio POC Sodium 145 H Sodium POC Potassium 3.8 Potassium POC Chloride 107 Chloride Carbon Dioxide POC Total CO2 26 Anion Gap POC Anion Gap 17.0 POC BUN 24 H BUN Creatinine POC Creatinine 1.4 H Est Cr Clr Drug Dosing Est GFR ( Amer) Est GFR (Non-Af Amer) BUN/Creatinine Ratio Glucose POC Glucose POC Glucose (other) 127 H Estimat Average Glucose Hemoglobin A1c Calcium POC Ioniz Calcium Mika 1.25 Magnesium Total Bilirubin AST ALT Alkaline Phosphatase Troponin I High Sens 452.5 H* D Total Protein Albumin Globulin Albumin/Globulin Ratio Triglycerides Cholesterol LDL Cholesterol, Calc VLDL Cholesterol, Calc HDL Cholesterol Cholesterol/HDL Ratio SARS-CoV-2, RNA, NAAT NEGATIVE 02/20/22 02/21/22 02/21/22 23:17 02:16 03:33 WBC RBC Hgb POC Hgb Hct POC Hct MCV MCH MCHC RDW Std Deviation RDW Coeff of Anisha Plt Count MPV Immature Gran % (Auto) Neut % (Auto) Lymph % (Auto) [place] % (Auto) Eos % (Auto) Baso % (Auto) Neut # (Auto) Lymph # (Auto) [place] # (Auto) Eos # (Auto) Baso # (Auto) Immature Gran # (Auto) PT INR APTT PTT Ratio POC Sodium Sodium 137 POC Potassium Potassium 3.6 POC Chloride Chloride 106 Carbon Dioxide 24 POC Total CO2 Anion Gap 7 POC Anion Gap POC BUN BUN 20 Creatinine 1.07 D POC Creatinine Est Cr Clr Drug Dosing 83.4 Est GFR ( Amer) 82.2 Est GFR (Non-Af Amer) 71.0 BUN/Creatinine Ratio 18.7 Glucose 128 H POC Glucose 164 H POC Glucose (other) Estimat Average Glucose Hemoglobin A1c Calcium 9.1 POC Ioniz Calcium Mika Magnesium 2.0 Total Bilirubin 0.4 AST 15 ALT 14 Alkaline Phosphatase 50 Troponin I High Sens 1948.4 H* D 1259.8 H* D Total Protein 7.4 Albumin 3.9 Globulin 3.5 Albumin/Globulin Ratio 1.1 Triglycerides Cholesterol LDL Cholesterol, Calc VLDL Cholesterol, Calc HDL Cholesterol Cholesterol/HDL Ratio SARS-CoV-2, RNA, NAAT 02/21/22 02/21/22 02/21/22 03:33 03:33 03:33 WBC 10.86 H RBC 4.42 L Hgb 11.5 L POC Hgb Hct 36.9 L POC Hct MCV 83.5 MCH 26.0 MCHC 31.2 L RDW Std Deviation 46.3 RDW Coeff of Anisha 15.2 H Plt Count 184 MPV 11.1 Immature Gran % (Auto) 0.2 Neut % (Auto) 75.0 Lymph % (Auto) 18.6 [place] % (Auto) 4.8 Eos % (Auto) 1.1 Baso % (Auto) 0.3 Neut # (Auto) 8.15 H Lymph # (Auto) 2.02 [place] # (Auto) 0.52 Eos # (Auto) 0.12 Baso # (Auto) 0.03 Immature Gran # (Auto) 0.02 PT INR APTT 38.7 H PTT Ratio 1.4 POC Sodium Sodium POC Potassium Potassium POC Chloride Chloride Carbon Dioxide POC Total CO2 Anion Gap POC Anion Gap POC BUN BUN Creatinine POC Creatinine Est Cr Clr Drug Dosing Est GFR ( Amer) Est GFR (Non-Af Amer) BUN/Creatinine Ratio Glucose POC Glucose POC Glucose (other) Estimat Average Glucose 140 Hemoglobin A1c 6.5 H Calcium POC Ioniz Calcium Mika Magnesium Total Bilirubin AST ALT Alkaline Phosphatase Troponin I High Sens Total Protein Albumin Globulin Albumin/Globulin Ratio Triglycerides Cholesterol LDL Cholesterol, Calc VLDL Cholesterol, Calc HDL Cholesterol Cholesterol/HDL Ratio SARS-CoV-2, RNA, NAAT 02/21/22 02/21/22 02/21/22 07:55 10:30 10:30 WBC RBC Hgb POC Hgb Hct POC Hct MCV MCH MCHC RDW Std Deviation RDW Coeff of Anisha Plt Count MPV Immature Gran % (Auto) Neut % (Auto) Lymph % (Auto) [place] % (Auto) Eos % (Auto) Baso % (Auto) Neut # (Auto) Lymph # (Auto) [place] # (Auto) Eos # (Auto) Baso # (Auto) Immature Gran # (Auto) PT INR APTT 37.9 H PTT Ratio 1.4 POC Sodium Sodium POC Potassium Potassium POC Chloride Chloride Carbon Dioxide POC Total CO2 Anion Gap POC Anion Gap POC BUN BUN Creatinine POC Creatinine Est Cr Clr Drug Dosing Est GFR ( Amer) Est GFR (Non-Af Amer) BUN/Creatinine Ratio Glucose POC Glucose 126 H POC Glucose (other) Estimat Average Glucose Hemoglobin A1c Calcium POC Ioniz Calcium Mika Magnesium Total Bilirubin AST ALT Alkaline Phosphatase Troponin I High Sens 699.6 H* D Total Protein Albumin Globulin Albumin/Globulin Ratio Triglycerides Cholesterol LDL Cholesterol, Calc VLDL Cholesterol, Calc HDL Cholesterol Cholesterol/HDL Ratio SARS-CoV-2, RNA, NAAT 02/21/22 11:44 WBC RBC Hgb POC Hgb Hct POC Hct MCV MCH MCHC RDW Std Deviation RDW Coeff of Anisha Plt Count MPV Immature Gran % (Auto) Neut % (Auto) Lymph % (Auto) [place] % (Auto) Eos % (Auto) Baso % (Auto) Neut # (Auto) Lymph # (Auto) [place] # (Auto) Eos # (Auto) Baso # (Auto) Immature Gran # (Auto) PT INR APTT PTT Ratio POC Sodium Sodium POC Potassium Potassium POC Chloride Chloride Carbon Dioxide POC Total CO2 Anion Gap POC Anion Gap POC BUN BUN Creatinine POC Creatinine Est Cr Clr Drug Dosing Est GFR ( Amer) Est GFR (Non-Af Amer) BUN/Creatinine Ratio Glucose POC Glucose 120 H POC Glucose (other) Estimat Average Glucose Hemoglobin A1c Calcium POC Ioniz Calcium Mika Magnesium Total Bilirubin AST ALT Alkaline Phosphatase Troponin I High Sens Total Protein Albumin Globulin Albumin/Globulin Ratio Triglycerides Cholesterol LDL Cholesterol, Calc VLDL Cholesterol, Calc HDL Cholesterol Cholesterol/HDL Ratio SARS-CoV-2, RNA, NAAT Diagnostic Findings Chest and abdomen CTA was performed. No evidence of aortic dissection. Moderate to severe calcification in the coronary arteries. Colonic diverticulosis. No dissection of the abdominal aorta. Mild stenosis of the proximal superior mesenteric artery Chest x-ray obtained the time admission revealed cardiomegaly with pulmonary vascular congestion. An echocardiogram performed this morning revealed preserved LV systolic function without regional wall motion abnormalities. Moderate LVH and stage I diastolic dysfunction. No significant valvular heart disease PG Care Time/CCT Total # of Minutes Spent Total Time Spent with Patient: Total time spent is greater than 50% in coordination of care (as documented) at patient's floor/unit and/or counseling patient: Coding Level of Care Code 78550 Initial Inpt Care Lvl 3 Diagnoses Non-ST elevation [place] (NSTEMI) I21.4 Hypertension I10 Hypertension type: unspecified (1) Hypertension Hypertension type: unspecified Qualified Code(s): I10 - Essential (primary) hypertension
[2022-02-21] MEDS ORDERED: HEPARIN IV BOLUS 4,000 UNITS in SYRINGE 0 ML IV ONE (12:15)
--- NOTE | 2022-02-21 12:20 | Electrocardiogram Report ---
Test Reason : Blood Pressure : / mmHG Vent. Rate : 057 BPM Atrial Rate : 057 BPM P-R Int : 142 ms QRS Dur : 076 ms QT Int : 444 ms P-R-T Axes : 064 031 064 degrees QTc Int : 432 ms Sinus bradycardia Otherwise normal ECG When compared with ECG of 20-FEB-2022 16:33, (unconfirmed) T wave inversion no longer evident in Inferior leads Confirmed by Jose Aiken ([id number]) on 02/21/2022 12:20:03 PM Referred By: REFERRED SELF Confirmed By:Goyo Aiken
--- NOTE | 2022-02-21 12:23 | Electrocardiogram Report ---
Test Reason : Blood Pressure : / mmHG Vent. Rate : 062 BPM Atrial Rate : 062 BPM P-R Int : 138 ms QRS Dur : 084 ms QT Int : 446 ms P-R-T Axes : 059 029 036 degrees QTc Int : 452 ms Normal sinus rhythm Possible Left atrial enlargement Borderline ECG When compared with ECG of 20-FEB-2022 19:52, (unconfirmed) No significant change was found Confirmed by Jose Aiken ([id number]) on 02/21/2022 12:23:19 PM Referred By: REFERRED SELF Confirmed By:Goyo Aiken
--- NOTE | 2022-02-21 12:30 | Electrocardiogram Report ---
Test Reason : Blood Pressure : / mmHG Vent. Rate : 069 BPM Atrial Rate : 069 BPM P-R Int : 144 ms QRS Dur : 082 ms QT Int : 406 ms P-R-T Axes : 061 038 -02 degrees QTc Int : 435 ms Normal sinus rhythm T wave abnormality, consider inferior ischemia Abnormal ECG When compared with ECG of 12-MAR-2021 19:37, Vent. rate has decreased BY 39 BPM Confirmed by Jose Aiken ([id number]) on 02/21/2022 12:30:06 PM Referred By: REFERRED SELF Confirmed By:Goyo Aiken
[2022-02-21] MEDS: METOPROLOL TARTRATE 25 MG TAB PO SCH ×2 (13:03→20:46)
[2022-02-21] MEDS ORDERED: LABETALOL HCL IV 5 MG/ML 20ML IV ONE (16:51)
[2022-02-21] MEDS ORDERED: amLODIPine BESYLATE 5 MG TAB PO ONE (17:00)
[2022-02-21] MEDS: HEPARIN SODIUM/DEXTROSE 25,000 UNITS/500 ML BAG IV SCH (18:37)
[2022-02-21 19:20] LABS: Partial Thromboplastin Ratio 1.8
[2022-02-21 19:36] LABS: Partial Thromboplastin Time 50.4 Seconds (21.0-31.0)
[2022-02-22] MEDS: FAMOTIDINE 20 MG in SYRINGE 3 ML IV SCH ×2 (05:32→16:41)
[2022-02-22] MEDS: NITROGLYCERIN 2% OINTMENT 30GM TUBE EXT SCH (05:32)
[2022-02-22 05:57] LABS: Albumin Globulin Ratio 1.2 (0.9-2); Albumin Level 4.1 gm/dl (3.4-5.0); BUN Creatinine Ratio 17.4 (10-20); Bilirubin,Total 0.6 mg/dl (0.2-1.0); Calcium 8.9 mg/dl (8.5-10.1); Creatinine Clr Calc Pharmacy 80.7 ml/min; Est GFR (African American) 80.4 ml/min; Est GFR (Non-African American) 69.4 ml/min; Globulin 3.5 gm/dl (2.5-4.0); Magnesium 1.9 mg/dl (1.7-2.4); Potassium 3.6 mmol/L (3.5-5.1); Total Protein 7.6 gm/dl (6.0-8.3)
[2022-02-22 06:03] LABS: Basophils # (auto) 0.02 K/uL (0-0.2); Basophils % (auto) 0.2 %; Eosinophils # (auto) 0.06 K/uL (0-0.50); Eosinophils % (auto) 0.5 %; Hematocrit (blood only) 38.6 % (40.1-51.0); Hemoglobin 12.4 g/dl (14.0-18.0); Immature Granulocytes # (auto) 0.06 K/uL (0.00-0.02); Immature Granulocytes % (auto) 0.5 %; Lymphocytes # (auto) 1.68 K/uL (1.2-3.4); Lymphocytes % (auto) 14.6 %; Mean Corpuscular Hemoglobin 26.3 pg (25.0-34.0); Mean Corpuscular Hgb Conc 32.1 g/dL (32.0-36.0); Mean Corpuscular Volume 81.8 fL (80.0-100.0); Mean Platelet Volume 12.1 fL (9.4-12.4); Monocytes # (auto) 0.77 K/uL (0.24-0.82); Monocytes % (auto) 6.7 %; Neutrophils # (auto) 8.89 K/uL (1.4-6.5); Neutrophils % (auto) 77.5 %; Platelet Count 151 K/uL (130-400); RDW Coefficient of Variation 15.2 % (11.5-14.5); RDW Standard Deviation 45.1 fL (36.4-46.3); Red Blood Count 4.72 M/uL (4.63-6.08); White Blood Count 11.48 K/ul (4.8-10.8)
[2022-02-22 06:09] LABS: Partial Thromboplastin Ratio 1.9
[2022-02-22 06:11] LABS: Partial Thromboplastin Time 52.5 Seconds (21.0-31.0)
--- NOTE | 2022-02-22 08:37 | Hospitalist Progress Note ---
Date of Service February 22, 2022 Assessment & Plan (1) Non-ST elevation [place] (NSTEMI): Plan: NSTEMI/acute diastolic CHF - SHRUTHI 03/13/2021 with ejection fraction 55-60% -In the ED received: Aspirin 324 mg, nitroglycerin sublingual x3, Nitropaste 2 inches, hydralazine 10 mg IV x1, furosemide 40 -mg IV x1, and heparin drip was started - EKG: No acute ST segment changes, sinus batsheva. - Overnight 02/21 awoke with 05/25 return of chest pain, not improved on nitro paste. / with nitro paste. Is read ICU on nitro gtt. that evening per discussion with interventional -hs-trop peak at 1948, downtrended to 1259 -Aspirin 81 mg every morning - CTA-Chest: No evidence for an aortic dissection. Moderate to severe calcified plaque within the coronary arteries. Mild interlobular septal thickening within the lung apices with peribronchial vascular thickening and a few small groundglass densities within the right lung. This likely represents developing asymmetric pulmonary edema. An atypical pneumonitis is considered less likely but not entirely excluded. - CTA-A/P: Unremarkable CT angiogram of the abdominal aorta noting atherosclerotic plaque and irregularity. No dissection is seen. There is mild stenosis of the proximal superior mesenteric artery. Otherwise unremarkable CT angiogram of the major branches of the abdominal aorta. No acute infectious or inflammatory findings are identified in the abdomen or pelvis.. Advanced colonic diverticulosis without CT evidence of acute diverticulitis. Additional findings as above. - COVID negative Troponin retrended after recurrent chest pain morning of 02/21. Remains downtrending. Echo: LV SF normal, moderate concentric LVH, grade 1 diastolic dysfunction, normal LV wall motion Nitro drip subsequently weaned and downgraded to PCU. Remains pain-free, but with intermittent hypertension Did require additional labetalol and amlodipine yesterday for adequate blood pressure control. Nitrates used for temporary adjunct control, blood pressure normalized and since moved, patient did not have any chest pain did develop a slight headache with his nitrate Clinically stable 02/22, continue antihypertensive control and anticipate cath tomorrow. Heparin GTT continued (2) Acute diastolic CHF (congestive heart failure): Plan: See above (3) Acute kidney injury: Plan: -Creatinine 1.45 on admission, with base 1.10 -Normalized to 1.07 02/21 -Follow with diuresis as noted -STEW resumed (4) Diabetes mellitus: Plan: -POST ANESTHESIA NURSE metformin held - BSG AC/HS - Hgb A1c 6.5% -SSI CF 30, ratio 15. (5) GI bleed: Plan: -EGD 09/2019: Normal esophagus, nonbleeding gastric ulcers, duodenal scar - Famotidine 20 mg IV every 12 hours - PPI PPx (6) History of stomach ulcers: Plan: See above (7) Hypertensive encephalopathy: Plan: - History of admission for hypertensive encephalopathy 10/05 -At time of hypertensive emergency patient was not taking antihypertensiveshydralazine every 4 hours as needed on-call Lisinopril resumed, metoprolol tartrate 25mg 3 times daily added Adjunct amlodipine was added, did require labetalol 02/21 for acute hypertension control which has gradually improved and was normotensive morning of 02/22 (8) Hypertension: Plan: See above (9) Hyperlipidemia: Plan: Atorvastatin 40 mg nightly --> 80 at dc Cholesterol 180, LDL 95, HDL 39 (10) Sleep apnea: Plan: CPAP at bedtime as needed (11) Right knee pain: Plan: Patient does endorse chronic right medial and lateral knee joint pain at that his total knee arthroplasty. Notes has been followed as an outpatient for several months and was pending potential aspiration in the coming week. Pain has not changed. History of knee replacement Knee is without overlying erythema/warmth/swelling. No pain at rest, no pain on passive or active knee flexion/extension. Does have pain at the medial and lateral joint lines Completed a course of antibiotics which were started 11/20, is pending outpatient follow-up with orthopedics with low suspicion for infection but pending aspiration given mild improvement on antibiotics and low-grade WBC/elevated ESR being followed as outpatient Ortho aware that patient is inpatient status for cardiac concerns above No acute intervention at this time Admission and Anticipated Discharge Date Admission Date: February 20, 2022 Subjective Patient is seen at bedside this morning, he is doing well and has been chest pain-free overnight. Has had a slight headache since nitro paste was reapplied this morning. No lightheadedness or dizziness. No shortness of breath, or chest pain. No pain in his knee while at rest in bed at time of assessment. Fever/chills/sweats. Awaiting cath tomorrow. No questions or concerns Review of Systems Review of Systems: All systems reviewed & are unremarkable except as noted in Subjective Physical Exam Physical Exam: General: A&Ox3. NAD. Cooperative. HEENT: Atraumatic, normocephalic. Vision and hearing grossly intact Pulm: CTAB A&P. -wheezes, -rales, -rhonchi. Symmetrical chest rise. No increase in work of breathing. No respiratory distress. Cardiac: RRR, -mrg. Radial pulses intact and symmetrical. Abdominal: Nontender, nondistended, soft. BS present. Extremities: Lower extremities without edema. Moves all extremities equally. Results & Data Results & Data ([facility]) Vital Signs (Past 12 Hours) Vital Signs Temp Pulse Resp BP Pulse Ox Pulse Ox 02/22/22 08:08 36.6 C 81 18 168/95 H 95 02/22/22 06:41 37 C 75 18 138/85 95 02/22/22 04:00 37.5 C 80 15 167/87 H 95 02/22/22 00:00 37.4 C 77 17 173/81 H 97 02/21/22 22:29 96 PG Care Time/CCT Total # of Minutes Spent Total Time Spent with Patient: Total time spent is greater than 50% in coordination of care (as documented) at patient's floor/unit and/or counseling patient: Coding Level of Care Code 17616 Subseq Hosp Care Lvl 2 Diagnoses Non-ST elevation [place] (NSTEMI) I21.4 Acute diastolic CHF (congestive heart failure) I50.31 Acute kidney injury N17.9 Diabetes mellitus E11.9 GI bleed K92.2 GI bleed type/associated pathology: unspecified gastrointestinal hemorrhage type History of stomach ulcers Z87.19 Hypertensive encephalopathy I67.4 Hypertension I10 Hypertension type: unspecified Hyperlipidemia E78.5 Sleep apnea G47.30 Right knee pain M25.561 (1) GI bleed GI bleed type/associated pathology: unspecified gastrointestinal hemorrhage type Qualified Code(s): K92.2 - Gastrointestinal hemorrhage, unspecified (2) Hypertension Hypertension type: unspecified Qualified Code(s): I10 - Essential (primary) hypertension
[2022-02-22] MEDS: INSULIN ASPART PER UNIT SC SCH ×4 (08:42→20:50)
[2022-02-22] MEDS: ASPIRIN 81 MG ECTAB PO SCH (08:48)
[2022-02-22] MEDS: METOPROLOL TARTRATE 25 MG TAB PO SCH ×3 (08:48→20:53)
[2022-02-22] MEDS: FUROSEMIDE 40 MG/4 ML VIAL IV SCH (08:48)
[2022-02-22] MEDS ORDERED: lisinopril 20 MG TAB PO SCH (09:00)
[2022-02-22] MEDS: amLODIPine BESYLATE 5 MG TAB PO SCH (10:27)
--- NOTE | 2022-02-22 11:20 | Cardiology Progress Note ---
Date of Service February 22, 2022 Assessment & Plan (1) Non-ST elevation NV (NSTEMI): (2) Hypertension: Plan: 1. NSTEMI: Unclear etiology. Possibly related to his severe hypertension at the time of his admission. However, he has multiple risk factors for coronary disease. He had marked rise and fall in his biomarkers and we will plan for cardiac catheterization tomorrow. We did discuss the procedure as well as the attendant risks and benefits. Will continue systemic heparin until the procedure. Continue daily aspirin and metoprolol. 2. Hypertension: Improved. On amlodipine, lisinopril and metoprolol. At the time of discharge she can likely return to losartan. Admission and Anticipated Discharge Date Admission Date: February 20, 2022 Subjective This morning the patient claimed he feeling well. He did not have any recurrence of his chest discomfort. He denies any breathing difficulty. No sensation of palpitations. No tenderness in the chest area. Review of Systems Review of Systems: Per HPI Physical Exam Physical Exam: The patient is alert and oriented. Mood and affect appeared normal. He answered all questions appropriately. HEENT: Pupils are equal and reactive to light and accommodation. Extraocular movements are intact. The sclerae are anicteric. Neuro: Cranial nerves intact Lungs: Clear to auscultation bilaterally. He has good air movement without use of accessory muscles. No rales wheezes or rhonchi. Cardiac: Heart demonstrates a regular rate and rhythm. Normal S1 and S2. No murmurs on examination. Pulses: The patient has palpable radial pulses bilaterally that are equal in intensity Extremities: There was no evidence of hypoperfusion. There is no cyanosis or clubbing. Skin: I did not appreciate any rashes on examination today. Results & Data ([facility]) Vital Signs (Past 12 Hours) Vital Signs Temp Pulse Pulse Resp BP Pulse Ox 02/22/22 08:08 36.6 C 81 18 168/95 H 95 02/22/22 07:00 107 H 02/22/22 06:41 37 C 75 18 138/85 95 02/22/22 04:00 37.5 C 80 15 167/87 H 95 02/22/22 00:00 37.4 C 77 17 173/81 H 97 Laboratory Results Abnormal Lab Results 02/21/22 02/21/22 02/21/22 10:30 11:44 16:29 WBC RBC Hgb Hct MCV MCH MCHC RDW Std Deviation RDW Coeff of Anisha Plt Count MPV Immature Gran % (Auto) Neut % (Auto) Lymph % (Auto) [place] % (Auto) Eos % (Auto) Baso % (Auto) Neut # (Auto) Lymph # (Auto) [place] # (Auto) Eos # (Auto) Baso # (Auto) Immature Gran # (Auto) APTT PTT Ratio Sodium Potassium Chloride Carbon Dioxide Anion Gap BUN Creatinine Est Cr Clr Drug Dosing Est GFR ( Amer) Est GFR (Non-Af Amer) BUN/Creatinine Ratio Glucose POC Glucose 120 H Calcium Magnesium Total Bilirubin AST ALT Alkaline Phosphatase Troponin I High Sens 699.6 H* D 559.4 H* D Total Protein Albumin Globulin Albumin/Globulin Ratio 02/21/22 02/21/22 02/21/22 17:00 18:35 20:50 WBC RBC Hgb Hct MCV MCH MCHC RDW Std Deviation RDW Coeff of Anisha Plt Count MPV Immature Gran % (Auto) Neut % (Auto) Lymph % (Auto) [place] % (Auto) Eos % (Auto) Baso % (Auto) Neut # (Auto) Lymph # (Auto) [place] # (Auto) Eos # (Auto) Baso # (Auto) Immature Gran # (Auto) APTT 50.4 H* PTT Ratio 1.8 Sodium Potassium Chloride Carbon Dioxide Anion Gap BUN Creatinine Est Cr Clr Drug Dosing Est GFR ( Amer) Est GFR (Non-Af Amer) BUN/Creatinine Ratio Glucose POC Glucose 159 H 173 H Calcium Magnesium Total Bilirubin AST ALT Alkaline Phosphatase Troponin I High Sens Total Protein Albumin Globulin Albumin/Globulin Ratio 02/22/22 02/22/22 02/22/22 05:22 05:22 05:22 WBC 11.48 H RBC 4.72 Hgb 12.4 L Hct 38.6 L MCV 81.8 MCH 26.3 MCHC 32.1 RDW Std Deviation 45.1 RDW Coeff of Anisha 15.2 H Plt Count 151 MPV 12.1 Immature Gran % (Auto) 0.5 Neut % (Auto) 77.5 Lymph % (Auto) 14.6 [place] % (Auto) 6.7 Eos % (Auto) 0.5 Baso % (Auto) 0.2 Neut # (Auto) 8.89 H Lymph # (Auto) 1.68 [place] # (Auto) 0.77 Eos # (Auto) 0.06 Baso # (Auto) 0.02 Immature Gran # (Auto) 0.06 H APTT 52.5 H* PTT Ratio 1.9 Sodium 135 L Potassium 3.6 Chloride 100 Carbon Dioxide 26 Anion Gap 9 BUN 19 Creatinine 1.09 Est Cr Clr Drug Dosing 80.7 Est GFR ( Amer) 80.4 Est GFR (Non-Af Amer) 69.4 BUN/Creatinine Ratio 17.4 Glucose 140 H POC Glucose Calcium 8.9 Magnesium 1.9 Total Bilirubin 0.6 AST 17 ALT 12 Alkaline Phosphatase 53 Troponin I High Sens Total Protein 7.6 Albumin 4.1 Globulin 3.5 Albumin/Globulin Ratio 1.2 02/22/22 07:34 WBC RBC Hgb Hct MCV MCH MCHC RDW Std Deviation RDW Coeff of Anisha Plt Count MPV Immature Gran % (Auto) Neut % (Auto) Lymph % (Auto) [place] % (Auto) Eos % (Auto) Baso % (Auto) Neut # (Auto) Lymph # (Auto) [place] # (Auto) Eos # (Auto) Baso # (Auto) Immature Gran # (Auto) APTT PTT Ratio Sodium Potassium Chloride Carbon Dioxide Anion Gap BUN Creatinine Est Cr Clr Drug Dosing Est GFR ( Amer) Est GFR (Non-Af Amer) BUN/Creatinine Ratio Glucose POC Glucose 152 H Calcium Magnesium Total Bilirubin AST ALT Alkaline Phosphatase Troponin I High Sens Total Protein Albumin Globulin Albumin/Globulin Ratio PG Care Time/CCT Total # of Minutes Spent Total Time Spent with Patient: Total time spent is greater than 50% in coordination of care (as documented) at patient's floor/unit and/or counseling patient: Coding Level of Care Code 51715 Subseq Hosp Care Lvl 2 Diagnoses Non-ST elevation NV (NSTEMI) I21.4 Hypertension I10 Hypertension type: unspecified (1) Hypertension Hypertension type: unspecified Qualified Code(s): I10 - Essential (primary) hypertension
--- NOTE | 2022-02-22 12:14 | Electrocardiogram Report ---
Test Reason : Blood Pressure : / mmHG Vent. Rate : 078 BPM Atrial Rate : 078 BPM P-R Int : 142 ms QRS Dur : 084 ms QT Int : 404 ms P-R-T Axes : 050 036 072 degrees QTc Int : 460 ms Normal sinus rhythm Normal ECG When compared with ECG of 21-FEB-2022 02:02, No significant change was found Confirmed by Jose Aiken ([id number]) on 02/22/2022 12:14:07 PM Referred By: REFERRED SELF Confirmed By:Goyo Aiken
--- NOTE | 2022-02-22 12:17 | Electrocardiogram Report ---
Test Reason : Blood Pressure : / mmHG Vent. Rate : 077 BPM Atrial Rate : 077 BPM P-R Int : 144 ms QRS Dur : 082 ms QT Int : 404 ms P-R-T Axes : 066 041 048 degrees QTc Int : 457 ms Normal sinus rhythm Normal ECG When compared with ECG of 21-FEB-2022 02:02, No significant change was found Confirmed by Jose Aiken ([id number]) on 02/22/2022 12:17:33 PM Referred By: REFERRED SELF Confirmed By:Goyo Aiken
[2022-02-22] MEDS: HEPARIN SODIUM/DEXTROSE 25,000 UNITS/500 ML BAG IV SCH (14:26)
[2022-02-22] MEDS: ATORVASTATIN 40 MG TAB PO SCH (20:52)
[2022-02-23] MEDS: FAMOTIDINE 20 MG in SYRINGE 3 ML IV SCH (06:10)
[2022-02-23] MEDS: HEPARIN SODIUM/DEXTROSE 25,000 UNITS/500 ML BAG IV SCH ×2 (06:15→13:42)
[2022-02-23 06:38] LABS: Basophils # (auto) 0.04 K/uL (0-0.2); Basophils % (auto) 0.5 %; Eosinophils # (auto) 0.13 K/uL (0-0.50); Eosinophils % (auto) 1.6 %; Hematocrit (blood only) 37.7 % (40.1-51.0); Hemoglobin 11.9 g/dl (14.0-18.0); Immature Granulocytes # (auto) 0.03 K/uL (0.00-0.02); Immature Granulocytes % (auto) 0.4 %; Lymphocytes # (auto) 1.84 K/uL (1.2-3.4); Lymphocytes % (auto) 22.4 %; Mean Corpuscular Hemoglobin 25.9 pg (25.0-34.0); Mean Corpuscular Hgb Conc 31.6 g/dL (32.0-36.0); Mean Corpuscular Volume 82.1 fL (80.0-100.0); Mean Platelet Volume 11.1 fL (9.4-12.4); Monocytes # (auto) 0.87 K/uL (0.24-0.82); Monocytes % (auto) 10.6 %; Neutrophils # (auto) 5.29 K/uL (1.4-6.5); Neutrophils % (auto) 64.5 %; Platelet Count 167 K/uL (130-400); RDW Coefficient of Variation 15.1 % (11.5-14.5); RDW Standard Deviation 45.4 fL (36.4-46.3); Red Blood Count 4.59 M/uL (4.63-6.08)
[2022-02-23] MEDS ORDERED: LIDOCAINE 1% LOCAL 20 ML VIAL ONE (06:50)
[2022-02-23 07:00] LABS: Albumin Globulin Ratio 1.1 (0.9-2); Albumin Level 3.8 gm/dl (3.4-5.0); BUN Creatinine Ratio 15.2 (10-20); Bilirubin,Total 0.5 mg/dl (0.2-1.0); Calcium 8.7 mg/dl (8.5-10.1); Creatinine Clr Calc Pharmacy 77.2 ml/min; Est GFR (African American) 77.8 ml/min; Est GFR (Non-African American) 67.1 ml/min; Globulin 3.5 gm/dl (2.5-4.0); Potassium 3.7 mmol/L (3.5-5.1); Total Protein 7.3 gm/dl (6.0-8.3)
[2022-02-23 07:05] LABS: Partial Thromboplastin Ratio 2.2
[2022-02-23 07:09] LABS: Partial Thromboplastin Time 59.3 Seconds (21.0-31.0)
[2022-02-23] MEDS: INSULIN ASPART PER UNIT SC SCH ×3 (08:05→16:30)
[2022-02-23] MEDS: METOPROLOL TARTRATE 25 MG TAB PO SCH ×2 (08:05→14:03)
[2022-02-23] MEDS: ASPIRIN 81 MG ECTAB PO SCH (08:05)
[2022-02-23] MEDS: amLODIPine BESYLATE 5 MG TAB PO SCH (08:06)
[2022-02-23] MEDS ORDERED: niCARdipine HCL INJ 2.5 MG/ML 10 ML AMP ONE (09:23)
[2022-02-23] MEDS ORDERED: MIDAZOLAM HCL 1 MG/ML 2ML VIAL ONE (09:23)
[2022-02-23] MEDS ORDERED: HEPARIN (PORCINE) 1000 UNIT/ML 10 ML (CATH LAB USE ONLY) ONE (09:23)
[2022-02-23] MEDS ORDERED: fentaNYL citrate 100 MCG/2 ML VIAL ONE (09:24)
[2022-02-23] MEDS ORDERED: NITROGLYCERIN/D5W 100MCG/ML 20ML SYR ONE (09:24)
--- NOTE | 2022-02-23 10:10 | Pre Anesthesia Assessment ---
Date of Service February 23, 2022 Pre Sedation Assessment Vital Signs Temp Pulse Pulse Resp BP Pulse Ox 02/23/22 09:17 17 164/111 H 02/23/22 08:45 37.0 C 84 18 180/87 H 96 02/23/22 03:07 36.7 C 72 16 141/96 H 98 02/22/22 23:11 37.3 C 72 18 154/82 H 96 02/22/22 22:15 80 02/22/22 20:45 37.6 C H 82 18 152/72 H 96 02/22/22 16:54 36.6 C 85 20 133/51 L 96 02/22/22 11:56 37.1 C 73 20 166/88 H 96 Cardiovascular + regular rate Respiratory + respiratory effort normal Pre-Sedation Airway Assessment Smoking Status: Former smoker Hx Sleep Apnea: Yes Hx Difficult Intubation: No Short, Thick Neck: Yes Thyromental Distance: > or= 3.5 Finger Breadths Oral Cavity: + WNL Mallampati Class: III ASA: ASA3 NPO Status Date of Last Intake of Fluids: 02/23/22 Time of Last Intake of Fluids: 07:00 Date of Last Intake of Solid Food: 02/22/22 Procedure Planning Contraindications for Sedation: none Current Medications Reviewed: Yes Notes The planned sedation has been discussed with the patient. Informed Consent was obtained. I have identified the patient, determined the appropriateness of sedation and have assessed the patient immediately prior to the procedure. All medicine(s) and interventions are by my order.
--- NOTE | 2022-02-23 11:01 | Post Anesthesia Assessment ---
Date of Service February 23, 2022 Post Sedation Assessment Vital Signs Temp Pulse Pulse Resp BP Pulse Ox 02/23/22 09:17 17 164/111 H 02/23/22 08:45 37.0 C 84 18 180/87 H 96 02/23/22 03:07 36.7 C 72 16 141/96 H 98 02/22/22 23:11 37.3 C 72 18 154/82 H 96 02/22/22 22:15 80 02/22/22 20:45 37.6 C H 82 18 152/72 H 96 02/22/22 16:54 36.6 C 85 20 133/51 L 96 02/22/22 11:56 37.1 C 73 20 166/88 H 96 Recovery Score Activity: Moves 4 extremities Respiration: Deep Breath/Cough Circulation: +/-20% PreAnes Value Consciousness: Fully Awake Oxygen Saturation: > 92% On Room Air Discharge Sedation Level of Care: Fast Track Phase II Post Sedation Plan On clinical assessment, the patient appears to have tolerated the sedation without complications. Patient is recovering as anticipated. Patient will continue to be monitored by nursing and may be discharged when sedation discharge criteria are met per below protocol. Upon Completions of procedure up to 15 minutes continue every 5 minute vital signs and the P.A.R. score; then discharge to a Phase I or Fast Track to Phase II per the following guidelines: * Discharge Patient to appropriate Phase II area if PAR is 8 or greater or return to pre- procedure baseline. The post - procedure orders will be as directed. * If PAR score is less than 8 or not return to pre-procedure baseline then patient will follow Phase I monitoring till PAR is reached for Phase II. The Phase I may be done in procedure room or may call to secure a Phase I area. * If naloxone or flumazenil are used for reversal, hold in Phase I for continued monitoring from when last reversal dose was given for a minimum of 60 minutes or longer pending the nurse and/or physician discretion of patient condition before discharge to Phase II. Please call the Sedation Physician to re-evaluate and complete post-note for discharge to Phase II area. Do NOT discharge from procedure sedation or Phase 1 until post- sedation evaluation note is complete by procedure /sedation MD Sedation Discharge Instructions to be given to the patient at discharge to home.
--- NOTE | 2022-02-23 11:02 | Cardiac Catheterization ---
[facility] Data: Tax Services Manager Cardiac Status Clinical evaluation leading to the procedure CAD Presenation: Non STEMI Diagnostic Physicians Name: Jose Aiken MD Closure Device Recommendations: Medical Therapy and/or Counseling Cardiac Cath Procedure Full Procedure Date February 23, 2022 Pre-Procedure Diagnosis Pre-Procedure Diagnosis: Non STEMI AUC Score AUC Score: 8 Post-Procedure Diagnosis Post-Procedure Diagnosis: Moderate CAD Procedure(s) Performed Procedure(s) Performed: Coronary Angiography and Left Heart Cath Assistant Elementary Teacher Jose Aiken MD Franchise Manager(s) none Estimated Blood Loss Estimated Blood Loss: 7cc Medication(s) Medication(s): Fentanyl, Heparin, Lidocaine 1%, Nicardipine, Nitroglycerin and Versed Summary of Findings Procedure performed: Left heart catheterization, selective coronary angiography Staff vp analytics: Jose Aiken MD Indication: The patient is a 58-year-old gentleman admitted to the hospital with symptoms of chest discomfort and elevated cardiac biomarkers. Based on his presentation was advised to consider coronary angiography for evaluation of a non ST elevation myocardial infarction. Procedure in detail: The patient was informed of the risks benefits and alternatives to the intended procedure, he understood such and wished to proceed. He was taken to the cardiac catheterization suite in a fasting state. Conscious sedation was administered per protocol and the patient was monitored electrocardiographically throughout today's procedure. The right wrist area was prepped and draped in usual sterile fashion. This area was anesthetized using subcutaneous administration of a lidocaine solution. The right radial artery was then accessed using Seldinger technique, and a arterial sheath was placed at this site over a guidewire. The sheath was used to facilitate passage of the cardiac catheter for coronary angiography and left heart catheterization. Coronary angiogram was then obtained in multiple orthogonal views prior to removal of the catheter. At the conclusion of the procedure the sheath was removed and hemostasis was achieved at the access site using manual pressure. The patient tolerated procedure well, there were no immediate complications. Equipment used: 5 Telugu tiger 4 Findings: Coronary angiography: Left main: Left main coronary was relatively short blood bifurcated normally into the left anterior descending left circumflex artery. No significant disease in this vessel Left anterior descending: Left anterior descending was a large transapical vessel he had had luminal irregularities in its proximal portion which compromised the lumen to 30-40%. There was a single large diagonal branch with approximately 50% ostial stenosis. Left circumflex: Left circumflex artery was a non dominant vessel. It produced a medium-sized 1st OM and a large branching 2nd OM. There was a small ongoing AV groove vessel. There were luminal irregularities throughout these vessels but no discrete flow-limiting stenosis. Right coronary artery: The right coronary was a dominant vessel producing a PDA. There are luminal irregularities throughout its course with a fairly discrete 50% stenosis in its proximal portion. At the bifurcation of the PDA and PLB branch there was 67% stenosis in the proximal PDA. There was a long diseased segment in the proximal portion of the vessel. Impression: Right dominant coronary system Nonobstructive disease involving the left circumflex and LAD system Discrete stenosis in the proximal PDA Normal left ventricular filling pressures No evidence of aortic stenosis Hemodynamics Rest Ao:: 164/90 mm of mercury Final Ao: 190/93 mm of mercury LV: 157/4 mm of mercury Left ventricular end-diastolic pressure was 12 mm of mercury Recommendations Recommendations: Medical Therapy and/or Counseling Specimens Specimens: None Radiation Exposure (mGy) Eight hundred eighty-nine Contrast (mls) Forty-five Procedural Complication(s) None Disposition PCU I attest to the content of the Intraoperative Record and any orders documented therein. Any exceptions are noted below. [facility] Card Cath Procedure Codes Cardiac Catheterization Procedure 1: Cardiovascular Cath Procedures: 62943 Coronaries and LHC (+/-LV) Moderate Sedation Procedure 1: Sedation/Anesthesia: 62006 Mod Sedation by the same physician;Init15 Min Child Age 5 & Up Procedure 2: Sedation/Anesthesia: 86258 Mod Sedation by the same physician; Ea [id number] Minutes PG Care Time/CCT Total # of Minutes Spent Total Time Spent with Patient: Total time spent is greater than 50% in coordination of care (as documented) at patient's floor/unit and/or counseling patient:
--- NOTE | 2022-02-23 12:08 | Discharge Summary ---
Date of Service February 23, 2022 Admission HPI Per Admitting Provider The patient is a 66-year-old male with past medical history including hypertensive encephalopathy, diabetes mellitus, right total knee arthroplasty, gastric ulcers causing GI bleed, hypertension, sleep apnea, hypertension, glaucoma, hyperlipidemia and morbid obesity. He presents to the emergency department with severe chest discomfort, and elevated blood pressure. The patient has not been taking his blood pressure medications recently. In the emergency department, he had improvement in his chest discomfort with aspirin, and sublingual glycerin x3. Nitropaste 2 inch was added, and IV hydralazine 10 mg for improvement in blood pressure control. While in the ED, patient was also started on heparin drip, and will be admitted to the PCU for continued cardiac work-up Principal Diagnosis Chest pain, NSTEMI Discharge Exam General: A&Ox3. NAD. Cooperative. HEENT: Atraumatic, normocephalic. Pulm: CTAB A&P. -wheezes, -rales, -rhonchi. Symmetrical chest rise. No increase in work of breathing. No respiratory distress. Cardiac: RRR, -mrg. Radial pulses intact and symmetrical. Abdominal: Nontender, nondistended, soft. BS present. Discharge Data Allergies Allergy/AdvReac Type Severity Reaction Status Date / Time Sulfa (Sulfonamide Allergy Intermediate Hives Verified 02/20/22 18:35 Antibiotics) Consultations 02/20/22 18:07 ED Decision to Admit Stat 02/20/22 22:29 Consult Cardiology Routine 02/21/22 05:08 Consult [employer] Should[employer]iner Routine Procedures Performed Operation Date: 02/23/22 09:30 Actual Procedures p Cath, Left with Cors and Vent - Jose Aiken MD s Cineradiography w/Routine Exam - Jose Aiken MD Ordered Studies 02/20/22 17:05 CT angio abdomen pelvis w con Stat CT angio chest dissec wo/w con Stat 02/23/22 06:32 CL Cath Imgs for PACS use only Routine Hospital Course (1) Non-ST elevation CT (NSTEMI): Joe Reardon is a 66-year-old male with a past medical history of CAD and hypertensive encephalopathy who presented with a NSTEMI. He was treated with heparin over the weekend and nitro drip, pain did improve. On 02/23 underwent cardiac catheterization which showed disease as noted below, but no indication for stent placement at this time. To do as outpatient: 1. Continue amlodipine 5 mg daily, may increase back to 10 if needed 2. Continue metoprolol succinate 75 mg daily, he had not been on this previously 3. Continue losartan 50 mg daily (switched from twice daily with adjunct of metoprolol and amlodipine dosing as above, may adjust as needed at outpatient follow-up) 4. Outpatient follow-up with PCP and cardiology 5. atorvastatin has been increased to 80 mg daily. Follow-up blood work as outpatient 6. +EHI23xy daily NSTEMI/acute diastolic CHF - SHRUTHI 03/13/2021 with ejection fraction 55-60% -In the ED received: Aspirin 324 mg, nitroglycerin sublingual x3, Nitropaste 2 inches, hydralazine 10 mg IV x1, furosemide 40 -mg IV x1, and heparin drip was started - EKG: No acute ST segment changes, sinus batsheva. - Overnight 02/21 awoke with 10/10 return of chest pain, not improved on nitro paste. 4/10 with nitro paste. Is read ICU on nitro gtt. that evening per discussion with interventional -hs-trop peak at 1948, downtrended to 1259 -Aspirin 81 mg every morning - CTA-Chest: No evidence for an aortic dissection. Moderate to severe calcified plaque within the coronary arteries. Mild interlobular septal thickening within the lung apices with peribronchial vascular thickening and a few small groundglass densities within the right lung. This likely represents developing asymmetric pulmonary edema. An atypical pneumonitis is considered less likely but not entirely excluded. - CTA-A/P: Unremarkable CT angiogram of the abdominal aorta noting atheroscle rotic plaque and irregularity. No dissection is seen. There is mild stenosis of the proximal superior mesenteric artery. Otherwise unremarkable CT angiogram of the major branches of the abdominal aorta. No acute infectious or inflammatory findings are identified in the abdomen or pelvis.. Advanced colonic diverticulosis without CT evidence of acute diverticulitis. Additional findings as above. - COVID negative Troponin retrended after recurrent chest pain morning of 02/21. Remained downtrending. Echo: LV SF normal, moderate concentric LVH, grade 1 diastolic dysfunction, normal LV wall motion Nitro drip subsequently weaned and downgraded to PCU. Remained pain-free, but with intermittent hypertension Did have hypertension in the morning which improved with meds, was discharged to continue metoprolol succinate, losartan, and amlodipine with titration at outpatient follow-up. (2) Acute diastolic CHF (congestive heart failure): See above (3) Acute kidney injury: -Creatinine 1.45 on admission, with base 1.10 -Normalized to 1.07 02/21 -Follow with diuresis as noted -Losartan as noted (4) Diabetes mellitus: -[employer] metformin held - BSG AC/HS - Hgb A1c 6.5% -SSI CF 30, ratio 15. (5) GI bleed: -EGD 09/2019: Normal esophagus, nonbleeding gastric ulcers, duodenal scar - Famotidine 20 mg IV every 12 hours - PPI PPx (6) History of stomach ulcers: See above (7) Hypertensive encephalopathy: - History of admission for hypertensive encephalopathy 10/05 -At time of hypertensive emergency patient was not taking antihyp ertensiveshydralazine every 4 hours as needed on-call Lisinopril resumed, metoprolol tartrate 25mg 3 times daily added Adjunct amlodipine was added, did require labetalol 02/21 for acute hypertension control which has gradually improved and was normotensive morning of 02/22. Was hypertensive in the morning, improved with antihypertensives. Discharged to continue amlodipine 5, metoprolol succinate 75, and Christen 50 mg with blood pressure check and follow-up at PCPs office (8) Hypertension: See above (9) Hyperlipidemia: Atorvastatin 40 mg nightly --> 80 at dc Cholesterol 180, LDL 95, HDL 39 (10) Sleep apnea: CPAP at bedtime as needed (11) Right knee pain: Patient does endorse chronic right medial and lateral knee joint pain at that his total knee arthroplasty. Notes has been followed as an outpatient for several months and was pending potential aspiration in the coming week. Pain has not changed. History of knee replacement Knee is without overlying erythema/warmth/swelling. No pain at rest, no pain on passive or active knee flexion/extension. Does have pain at the medial and lateral joint lines Completed a course of antibiotics which were started 11/20, is pending outpatient follow-up with orthopedics with low suspicion for infection but pending aspiration given mild improvement on antibiotics and low-grade WBC/elevated ESR being followed as outpatient No acute intervention at time of hospitalization, will follow-up as outpatient Total Time Total Time Spent Total Time Spent (In Minutes): Time spend day of discharge 45 minutes including direct patient care, documentation, review of labs and images, and coordination of care. Discharge Plan Discharge Items Patient Disposition: Home - Self-Care Reason For Visit: NSTEMI, CHF Discharge Diagnosis: NSTEMI Activity: Resume your previous activity Non-emergency contact: Primary Care Provider and T[employer] Maker Call non-emergency contact if: you have any medication questions, your symptoms worsen and your pain is not controlled Follow-up/Referrals: Jose Aiken MD [Physician] - 02/27/22 1:00 pm Dylan Fallon MD [Primary Care Provider] - Diet: Carb Consistent or DM2 and Heart Healthy Addtl Attending Provider Instructions: You are seen in the hospital for chest pain and were found to have an NSTEMI. You were treated with a heparin (blood thinner) drip over the weekend and underwent cardiac catheterization on 02/23/2022. Stent placement was not recommended. You have had blood pressure medications changes made as noted below. You were hypertensive during admission, severe hypertension can contribute to chest pain and elevated heart enzymes. Adjustments to blood pressure medications have been made as follows: Please take metoprolol succinate 75 mg by mouth once daily. You are doing well with this addition, and your other blood pressure medications were adjusted Please take losartan 50 mg by mouth once daily. This was decreased from twice daily but may be again increased if needed Please take amlodipine 5 mg by mouth daily, this was decreased from 10 mg but may be again increased if needed Your atorvastatin has been increased from 40 mg to 80 mg due to high cholesterol. Please discuss this change with your PCP at follow-up. You have been prescribed a daily aspirin (81mg daily) to help prevent heart attacks. If you develop any new or worsening symptoms including fever, chills, sweats, chest pain, chest pressure, difficulty breathing, uncontrolled nausea/vomiting, rash, wheezing, passing out or nearly passing out, bleeding, black/bloody bowel movements, or other new or concerning symptoms please call your primary care physician, or call 911 for re-evaluation in the emergency department if you are very concerned. Pending Studies at Discharge: No Stand-Alone Forms: My [email or web address], Smoking Cessation Medications and DC Order Prescriptions: New aspirin 81 mg Tablet,Delayed Release (Dr/Ec) 81 mg PO QAM Qty: 30 RF: 0 metoprolol succinate 50 mg tablet extended release 24 hr 75 mg PO DAILY 30 Days Qty: 45 RF: 0 Continued metformin 500 mg tablet 1,000 mg PO BID RF: 0 Changed atorvastatin 40 mg Tablet 80 mg PO HS Qty: 30 RF: 1 amlodipine 10 mg tablet 5 mg PO DAILY Qty: 0 RF: 0 losartan 50 mg tablet 50 mg PO DAILY Qty: 0 RF: 0 Discharge Orders: Discharge Order (Routine); Ordered 02/23/22 Ordered By: Joe Lagunas/Other Patient Handouts: Managing Type 2 Diabetes Admission Data Admit Date/Time: 02/20/22 20:31 Attending Provider: Joe Garnica Admit Provider: Rubén Pedraza Primary Care Provider: Dylan Fallon Other Providers: Rubén Pedraza ; Jose Aiken ; Gerard Gibbons Other Interventions: Discharge Summary Assessment (RN) Last Done: 02/23/22 16:56 Coding Level of Care Code D/C DAY MANAGEMENT >30 MINS Diagnoses Non-ST elevation CT (NSTEMI) I21.4 Acute diastolic CHF (congestive heart failure) I50.31 Acute kidney injury N17.9 Diabetes mellitus E11.9 GI bleed K92.2 GI bleed type/associated pathology: unspecified gastrointestinal hemorrhage type History of stomach ulcers Z87.19 Hypertensive encephalopathy I67.4 Hypertension I10 Hypertension type: unspecified Hyperlipidemia E78.5 Sleep apnea G47.30 Right knee pain M25.561
[2022-02-23] MEDS ORDERED: LOSARTAN POTASSIUM 50 MG TAB PO SCH (12:15)
--- NOTE | 2022-02-24 11:59 | Electrocardiogram Report ---
Test Reason : Blood Pressure : / mmHG Vent. Rate : 075 BPM Atrial Rate : 075 BPM P-R Int : 144 ms QRS Dur : 084 ms QT Int : 394 ms P-R-T Axes : 074 063 087 degrees QTc Int : 439 ms Normal sinus rhythm When compared with ECG of 22-FEB-2022 05:34, No significant change was found Confirmed by Jose Aiken ([id number]) on 02/24/2022 11:59:34 AM Referred By: REFERRED SELF Confirmed By:Goyo Aiken
== END 2022-02-23 18:00 | disposition home or self-care (01) | DRG 280 ==
LOC: ED 16:27 → SUATTDRO 20:31 → 2S 20:31 → 1E 02-21 04:24 → 2E 02-22 06:32

== ENCOUNTER 2024-04-21 12:26 | Inpatient (IN) ==
[2024-04-21 13:16] LABS: Hematocrit (blood only) 43.1 % (42.0-52.0); Hemoglobin 13.3 g/dl (14.0-18.0); Mean Corpuscular Hemoglobin 26.4 pg (25.0-34.0); Mean Corpuscular Hgb Conc 30.9 g/dL (32.0-36.0); Mean Corpuscular Volume 85.5 fL (80.0-100.0); Mean Platelet Volume 10.9 fL (9.4-12.4); Platelet Count 191 K/uL (130-400); RDW Coefficient of Variation 14.8 % (11.5-14.5); RDW Standard Deviation 46.2 fL (36.4-46.3); Red Blood Count 5.04 M/uL (4.70-6.10); White Blood Count 8.59 K/ul (4.8-10.8)
[2024-04-21 13:32] LABS: Alanine Aminotransferase 15 U/L (7-52); Albumin Globulin Ratio 1.2 (0.9-2); Albumin Level 4.4 gm/dl (3.4-5.0); Alkaline Phosphatase 62 U/L (34-104); Anion Gap 6 (3-11); Aspartate Aminotransferase 13 U/L (13-39); BUN Creatinine Ratio 11.4 (10-20); Bilirubin,Total 0.3 mg/dl (0.2-1.0); Blood Urea Nitrogen 13 mg/dl (6-23); Calcium 9.4 mg/dl (8.6-10.3); Carbon Dioxide 31 mmol/L (21-32); Chloride 103 mmol/L (98-107); Est GFR (African American) 75.1 ml/min; Est GFR (Non-African American) 64.8 ml/min; Globulin 3.7 gm/dl (2.5-4.0); Glucose 127 mg/dl (70-99(Fasting)); Potassium 4.1 mmol/L (3.5-5.1); Sodium 140 mmol/L (136-145); Total Protein 8.1 gm/dl (6.0-8.3)
[2024-04-21 13:40] LABS: Partial Thromboplastin Time 28 Seconds (21-31); Prothrombin Time 10.7 Seconds (9.0-12.0)
--- NOTE | 2024-04-21 13:54 | Emergency Department Note ---
Impression & Plan Stroke, Right leg weakness ED Provider Note NAME: SHAUNA GARZA AGE: 68 SEX: M : 1955 ARRIVES VIA: Walk-In INFORMANT: Patient, ED PROVIDER(S): Leonidas Rasheed MD CHIEF COMPLAINT: Right lower extremity weakness HPI: This is 68-year-old male presenting for right lower extremity weakness. For the past 4 days patient has noted a right lower extremity that is weaker than the left. He has noted been dragging his right leg as well. He notes he thought was related to his previous knee replacement that was done 3 years ago and revised 1.5 years ago. He notes new numbness to the right arm and weakness as of yesterday. He notes that he is not taking any of his medications including antihypertensives, and his diabetic medications. He notes no headache, vision changes, nausea, vomiting, diarrhea. No chest pain or shortness of breath. ROS: See above HPI for pertinent positives & negatives. A total of 10 systems reviewed and were otherwise negative. PAST MEDICAL HISTORY: See Below PAST SURGICAL HISTORY: See Below FAMILY HISTORY: See Below SOCIAL HISTORY: See Below HOME MEDICATIONS: See Below ALLERGIES: See Below VITALS: See Below PHYSICAL EXAMINATION: General: resting comfortably in no acute distress Head: Normocephalic and atraumatic Eyes: Normal inspection, extraocular muscles intact Ear, nose, throat: Normal external exam Neck: Normal range of motion Respiratory: lungs clear to auscultation bilaterally Cardiovascular: Regular rate/rhythm, no murmur GI: soft, nontender, no guarding or rebound Extremities: nontender, moves all extremities Neuro: The patient awake and alert, appropriately conversive, strength 3/5 in right lower extremity, strength 5/5 in left lower extremity, 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 Patient is constellation of strokelike symptoms with weakness in the right upper and lower extremity with sensation deficits. This has been going on for 24+ hours for the arm and 4+ days for the leg. Patient not a candidate for TNKase. Will do CT imaging of the head which includes angio. -Will give basic blood work. Patient is hypertensive into the 200s systolic. Patient is off all of his medications. He states he just got used to not taking his medications. -Bloodwork is reviewed showing no significant leukocytosis, anemia, electrolyte or creatinine abnormality -Chest Xray independently interpreted by me showing no pneumothorax, focal opacity, or pleural effusions. -CT head/CTA are negative for acute intracranial hemorrhage, LVO or process -Patient care discussed with Dr. Holley and Victor M Martínez PA-C for admission Differential diagnosis: Stroke, TIA, trauma, radiculopathy ER treatment provided: See below Independent History obtained from: and daughter Diagnostics interpreted by me: ECG: ECG independently interpreted by me with normal sinus rhythm, rate of 69, normal axis, normal MD, normal QRS, normal QTc, no ST segment elevations consistent with STEMI criteria Cardiac Monitoring: An order was placed for continuous cardiac monitoring. The monitor shows a rate of 74 with sinus rhythm. Laboratory studies: As stated above and show below. Imaging studies: See below. Past Med/Surg History Problem List (Updated 04/21/24 @ 19:19 by Leonidas Rasheed MD) Right leg weakness (Acute) Stroke (Acute) Stroke-like symptoms Ambulatory dysfunction Greater trochanteric bursitis Right knee pain Unstable angina Admitted to intensive care unit Acute kidney injury Acute diastolic CHF (congestive heart failure) History of stomach ulcers 1+ years ago Non-ST elevation DC (NSTEMI) (Acute) Hypertensive encephalopathy Diabetes mellitus Status post total right knee replacement x2 Encounter for pre-operative examination GI bleed (Acute) Hypertension (Acute) DVT prophylaxis Acute blood loss anemia Sleep apnea No CPAP currently > "does not work" per pt Pre-diabetes Osteoarthritis Hypertension Glaucoma Hyperlipidemia Medical History Chronic anemia baseline hgb 12-13 range per chart review Morbid obesity Diabetes mellitus, type 2 NIDDM History of stomach ulcers 1+ years ago Spinal stenosis Osteoarthritis Glaucoma Hypertension Hyperlipidemia Sleep apnea No CPAP currently > "does not work" per pt Surgical History History of tonsillectomy and adenoidectomy S/P epidural steroid injection History of esophagogastroduodenoscopy (EGD) EGD (10/02/19): [facility] at [facility] Trigger finger Left hand trigger finger release History of carpal tunnel release R/L History of arthroscopy Right knee History of colonoscopy History of appendectomy History of tooth extraction Family History Father Family history of diabetes mellitus Mother Family history of diabetes mellitus Other No family history of adverse response to anesthesia Social History Smoking Status: Former smoker Tobacco Type: Cigarettes Smoking End Date: 2000; Second Hand Exposure: Yes (IN THE PAST); Do You Dip or Chew Tobacco: No; Hx Alcohol Use: Yes Alcohol type: beer Hx Substance Use: No Preferred Language: British Communication Ability: Effective 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 Beliefs That Will Affect Care: None marital status: Current Living Situation: Spouse Current Living Situation Comment: AND ADOPTED GRANDAUGHTER How many Children do You have: 2 Feels Safe at Home: Yes Safety Concerns: Feels Safe At This Time Assistive Devices: Glasses Allergies Allergies Allergy/AdvReac Type Severity Reaction Status Date / Time Sulfa (Sulfonamide Allergy Intermediate Hives Verified 08/20/23 09:15 Antibiotics) NSAIDS (Non-Steroidal AdvReac Unknown HX OF Verified 08/20/23 09:15 Anti-Inflamma BLEEDING ULCER Home Meds Home Medications Medication Instructions Recorded Confirmed metformin 500 mg tablet 500 mg PO BID 10/02/19 04/21/24 acetaminophen 500 mg capsule See Rx Instructions PO .COMPLEX 07/23/23 04/21/24 PRN Pain ibuprofen 200 mg capsule 200 mg PO Q6H PRN Pain (Scale 07/23/23 04/21/24 Score 1-3) Previous Rx's Medication Instructions Recorded aspirin 81 mg tablet,delayed 81 mg PO QAM #30 tabs 02/23/22 release losartan 50 mg tablet 50 mg PO DAILY #0 tabs 02/23/22 amlodipine 10 mg tablet 10 mg PO DAILY #90 tabs 02/27/22 Results & Data (ED) Vital Signs Vital Signs - 24 hr 04/21/24 12:36 04/21/24 12:44 04/21/24 12:44 Temperature 36.2 C L Temperature Source Temporal Artery Scan Pulse Rate 71 73 Pulse Rate from SpO2 Sensor Pulse Rhythm Regular Regular Pulse Strength Normal Respiratory Rate 18 20 Respiratory Effort / Characteristics Non-Labored Spontaneous Respiratory Depth Normal Respiratory Pattern Regular Blood Pressure 168/100 H Blood Pressure Mean 122 Blood Pressure Position Sitting Pulse Oximetry 97 98 Oxygen Delivery Method Room Air Room Air Room Air Sepsis Recent Fever Within 48 Hours No Sepsis New/Unexplained Change in Mental Status No Sepsis Action Taken by Nursing No Action Required 04/21/24 13:07 04/21/24 13:18 04/21/24 13:28 Temperature Temperature Source Pulse Rate 68 67 Pulse Rate from SpO2 Sensor 66 Pulse Rhythm Pulse Strength Respiratory Rate 23 Respiratory Effort / Characteristics Respiratory Depth Respiratory Pattern Blood Pressure 175/79 H Blood Pressure Mean 111 Blood Pressure Position Pulse Oximetry 98 Oxygen Delivery Method Sepsis Recent Fever Within 48 Hours Sepsis New/Unexplained Change in Mental Status Sepsis Action Taken by Nursing 04/21/24 13:31 04/21/24 13:36 04/21/24 14:09 Temperature Temperature Source Pulse Rate 69 69 Pulse Rate from SpO2 Sensor 70 Pulse Rhythm Pulse Strength Respiratory Rate 17 16 Respiratory Effort / Characteristics Respiratory Depth Respiratory Pattern Blood Pressure 166/113 H Blood Pressure Mean 132 Blood Pressure Position Pulse Oximetry 95 Oxygen Delivery Method Sepsis Recent Fever Within 48 Hours Sepsis New/Unexplained Change in Mental Status Sepsis Action Taken by Nursing 04/21/24 14:21 04/21/24 14:28 04/21/24 14:30 Temperature Temperature Source Pulse Rate 70 Pulse Rate from SpO2 Sensor Pulse Rhythm Pulse Strength Respiratory Rate 21 Respiratory Effort / Characteristics Respiratory Depth Respiratory Pattern Blood Pressure 169/140 H 180/109 H Blood Pressure Mean 154 121 Blood Pressure Position Pulse Oximetry Oxygen Delivery Method Sepsis Recent Fever Within 48 Hours Sepsis New/Unexplained Change in Mental Status Sepsis Action Taken by Nursing 04/21/24 14:30 Temperature Temperature Source Pulse Rate 68 Pulse Rate from SpO2 Sensor 67 Pulse Rhythm Pulse Strength Respiratory Rate 21 Respiratory Effort / Characteristics Respiratory Depth Respiratory Pattern Blood Pressure Blood Pressure Mean Blood Pressure Position Pulse Oximetry 98 Oxygen Delivery Method Sepsis Recent Fever Within 48 Hours Sepsis New/Unexplained Change in Mental Status Sepsis Action Taken by Nursing Laboratory Data 04/21/24 12:55 04/21/24 12:55 Lab Results 04/21/24 04/21/24 Range/Units 12:55 13:00 WBC 8.59 (4.8-10.8) K/ul RBC 5.04 (4.70-6.10) M/uL Hgb 13.3 L (14.0-18.0) g/dl POC Hgb 15.0 (14.0-18.0) g/dl Hct 43.1 (42.0-52.0) % POC Hct 44 (42-52) % MCV 85.5 (80.0-100.0) fL MCH 26.4 (25.0-34.0) pg MCHC 30.9 L (32.0-36.0) g/dL RDW Std Deviation 46.2 (36.4-46.3) fL RDW Coeff of Anisha 14.8 H (11.5-14.5) % Plt Count 191 (130-400) K/uL MPV 10.9 (9.4-12.4) fL PT 10.7 (9.0-12.0) Seconds INR 1.0 (0.9-1.1) APTT 28 (21-31) Seconds PTT Ratio 1.0 POC Sodium 142 (135-144) mmol/L Sodium 140 (136-145) mmol/L POC Potassium 4.1 (3.3-5.0) mmol/L Potassium 4.1 (3.5-5.1) mmol/L POC Chloride 102 (101-112) mmol/L Chloride 103 (98-107) mmol/L Carbon Dioxide 31 (21-32) mmol/L POC Total CO2 28 (24-31) mmol/L Anion Gap 6 (3-11) POC Anion Gap 17.0 (16-25) mmol/L POC BUN 12 (7-18) mg/dl BUN 13 (6-23) mg/dl Creatinine 1.14 (0.6-1.4) mg/dl POC Creatinine 1.1 (0.6-1.3) mg/dl Est Cr Clr Drug Dosing Not Reportable Est GFR ( Amer) 75.1 ml/min Est GFR (Non-Af Amer) 64.8 ml/min BUN/Creatinine Ratio 11.4 (10-20) Glucose 127 H (70-99(Fasting)) mg/dl POC Glucose (other) 127 H (70-99) mg/dl Calcium 9.4 (8.6-10.3) mg/dl POC Ioniz Calcium Mika 1.22 (1.12-1.32) mmol/l Magnesium 2.0 (1.7-2.4) mg/dl Total Bilirubin 0.3 (0.2-1.0) mg/dl AST 13 (13-39) U/L ALT 15 (7-52) U/L Alkaline Phosphatase 62 (34-104) U/L Total Protein 8.1 (6.0-8.3) gm/dl Albumin 4.4 (3.4-5.0) gm/dl Globulin 3.7 (2.5-4.0) gm/dl Albumin/Globulin Ratio 1.2 (0.9-2) Administered Medications Insulin Aspart (Insulin Aspart Per Unit Charge) 0 units SC ACHS DEVORAH Stop: 05/21/24 16:29 Last Admin: 04/21/24 18:14 Dose: 2 units Documented By: Co-signed By: GURPREET Pantoprazole Sodium (Pantoprazole 40 Mg Tab) 40 mg PO QAM [facility] Stop: 05/21/24 18:14 Last Admin: 04/21/24 19:07 Dose: 40 mg Documented By: Discontinued Medications Amlodipine Besylate (Amlodipine Besylate 5 Mg Tab) 10 mg PO NOW ONE Stop: 04/21/24 17:28 Last Admin: 04/21/24 18:16 Dose: 10 mg Documented By: Aspirin (Aspirin 81 Mg Chew) 324 mg PO NOW STA Stop: 04/21/24 18:08 Last Admin: 04/21/24 19:12 Dose: 324 mg Documented By: Clopidogrel Bisulfate (Clopidogrel Bisulfate 300 Mg Tab) 300 mg PO NOW STA Stop: 04/21/24 18:03 Last Admin: 04/21/24 19:11 Dose: 300 mg Documented By: Hydralazine HCl (Hydralazine Hcl 20 Mg/Ml Vial) 5 mg IV NOW ONE Stop: 04/21/24 17:29 Last Admin: 04/21/24 17:51 Dose: 5 mg Documented By: Losartan Potassium (Losartan Potassium 50 Mg Tab) 50 mg PO NOW STA Stop: 04/21/24 14:55 Last Admin: 04/21/24 16:02 Dose: 50 mg Documented By: NERISSA Imaging Data Radiologist's Impression: Chest X-Ray 04/21/24 12:44 SINGLE VIEW CHEST CLINICAL HISTORY: Strokelike symptoms. FINDINGS: An AP, portable, upright chest radiograph is compared to chest x-ray and chest CT dated 02/20/2022. The heart is enlarged. The pulmonary vasculature is noncongested. Chronic interstitial thickening is similar to previous. There is mild bibasilar scarring/atelectasis. The lungs and pleural spaces are otherwise clear. No pneumothorax is seen. The skeletal structures are osteopenic. The bony thorax is grossly intact. Arthritic change is seen in the shoulders. IMPRESSION: Cardiomegaly with no active disease in the chest. ACT 112: Negative or not required by law. Electronically signed by: Edmar Field M.D. 04/21/2024 1:[address] 04/21/24 13:[address] OF THE BRAIN; CT ANGIOGRAM OF THE BRAIN; CT ANGIOGRAM OF THE NECK CLINICAL HISTORY: Strokelike symptoms. Neurological deficit. Right upper and lower extremity deficits. COMPARISON STUDY: CT of the brain dated 04/16/2023. CT angiogram of the head and neck dated 03/12/2021. TECHNIQUE: Unenhanced axial CT scan of the brain is performed. Subsequently, following the IV administration of 119 of Optiray 320, CT angiogram of the head and neck was performed from the aortic arch to the vertex. Images are reviewed in the axial, sagittal, and coronal planes. 3-D MIPS images are created and assessed. IV contrast was administered without complication. All measurements were calculated based on NASCET criteria. A dose lowering technique was utilized adhering to the principles of ALARA. CT DOSE: 1199.16 mGy.cm FINDINGS: Brain parenchyma: There is age-related involutional change noting moderate to advanced subcortical and periventricular microangiopathic disease. There is no hemorrhage, mass effect, or evidence of acute territorial ischemia by CT criteria. There is no evidence of enhancing mass lesion on the angiogram phase images. The ventricles, sulci, and cisterns are prominent secondary to involutional change. Chronic lacunar infarcts are noted in both thalami. Levy- white matter differentiation is preserved. No extra-axial fluid collection is seen. Thoracic aorta: There is atherosclerotic calcification of the thoracic aorta. Visualized portions of the thoracic aorta are normal in caliber. The aortic arch demonstrates standard 3-vessel anatomy. Right carotid arterial system: The right common carotid artery is widely patent, as are the right internal and external carotid arteries. Advanced calcified plaque is seen in the carotid bulb and proximal ICA. Left carotid arterial system: The left common carotid artery is widely patent. There is advanced atherosclerotic plaque in the carotid bulb. This causes approximately 50% stenosis of the proximal left internal carotid artery. The internal and external carotid arteries are otherwise widely patent. Vertebral arteries: The vertebral arteries are widely patent bilaterally and codominant. Subclavian arteries: Widely patent bilaterally. Intracranial vasculature: There is atherosclerotic calcification of the cavernous carotid arteries. The [place] of [place] is developmentally complete. The internal carotid arteries are patent at the skull base, as are the anterior and middle cerebral arteries bilaterally. The vertebrobasilar system and posterior cerebral arteries are widely patent. The vertebral arteries are codominant. There is no aneurysm, high-grade stenosis, or focal vessel cut off seen throughout the intracranial circulation. Jugular veins: Patent bilaterally. Dural sinuses: Patent. Lung apices: Partially visualized upper lobe lung parenchyma appears clear. Soft tissues: The visualized pharyngeal soft tissues are normal in appearance noting angiographic phase technique. The oropharyngeal airway appears widely patent. The salivary and thyroid glands are normal in appearance. No cervical lymphadenopathy is seen. Skeletal structures: The skeletal structures are osteopenic. The calvarium appears intact. The cervical spine is maintained noting mild multilevel spondylosis Orbits: The bony orbits are intact. Orbital contents are normal as visualized. Sinuses and mastoids: The paranasal sinuses are clear. The mastoid air cells are well pneumatized. IMPRESSION: 1. There is no hemorrhage, mass effect, or evidence of acute territorial ischemia by CT criteria. 2. Unremarkable CT angiogram of the brain. 3. Atherosclerotic plaque in the carotid bulbs causes less than 50% stenosis of the proximal the left internal carotid artery. 4. Otherwise unremarkable CT angiogram of the neck. ACT 112: Negative or not required by law. Electronically signed by: Edmar Field M.D. 04/21/2024 2:17 PM Head CTA 04/21/24 13:[address] OF THE BRAIN; CT ANGIOGRAM OF THE BRAIN; CT ANGIOGRAM OF THE NECK CLINICAL HISTORY: Strokelike symptoms. Neurological deficit. Right upper and lower extremity deficits. COMPARISON STUDY: CT of the brain dated 04/16/2023. CT angiogram of the head and neck dated 03/12/2021. TECHNIQUE: Unenhanced axial CT scan of the brain is performed. Subsequently, following the IV administration of 119 of Optiray 320, CT angiogram of the head and neck was performed from the aortic arch to the vertex. Images are reviewed in the axial, sagittal, and coronal planes. 3-D MIPS images are created and assessed. IV contrast was administered without complication. All measurements were calculated based on NASCET criteria. A dose lowering technique was utilized adhering to the principles of ALARA. CT DOSE: 1199.16 mGy.cm FINDINGS: Brain parenchyma: There is age-related involutional change noting moderate to advanced subcortical and periventricular microangiopathic disease. There is no hemorrhage, mass effect, or evidence of acute territorial ischemia by CT criteria. There is no evidence of enhancing mass lesion on the angiogram phase images. The ventricles, sulci, and cisterns are prominent secondary to involutional change. Chronic lacunar infarcts are noted in both thalami. Levy- white matter differentiation is preserved. No extra-axial fluid collection is seen. Thoracic aorta: There is atherosclerotic calcification of the thoracic aorta. Visualized portions of the thoracic aorta are normal in caliber. The aortic arch demonstrates standard 3-vessel anatomy. Right carotid arterial system: The right common carotid artery is widely patent, as are the right internal and external carotid arteries. Advanced calcified plaque is seen in the carotid bulb and proximal ICA. Left carotid arterial system: The left common carotid artery is widely patent. There is advanced atherosclerotic plaque in the carotid bulb. This causes approximately 50% stenosis of the proximal left internal carotid artery. The internal and external carotid arteries are otherwise widely patent. Vertebral arteries: The vertebral arteries are widely patent bilaterally and codominant. Subclavian arteries: Widely patent bilaterally. Intracranial vasculature: There is atherosclerotic calcification of the cavernous carotid arteries. The [place] of [place] is developmentally complete. The internal carotid arteries are patent at the skull base, as are the anterior and middle cerebral arteries bilaterally. The vertebrobasilar system and posterior cerebral arteries are widely patent. The vertebral arteries are codominant. There is no aneurysm, high-grade stenosis, or focal vessel cut off seen throughout the intracranial circulation. Jugular veins: Patent bilaterally. Dural sinuses: Patent. Lung apices: Partially visualized upper lobe lung parenchyma appears clear. Soft tissues: The visualized pharyngeal soft tissues are normal in appearance noting angiographic phase technique. The oropharyngeal airway appears widely patent. The salivary and thyroid glands are normal in appearance. No cervical lymphadenopathy is seen. Skeletal structures: The skeletal structures are osteopenic. The calvarium appears intact. The cervical spine is maintained noting mild multilevel spondylosis Orbits: The bony orbits are intact. Orbital contents are normal as visualized. Sinuses and mastoids: The paranasal sinuses are clear. The mastoid air cells are well pneumatized. IMPRESSION: 1. There is no hemorrhage, mass effect, or evidence of acute territorial ischemia by CT criteria. 2. Unremarkable CT angiogram of the brain. 3. Atherosclerotic plaque in the carotid bulbs causes less than 50% stenosis of the proximal the left internal carotid artery. 4. Otherwise unremarkable CT angiogram of the neck. ACT 112: Negative or not required by law. Electronically signed by: Edmar Field M.D. 04/21/2024 2:17 PM Neck CTA 04/21/24 13:[address] OF THE BRAIN; CT ANGIOGRAM OF THE BRAIN; CT ANGIOGRAM OF THE NECK CLINICAL HISTORY: Strokelike symptoms. Neurological deficit. Right upper and lower extremity deficits. COMPARISON STUDY: CT of the brain dated 04/16/2023. CT angiogram of the head and neck dated 03/12/2021. TECHNIQUE: Unenhanced axial CT scan of the brain is performed. Subsequently, following the IV administration of 119 of Optiray 320, CT angiogram of the head and neck was performed from the aortic arch to the vertex. Images are reviewed in the axial, sagittal, and coronal planes. 3-D MIPS images are created and assessed. IV contrast was administered without complication. All measurements were calculated based on NASCET criteria. A dose lowering technique was utilized adhering to the principles of ALARA. CT DOSE: 1199.16 mGy.cm FINDINGS: Brain parenchyma: There is age-related involutional change noting moderate to advanced subcortical and periventricular microangiopathic disease. There is no hemorrhage, mass effect, or evidence of acute territorial ischemia by CT criteria. There is no evidence of enhancing mass lesion on the angiogram phase images. The ventricles, sulci, and cisterns are prominent secondary to involutional change. Chronic lacunar infarcts are noted in both thalami. Levy- white matter differentiation is preserved. No extra-axial fluid collection is seen. Thoracic aorta: There is atherosclerotic calcification of the thoracic aorta. Visualized portions of the thoracic aorta are normal in caliber. The aortic arch demonstrates standard 3-vessel anatomy. Right carotid arterial system: The right common carotid artery is widely patent, as are the right internal and external carotid arteries. Advanced calcified plaque is seen in the carotid bulb and proximal ICA. Left carotid arterial system: The left common carotid artery is widely patent. There is advanced atherosclerotic plaque in the carotid bulb. This causes approximately 50% stenosis of the proximal left internal carotid artery. The internal and external carotid arteries are otherwise widely patent. Vertebral arteries: The vertebral arteries are widely patent bilaterally and codominant. Subclavian arteries: Widely patent bilaterally. Intracranial vasculature: There is atherosclerotic calcification of the cavernous carotid arteries. The [place] of [place] is developmentally complete. The internal carotid arteries are patent at the skull base, as are the anterior and middle cerebral arteries bilaterally. The vertebrobasilar system and posterior cerebral arteries are widely patent. The vertebral arteries are codominant. There is no aneurysm, high-grade stenosis, or focal vessel cut off seen throughout the intracranial circulation. Jugular veins: Patent bilaterally. Dural sinuses: Patent. Lung apices: Partially visualized upper lobe lung parenchyma appears clear. Soft tissues: The visualized pharyngeal soft tissues are normal in appearance noting angiographic phase technique. The oropharyngeal airway appears widely patent. The salivary and thyroid glands are normal in appearance. No cervical lymphadenopathy is seen. Skeletal structures: The skeletal structures are osteopenic. The calvarium appears intact. The cervical spine is maintained noting mild multilevel spondylosis Orbits: The bony orbits are intact. Orbital contents are normal as visualized. Sinuses and mastoids: The paranasal sinuses are clear. The mastoid air cells are well pneumatized. IMPRESSION: 1. There is no hemorrhage, mass effect, or evidence of acute territorial ischemia by CT criteria. 2. Unremarkable CT angiogram of the brain. 3. Atherosclerotic plaque in the carotid bulbs causes less than 50% stenosis of the proximal the left internal carotid artery. 4. Otherwise unremarkable CT angiogram of the neck. ACT 112: Negative or not required by law. Electronically signed by: Edmar Field M.D. 04/21/2024 2:17 PM Discharge Plan Visit Data Chief Complaint: Neuro Symptoms/Deficit Stated Complaint: RT KNEE COULDN'T WALK, RT NUMB, HAD KNEE REPLACED ED Provider: Leonidas Rasheed Discharge Problem: Stroke, Right leg weakness Patient Disposition: Admitted As Inpatient Discharge Instructions Interventions: ED Discharge Assessment Last Done: 04/21/24 17:10
--- NOTE | 2024-04-21 13:56 | XRay Report ---
SINGLE VIEW CHEST CLINICAL HISTORY: Strokelike symptoms. FINDINGS: An AP, portable, upright chest radiograph is compared to chest x-ray and chest CT dated 02/20. The heart is enlarged. The pulmonary vasculature is noncongested. Chronic interstitial thicken ing is similar to previous. There is mild bibasilar scarring/atelectasis. The lungs and pleural space s are otherwise clear. No pneumothorax is seen. The skeletal structures are osteopenic. The bony thor ax is grossly intact. Arthritic change is seen in the shoulders. IMPRESSION: Cardiomegaly with no active disease in the chest. ACT 112: Negative or not required by law. Electronically signed by: Edmar Field M.D. 04/21/2024 1:55 PM
--- NOTE | 2024-04-21 14:18 | CT Scan Report ---
UNENHANCED CT OF THE BRAIN; CT ANGIOGRAM OF THE BRAIN; CT ANGIOGRAM OF THE NECK CLINICAL HISTORY: Strokelike symptoms. Neurological deficit. Right upper and lower extremity deficits . COMPARISON STUDY: CT of the brain dated 04/16/2023. CT angiogram of the head and neck dated 03/12/2021. TECHNIQUE: Unenhanced axial CT scan of the brain is performed. Subsequently, following the IV adminis tration of 119 of [address] [address], CT angiogram of the head and neck was performed from the aortic arch t o the vertex. Images are reviewed in the axial, sagittal, and coronal planes. 3-D MIPS images are cre ated and assessed. IV contrast was administered without complication. All measurements were calculate d based on NASCET criteria. A dose lowering technique was utilized adhering to the principles of ALA RA. 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 There is no hemorrhage, mass effect, or evidence of acute territorial ischemia by CT criteria. There is no evidence of enhancing mass lesion on the angiogram phase images. The ventricles, sulci, and cisterns are prominent secondary to involutional change. Chr onic lacunar infarcts are noted in both thalami. Levy-white matter differentiation is preserved. No e xtra-axial fluid collection is seen. Thoracic aorta: There is atherosclerotic calcification of the thoracic aorta. Visualized portions of the thoracic aorta are normal in caliber. The aortic arch demonstrates standard 3-vessel anatomy. Right carotid arterial system: The right common carotid artery is widely patent, as are the right int ernal and external carotid arteries. Advanced calcified plaque is seen in the carotid bulb and proxim al ICA. Left carotid arterial system: The left common carotid artery is widely patent. There is advanced athe rosclerotic plaque in the carotid bulb. This causes approximately 50% stenosis of the proximal left i nternal carotid artery. The internal and external carotid arteries are otherwise widely patent. Vertebral arteries: The vertebral arteries are widely patent bilaterally and codominant. Subclavian arteries: Widely patent bilaterally. Intracranial vasculature: There is atherosclerotic calcification of the cavernous carotid arteries. T he [place] is developmentally complete. The internal carotid arteries are patent at the skul l base, as are the anterior and middle cerebral arteries bilaterally. The vertebrobasilar system and posterior cerebral arteries are widely patent. The vertebral arteries are codominant. There is no ane urysm, high-grade stenosis, or focal vessel cut off seen throughout the intracranial circulation. Jugular veins: Patent bilaterally. Dural sinuses: Patent. Lung apices: Partially visualized upper lobe lung parenchyma appears clear. Soft tissues: The visualized pharyngeal soft tissues are normal in appearance noting angiographic pha se technique. The oropharyngeal airway appears widely patent. The salivary and thyroid glands are nor mal in appearance. No cervical lymphadenopathy is seen. Skeletal structures: The skeletal structures are osteopenic. The calvarium appears intact. The cervic al spine is maintained noting mild multilevel spondylosis Orbits: The bony orbits are intact. Orbital contents are normal as visualized. Sinuses and mastoids: The paranasal sinuses are clear. The mastoid air cells are well pneumatized. IMPRESSION: 1. There is no hemorrhage, mass effect, or evidence of acute territorial ischemia by CT criteria. 2. Unremarkable CT angiogram of the brain. 3. Atherosclerotic plaque in the carotid bulbs causes less than 50% stenosis of the proximal the left internal carotid artery. 4. Otherwise unremarkable CT angiogram of the neck. ACT 112: Negative or not required by law. Electronically signed by: Edmar Field M.D. 04/21/2024 2:17 PM
[2024-04-21] MEDS ORDERED: PHARMACIST DISCHARGE MED REC CONSULT PRN (14:33)
--- NOTE | 2024-04-21 14:33 | History & Physical Report ---
Date of Service April 21, 2024 Assessment & Plan (1) Stroke-like symptoms: Plan: Admit to the PCU on telemetry Currently hypertensive with systolic blood pressure in the 180s but otherwise stable Presented to the ED from the orthopedic clinic earlier today due to concerns for possible CVA as he has developed right lower extremity weakness starting 04/17/24 and right upper extremity weakness/paresthesias on 04/19/2024 Patient noted to have significant weakness in the right upper and lower extremity with positive pronator drift and cerebellar testing in the right upper extremity CT of the head and brain without contrast and CTA of the head and neck noted atherosclerotic plaque in the carotid bulbs causing less than 50% stenosis of internal carotid artery but was otherwise negative for acute findings along with chest x-ray without acute findings Patient has been noncompliant with his home medications put him at increased risk for CVA Will obtain MRI of the head/brain without contrast and TTE for further evaluation We will resume his home losartan now as he is out of the window for permissive hypertension if he did have a CVA, we will see how he responds to the losartan before restarting his amlodipine Follow fasting lipid panel and hemoglobin A1c with a.m. labs tomorrow Fall/aspiration precautions, PT/OT consults Every 4 hours neurochecks Bilateral SCDs until MRI results are back Heart healthy/DM type II diet AM CBC, CMP, mag, PT/INR, hemoglobin A1c, fasting lipid panel (2) Diabetes mellitus, type 2: Plan: Hold metformin for now Follow hemoglobin A1c tomorrow morning Monitor BSG ACHS, goal is [id number] Will start 5 units Lantus twice daily for now Start CF of 45 and CR 15 ACHS for now Adjust regimen as needed (3) Hypertension: Plan: Currently hypertensive with systolic blood pressure in the 180s Restarting home losartan today Will wait and see how he responds to home losartan before restarting home amlodipine (4) Sleep apnea: Plan: Patient reports noncompliance with at bedtime CPAP as previous machine broke Will order at bedtime CPAP and case management consult to see if they can obtain new machine prior to discharge Plan The patient was discussed with Dr. Holley at the time of the admission History of Present Illness Chief Complaint: Strokelike symptoms Primary Care Provider: GEEG Diaz is a 68-year-old male with a past medical history significant for diabetes mellitus type 2, hypertension, QUOC, and hyperlipidemia who presented to the [facility] ED on 04/21/2024 due to persistent weakness in the right upper/lower extremities with associated intermittent numbness the past 4 days. Patient was noted to be hypertensive on arrival at 168/100 but otherwise stable. Labs including CBC, CMP, and coagulation labs were unremarkable. Chest x-ray noted cardiomegaly without active chest disease. CT of the head and brain/CTA of the head/neck was read as atherosclerotic plaque in the carotid bulbs causes less than 50% stenosis of the proximal left internal c arotid artery but was otherwise negative for acute findings. The patient was given no medications prior to admission. Patient was sitting in bed in no acute distress at time of exam with his bedside, history obtained from both. Patient states that he woke the morning of 04/17/2024 and noticed mild right lower extremity weakness after he got out of bed. States that as the day progressed he started to develop paresthesias in the right lower extremity and increased weakness to the point that he was unable to bear weight on the leg on 04/18/2024. Began to develop right upper extremity weakness and paresthesias on 04/20/2024. Presented to the orthopedic clinic earlier today as he thought his right lower extremity weakness could be due to his previous right knee replacement. After evaluation they recommended he come to the ED for further assessment of possible stroke. Confirms that he has not been compliant with his home regimen of medications for the past 2 months. This includes his daily baby aspirin, amlodipine, losartan, and metformin. States that he would forget to take them and then just forgot to restart. His states that she tried to remind him multiple times but he did not listen to her. Patient expresses his intent to resume his home medications as he understands the severity of complications with noncompliance now. No recent headache, changes in vision, hearing, taste, smell, chest pain, palpitations, shortness of breath, abdominal pain, nausea/vomiting, dysuria, hematuria, diarrhea, lower extremity swelling, or recent trauma. When asked, states that he does have increased urinary frequency with the feeling of incomplete bladder emptying over the past few months. Denies recent tobacco or alcohol use. Confirms he is a full code and want his to make medical decisions for him if cannot make them himself. Please refer to Dr. Holley's attestation for any changes to the treatment plan Allergies Allergy/AdvReac Type Severity Reaction Status Date / Time Sulfa (Sulfonamide Allergy Intermediate Hives Verified 08/20/23 09:15 Antibiotics) NSAIDS (Non-Steroidal AdvReac Unknown HX OF Verified 08/20/23 09:15 Anti-Inflamma BLEEDING ULCER Home Medications Medication Instructions Recorded Confirmed Type metformin 500 mg tablet 500 mg PO BID 10/02/19 04/21/24 History aspirin 81 mg tablet,delayed 81 mg PO QAM #30 tabs 02/23/22 04/21/24 Rx release losartan 50 mg tablet 50 mg PO DAILY #0 tabs 02/23/22 04/21/24 Rx amlodipine 10 mg tablet 10 mg PO DAILY #90 tabs 02/27/22 04/21/24 Rx acetaminophen 500 mg capsule See Rx Instructions PO .COMPLEX 07/23/23 04/21/24 History PRN Pain ibuprofen 200 mg capsule 200 mg PO Q6H PRN Pain (Scale 07/23/23 04/21/24 History Score 1-3) Past Med/Surg History Problem List (Updated 04/22/24 @ 08:51 by Son Zuniga MD) Carotid stenosis, left Cerebral amyloid angiopathy Right leg weakness (Acute) Stroke (Acute) Stroke-like symptoms Ambulatory dysfunction Greater trochanteric bursitis Right knee pain Unstable angina Admitted to intensive care unit Acute kidney injury Acute diastolic CHF (congestive heart failure) History of stomach ulcers 1+ years ago Non-ST elevation MT (NSTEMI) (Acute) Hypertensive encephalopathy Diabetes mellitus Status post total right knee replacement x2 Encounter for pre-operative examination GI bleed (Acute) Hypertension (Acute) DVT prophylaxis Acute blood loss anemia Sleep apnea No CPAP currently > "does not work" per pt Pre-diabetes Osteoarthritis Hypertension Glaucoma Hyperlipidemia Medical History Chronic anemia baseline hgb 12-13 range per chart review Morbid obesity Diabetes mellitus, type 2 NIDDM Spinal stenosis Surgical History History of tonsillectomy and adenoidectomy S/P epidural steroid injection History of esophagogastroduodenoscopy (EGD) EGD (10/02/19): MAC at [facility] Trigger finger Left hand trigger finger release History of carpal tunnel release R/L History of arthroscopy Right knee History of colonoscopy History of appendectomy History of tooth extraction Family History Father Family history of diabetes mellitus Mother Family history of diabetes mellitus Other No family history of adverse response to anesthesia Social History Smoking Status: Former smoker Tobacco Type: Cigarettes Smoking End Date: 2000; Second Hand Exposure: Yes (IN THE PAST); Do You Dip or Chew Tobacco: No; Hx Alcohol Use: Yes Alcohol type: beer Hx Substance Use: No Preferred Language: Indian Communication Ability: Effective 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 Operator Required: No Beliefs That Will Affect Care: None marital status: Current Living Situation: Spouse Current Living Situation Comment: AND ADOPTED GRANDAUGHTER How many Children do You have: 2 Feels Safe at Home: Yes Safety Concerns: Feels Safe At This Time Assistive Devices: Glasses Physical Exam Physical Exam: Physical Exam: General: In no acute distress, stated age, morbidly obese, nontoxic-appearing HEENT: Normocephalic, atraumatic, no scleral icterus, pupils around round, symmetrical, and reactive to light, moist mucus membranes, trachea midline, no thyromegaly Chest/Pulm: No respiratory distress, symmetrical chest expansion, clear breath sounds throughout Cardiac: RRR, no murmurs noted Abdomen: Negative for ascites and bruising, normoactive bowel sounds, soft, non-tender to palpation throughout Musculoskeletal: Symmetrical and without signs of acute trauma, right upper and lower extremity are weak compared to left extremities Extremities: Radial, dorsalis pedis, and posterior tibial pulses are intact and symmetrical, no edema noted in the BL LE's Skin: Warm, dry, no rashes , lesions, or scars noted Neuro: Alert and oriented to person, place, month, year, and president, no focal defects, CN II-XII tested and intact, patient with positive pronator drift and cerebellar testing in the right upper extremity negative in the left upper extremity, decreased sensation in the right upper extremity compared to left, symmetrical sensation in the bilateral lower extremities, no tremors noted Psych: No acute distress, calm and cooperative during the exam Results & Data Results & Data Vital Signs (Past 12 Hours) Vital Signs Temp Pulse Resp BP Pulse Ox O2 Del Method 04/21/24 13:07 68 04/21/24 12:44 73 20 98 Room Air 04/21/24 12:44 Room Air 04/21/24 12:36 36.2 C L 71 18 168/100 H 97 Room Air Laboratory Results Abnormal lab results 04/21/24 Range/Units 12:55 Hgb 13.3 L (14.0-18.0) g/dl MCHC 30.9 L (32.0-36.0) g/dL RDW Coeff of Anisha 14.8 H (11.5-14.5) % Glucose 127 H (70-99(Fasting)) mg/dl Diagnostic Findings Chest X-Ray 04/21/24 12:44 SINGLE VIEW CHEST CLINICAL HISTORY: Strokelike symptoms. FINDINGS: An AP, portable, upright chest radiograph is compared to chest x-ray and chest CT dated 02/20/2022. The heart is enlarged. The pulmonary vasculature is noncongested. Chronic interstitial thickening is similar to previous. There is mild bibasilar scarring/atelectasis. The lungs and pleural spaces are otherwise clear. No pneumothorax is seen. The skeletal structures are osteopenic. The bony thorax is grossly intact. Arthritic change is seen in the shoulders. IMPRESSION: Cardiomegaly with no active disease in the chest. ACT 112: Negative or not required by law. Electronically signed by: Edmar Field M.D. 04/21/2024 1:[address] 04/21/24 13:[address] OF THE BRAIN; CT ANGIOGRAM OF THE BRAIN; CT ANGIOGRAM OF THE NECK CLINICAL HISTORY: Strokelike symptoms. Neurological deficit. Right upper and lower extremity deficits. COMPARISON STUDY: CT of the brain dated 04/16/2023. CT angiogram of the head and neck dated 03/12/2021. TECHNIQUE: Unenhanced axial CT scan of the brain is performed. Subsequently, following the IV administration of 119 of Optiray 320, CT angiogram of the head and neck was performed from the aortic arch to the vertex. Images are reviewed in the axial, sagittal, and coronal planes. 3-D MIPS images are created and assessed. IV contrast was administered without complication. All measurements were calculated based on NASCET criteria. A dose lowering technique was utilized adhering to the principles of ALARA. CT DOSE: 1199.16 mGy.cm FINDINGS: Brain parenchyma: There is age-related involutional change noting moderate to advanced subcortical and periventricular microangiopathic disease. There is no hemorrhage, mass effect, or evidence of acute territorial ischemia by CT criteria. There is no evidence of enhancing mass lesion on the angiogram phase images. The ventricles, sulci, and cisterns are prominent secondary to involu tional change. Chronic lacunar infarcts are noted in both thalami. Levy-white matter differentiation is preserved. No extra-axial fluid collection is seen. Thoracic aorta: There is atherosclerotic calcification of the thoracic aorta. Visualized portions of the thoracic aorta are normal in caliber. The aortic arch demonstrates standard 3-vessel anatomy. Right carotid arterial system: The right common carotid artery is widely patent, as are the right internal and external carotid arteries. Advanced calcified plaque is seen in the carotid bulb and proximal ICA. Left carotid arterial system: The left common carotid artery is widely patent. There is advanced atherosclerotic plaque in the carotid bulb. This causes approximately 50% stenosis of the proximal left internal carotid artery. The internal and external carotid arteries are otherwise widely patent. Vertebral arteries: The vertebral arteries are widely patent bilaterally and codominant. Subclavian arteries: Widely patent bilaterally. Intracranial vasculature: There is atherosclerotic calcification of the cavernous carotid arteries. The [place] is developmentally complete. The internal carotid arteries are patent at the skull base, as are the anterior and middle cerebral arteries bilaterally. The vertebrobasilar system and posterior cerebral arteries are widely patent. The vertebral arteries are codominant. There is no aneurysm, high-grade stenosis, or focal vessel cut off seen throughout the intracranial circulation. Jugular veins: Patent bilaterally. Dural sinuses: Patent. Lung apices: Partially visualized upper lobe lung parenchyma appears clear. Soft tissues: The visualized pharyngeal soft tissues are normal in appearance noting angiographic phase technique. The oropharyngeal airway appears widely patent. The salivary and thyroid glands are normal in appearance. No cervical lymphadenopathy is seen. Skeletal structures: The skeletal structures are osteopenic. The calvarium appears intact. The cervical spine is maintained noting mild multilevel spondylosis Orbits: The bony orbits are intact. Orbital contents are normal as visualized. Sinuses and mastoids: The paranasal sinuses are clear. The mastoid air cells are well pneumatized. IMPRESSION: 1. There is no hemorrhage, mass effect, or evidence of acute territorial ischemia by CT criteria. 2. Unremarkable CT angiogram of the brain. 3. Atherosclerotic plaque in the carotid bulbs causes less than 50% stenosis of the proximal the left internal carotid artery. 4. Otherwise unremarkable CT angiogram of the neck. ACT 112: Negative or not required by law. Electronically signed by: Edmar Field M.D. 04/21/2024 2:17 PM Head CTA 04/21/24 13:[address] OF THE BRAIN; CT ANGIOGRAM OF THE BRAIN; CT ANGIOGRAM OF THE NECK CLINICAL HISTORY: Strokelike symptoms. Neurological deficit. Right upper and lower extremity deficits. COMPARISON STUDY: CT of the brain dated 04/16/2023. CT angiogram of the head and neck dated 03/12/2021. TECHNIQUE: Unenhanced axial CT scan of the brain is performed. Subsequently, following the IV administration of 119 of Optiray 320, CT angiogram of the head and neck was performed from the aortic arch to the vertex. Images are reviewed in the axial, sagittal, and coronal planes. 3-D MIPS images are created and assessed. IV contrast was administered without complication. All measurements were calculated based on NASCET criteria. A dose lowering technique was utilized adhering to the principles of ALARA. CT DOSE: 1199.16 mGy.cm FINDINGS: Brain parenchyma: There is age-related involutional change noting moderate to advanced subcortical and periventricular microangiopathic disease. There is no hemorrhage, mass effect, or evidence of acute territorial ischemia by CT criteria. There is no evidence of enhancing mass lesion on the angiogram phase images. The ventricles, sulci, and cisterns are prominent secondary to involut ional change. Chronic lacunar infarcts are noted in both thalami. Levy-white matter differentiation is preserved. No extra-axial fluid collection is seen. Thoracic aorta: There is atherosclerotic calcification of the thoracic aorta. Visualized portions of the thoracic aorta are normal in caliber. The aortic arch demonstrates standard 3-vessel anatomy. Right carotid arterial system: The right common carotid artery is widely patent, as are the right internal and external carotid arteries. Advanced calcified plaque is seen in the carotid bulb and proximal ICA. Left carotid arterial system: The left common carotid artery is widely patent. There is advanced atherosclerotic plaque in the carotid bulb. This causes approximately 50% stenosis of the proximal left internal carotid artery. The internal and external carotid arteries are otherwise widely patent. Vertebral arteries: The vertebral arteries are widely patent bilaterally and codominant. Subclavian arteries: Widely patent bilaterally. Intracranial vasculature: There is atherosclerotic calcification of the cavernous carotid arteries. The [place] is developmentally complete. The internal carotid arteries are patent at the skull base, as are the anterior and middle cerebral arteries bilaterally. The vertebrobasilar system and posterior cerebral arteries are widely patent. The vertebral arteries are codominant. There is no aneurysm, high-grade stenosis, or focal vessel cut off seen throughout the intracranial circulation. Jugular veins: Patent bilaterally. Dural sinuses: Patent. Lung apices: Partially visualized upper lobe lung parenchyma appears clear. Soft tissues: The visualized pharyngeal soft tissues are normal in appearance noting angiographic phase technique. The oropharyngeal airway appears widely patent. The salivary and thyroid glands are normal in appearance. No cervical lymphadenopathy is seen. Skeletal structures: The skeletal structures are osteopenic. The calvarium appears intact. The cervical spine is maintained noting mild multilevel spondylosis Orbits: The bony orbits are intact. Orbital contents are normal as visualized. Sinuses and mastoids: The paranasal sinuses are clear. The mastoid air cells are well pneumatized. IMPRESSION: 1. There is no hemorrhage, mass effect, or evidence of acute territorial ischemia by CT criteria. 2. Unremarkable CT angiogram of the brain. 3. Atherosclerotic plaque in the carotid bulbs causes less than 50% stenosis of the proximal the left internal carotid artery. 4. Otherwise unremarkable CT angiogram of the neck. ACT 112: Negative or not required by law. Electronically signed by: Edmar iFeld M.D. 04/21/2024 2:17 PM Neck CTA 04/21/24 13:[address] OF THE BRAIN; CT ANGIOGRAM OF THE BRAIN; CT ANGIOGRAM OF THE NECK CLINICAL HISTORY: Strokelike symptoms. Neurological deficit. Right upper and lower extremity deficits. COMPARISON STUDY: CT of the brain dated 04/16/2023. CT angiogram of the head and neck dated 03/12/2021. TECHNIQUE: Unenhanced axial CT scan of the brain is performed. Subsequently, following the IV administration of 119 of Optiray 320, CT angiogram of the head and neck was performed from the aortic arch to the vertex. Images are reviewed in the axial, sagittal, and coronal planes. 3-D MIPS images are created and assessed. IV contrast was administered without complication. All measurements were calculated based on NASCET criteria. A dose lowering technique was utilized adhering to the principles of ALARA. CT DOSE: 1199.16 mGy.cm FINDINGS: Brain parenchyma: There is age-related involutional change noting moderate to advanced subcortical and periventricular microangiopathic disease. There is no hemorrhage, mass effect, or evidence of acute territorial ischemia by CT criteria. There is no evidence of enhancing mass lesion on the angiogram phase images. The ventricles, sulci, and cisterns are prominent secondary to involuti onal change. Chronic lacunar infarcts are noted in both thalami. Levy-white matter differentiation is preserved. No extra-axial fluid collection is seen. Thoracic aorta: There is atherosclerotic calcification of the thoracic aorta. Visualized portions of the thoracic aorta are normal in caliber. The aortic arch demonstrates standard 3-vessel anatomy. Right carotid arterial system: The right common carotid artery is widely patent, as are the right internal and external carotid arteries. Advanced calcified plaque is seen in the carotid bulb and proximal ICA. Left carotid arterial system: The left common carotid artery is widely patent. There is advanced atherosclerotic plaque in the carotid bulb. This causes approximately 50% stenosis of the proximal left internal carotid artery. The i nternal and external carotid arteries are otherwise widely patent. Vertebral arteries: The vertebral arteries are widely patent bilaterally and codominant. Subclavian arteries: Widely patent bilaterally. Intracranial vasculature: There is atherosclerotic calcification of the cavernous carotid arteries. The [place] is developmentally complete. The internal carotid arteries are patent at the skull base, as are the anterior and middle cerebral arteries bilaterally. The vertebrobasilar system and posterior cerebral arteries are widely patent. The vertebral arteries are codominant. There is no aneurysm, high-grade stenosis, or focal vessel cut off seen throughout the intracranial circulation. Jugular veins: Patent bilaterally. Dural sinuses: Patent. Lung apices: Partially visualized upper lobe lung parenchyma appears clear. Soft tissues: The visualized pharyngeal soft tissues are normal in appearance noting angiographic phase technique. The oropharyngeal airway appears widely patent. The salivary and thyroid glands are normal in appearance. No cervical lymphadenopathy is seen. Skeletal structures: The skeletal structures are osteopenic. The calvarium appears intact. The cervical spine is maintained noting mild multilevel spondylosis Orbits: The bony orbits are intact. Orbital contents are normal as visualized. Sinuses and mastoids: The paranasal sinuses are clear. The mastoid air cells are well pneumatized. IMPRESSION: 1. There is no hemorrhage, mass effect, or evidence of acute territorial ischemia by CT criteria. 2. Unremarkable CT angiogram of the brain. 3. Atherosclerotic plaque in the carotid bulbs causes less than 50% stenosis of the proximal the left internal carotid artery. 4. Otherwise unremarkable CT angiogram of the neck. ACT 112: Negative or not required by law. Electronically signed by: Edmar Field M.D. 04/21/2024 2:17 PM Code Status & VTE Plan Code Status Full code VTE Prophylaxis Plan VTE Prophylaxis will be ordered: Yes Supervising Physician Co-Signing Physician Notes I personally saw and examined the patient. I verified all astudillo points and agree with Victor M Martínez PA-C with the following exceptions and/or additions: 68 year old right handed male presents to the ER with right leg weakness 4 days ago then right arm weakness starting 2 days ago especially noticed with equalizer operator strength. No compliant with his medications and not recently taking aspirin or his BP medications O/E HS RRR, no murmurs, Chest CTAB, Abdo SNT, mild right pronator drift, right equalizer operator strength 4+, right hip flex 4+, no foot drop, otherwise 5/5 power throughout b/l extremities, CN 2-> 12 intact A/P Acute CVA - Start DAPT with aspirin and clopidogrel, Lipid panel and HbA1C in AM, restart anti-hypertensives (no need for permissive hypertension given stroke > 48 hours ago), hydralazine 5mg IV for sBP > 180. Consult neurology. PG Care Time/CCT Total # of Minutes Spent Total Time Spent with Patient: Total time spent is greater than 50% in coordination of care (as documented) at patient's floor/unit and/or counseling patient: [place] [address] INT INP/OBS CARE 3/75MIN Patient Type Established Medical Decision Making High Complexity Diagnoses Stroke-like symptoms R29.90 Diabetes mellitus, type 2 E11.9 Hypertension I10 Hypertension type: unspecified Sleep apnea G47.30 (3) Hypertension Hypertension type: unspecified Qualified Code(s): I10 - Essential (primary) hypertension
[2024-04-21] MEDS ORDERED: DEXTROSE 50% 50 ML SYRINGE IV PRN (14:52)
[2024-04-21] MEDS ORDERED: CARBOHYDRATES FOR HYPOGLYCEMIA PO PRN (14:52)
[2024-04-21] MEDS ORDERED: GLUCOSE 10 TAB/TUBE PO PRN (14:52)
[2024-04-21] MEDS ORDERED: GLUCOSE 40% GEL 15 GM TUBE PO PRN (14:52)
[2024-04-21] MEDS ORDERED: GLUCAGON FOR INJ 1 MG VIAL SQ PRN (14:52)
[2024-04-21 15:02] LABS: iSTAT Creatinine 1.1 mg/dl (0.6-1.3); iSTAT Ionized Calcium 1.22 mmol/l (1.12-1.32); iSTAT Potassium 4.1 mmol/L (3.3-5.0)
--- NOTE | 2024-04-21 15:39 | Electrocardiogram Report ---
Test Reason : Blood Pressure : */* mmHG Vent. Rate : 69 BPM Atrial Rate : 69 BPM P-R Int : 146 ms QRS Dur : 78 ms QT Int : 392 ms P-R-T Axes : 63 8 61 degrees QTcB Int : 420 ms Normal sinus rhythm Poor R wave progression, consider anterior [place] vs. lead placement vs. LVH Abnormal ECG When compared with ECG of 16-Apr-2023 20:13, No significant change was found Confirmed by Jose Aiken ([id number]) on 04/21/2024 3:38:46 PM Referred By: REFERRED SELF Confirmed By: Jose Aiken
[2024-04-21] MEDS: LOSARTAN POTASSIUM 50 MG TAB PO STA (16:02)
--- NOTE | 2024-04-21 16:09 | Magnetic Resonance Report ---
Brain MRI WITHOUT CONTRAST HISTORY: Gait disturbance. stroke workup TECHNIQUE: Multiplanar multisequence MRI of the brain was performed without the use of contrast. COMPARISON STUDY: Head CT 04/21/2024. Brain MRI 03/13/2021. FINDINGS: There is a 5 mm focus of restricted diffusion within the left thalamus on image 11 consiste nt with an acute lacunar infarct. The midline structures are intact. Old lacunar infarcts are again n oted within the bilateral thalami and left cerebellar hemisphere. Multiple scattered foci of suscepti bility artifact within the brain most pronounced within the cerebellar hemispheres. This favors cereb ral amyloid angiopathy. This is new compared to the prior study. The ventricles and sulci demonstrate mild age-related involutional changes. There is no mass, hematoma, midline shift. The orbits are unr emarkable. The paranasal sinuses and mastoid air cells are clear. The major vascular flow voids at th e skull base are maintained. Patchy periventricular white matter T2 hyperintensity is similar to the prior study. This favors moderate microvascular ischemic change. IMPRESSION: 1. A 5 mm acute lacunar infarct within the left thalamus. 2. Old bilateral thalamic lacunar infarcts again noted. 3. Patchy periventricular white matter T2 hyperintensity persists and favors moderate microvascular i schemic change. 4. Interval development of multiple scattered punctate foci of susceptibility artifact within the bra in suggestive of cerebral amyloid angiopathy. ACT 112: Negative or not required by law. Electronically signed by: Mike Thompson M.D. 04/21/2024 4:06 PM
--- OUTSIDE RECORDS SUMMARY | 2024-04-21 16:19 | External Medical Summary | Continuity of Care Document ---
Author Name Unknown Organization [facility] [address] [place] [id number] Address [address] [place] [address] [phone] Care Team Providers Care Advertising Account Executive Name Role Phone Nita Brady Primary Care Physician [phone] Encounter [facility] [id number] Date(s): 03/08/24 - 03/08/24 [facility] [address] [facility] [address] [facility] [address] [phone] Encounter Diagnosis Spinal stenosis, lumbar region with neurogenic claudication(Discharge Diagnosis) - 03/03/24 Right lumbar radiculopathy(Discharge Diagnosis) - 03/03/24 Discharge Disposition: Home or Self Care Attending Physician: MD Stanton, Gerard Moran Allergies, Adverse Reactions, Alerts Substance Criticality Severity Reaction Reaction Severity Status sulfa drugs rash Active Allergy Not found in Search 1 Pain in leg Active 1cement used for artifical knee Immunizations Given and Recorded Vaccine Date Status Refusal Reason influenza virus vaccine, inactivated 06/18/23 Give n influenza virus vaccine, inactivated 08/04/21 Give n influenza virus vaccine, inactivated 06/03/20 Give n influenza virus vaccine, inactivated 05/17/19 Give n influenza virus vaccine, inactivated 06/06/18 Give n SARS-CoV-2 (COVID-19) mRNA BNT-162b2 vax 1 11/29/20 Recorded SARS-CoV-2 (COVID-19) mRNA BNT-162b2 vax 2 11/08/20 Recorded pneumococcal 13-valent vaccine 05/17/19 Given pneumococcal 23-valent vaccine 08/30/17 Given tetanus/diphtheria/pertuss, acel (Tdap) 04/18/15 G iven tetanus toxoids-diphtheria, Td (Adult) 10/14/02 Re corded 1Result Comment: 2021-08-04: Historical information-source unspecified 2Result Comment: 2021-08-04: Historical information-source unspecified Medications aspirin 81 mg oral delayed release tablet Start: 07/24/22 9:14:00 AM EST, 1 tab, PO, Daily, Disp# 30 tab, Refills: 3, other Start Date: 07/24/22 Status: Ordered Dexcom G6 Screen Machine Operator Kit Start: 06/21/23 10:36:00 AM EST, See Instructions, Disp# 1 kit, Refills: 0, Check glucose QID and PRN. E11.9, Pharmacy: [facility] Start Date: 06/21/23 Status: Ordered Dexcom G6 Sensor Kit Start: 06/21/23 10:36:00 AM EST, See Instructions, Disp# 9 kit, Refills: 4, Check glucose QID and PRN. 3 pack every 30 days. Dispense 90 day supply. E11.9, Pharmacy: [facility] Start Date: 06/21/23 Status: Ordered Dexcom G6 Transmitter Kit Start: 06/21/23 10:36:00 AM EST, See Instructions, Disp# 1 kit, Refills: 4, Check glucose QID and PRN. 1 pack every 3 months. Dispense 90 day supply. E11.9, Pharmacy: [facility] Start Date: 06/21/23 Status: Ordered Jardiance 25 mg oral tablet Start: 02/02/24 1:32:00 PM EDT, 1 tab, PO, Daily, Disp# 30 tab, Refills: 11, Pharmacy: [place] [id number] Start Date: 02/02/24 Status: Ordered losartan 100 mg oral tablet Start: 02/01/24 3:25:00 PM EDT, 1 tab, PO, Daily, Disp# 90 tab, Refills: 3, Pharmacy: [place] [id number] Start Date: 02/01/24 Status: Ordered metFORMIN 500 mg oral tablet Start: 03/03/24 1:37:00 PM EDT, 90 each, 0 Refill(s), TAKE 2 TABLETS BY MOUTH IN THE MORNING AND 1 IN THE EVENING Start Date: 03/03/24 Status: Ordered Mental Status 03/08/24 Barriers to Learning one year None evide nt Mandatory Health Literacy Documentation Yes Health Literacy Communication Barriers N ever Primary Language Qatari Problem List Condition Confirmation Course Effective Dates Status H ealth Status Informant Atherosclerosis of aorta 1 Confirmed Active Dorsalgia, unspecified Confirmed Active 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 artery Confirmed Active Alcoholism in remission Confirmed Active Chronic knee pain after total replacement of right knee joint Confirmed Active Diabetes Confirmed Active Left median nerve neuropathy Confirmed Active DiverticulOSIS Confirmed Active Cubital tunnel syndrome on left Confirmed Active Glaucoma 2 Confirmed Active Hx of myocardial infarction Confirmed Active Hypertension Confirmed Active Iliotibial band syndrome affecting right lower leg Confirmed Active Erectile dysfunction Confirmed Active Lacunar stroke Confirmed Active Lower urinary tract symptoms (LUTS) Confirmed Active Lumbar facet syndrome Confirmed Active Right lumbar radiculopathy Confirmed Active Microscopic hematuria Confirmed Active Morbid obesity (disorder) Confirmed Active QUOC on CPAP Confirmed Active Osteoarthritis Confirmed Active Knee pain, right Confirmed Active Pain in right knee Confirmed Active Spinal stenosis of lumbar region Confirmed Active Type 2 diabetes mellitus Confirmed Active 1See outside note 10/05/19 (page 11) 10/01/2019 CT SCAN OF THE ABDOMEN AND PELVIS WITH IV CONTRAST FINDINGS: Abdominal vasculature: The abdominal aorta is normal in course and caliber noting moderate atherosclerotic calcification 2Low Pressure Diagnosis Diagnosis Type Effective Dates Health Status Clinical Service Informant Right lumbar radiculopathy Discharge Diagnosis 03/03/24 Spinal stenosis, lumbar region with neurogenic claudication Discharge Diagnosis 03/03/24 Procedures Procedure Date Related Diagnosis Body Site Status CT of head 1 04/16/23 Completed Revision of right total knee arthroplasty 01/2023 Completed Revision of right total knee arthroplasty 09/08/22 Completed Plain X-ray of left elbow 2 07/16/[address] of abdomen and pelvis 3 02/20/[address] of chest 4 02/20/[address] of head 5 03/11/21 Completed Total knee arthroplasty 6 03/11/21 Completed Lumbar epidural steroid injection 12/25/20 Completed Total knee replacement 2020 Completed Epidural injection of lumbar spine using fluoroscopic guidance 05/06/20 Comp leted Upper GI endoscopy 8 10/02/[address] of abdomen and pelvis wit h contrast 9 10/01/19 Completed X-ray of right hand 10 08/19/19 Co mpleted Polysomnography 11 07/14/17 Comple radha Injection into facet joint o f lumbar spine using fluoroscopic guidance 12/26/15 Completed MRI of lumbar spine 12 11/25/15 Co mpleted Injection 13 11/07/15 Completed Shoulder X-ray 14 08/07/14 Complet ed Colonoscopy 15 07/09/14 Completed Arthroscopy of knee 16 2006 Co mpleted CTR - Carpal tunnel release 17 2005 Completed CTR - Carpal tunnel release 18 2004 Completed Appendectomy Completed Fracture 19, 20 Completed L knee; carpal tunnel; appendix; Completed Tonsillectomy Completed 1IMPRESSION: There is no hemorrhage, mass effect, or evidence of acute territorial ischemia by CT criteria 2IMPRESSION: No acute fracture or dislocation. 3Unremarkable CT angiogram of the abdominal aorta noting atherosclerotic plaque and irregularity. Nodissection is seen There is mild stenosis of the proximal superior mesenteric artery. Otherwise unremarkable CT angiogram of the major branches of the abdominal aorta. No acute infectious or inflammatory findings are identified in the abdomen or pelvis. Advanced colonic diverticulosis without CT evidence of acute diverticulitis. 4No evidence for an aortic dissection Moderate to severe calcified plaque within the coronary arteries. Mild interlobular septal thickening within the lung apices with peribronchial vascular thickening and a few small groundglass densities within the right lung. This likely represents developing asymmetric pulmonary edema. An atypcial pneumonitis is considered less likely but not entirely excluded. 5no acute intracranial hemorrhage, no midline shift or space occupying lesions no acute depressed skull fractures chronic small vessel ischemia. Few lacunar infarcts within right and left basal ganglia 6Right 7right 8impression - Z-line regular 40 cm from the incisors - Normal esophagus - Non-bleeding ulcers with pigmented material - Duodenal scar - No specimens collected 91. There are no acute infectious or inflammatory findings identified in the abdomen or pelvis. 2. Moderate colonic diverticulosis without clear CT evidence of acute diverticulitis. 3. Moderate constipation. 4. Nephrolithiasis. 5. Additional findings as above. 10MIld degenerative change of the intercarpal as well as carpal metacarpal joints. Otherwise negativestudy. 11Severe QUOC 12Degenerative disc disease with desiccation of disc materal.no disc protrusion or extrusions however 13Caudal epidural steroid injection under fluoroscopyic lumbar spinal stenosis with right S1 radiculopathy 14Mild degenerative changes in the AC joint. No fractures or dislocations identified 15ileocecal vlave biopsies--benign lymphoid aggregates. 16right 17R/L 18left 19right clavicle [id number] Vital Signs Most recent to oldest [Reference Range]: 1 Heart Rate 78 bpm (03/08/24 9:11 AM) Blood Pressure 162/94mmHg (03/08/24 9:11 AM) Social History Social History Type Response Tobacco Former smoker, Cigar ettes Smoking Status Never smoked cigaret brittany Sex Male Sex Representation Male (finding) Ortho Outpt Note * MD Stanton, Gerard Moran: PERFORM Event Display: Ortho Outpt Note Authored Date: [id number] Name:SHAUNA GARZA Patient Number:[id number] :1955 Date of Service:03/08/2024 Preoperative diagnosis:Lumbar disc disease with right lower extremity radiculopathy Postoperative diagnosis: Same Procedure: Right paramedian L5-S1 interlaminar epidural steroid injection under fluoroscopic guidance Indications: Patient is [id number] male who had a positive response to an epidural injection done 6 months ago however the effectiveness is worn off presents today for another injection provided with relief Physical examination:Pleasant male moving about slowlyhe is without any focal motor or sensory deficits negative seated straight leg raises Consent: Verbal consent was obtained from the patient. Prior to the procedure a timeout was done for safety to confirm patient's full name and date of injection type location and approach. Procedure: Patient was maintained in a prone position backside was cleansed with Betadine x 3, fluoroscope was used to identify the L5-S1 interlaminar space. The overlying skin on the right side was anesthetized with 4 mL of lidocaine 1% with a 25-gauge 1-1/2 inch needle. 22-gauge 4-1/4 inch Tuohy needle was then directed down towards the interlaminar space was advanced under lateral fluoroscopic guidance and loss of resistance was noted at a depth of <12cm. Omnipaque 300 contrast half milliliter was injected and which demonstrated an epidural uptake pattern they then underwent injection after negative aspiration of 40 mg Depo-Medrol and 4 mL of preservative-free sodium chloride.Injection was tolerated. Images from the procedure were saved and downloaded to PACS. Disposition: Patient will be discharged home once discharge criteria have been met Electronic Signature on File Electronically Reviewed/Signed by: Gerard iEd MD Author Signature Dt/Tm:03/08/2024 09:46 AM Data Systems Manager of Orthopaedics & Rehabilitation and Physical Medicine & Rehabilitation [facility] .Outpt Proc * WONG Ohara, Molly Deshpande: PERFORM Event Display: .Outpt Proc Authored Date: [id number] OUTPATIENT PROCEDURE Name: SHAUNA GARZA Patient Number: [id number] : 1955 Date of Service: 03/08/2024 OUTPATIENT PROCEDURE NOTE Is patient no Procedure performedRightLumbar Epidural Steroid Injection [id number] byDr. Gerard Eid MD Resuscitation equipment checkedyes Anticoagulants stoppedyes - Aspirin - last dose on 03/04 Patient has a driveryes xray guidance usedyesConscious sedationnoTime out completedyes consent signedyes Allergies checkedyesAllergy Not found in Search; sulfa drugs Diabeticyes PositionPronePre procedure pain level __8_/10 Skin PrepBetadineSterile drapes usedyes Skin Local Anesthetic: Needle __25___ga ___1.5___in Lidocaile ___1__%___4__ml Other HR: 78 SpO2: 96% BP: 162/94 Block Needle _22_GA_4.25_InchesType - Tuoghy needle Procedure medication used Cortical Steroids __40_mg MethylprednisoloneLocal Anesthetic % ml _- NSS 4ml TimeDrug/Event/[id number] Comments 0939 - 0.5ml Omnipaque 0940 - Procedure complete 187/82 76 97% Pt did not take morning dose of Losartan, he will go home and take his BP medication Status:Pain on discharge __0__/10ComplicationsNo Neurologically stableYes DispositionDischarged Home with aftercare instructions given Follow up prn Electronic Signature on File Electronically Reviewed/Signed by: Molly Ohara Author Signature Dt/Tm:03/08/2024 09:49 AM Electronically Reviewed/Signed by: Gerard Eid MD Cosigner Signature Dt/Tm: 03/08/2024 04:00 PM Data Systems Manager of Orthopaedics & Rehabilitation and Physical Medicine & Rehabilitation [facility] Patient Care team information Care Team Personnel Name: MO Brady Tara Position: Nurse Pract - Family Med Member Role: Primary Care Provider Address: [address] [place] [address] [place] Name: MD Trevino Christopher Position: Physician - Family Med Member Role: Lifetime Relationship Address: [address] [place] [address] Care Team Related Persons Name: GIORGI GARZA
--- OUTSIDE RECORDS SUMMARY | 2024-04-21 16:19 | External Medical Summary | Continuity of Care Document ---
Author Name Unknown Organization [facility] [id number] Address [address] [place] [address] [phone] Care Team Providers Care Computational Biologist Name Role Phone Nita Brady Primary Care Physician [phone] [id number] Date(s): 02/16/24 - 02/16/24 [facility] [employer] [address] Mobile Experience [facility] [facility] [address] [place] [address] Encounter Diagnosis Chronic knee pain after total replacement of right knee joint(Discharge Diagnosis) - 02/16/24 Discharge Disposition: Home or Self Care Attending Physician: DO Garcia Mehwish Allergies, Adverse Reactions, Alerts Substance Criticality Severity Reaction Reaction Severity Status sulfa drugs rash Active Allergy Not found in Search 1 Pain in leg Active 1cement used for artifical knee Assessment and Plan Extracted from: Title:Office Visit Note Author:DO Garcia Me hwish Date:02/16/24 1.Chronic knee pain after total replacement of right knee joint Unfortunately at this point, I discussedthat the iovera procedurewas not successful for him in terms of providing him pain relief. Given his past response to LESI,I will have him see Dr. Eid to discuss possiblerepeatLESI injectionas these have offered significant relief in the pastfor his radicular symptoms including pain around his knee. He is already scheduled for an appointment with Dr. Carroll at the end of April, I advised him to keep this appointment. Discussed that no further follow-up is required after the iovera procedure.Follow-up as needed. Time: 24_mins 3 - pre-visit chart review 14 - visit, inclusive of history, exam, and discussion of assessment/plan 7 - post-visit documentation/orders/coordination of care Immunizations Given and Recorded Vaccine Date Status [...] 3, other Start Date: 07/24/22 Status: Ordered atorvastatin 40 mg oral tablet Start: 02/01/24 3:25:00 PM EDT, 1 tab, PO, qhs, Disp# 90 tab, Refills: 3, Pharmacy: [id number] Start Date: 02/01/24 Status: Ordered Dexcom G6 Kiln Feeder Kit Start: 06/21/23 10:36:00 AM EST, See Instructions, Disp# 1 kit, Refills: 0, Check glucose QID and PRN. E11.9, Pharmacy: [facility] Start Date: 06/21/23 Status: Ordered Dexcom G6 Sensor Kit Start: 06/21/23 10:36:00 AM EST, See Instructions, Disp# 9 kit, Refills: 4, Check glucose QID and PRN. 3 pack every 30 days. Dispense 90 day supply. E11.9, Pharmacy: [facility] Start Date: 06/21/23 Status: Ordered Dexcom G6 Transmitter Kit Start: 06/21/23 10:36:00 AM EST, See Instructions, Disp# 1 kit, Refills: 4, Check glucose QID and PRN. 1 pack every 3 months. Dispense 90 day supply. E11.9, Pharmacy: [facility] Start Date: 06/21/23 Status: Ordered Jardiance 25 mg oral tablet Start: 02/02/24 1:32:00 PM EDT, 1 tab, PO, Daily, Disp# 30 tab, Refills: 11, Pharmacy: [facility] Start Date: 02/02/24 Status: Ordered losartan 100 mg oral tablet Start: 02/01/24 3:25:00 PM EDT, 1 tab, PO, Daily, Disp# 90 tab, Refills: 3, [facility] Start Date: 02/01/24 Status: Ordered Mental Status 02/16/24 Barriers to Learning one year None evide nt Mandatory Health Literacy Documentation Yes Health Literacy Communication Barriers N ever Primary Language Niuean Problem List Condition Confirmation Course Effective Dates Status H ealth Status Informant Atherosclerosis of aorta 1 Confirmed Active Dorsalgia, unspecified Confirmed Active CAD in [place] artery Confirmed Active Alcoholism in remission Confirmed [...] Effective Dates Health Status Clinical Service Informant Chronic knee pain after total replacement of right knee joint Discharge Diagnosis 02/16/24 Non-Specified Procedures Procedure Date Related Diagnosis Body Site [...] lymphoid aggregates. 16right 17R/L 18left 19right clavicle [id number] Social History Social History Type Response Tobacco Former smoker, Cigar ettes Smoking Status Never smoked cigaret brittany Sex Male Ortho Outpt Note * DO Garcia Mehwish: PERFORM Event Display: Ortho Outpt Note Authored Date: [id number] Chief Complaint 2 week follow up right knee iovera History of Present Illness Joeeliot a68yo maleseenforfollow-upofright kneeIovera. Iovera procedure on 02/02/24 for the right knee. Henotes that he did not have any complications. He denies anyerythema or drainage from theprocedure sites. He notes that he hadno bruising. He notes that he did not get pain relieffrom the procedure. Still is having a lot of pain related to his knee. Iovera posttreatment questionnaire Stiffness 0/10 Pain with twisting 10/10 Pain with knee extension0/10 Pain with stairs 10/10 Pain with standing upright 10/10 Difficulty with rising from sitting7/10 Difficulty with bending to the floor 10/10 Physical Exam GENERAL APPEARANCE: The patient is alert, oriented and in no acute distress. HEENT: Head is normocephalic/atraumatic. LUNGS: Respirations even and unlabored. EXTREMITIES: No cyanosis, clubbing or edema. NEUROLOGICAL: Grossly non-focal exam. SKIN: Warm and dry without any rash. MUSCULOSKELETAL: _ Right knee:Procedure sites arehealing well. There is mild tenderness to palpation over theprocedure site atmid thigh. There is no erythemaor drainage.He continues to havepain withpalpation over the medial and lateral joint lines Assessment/Plan 1.Chronic knee pain after total replacement of right knee joint Unfortunately at this point, I discussedthat the iovera procedurewas not successful for him in terms of providing him pain relief. Given his past response to LESI,I will have him see Dr. Edi to discuss possiblerepeatLESI injectionas these have offered significant relief in the pastfor his radicular symptoms includingpain around his knee. He is already scheduled for an appointment with Dr. Carroll at the end of April, I advised him tokeep this appointment. Discussed that no further follow-up is required after the iovera procedure.Follow-up as needed. Time: 24_mins 3 - pre-visit chart review 14 - visit, inclusive of history, exam, and discussion of assessment/plan 7 - post-visit documentation/orders/coordination of care Problem List/Past Medical History Ongoing Alcoholism in remission Atherosclerosis of aorta CAD in [place] artery Chronic knee pain after total replacement of right knee joint Cubital tunnel syndrome on left Diabetes DiverticulOSIS Dorsalgia, unspecified Erectile dysfunction Glaucoma Hx of myocardial infarction Hypertension Iliotibial band syndrome affecting right lower leg Knee pain, right Lacunar stroke Left median nerve neuropathy Lower urinary tract symptoms (LUTS) Lumbar facet syndrome Microscopic hematuria Morbid obesity (disorder) QUOC on CPAP Osteoarthritis Pain in right knee Right lumbar radiculopathy Spinal stenosis of lumbar region Type 2 diabetes mellitus Resolved Arthritis of knee, right Arthritis of right hand Arthritis of right shoulder region De Quervain's tenosynovitis, left Effusion, right knee Gastric ulcer Hemarthrosis History of Clostridium difficile colitis History of lumbar surgery History of tobacco abuse History of total right knee replacement Melena Morbid obesity due to excess calories NSAID long-term use NSTEMI (non-ST elevated myocardial infarction) Preop testing Right hand pain Right knee pain Right leg paresthesias S/P knee replacement S/P total knee replacement Procedure/Surgical History CT of head| Service Date: 04/16/2023Revision of right total knee arthroplasty| Service Date: 01/2023Revision of right total knee arthroplasty| Service Date: 3Plain X-ray of left elbow| Service Date: 2CT of chest| Service Date: 2CT of abdomen and pelvis| S ervice Date: 2CT of head| Service Date: 03/11/2021Total knee arthroplasty| Service Date: 1Lumbar epidural steroid injection| Service Date: 12/25/2020Total knee replacement| Service Date: pidural injection of lumbar spine using fluoroscopic guidance| Service Date: 05/06/2020Upper GI endoscopy| Service Date: 10/02/2019CT of abdomen and pelvis with contrast| Service Date: 10/01/2019X-ray of right hand| Service Date: 08/19/2019Polysomnography| Service Date: 07/14/2017Injection into facet joint of lumbar spine using fluoroscopic guidance| Service Date: 12/26/2015MRI of lumbar spine| Service Date: 11/25/2015Injection| Service Date: 11/07/2015Shoulder X-ray| Service Date: 08/07/2014Colonoscopy| Service Date: 07/09/2014rthroscopy of knee| Service Date: 2006CTR - Carpal tunnel release| Service Date: 2005CTR - Carpal tunnel release| Service Date: 2004FractureAppendectomyTonsillectomyL knee; carpal tunnel; appendix; Medications aspirin(aspirin 81 mg oral delayed release tablet), 81 mg= 1 tab, PO, Daily, 3 refills atorvastatin(atorvastatin 40 mg oral tablet), 40 mg= 1 tab, PO, qhs, 3 refills diabetes supplies(Dexcom G6 Sensor Kit), See Instructions, 4 refills diabetes supplies(Dexcom G6 Transmitter Kit), See Instructions, 4 refills diabetes supplies(Dexcom G6 Kiln Feeder Kit), See Instructions empagliflozin(Jardiance 25 mg oral tablet), 25 mg= 1 tab, PO, Daily, 11 refills losartan(losartan 100 mg oral tablet), 100 mg= 1 tab, PO, Daily, 3 refills Allergies Allergy Not found in SearchPain in leg sulfa drugsrash Social History Smoking Status Never smoked cigarettes Alcohol - No Risk Stopped at age:53Years 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 CAD (coronary artery disease): Father. COPD: Mother. Cancer: MGM and PGM. Diabetes insipidus: Father, MGF, PGF and PGM. Heart attack: Father. Heart attack: Father. Heart disease: Unknown. High blood pressure: Father, Sister and Brother. VA (myocardial infarction): PGF. Health Status Family Member(s) Immunizations Vaccine Date Status influenza virus vaccine, inactivated 06/18/2023 Given influenza virus vaccine, inactivated 08/04/2021 Given SARS-CoV-2 (COVID-19) mRNA BNT-162b2 vax 11/29/2020 Recorded Comments : 2021-08-04: Historical information-source unspecified SARS-CoV-2 (COVID-19) mRNA BNT-162b2 vax 11/08/2020 Recorded Comments : 2021-08-04: Historical information-source unspecified influenza virus vaccine, inactivated 06/03/2020 Given pneumococcal 13-valent vaccine 05/17/2019 Given influenza virus vaccine, inactivated 05/17/2019 Given influenza virus vaccine, inactivated 06/06/2018 Given pneumococcal 23-valent vaccine 08/30/2017 Given tetanus/diphtheria/pertuss, acel (Tdap) 04/18/2015 Given tetanus toxoids-diphtheria, Td (Adult) 10/2002 Recorded Recommendations Health Maintenance Pending(in the next year) Due Adult Influenza Vaccine due02/13/24and every 1year Adult COVID-19 Vaccination due02/17/24Unknown Frequency Adult Social Determinants of Health Screening due02/17/24Unknown Frequency Medicare Annual Wellness Visit due02/17/24and every 1year Pneumococcal Vaccine Older Adults due02/17/24One-time only Shingles Vaccine due02/17/24One-time only Due In Future Colorectal Cancer Screening not due until07/06/24and every 10year Diabetes Management A1c not due until09/30/24and every 366day Body Mass Index not due until02/01/25and every 366day Satisfied(in the past 1 year) Satisfied Adult Influenza Vaccine on06/18/23.Satisfied by MILLI Rene Bobbi Body Mass Index on09/17/23.Satisfied by MILLI Orozco Heather Diabetes Management A1c on09/30/23.Satisfied by Contributor_system, [email or web address] Diabetes Nephropathy Management on09/30/23.Satisfied by Contributor_system, [email or web address] Diabetic Eye Exam on12/01/23.Satisfied by BRENNEN Corona Lynnae Lipid Screening on09/30/23.Satisfied by Contributor_system, [email or web address] Electronic Signature on File CC: Dulce Presley PA-C [address] [facility] [address] [place] [id number] Electronically Reviewed/Signed by: Leslie Garcia DO Author Signature Dt/Tm:02/17/2024 10:58 AM Division of Sports Medicine MM Patient Care team information Care Team Personnel Name: MO Brady Tara Position: Nurse Pract - Family Med Member Role: Primary Care Provider Address: Address: [address] [place] [id number] [place] Name: MD Trevino Christopher Position: Physician - Family Med Member Role: Lifetime Relationship Address: Address: [address] [address] [place] Care Team Related Persons Name: GIORGI GARZA Address: home [address] [place] [address] [phone]"
--- OUTSIDE RECORDS SUMMARY | 2024-04-21 16:19 | External Medical Summary | Continuity of Care Document ---
Author Name Unknown Organization [facility] [address] [place] [id number] Address [address] [place] [address] [phone] Care Team Providers Care Group Home Supervisor Name Role Phone Nita Brady Primary Care Physician [phone] Encounter [facility] [id number] Date(s): 03/03/24 - 03/03/24 [facility] [address] [facility] [address] [phone] Encounter Diagnosis Right knee pain(Discharge Diagnosis) - 03/03/24 Discharge Disposition: Home or Self Care Attending Physician: MD Carroll Mark A Referring Physician: MD Ozzy, Joe Zelaya Allergies, Adverse Reactions, Alerts Substance Criticality Severity [...] Start Date: 07/24/22 Status: Ordered Dexcom G6 Aluminum Pool Installer Kit Start: 06/21/23 10:36:00 AM EST, See Instructions, Disp# 1 kit, Refills: 0, Check glucose QID and PRN. E11.9, Pharmacy: [place] [id number] Start Date: 06/21/23 Status: Ordered Dexcom G6 Sensor Kit Start: 06/21/23 10:36:00 AM EST, See Instructions, Disp# 9 kit, Refills: 4, Check glucose QID and PRN. 3 pack every 30 days. Dispense 90 day supply. E11.9, Pharmacy: [facility] Start Date: 06/21/23 Status: Ordered Dexcom G6 Transmitter Kit Start: 06/21/23 10:36:00 AM EST, See Instructions, Disp# 1 kit, Refills: 4, Check glucose QID and PRN. 1 pack every 3 months. Dispense 90 day supply. E11.9, Pharmacy: [facility] Start Date: 06/21/23 Status: Ordered Jardiance 25 mg oral tablet Start: 02/02/24 1:32:00 PM EDT, 1 tab, PO, Daily, Disp# 30 tab, Refills: 11, Pharmacy: [facility] Start Date: 02/02/24 Status: Ordered losartan 100 mg oral tablet Start: 02/01/24 3:25:00 PM EDT, 1 tab, PO, Daily, Disp# 90 tab, Refills: 3, Pharmacy: [place] [id number] Start Date: 02/01/24 Status: Ordered metFORMIN 500 mg oral tablet Start: 03/03/24 1:37:00 PM EDT, 90 each, 0 Refill(s), TAKE 2 TABLETS BY MOUTH IN THE MORNING AND 1 IN THE EVENING Start Date: 03/03/24 Status: Ordered Mental Status 03/03/24 Barriers to Learning one year None evide nt Mandatory Health Literacy Documentation Yes Health Literacy Communication Barriers N ever Primary Language Lao Problem List Condition Confirmation Course Effective Dates Status H ealth Status Informant Atherosclerosis of aorta 1 Confirmed Active Dorsalgia, unspecified Confirmed Active CAD in [place] artery Confirmed Active Alcoholism in remission Confirmed [...] Diagnosis Diagnosis Type Effective Dates Health Status Cl inical Service Informant Right knee pain Discharge Diagnosis 03/03/24 Procedures Procedure Date Related [...] Colonoscopy 15 07/09/14 Completed Arthroscopy of knee 2006 Co mpleted CTR - Carpal tunnel [...] Status Never smoked cigaret brittany Sex Male Patient Care team information Care Team Personnel Name: MO Brady Tara Position: Nurse Pract - Family Med Member Role: Primary Care Provider Address: Address: [address] [place] [address], [place] [address] [place] Name: MD Trevino Christopher Position: Physician - Family Med Member Role: Lifetime Relationship Address: Address: [address] [place] [address] Care Team Related Persons Name: GIORGI GARZA Address: home [address] [facility] [facility] [place] [phone]
--- OUTSIDE RECORDS SUMMARY | 2024-04-21 16:19 | External Medical Summary | Continuity of Care Document ---
Author Name Unknown Organization [facility] [address] [place] [id number] Address [address] [place] [place] [phone] Care Team Providers Care Digital Controls Technical Officer Name Role Phone Nita Brady Primary Care Physician [phone] Encounter [facility] [id number] Date(s): 02/02/24 - 02/02/24 [facility] [address] [facility] [address] [facility] [address] [place] [id number] Encounter Diagnosis Knee pain, right(Discharge Diagnosis) - 02/02/24 Chronic knee pain after total replacement of right knee joint(Discharge Diagnosis) - 02/02/24 Discharge Disposition: Home or Self Care Attending Physician: DO Garcia Mehwish Allergies, Adverse Reactions, Alerts Substance Criticality Severity Reaction Reaction Severity Status sulfa drugs rash Active Allergy Not found in Search 1 Pain in leg Active 1cement used for artifical knee Assessment and Plan Extracted from: Title:Office Visit Note Author:DO Garcia Me hwish Date:02/02/24 1.Knee pain, right 2.Chronic knee pain after total replacement of right knee joint Risks and benefits of the procedure were discussed. Patient would like to proceed with theiovera procedure of the right knee. Post-procedure instructions were provided and reviewed. Immediately following the procedure he did not some improvement in pain and function. Patient will plan to follow-up in 2-3 weeks. Iovera Procedure Note Preprocedure diagnosis: osteoarthritis s/p TKA, with chronic right knee pain Postprocedure diagnosis:Same Primary procedure: Therapeutic cryoneurolysis (Iovera)of the right knee Anesthesia type:Local Physician: Leslie Garcia DO, CAQSM Blood loss:<2ml Indication:Chronic rightknee pain Verbal consent was obtained. Risks and benefits of the procedure were discussed. Specifically discussed that patients treated with the iovera system may experience reaction including, but not limited to, bruising, swelling, inflammation and/or redness, local pain and/or tendernessand altered feeling at the site of treatment. Because all people are different, some patients pain will feel better right away, will for others the pain may only get a little better or not at all. Results may vary and can be affected by several things including the status of her overall health, the nerve anatomy and the cause of the pain. Patient's may need more thanone treatment. Patient denies a history of cryoglobulinemia,paroxysmal cold hemoglobinuria, cold urticariaor Raynaud's disease. There are noopen or infected wounds at or near the treatment sites. As with any medical treatment, patients may have side effects. These can include but are not limited to,damage to the skin from being exposed to cold, darkening or lightening of the skin, and dimples on the skin in the area of being treated. Outside the areas of treatment, muscles may not work or move normally. The patient was identified and site of the procedure was confirm. Patient was placed in the supine position and both target nerve landmark lines were identifiedon the right kneeand drawn out according to Iovera protocol. This includes 2 nervesover the AFCN treatment line - the medial branch of the anterior femoral cutaneous nerve and an intermediate branch of theanteriorfemoral cutaneous nerve. This includes 2 nerves over the ISN treatment line- the superior branch of the infrapatellar branch of saphenous nerve andthe inferiorbranch of the infrapatellarbranch of the saphenous nerve. A timeout was performed.The area was cleansed with an alcohol prep pad. Both target nerve landmark lines were injected with a total of 7.5mL of 1% lidocaine without epinephrine as local anesthetic. The rightknee was thenprepped with chloraprep x2. Thereafter under sterile fashion using the iovera handpiece with a smart tip 309, a series of overlapping injections were made alongthe identified nerve branches of the AFCN and the treatment line of ISNemploying a cryoneurolytic injection pulse of -88 Cwith each injection cycle lasting 63 seconds with 28 injection cycles required to cover both target nerve landmarks. Thereafter, sterile dressings were applied to both injection sites. The patient tolerated the procedure well without complication was discharged in stable condition. Immunizations Given and Recorded Vaccine Date Status [...] qhs, Disp# 90 tab, Refills: 3, Pharmacy: [id number] Start Date: 02/01/24 Status: Ordered Dexcom G6 Aviation Electronics Technician Kit Start: 06/21/23 10:36:00 AM EST, See Instructions, Disp# 1 kit, Refills: 0, Check glucose QID and PRN. E11.9, Pharmacy: [id number] Start Date: 06/21/23 Status: Ordered Dexcom G6 Sensor Kit Start: 06/21/23 10:36:00 AM EST, See Instructions, Disp# 9 kit, Refills: 4, Check glucose QID and PRN. 3 pack every 30 days. Dispense 90 day supply. E11.9, Pharmacy: [id number] Start Date: 06/21/23 Status: Ordered Dexcom G6 Transmitter Kit Start: 06/21/23 10:36:00 AM EST, See Instructions, Disp# 1 kit, Refills: 4, Check glucose QID and PRN. 1 pack every 3 months. Dispense 90 day supply. E11.9, [email or web address] Start Date: 06/21/23 Status: Ordered Jardiance 25 mg oral tablet Start: 02/02/24 1:32:00 PM EDT, 1 tab, PO, Daily, Disp# 30 tab, Refills: 11, Pharmacy: [facility] Start Date: 02/02/24 Status: Ordered losartan 100 mg oral tablet Start: 02/01/24 3:25:00 PM EDT, 1 tab, PO, Daily, Disp# 90 tab, Refills: 3, [email or web address] Start Date: 02/01/24 Status: Ordered Mental Status 02/02/24 Barriers to Learning one year None evide nt Mandatory Health Literacy Documentation Yes Health Literacy Communication Barriers N ever Primary Language Bulgarian Problem List Condition Confirmation Course Effective Dates Status H ealth Status Informant Atherosclerosis of aorta 1 Confirmed Active Dorsalgia, unspecified Confirmed Active 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 Active Alcoholism in remission Confirmed [...] Confirmed Active Morbid obesity (disorder) Confirmed Active UQOC on CPAP Confirmed Active Osteoarthritis Confirmed Active [...] Effective Dates Health Status Clinical Service Informant Knee pain, right Discharge Diagnosis 02/02/24 Non-Specified Chronic knee pain after total replacement of right knee joint Discharge Diagnosis 02/02/24 Non-Specified Procedures Procedure Date Related Diagnosis Body [...] Event Display: Ortho Outpt Note Authored Date: Chief Complaint Right knee Iovera procedure History of Present Illness Joe is a 68yo male who presents for right knee Iovera procedure. Notes no significant change in pain of his right knee. Iovera pretreatment patient questionnaire Stiffness 7/10 Pain with twisting 8/10 Pain with straightening knee8/10 Pain with stairs 10/10 Pain with standing upright 7/10 Difficulty with rising from sitting 7/10 Difficulty withbending to the floor 8/10 Physical Exam Right knee: Surgical scars noted. There is no erythema or ecchymosis at planned procedure site. Assessment/Plan 1.Knee pain, right 2.Chronic knee pain after total replacement of right knee joint Risks and benefits of the procedure were discussed. Patient would like to proceed with theiovera procedure of the right knee. Post-procedure instructions were provided and reviewed. Immediately following the procedure he did not some improvement in pain and function. Patient will plan to follow-up in 2-3 weeks. Iovera Procedure Note Preprocedure diagnosis: osteoarthritis s/p TKA, with chronic right knee pain Postprocedure diagnosis:Same Primary procedure: Therapeutic cryoneurolysis (Iovera)of the right knee Anesthesia type:Local Physician: Leslie Garcia DO, CAQSM Blood loss:<2ml Indication:Chronic rightknee pain Verbal consent was obtained. Risks and benefits of the procedure were discussed. Specifically discussed that patients treated with the iovera system may experience reaction including, but not limited to, bruising, swelling, inflammation and/or redness, local pain and/or tendernessand altered feeling at the site of treatment. Because all people are different, some patients pain will feel better right away, will for others the pain may only get a little better or not at all. Results mayvary and can be affected by several things including the status of her overall health, the nerve anatomy and the cause of the pain. Patient's may need more thanone treatment. Patient denies a hi story of cryoglobulinemia,paroxysmal cold hemoglobinuria, cold urticariaor Raynaud's disease.There are noopen or infected wounds at or near the treatment sites. As with any medical treatment, patients may have side effects. These can include but are not limited to,damage to the skin from being exposed to cold, darkening or lightening of the skin, and dimples on the skin in the areaof being treated. Outside the areas of treatment, muscles may not work or move normally. The patient was identified and site of the procedure was confirm. Patient was placed in the supine position and both target nerve landmark lines were identifiedon the right kneeand drawn outaccording to Iovera protocol. This includes 2 nervesover the AFCN treatment line - the medial branch of the anterior femoral cutaneous nerve and an intermediate branch of theanteriorfemoral cutaneous nerve. This includes 2 nerves over the ISN treatment line- the superior branch of the infrapatellar branch of saphenous nerve andthe inferiorbranch of the infrapatellarbranch of the saphenous nerve. A timeout was performed.The area was cleansed with an alcohol prep pad. Both target nerve landmark lines were injected with a total of 7.5mL of 1% lidocaine without epinephrine as local anesthetic. The rightknee was thenprepped with chloraprep x2. Thereafter under sterile fashion using the iovera handpiece with a smart tip 309, a series of overlapping injections were m ty alongthe identified nerve branches of the AFCN and the treatment line of ISNemploying a cryoneurolytic injection pulse of -88 Cwith each injection cycle lasting 63 seconds with 28 injection cycles required to cover both target nerve landmarks. Thereafter, sterile dressings were applied to both injection sites. The patient tolerated the procedure well without complication was discharged in stable condition. 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 CAD (coronary artery disease): Father. COPD: Mother. Cancer: MGM and PGM. Diabetes insipidus: Father, MGF, PGF and PGM. Heart attack: Father. Heart attack: Father. Heart disease: Unknown. High blood pressure: Father, Sister and Brother. PA (myocardial infarction): PGF. Health Status Family Member(s) [...] Maintenance Pending(in the next year) Due Adult COVID-19 Vaccination due02/02/24Unknown Frequency Adult Social Determinants of Health Screening due02/02/24Unknown Frequency Medicare Annual Wellness Visit due02/02/24and every 1year Pneumococcal Vaccine Older Adults due02/02/24One-time only Shingles Vaccine due02/02/24One-time only Due In Future Adult Influenza Vaccine not due until02/13/24and every 1year Colorectal Cancer Screening not due until07/06/24and every 10year Diabetes Management A1c not due until09/30/24and every 366day Satisfied(in the past 1 year) Satisfied Adult Influenza Vaccine on06/18/23.Satisfied by MILLI Rene Bobbi Body Mass Index on09/17/23.Satisfied by MILLI Orozco Heather Diabetes Management A1c on09/30/23.Satisfied by Contributor_system, [email or web address] Diabetes Nephropathy Management on09/30/23.Satisfied by Contributor_system, [email or web address] Diabetic Eye Exam on12/01/23.Satisfied by BRENNEN Corona Lynnae Lipid Screening on09/30/23.Satisfied by Contributor_system, [email or web address] Electronic Signature on File CC: Dulce Presley PA-C [id number] [id number] Electronically Reviewed/Signed by: Leslie Garcia DO Author Signature Dt/Tm:02/02/2024 05:48 PM Division of Sports Medicine MM Patient Care team information Care Team Personnel Name: MO Brady Tara Position: Nurse Pract - Family Med Member Role: Primary Care Provider Address: Address: [address] [place] [id number] [place] Name: MD Trevino Christopher Position: Physician - Family Med Member Role: Lifetime Relationship Address: Address: [address] [facility] [address] [place] [address] [place] Care Team Related Persons Name: GIORGI GARZA Address: home [address] [place] [phone]"
--- OUTSIDE RECORDS SUMMARY | 2024-04-21 16:20 | External Medical Summary | Continuity of Care Document ---
Author Name Unknown Organization [facility] [address] [place] [id number] Address [address] [place] [phone] Care Team Providers Care Cardiology Nurse Practitioner Name Role Phone Nita Brady Primary Care Physician [phone] Encounter [facility] [id number] Date(s): 01/05/24 - 01/05/24 No.1 Traveller 0 [employer] [facility] [address] [facility] Sports Medicine [address] [place], [place] [id number] Encounter Diagnosis Right knee pain(Discharge Diagnosis) - 01/05/24 Painful total knee replacement, right(Discharge Diagnosis) - 01/05/24 Discharge Disposition: Home or Self Care Attending Physician: DO Garcia Mehwish Referring Physician: MD Ozzy, Joe Zelaya Allergies, Adverse Reactions, Alerts Substance Criticality Severity Reaction Reaction Severity Status sulfa drugs rash Active Allergy Not found in Search 1 Pain in leg Active 1cement used for artifical knee Assessment and Plan Extracted from: Title:Office Visit Note Author:DO Garcia Me hwish Date:01/05/24 1.Right knee pain 2.Painful total knee replacement, right Patient presenting foriovera consult of the right knee afterhistory of TKA as well as a TKA revision.X-ray imagesof his right knee werereviewed. We discussed the Iovera procedure in depth as long withwhat to expect.I do believe some ofhis painisarriving from his knee and hisonly gotten short-term benefit with physical therapy, use of a TENS unitand oral medications. I do believe there is some degree ofradicular symptoms from his low back given his improvement with an LESI earlier this year.Discussed the option of proceeding with the Ioveraand depending on the degree of improvement he hashe may benefit fromfollow-up with Dr. Eid or possible repeat LESI. We discussedthat the Iovera procedure does not help with posterior knee painand so this willstill be present following the procedure. The Iovera procedure along withrisks and benefits were discussed with the patient.We had a risk and benefits discussion including side effectsof the procedurewhich may includebruising, swelling,local pain and tenderness,altered feeling at the site of treatment andtreatment failure. Patient denies a history of cryoglobulinemia, paroxysmal cold hemoglobinuria, cold urticaria or Raynaud's disease.He is interested in proceeding with the procedure for pain relief. Time: 37 _mins 5_ - pre-visit chart review 24_ - visit, inclusive of history, exam, and discussion of assessment/plan 8_ - post-visit documentation/orders/coordination of care Immunizations Given [...] 2Result Comment: 2021-08-04: Historical information-source unspecified Medications Advil 200 mg oral tablet Start: 12/04/22 10:26:00 AM EDT, 2 tab, PO, q6h, PRN: as needed for pain Start Date: 12/04/22 Status: Ordered aspirin 81 mg oral delayed release tablet Start: 07/24/22 9:14:00 AM EST, 1 tab, PO, Daily, Disp# 30 tab, Refills: 3, other Start Date: 07/24/22 Status: Ordered atorvastatin 40 mg oral tablet Start: 10/04/23 4:14:00 PM EST, 1 tab, PO, qhs, Disp# 30 tab, Refills: 11, Pharmacy: [place] [id number] Start Date: 10/04/23 Status: Ordered Dexcom G6 Teacher Selection Specialist Kit Start: 06/21/23 10:36:00 AM EST, See Instructions, Disp# 1 kit, Refills: 0, Check glucose QID and PRN. E11.9, Pharmacy: [place] [id number] Start Date: 06/21/23 Status: Ordered Dexcom G6 Sensor Kit Start: 06/21/23 10:36:00 AM EST, See Instructions, Disp# 9 kit, Refills: 4, Check glucose QID and PRN. 3 pack every 30 days. Dispense 90 day supply. E11.9, Pharmacy: [place] [id number] Start Date: 06/21/23 Status: Ordered Dexcom G6 Transmitter Kit Start: 06/21/23 10:36:00 AM EST, See Instructions, Disp# 1 kit, Refills: 4, Check glucose QID and PRN. 1 pack every 3 months. Dispense 90 day supply. E11.9, Pharmacy: [place] [id number] Start Date: 06/21/23 Status: Ordered Flomax 0.4 mg oral capsule Start: 06/18/23 2:10:00 PM EDT, 1 cap, PO, Daily, Disp# 30 cap, Refills: 6, Pharmacy: [place] [id number] Start Date: 06/18/23 Stop Date: 01/14/24 Status: Ordered losartan 50 mg oral tablet Start: 04/06/23 10:55:00 AM EDT, 1 tab, PO, Daily, Disp# 90 tab, Refills: 3, Pharmacy: [place] [id number] Start Date: 04/06/23 Status: Ordered metFORMIN 500 mg oral tablet Start: 10/04/23 1:00:00 PM EST, See Instructions, Disp# 90 tab, Refills: 3, 2 tabs po in am and one tab po in pm, Pharmacy: [place] [id number] Start Date: 10/04/23 Status: Ordered Shingrix intramuscular injection Start: 03/03/23 9:45:00 AM EDT, 0.5 mL, IM, ONCE, Disp# 1 each, Pharmacy: [id number] Start Date: 03/03/23 Status: Ordered Mental Status 01/05/24 Barriers to Learning one year None evide nt Mandatory Health Literacy Documentation Yes Health Literacy Communication Barriers N ever Primary Language Slovak Problem List Condition Confirmation Course Effective Dates Status H ealth Status Informant Atherosclerosis of aorta 1 Confirmed Active Dorsalgia, unspecified Confirmed Active Alcoholism in remission Confirmed Active [...] leg Confirmed Active Erectile dysfunction Confirmed Active Lower urinary tract symptoms (LUTS) Confirmed Active Lumbar facet syndrome Confirmed Active Right lumbar radiculopathy Confirmed Active Microscopic hematuria Confirmed Active Morbid obesity (disorder) Confirmed Active QUOC on CPAP Confirmed Active Osteoarthritis Confirmed Active Knee pain, right Confirmed Active Pain in right knee Confirmed Active Spinal stenosis of lumbar region Confirmed Active 1See outside note 10/05/19 (page 11) 10/01/2019 CT SCAN OF THE ABDOMEN AND PELVIS WITH IV CONTRAST FINDINGS: Abdominal vasculature: The abdominal aorta is normal in course and caliber noting moderate atherosclerotic calcification 2Low Pressure Diagnosis Diagnosis Type Effective Dates Health Status Cl inical Service Informant Painful total knee replacement, right Discharge Diagnosis 01/05/24 Non-Specified Right knee pain Discharge Diagnosis 01/05/24 Non-Specified Procedures Procedure Date Related Diagnosis Body [...] Sex Male Ortho Outpt Note * DO Jose, Leslie: PERFORM Event Display: Ortho Outpt Note Authored Date: [id number] Chief Complaint discuss right knee iovera History of Present Illness Johnna a 68-year-old maleseen for Iovera consult. He has a history of [place] [address] Oliveira then a total knee revision in [place] in [place]. He notes that he has had persistentpainthat has been worse since his revision procedure. Painis localizedover the entire anterior kneeand he also has posterior knee pain.Pain is worse with walkingand using stairs. He notes that he haspreviously had an LESIwhich resolved his painfor approximately 1.5 monthsbut then the pain returned. He has not since had a follow-up visit with Dr. Eid. He has previously tried using a knee brace. He had been doing physical therapyfor an extensive period of timewhich was helpful for short periods of time he has been using a TENS machine for pain relief. Pretreatment questionnaire Stiffness 9/10 Pain with twisting 10/10 Pain with knee extension 0/10 Pain with stairs 10/10 Pain with standing upright 10/10 Difficulty with rising from sitting 4/10 Difficulty with bending to the floor 8/10 Physical Exam GENERAL APPEARANCE: The patient is alert, oriented and in no acute distress. HEENT: Head is normocephalic/atraumatic. LUNGS: Respirations even and unlabored. EXTREMITIES: No cyanosis, clubbing or edema. NEUROLOGICAL: Grossly non-focal exam. SKIN: Warm and dry without any rash. MUSCULOSKELETAL: _ Right knee:Surgical scars arenoted. There is no effusion. There is no erythema or ecchymosis. Active range of motion0/2/100 degrees. There is tenderness to palpationover the medial joint line, lateral joint line as well asmedial patellar facet. Assessment/Plan 1.Right knee pain 2.Painful total knee replacement, right Patient presenting foriovera consult of the right knee afterhistory of TKA as well as a TKA revision.X-ray imagesof his right knee werereviewed. We discussed the Iovera procedure in depthas long withwhat to expect.I do believe some ofhis painisarriving from his knee and hisonly gotten short-term benefit with physical therapy, use of a TENS unitand oral medications. I do believe there is some degree ofradicular symptoms from his low back given his improvement with anLESI earlier this year.Discussed the option of proceeding with the Ioveraand depending on thedegree of improvement he hashe may benefit fromfollow-up with Dr. Eid or possible repeat LESI. We discussedthat the Iovera procedure does not help with posterior knee painand so this willstill be present following the procedure. The Iovera procedure along withrisks and benefits were discussed with the patient.We had a risk and benefits discussion including side effectsof the procedurewhich may includebruising, swelling,local pain and tenderness,altered feeling at the site of treatment andtreatment failure. Patient denies a history of cryoglobulinemia, paroxysmal cold hemoglobinuria, cold urticaria or Raynaud's disease.He is interested in proceeding with the procedure for pain relief. Time: 37 _mins 5_ - pre-visit chart review 24_ - visit, inclusive of history, exam, and discussion of assessment/plan 8_ - post-visit documentation/orders/coordination of care Problem List/Past Medical History Ongoing Alcoholism in remission Atherosclerosis of aorta Chronic knee pain after total replacement of right knee joint Cubital tunnel syndrome on left Diabetes DiverticulOSIS Dorsalgia, unspecified Erectile dysfunction Glaucoma Hx of myocardial infarction Hypertension Iliotibial band syndrome affecting right lower leg Knee pain, right Left median nerve neuropathy Lower urinary tract symptoms (LUTS) Lumbar facet syndrome Microscopic hematuria Morbid obesity (disorder) QUOC on CPAP Osteoarthritis Pain in right knee Right lumbar radiculopathy Spinal stenosis of lumbar region Resolved Arthritis of knee, right Arthritis of [...] S/P knee replacement S/P total knee replacement Type 2 diabetes mellitus Procedure/Surgical History CT of head| Service Date: [...] tablet), 40 mg= 1 tab, PO, qhs, 11 refills diabetes supplies(Dexcom G6 Sensor Kit), See Instructions, 4 refills diabetes supplies(Dexcom G6 Transmitter Kit), See Instructions, 4 refills diabetes supplies(Dexcom G6 Teacher Selection Specialist Kit), See Instructions ibuprofen(Advil 200 mg oral tablet), 400 mg= 2 tab, PO, q6h, PRN losartan(losartan 50 mg oral tablet), 50 mg= 1 tab, PO, Daily, 3 refills metFORMIN(metFORMIN 500 mg oral tablet), See Instructions, 3 refills tamSULOsin(Flomax 0.4 mg oral capsule), 0.4 mg= 1 cap, PO, Daily, 6 refills zoster vaccine, inactivated(Shingrix intramuscular injection), 0.5 mL, IM, ONCE Allergies Allergy Not found in SearchPain in leg sulfa drugsrash Social History Smoking Status Never smoked cigarettes Alcohol - No Risk Stopped at age:53Years 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 CAD (coronary artery disease): Father. COPD: Mother. Cancer: MGM and PGM. Diabetes insipidus: Father, MGF, PGF and PGM. Heart attack: Father. Heart attack: Father. Heart disease: Unknown. High blood pressure: Father, Sister and Brother. [place] (myocardial infarction): PGF. Health Status Family Member(s) [...] the next year) Due Adult COVID-19 Vaccination due01/06/24Unknown Frequency Adult Social Determinants of Health Screening due01/06/24Unknown Frequency Medicare Annual Wellness Visit due01/06/24and every 1year Pneumococcal Vaccine Older Adults due01/06/24One-time only Shingles Vaccine due01/06/24One-time only Due In Future Adult Influenza Vaccine not due until02/13/24and every 1year Colorectal Cancer Screening not due until07/06/24and every 10year Body Mass Index not due until09/17/24and every 366day Diabetes Management A1c not due until09/30/24and every 366day Satisfied(in the past 1 year) Satisfied Adult Influenza Vaccine on06/18/23.Satisfied by MILLI Rene Bobbi Body Mass Index on09/17/23.Satisfied by MILLI Orozco Heather Diabetes Management A1c on09/30/23.Satisfied by Contributor_system, [id number] Diabetes Nephropathy Management on09/30/23.Satisfied by Contributor_system, [email or web address] Diabetic Eye Exam on12/01/23.Satisfied by BRENNEN Corona Lynnae Lipid Screening on09/30/23.Satisfied by Contributor_system, [id number] Electronic Signature on File CC: Joe Preciado MD [address] [place] [id number] CC: Dulce Presley PA-C [address] [place] [id number] Electronically Reviewed/Signed by: Leslie Garcia DO Author Signature Dt/Tm:01/06/2024 09:21 AM Division of Sports Medicine MM Patient Care team information Care Team Personnel Name: MO Brady Tara Position: Nurse Pract - Family Med Member Role: Primary Care Provider Address: Address: [address] [place] [id number] [place] Name: MD Trevino Christopher Position: Physician - Family Med Member Role: Lifetime Relationship Address: Address: [address] [address] [place] Care Team Related Persons Name: KAYLAGIORGI ELAINE Address: home [address] [place] [phone]"
--- OUTSIDE RECORDS SUMMARY | 2024-04-21 16:20 | External Medical Summary | Continuity of Care Document ---
Author Name Unknown Organization [facility] [address] [id number] Address [address] [place] [id number] Care Team Providers Care Varnish Dipper Name Role Phone Nita Brady Primary Care Physician [phone] Encounter [facility] [id number] Date(s): 12/29/23 - 12/29/23 [employer] 0 Petsy [facility] 112A [facility] [address] [place] [id number] Encounter Diagnosis Pain in right knee(Discharge Diagnosis) - 12/29/23 S/P total knee arthroplasty(Discharge Diagnosis) - 12/29/23 Discharge Disposition: Home or Self Care Attending Physician: MICK Presley Jennifer R Allergies, Adverse Reactions, Alerts Substance Criticality Severity Reaction Reaction Severity Status sulfa drugs rash Active Allergy Not found in Search 1 Pain in leg Active 1cement used for artifical knee Assessment and Plan Extracted from: Title:Clinical Document Author:MICK Presley Je nnifer R Date:12/29/23 ORTHOPAEDICS OUTPATIENT NOTE Name: SHAUNA GARZA Patient Number: [id number] : [id number] Date of Service: 12/29/2023 Chief Complaint: Right knee pain; s/p right total knee arthroplasty 2020 and revision 2022 HPI: Shauna is here today for evaluation of right knee pain. He states that he continues to have pain in his right knee. It has been years since I have seen him regarding the right knee. He had a total knee arthroplasty performed by Dr. Preciado in 2020 and then a revision done in 2022. He states that the revision he does not feel has helped with his knee pain. He has pain on a daily basis. He cannot stand for longer than 5 to 10 minutes. He cannot sit for longer than an hour. He cannot drive longer than an hour. Due to pain in the front of his knee. He also describes pain in the back of the knee that radiates down his leg. Denies any numbness or tingling of the right lower extremity. Denies any new injury. Denies any fevers or chills or swelling of the right knee. 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 He states that his pain is 24/. He has been in physical therapy since his initial total knee arthroplasty in 2020 but recently had to stop due to insurance no longer covering it. His therapist had requested an extension which was denied. He does feel that therapy helps him stay functional and active. He likes to go to therapy to work on the range of motion and strength and states that it actually is very beneficial but only for about 24 hours. Recently he started using a TENS machine and therapy and does feel that may be the most beneficial thing they have done so far. He saw Dr. Perciado last fall and was referred to Dr. Carroll our spine surgeon for evaluation of his right lower extremity pain resolved with a lumbar epidural steroid injection performed by Dr. Eid. He states that the shot did seem to help his knee pain but when it wore off "look out". Basically to rule out whether this was coming from his lumbar spine or directly related to the prostheses. He did not go to that appointment because "it was snowing that day and he cannot drive that far and does not like to drive in the winter." He has not had any recent fevers or chills. He occasionally takes [id number] Tylenol and ibuprofen. He has to do this on a daily basis. He states that "nothing seems to help his knee pain". He did note some improvement in his knee pain 2 to 3 weeks after surgery but he attributes that to being on pain medication. Once that was stopped his pain returned to exactly what it was before the surgery. He has worn a brace in the past without any significant relief. He gets a lot of pressure around his knee from the brace. OBJECTIVE Vitals: Last Updated 12/29/23 16:08 Date Temp BP Location Pulse RR SpO2 Pain 12/29/23 7 09/17/23 148/82 73 16 98 6 08/26/23 126/90 79 97 7 Physical Exam Exam of bilateral lower extremities: No edema. Ambulates with a slight antalgic gait with no assistive device. Strength 5/5. No muscle atrophy noted. Exam focused on his right knee: His incision is healed. No effusion. No warmth or erythema. Is mildly tender with palpation along the medial joint line. No tenderness to the joint. No crepitation with flexion or extension, occasional palpable click but does not reproduce pain. He is able to independently straight leg raise and hold against resistance with no extensor lag. Sensation is normal throughout the right lower extremity. Distal pulses are 1+. Full range of motion of the right hip without discomfort. Radiology images: No new x-rays were performed on the right knee today. ASSESSMENT: Pain in right knee. Status post total knee arthroplasty in 2020 and total knee revision in 2022. Degenerative disc disease of the lumbar spine, lumbar facet arthropathy, status post lumbar epidural steroid injection in August PLAN: Today I explained to him that there is no magical fix for the right knee. It could potentially be possible that the pain is not coming from his right knee especially when having no complications from the primary knee besides pain and then no resolution of his pain after undergoing a complete revision. This could be referred pain from his lumbar spine. He was referred by Dr. Preciado to Dr. Carroll last fall and did not go to that appointment. He would like to see To have further workup of his lumbar spine to see if that could potentially be causing his problem. His last LESI with Dr. Eid was in August could consider another 1 of those. We also could consider Iovera. [facility] was [facility]otherapy but when he arrived at that appointment they "did not know why he was there and did not perform that procedure". He states that they were unhelpful and does not feel the need to go back and see them. He would like some sort of fix for his right knee. Explained to him that it can be multifactorial and this may be something that cannot be fixed. Do not see any reasons for discomfort in the right total knee today. He has a FMLA form to fill out for 1 company to pay for a loan that he has out due to being unemployed. This will be completed and faxed to his insurance company tomorrow. He understands and agrees with the plan. He will follow-up as needed. Referrals placed for Dr. Carroll and Renetta consultation. This chart was completed utilizing [employer] voice recognition software. Grammatical errors, random word insertions, pronoun errors, and in complete sentences are an occasional consequence of the system. Any questions or concerns about the content, text, or information contained within the body of this dictation should be addressed directly to the provider for clarification. Immunizations Given and Recorded Vaccine Date Status [...] qhs, Disp# 30 tab, Refills: 11, Pharmacy: [id number] Start Date: 10/04/23 Status: Ordered Dexcom G6 Stuntman Kit Start: 06/21/23 10:36:00 AM EST, See Instructions, Disp# 1 kit, Refills: 0, Check glucose QID and PRN. E11.9, Pharmacy: [facility] Start Date: 06/21/23 Status: Ordered Dexcom G6 Sensor Kit Start: 06/21/23 10:36:00 AM EST, See Instructions, Disp# 9 kit, Refills: 4, Check glucose QID and PRN. 3 pack every 30 days. Dispense 90 day supply. E11.9, Pharmacy: [facility] Start Date: 06/21/23 Status: Ordered Dexcom G6 Transmitter Kit Start: 06/21/23 10:36:00 AM EST, See Instructions, Disp# 1 kit, Refills: 4, Check glucose QID and PRN. 1 pack every 3 months. Dispense 90 day supply. E11.9, Pharmacy: [facility] Start Date: 06/21/23 Status: Ordered Flomax 0.4 mg oral capsule Start: 06/18/23 2:10:00 PM EDT, 1 cap, PO, Daily, Disp# 30 cap, Refills: 6, Pharmacy: [facility] Start Date: 06/18/23 Stop Date: 01/14/24 Status: Ordered losartan 50 mg oral tablet Start: 04/06/23 10:55:00 AM EDT, 1 tab, PO, Daily, Disp# 90 tab, Refills: 3, Pharmacy: [facility] Start Date: 04/06/23 Status: Ordered metFORMIN 500 mg oral tablet Start: 10/04/23 1:00:00 PM EST, See Instructions, Disp# 90 tab, Refills: 3, 2 tabs po in am and one tab po in pm, Pharmacy: [facility] Start Date: 10/04/23 Status: Ordered Shingrix intramuscular injection Start: 03/03/23 9:45:00 AM EDT, 0.5 mL, IM, ONCE, Disp# 1 each, Pharmacy: [facility] Start Date: 03/03/23 Status: Ordered Mental Status 12/29/23 Barriers to Learning one year None evide nt Mandatory Health Literacy Documentation Yes Health Literacy Communication Barriers N ever Primary Language Armenian Problem List Condition Confirmation Course Effective Dates [...] Effective Dates Health Status Clinical Service Informant S/P total knee arthroplasty Discharge Diagnosis 12/29/23 Pain in right knee Discharge Diagnosis 12/29/23 Procedures Procedure Date Related Diagnosis Body Site [...] brittany Sex Male Ortho Outpt Note * MICK Presley, Dulce Lemus: PERFORM, MODIFY, MODIFY Event Display: Ortho Outpt Note Authored Date: [id number] ORTHOPAEDICS OUTPATIENT NOTE Name: SHAUNA GARZA Patient Number: [id number] : 1955 Date of Service: 12/29/2023 Chief Complaint: Right knee pain; s/p right total knee arthroplasty 2020 and revision 2022 HPI: Shauna is here today for evaluation of right knee pain. He states that he continues to have painin his right knee. It has been years since I have seen him regarding the right knee. He had a totalknee arthroplasty performed by Dr. Preciado in 2020 and then a revision done in 2022. He states that the revision he does not feel has helped with his knee pain. He has pain on a daily basis. He cannot stand for longer than 5 to 10 minutes. He cannot sit for longer than an hour. He cannot drive longer than an hour. Due to pain in the front of his knee. He also describes pain in the back of the knee that radiates down his leg. Denies any numbness or tingling of the right lower extremity. Deniesany new injury. Denies any fevers or chills or swelling of the right knee. 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 He states that his pain is 24/7. He has been in physical therapy since his initial total knee arthroplasty in 2020 but recently had to stop due to insurance no longer covering it. His therapist had requested an extension which was denied. He does feel that therapy helps him stay functional and active. He likes to go to therapy to work on the range of motion and strength and states that it actually isvery beneficial but only for about 24 hours. Recently he started using a TENS machine and therapy and does feel that may be the most beneficial thing they have done so far. He saw Dr. Preciado last fall and was referred to Dr. Carroll our spine surgeon for evaluation of his right lower extremity pain resolved with a lumbar epidural steroid injection performed by Dr. Eid. He states that the shot did seem to help his knee pain but when it wore off "look out". Basicallyto rule out whether this was coming from his lumbar spine or directly related to the prostheses. He did not go to that appointment because "it was snowing that day and he cannot drive that far and does not like to drive in the winter." He has not had any recent fevers or chills. He occasionally takes [id number] Tylenol and ibuprofen. He has to do this on a daily basis. He states that "nothing seems to help his knee pain". He did note some improvement in his knee pain 2 to 3 weeks after surgery but he attributes that to being on pain medication. Once that was stopped his pain returned to exactly what it was before the surgery. He has worn a brace in the past without any significant relief. He gets a lot of pressure around his knee from the brace. OBJECTIVE Vitals: Last Updated 12/29/23 16:08 Date Temp BP Location Pulse RR SpO2 Pain 12/29/23 7 09/17/23 148/82 73 16 98 6 08/26/23 126/90 79 97 7 Physical Exam Exam of bilateral lower extremities: No edema. Ambulates with a slight antalgic gait with no assistive device. Strength 5/5. No muscle atrophy noted. Exam focused on his right knee: His incision is healed. No effusion. No warmth or erythema. Is mildly tender with palpation along the medial joint line. No tenderness to the joint. No crepitation with flexion or extension, occasional palpable click but does not reproduce pain. He is able to independently straight leg raise and hold against resistance with no extensor lag. Sensation is normal throughout the right lower extremity. Distal pulses are 1+. Full range of motion of the right hip without discomfort. Radiology images: No new x-rays were performed on the right knee today. ASSESSMENT: Pain in right knee. Status post total knee arthroplasty in 2020 and total knee revisionin 2022. Degenerative disc disease of the lumbar spine, lumbar facet arthropathy, status post lumbar epidural steroid injection in August PLAN: Today I explained to him that there is no magical fix for the right knee. It could potentially be possible that the pain is not coming from his right knee especially when having no complications from the primary knee besides pain and then no resolution of his pain after undergoing a complete revision. This could be referred pain from his lumbar spine. He was referred by Dr. Preciado to Dr. Carroll last fall and did not go to that appointment. He would like to see To have further workupof his lumbar spine to see if that could potentially be causing his problem. His last LESI with was in August could consider another 1 of those. We also could consider Iovera. [facility] was [facility] but when he arrived at that appointment they "did not know why he was there and did not perform that procedure". He states that they were unhelpful anddoes not feel the need to go back and see them. He would like some sort of fix for his right knee. Explained to him that it can be multifactorial and this may be something that cannot be fixed. Do not see any reasons for discomfort in the right total knee today. He has a FMLA form to fill out for [employer] to pay for a loan that he has out due to being unemployed. This will be completed and faxedto his insurance company tomorrow. He understands and agrees with the plan. He will follow-up as needed. Referrals placed for Dr. Carroll and Renetta consultation. This chart was completed utilizing [employer] voice recognition software. Grammatical errors,random word insertions, pronoun errors, and in complete sentences are an occasional consequence of the system. Any questions or concerns about the content, text, or information contained within the body of this dictation should be addressed directly to the provider for clarification. Electronic Signature on File Electronically Reviewed/Signed by: Dulce Presley PA-C Author Signature Dt/Tm:12/30/2023 11:04AM Division of Sports Medicine Electronically Reviewed/Signed by: Shauna Preciado MD Cosigner Signature Dt/Tm: 12/30/2023 03:30 PM Division of Sports Medicine [facility] Patient Care team information Care Team Personnel Name: MO Brady Tara Position: Nurse Pract - Family Med Member Role: Primary Care Provider Address: Address: [address] [place] [id number] [place] Name: MD Trevino Christopher Position: Physician - Family Med Member Role: Lifetime Relationship Address: Address: [address] [address] [place] Care Team Related Persons Name: GIORGI GARZA Address: home [address], [place] [id number]
--- OUTSIDE RECORDS SUMMARY | 2024-04-21 16:20 | External Medical Summary | Continuity of Care Document ---
Author Name Unknown Organization [facility] [address] [facility] Address [address] [place], [place] [id number] Care Team Providers Care Diversified Crops Supervisor Name Role Phone Almagavin Nita Primary Care Physician [phone] [id number] Date(s): 02/01/24 - 02/01/24 [facility] [address], [address] [place] [address] [phone] Encounter Diagnosis Hx of myocardial infarction(Discharge Diagnosis) - 02/01/24 Hypertension(Discharge Diagnosis) - 02/01/24 CAD in [place] artery(Discharge Diagnosis) - 02/01/24 Lacunar stroke(Discharge Diagnosis) - 02/01/24 Type 2 diabetes mellitus(Discharge Diagnosis) - 02/01/24 Discharge Disposition: Home or Self Care Attending Physician: DO Lara Jason D Referring Physician: MO Mar Sarah A Allergies, Adverse Reactions, Alerts Substance Criticality Severity Reaction Reaction Severity Status sulfa drugs rash Active Allergy Not found in Search 1 Pain in leg Active 1cement used for artifical knee Assessment and Plan Extracted from: Title:Cardiology Office Visit Note Author:DO Lara Jason D Date:02/01/24 1.Hx of myocardial infarct ion 2.Hypertension 3.CAD in [place] artery 4.Lacunar stroke 5.Type 2 diabetes mellitus Discussed with PJ the reasoning behind all of the medications that he should be taking. Although he may not feel any better with the medications they are reducing his risk of progressive cardiovascular, renal, and diabetic complications. Made the following recommendations and explained why he should be taking these medications: 1. Aspirin 81 mg daily with food 2. Atorvastatin 40 mg daily with a goal LDL less than 70 if not close 50; we discussed the benefit of reducing cardiovascular events and the pleiotropic effects of statins 3. Will increase his previous losartan dose from 50 mg to 100 mg and we discussed the renal protective effects along with her reduction in heart attack and strokes 4. We discussed adding Farxiga 10 mg daily to help lower his blood sugars, reduce his risk of cardiovascular events, reduce his risk of heart failure admissions, and its renal protective effects. 5. Will arrange for him to see one of the primary care physicians here at [facility]. 6. He will return in 3 months to see Yadira I will see him in 6 months 7. All blood work done in the next couple of weeks to assess his renal function with the changes we made. All questions were answered in detail. Including reviewing his previous MRI that suggests no lacunar infarct. I would also recommend a carotid ultrasound when he returns given his 2020 CTA of his neck which suggested bilateral disease. Immunizations Given and Recorded Vaccine Date Status [...] qhs, Disp# 90 tab, Refills: 3, Pharmacy: [id number] Start Date: 02/01/24 Status: Ordered Dexcom G6 Pediatrics Hospitalist Kit Start: 06/21/23 10:36:00 AM EST, See Instructions, Disp# 1 kit, Refills: 0, Check glucose QID and PRN. E11.9, Pharmacy: [id number] Start Date: 06/21/23 Status: Ordered Dexcom G6 Sensor Kit Start: 06/21/23 10:36:00 AM EST, See Instructions, Disp# 9 kit, Refills: 4, Check glucose QID and PRN. 3 pack every 30 days. Dispense 90 day supply. E11.9, Pharmacy: [id number] Start Date: 06/21/23 Status: Ordered Dexcom G6 Transmitter Kit Start: 06/21/23 10:36:00 AM EST, See Instructions, Disp# 1 kit, Refills: 4, Check glucose QID and PRN. 1 pack every 3 months. Dispense 90 day supply. E11.9, Pharmacy: [facility] Start Date: 06/21/23 Status: Ordered Jardiance 25 mg oral tablet Start: 02/02/24 1:32:00 PM EDT, 1 tab, PO, Daily, Disp# 30 tab, Refills: 11, Pharmacy: [facility] Start Date: 02/02/24 Status: Ordered losartan 100 mg oral tablet Start: 02/01/24 3:25:00 PM EDT, 1 tab, PO, Daily, Disp# 90 tab, Refills: 3, Pharmacy: [facility] Start Date: 02/01/24 Status: Ordered Mental Status 02/01/24 Barriers to Learning one year None evide nt Mandatory Health Literacy Documentation Yes Health Literacy Communication Barriers N ever Primary Language Lebanese Problem List Condition Confirmation Course Effective Dates Status H ealth Status Informant Atherosclerosis of aorta 1 Confirmed Active Dorsalgia, unspecified Confirmed Active CAD in [place] artery Confirmed Active Alcoholism in remission Confirmed [...] Effective Dates Health Status Clinical Service Informant Hypertension Discharge Diagnosis 02/01/24 Lacunar stroke Discharge Diagnosis 02/01/24 Type 2 diabetes mellitus Discharge Diagnosis 02/01/24 Hx of myocardial infarction Discharge Diagnosis 02/01/24 CAD in [place] artery Discharge Diagnosis 02/01/24 Procedures Procedure Date Related Diagnosis Body Site [...] lymphoid aggregates. 16right 17R/L 18left 19right clavicle [id number] Vital Signs Most recent to oldest [Reference Range]: 1 Patient Weight 118.6 kg (02/01/24 2:47 PM) Heart Rate 75 bpm (02/01/24 2:47 PM) Respiratory Rate 18 br/min (02/01/24 2:47 PM) Blood Pressure 160/90mmHg (02/01/24 2:47 PM) Cuff Pulse Pressure 70 mmHg (02/01/24 2:47 PM) BP Location # 1 Right Arm (02/01/24 2:47 PM) Social History Social History Type Response Tobacco Former smoker, Cigar ettes Smoking Status Never smoked cigaret brittany Sex Male Cardiology Outpatient Note * Fragin, DO, Palomo D: PERFORM Event Display: Cardiology Outpt Note Authored Date: [id number] Primary Care Provider MO Brady Tara Referring Provider MO Mar Sarah A Chief Complaint umu complaints at this time besides his left knee. denies sob/chest pain. History of Present Illness Unfortunately we have not seen Shauna in almost a year. He discussed his family history that his dad was an alcoholic and also had many cardiovascular risk factors and diabetes. He was on medicine for an extended period of time and he notes his dad still suddenly at 71. This led him about 6 months ago to stop his own medications because he did not notice that they were making him feel any better. He denies any chest pain or chest pressure. He has no significant shortness of breath. He denies any orthostatic symptoms or falls. Unfortunately he is hypertensive and his hemoglobin A1c is elevated and he has peripheral neuropathy from his diabetes and has proteinuria as well. He is unaware of any palpitations or fluttering. He is had no falls. He was unaware that he had a previous MRI that suggested multiple lacunar infarcts. Review of Systems PMHX: 1. Hypertension 2. Nonobstructive CAD - Catheterization in February 2022 showing LAD with 30 to 40% stenosis in the proximal portion, 50% ostial stenosis in diagonal, 50% stenosis of the proximal RCA, 67% stenosis in the proximal PDA 3. History of lacunar infarctsand cerebralmicrovascular changes 4. Dyslipidemia 5. NSTEMI secondary to poorly controlled blood pressureJuly 2021 6. Echo February 21, 2022 in [facility] showed ejection fraction of 60 to 65%, no wall motion abnormalities, no significant valvulopathy 7. Hypertensive encephalopathy surrounding knee surgery in February 2021 at [facility]. Patient had not taken his antihypertensives for 5 days prior to his surgery. [facility] 9. Sleep apnea not currently using CPAP 10. Neck CTA with B/l Carotid stnosis 2020 Physical Exam Vitals & Measurements HR:75(Monitored) RR:18 BP:160/90 SpO2:97% WT:118.600kg(Dosing) WT:118.6kg Review of Systems Physical Examination General: Alert and oriented, No acute distress. Respiratory: Lungs are clear to auscultation, Respirations are non-labored. Cardiovascular: Normal rate, Regular rhythm, No murmur, bilateral mild pitting edema, no carotid bruits to auscultation bilaterally. Cognition and Speech: Speech clear and coherent. Psychiatric: Cooperative, Appropriate mood & affect. Assessment/Plan 1.Hx of myocardial infarction 2.Hypertension 3.CAD in [place] artery 4.Lacunar stroke 5.Type 2 diabetes mellitus Discussed with PJ the reasoning behind all of the medications that he should be taking. Although he may not feel any better with the medications they are reducing his risk of progressive cardiovascular, renal, and diabetic complications. Made the following recommendations and explained why he should be taking these medications: 1. Aspirin 81 mg daily with food 2. Atorvastatin 40 mg daily with a goal LDL less than 70 if not close 50; we discussed the benefit of reducing cardiovascular events and the pleiotropic effects of statins 3. Will increase his previous losartan dose from 50 mg to 100 mg and we discussed the renal protective effects along with her reduction in heart attack and strokes 4. We discussed adding Farxiga 10 mg daily to help lower his blood sugars, reduce his risk of cardiovascular events, reduce his risk of heart failure admissions, and its renal protective effects. 5. Will arrange for him to see one of the primary care physicians here at [facility]. 6. He will return in 3 months to see Yadira I will see him in 6 months 7. All blood work done in the next couple of weeks to assess his renal function with the changes we made. All questions were answered in detail. Including reviewing his previous MRI that suggests no lacunar infarct. I would also recommend a carotid ultrasound when he returns given his 2020 CTA of his neck which suggested bilateral disease. 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 CAD (coronary artery disease): Father. COPD: Mother. Cancer: MGM and PGM. Diabetes insipidus: Father, MGF, PGF and PGM. Heart attack: Father. Heart attack: Father. Heart disease: Unknown. High blood pressure: Father, Sister and Brother. MN (myocardial infarction): PGF. Health Status Family Member(s) Electronic Signature on File Electronically Reviewed/Signed by: Palomo Lara DO Author Signature Dt/Tm:02/01/2024 05:42 PM Contaminated Land Consultanttie buyer [facility] [place] [place] [address] JDF Patient Care team information Care Team Personnel Name: MO Brady Tara Position: Nurse Pract - Family Med Member Role: Primary Care Provider Address: Address: [address] [place] [id number] [place] Name: MD Trevino Christopher Position: Physician - Family Med Member Role: Lifetime Relationship Address: Address: [address] [place] [address] [place] Care Team Related Persons Name: GIORGI GARZA Address: home [address] [place], [place] [id number]"
[2024-04-21] MEDS: hydrALAZINE HCL 20 MG/ML VIAL IV ONE (17:51)
[2024-04-21] MEDS: INSULIN ASPART PER UNIT CHARGE SC SCH (18:14)
[2024-04-21] MEDS: amLODIPine BESYLATE 5 MG TAB PO ONE (18:16)
[2024-04-21] MEDS: PANTOprazole 40 MG TAB PO SCH (19:07)
[2024-04-21] MEDS: CLOPIDOGREL BISULFATE 300 MG TAB PO STA (19:11)
[2024-04-21] MEDS: ASPIRIN 81 MG CHEW PO STA (19:12)
[2024-04-21] MEDS ORDERED: LANTUS PER UNIT CHARGE SQ SCH (21:00)
[2024-04-22] MEDS: hydrALAZINE HCL 20 MG/ML VIAL IV PRN (03:48)
[2024-04-22 07:12] LABS: Basophils # (auto) 0.03 K/uL (0.00-0.20); Basophils % (auto) 0.4 %; Eosinophils # (auto) 0.14 K/uL (0.00-0.50); Eosinophils % (auto) 1.9 %; Hematocrit (blood only) 38.8 % (42.0-52.0); Hemoglobin 12.4 g/dl (14.0-18.0); Immature Granulocytes # (auto) 0.01 K/uL (0.01-0.20); Immature Granulocytes % (auto) 0.1 %; Mean Corpuscular Hemoglobin 26.4 pg (25.0-34.0); Mean Corpuscular Volume 82.7 fL (80.0-100.0); Mean Platelet Volume 10.9 fL (9.4-12.4); Monocytes # (auto) 0.41 K/uL (0.11-0.59); Monocytes % (auto) 5.5 %; Neutrophils # (auto) 5.11 K/uL (1.40-6.50); Neutrophils % (auto) 69.1 %; Platelet Count 189 K/uL (130-400); RDW Coefficient of Variation 14.7 % (11.5-14.5); RDW Standard Deviation 44.5 fL (36.4-46.3); Red Blood Count 4.69 M/uL (4.70-6.10)
[2024-04-22 07:39] LABS: Prothrombin Time 10.9 Seconds (9.0-12.0)
[2024-04-22 07:47] LABS: Albumin Globulin Ratio 1.2 (0.9-2); Albumin Level 3.9 gm/dl (3.4-5.0); BUN Creatinine Ratio 10.4 (10-20); Bilirubin,Total 0.4 mg/dl (0.2-1.0); Calcium 8.7 mg/dl (8.6-10.3); Creatinine Clr Calc Pharmacy 74.1 ml/min; Est GFR (African American) 74.3 ml/min; Est GFR (Non-African American) 64.1 ml/min; Globulin 3.2 gm/dl (2.5-4.0); Potassium 4.1 mmol/L (3.5-5.1); Total Protein 7.1 gm/dl (6.0-8.3)
[2024-04-22 08:05] LABS: Estimated Average Glucose 169 mg/dl; Hemoglobin A1C 7.5 % (4.5-5.6)
[2024-04-22 08:06] LABS: Magnesium 1.9 mg/dl (1.7-2.4)
--- NOTE | 2024-04-22 08:25 | Hospitalist Progress Note ---
Date of Service April 22, 2024 Assessment & Plan (1) Cerebral amyloid angiopathy: (2) Stroke: (3) Diabetes mellitus: (4) Hypertension: (5) Sleep apnea: Plan Acute lacunar stroke Cerebral amyloid angiopathy - presented for 4 days R sided weakness pt had been noncompliant with his home medications which potentially put him at increased risk for CVA Patient noted to have significant weakness in the right upper and lower extremity with positive pronator drift and cerebellar testing in the right upper extremity on admission - MRI brain showed 5 mm acute lacunar stroke in L thalamus - MRI brain also showed "Old bilateral thalamic lacunar infarcts again noted. Moderate microvascular ischemic change. Interval development of multiple scattered punctate foci of susceptibility artifact within the brain suggestive of cerebral amyloid angiopathy." - neurology consulted; recommend aspirin over plavix, statin not recommended due to amyloid and increased bleeding risk in those with amyloid, to discharge on aspirin daily - TTE pending - PT/OT recommend rehab Diabetes mellitus, type 2 - hemoglobin A1c 7.5% - hold metformin for now Monitor BSG ACHS, goal is [id number] Will start 5 units Lantus twice daily for now Start CF of 45 and CR 15 ACHS for now Hypertension Currently hypertensive with permissive pressures home losartan and home amlodipine Sleep apnea Patient reports noncompliance with at bedtime CPAP as previous machine broke Will order at bedtime CPAP and case management consult to see if they can obtain new machine prior to discharge Admission and Anticipated Discharge Date Admission Date: April 21, 2024 Supervising Physician Co-Signing Physician Notes I personally examined the patient and verified astudillo points of history and exam, discussed case, and agree with decision making and plan documented by Dr. Ramos. Patient appears comfortable, lungs clear b/l to auscultation, regular rate and rhythm, no acute distress. Discussed CVA and importance of medication adherence. Subjective Today, pt states he is feeling okay. No chest pain or SOB. Does note some constipation and does occasionally take a laxative at home. He lives at home with his and daughter who is staying with them temporarily. He states that the weakness symptoms have not gotten better but also have not gotten worse since they started, stayed about the same. PT/OT leaving as I was entering and recommended rehab to him, which he states he is not happy about the idea of going to rehab but is agreeable as long as it is not [facility], as he states that he has been there before and did not like it there. He does note that it was about a month ago when he decided to stop taking all of his medications as he didn't want to continue taking them. He is agreeable to going back on medications now. Review of Systems Review of Systems: Per HPI. Physical Exam Physical Exam: General:Alert and oriented, no acute distress, HEENT: Normocephalic, moist oral mucosa, Cardio: Regular rate and rhythm, no murmur, Resp:Lungs clear to auscultation b/l, no wheezes or rhonchi, Skin: Warm, pink, dry, Results & Data Results & Data Vital Signs (Past 12 Hours) Vital Signs Temp Pulse Pulse Resp BP Pulse Ox O2 Del Method 04/22/24 07:12 36.7 C 74 18 161/83 H 96 Room Air 04/22/24 04:56 36.9 C 77 17 180/83 H 96 Room Air 04/22/24 00:03 36.9 C 80 18 165/82 H 95 Room Air 04/21/24 22:29 78 Resident Activity Tracking Resident Involvement: Resident Care Provided Care Provided: Adult Hospital Medicine (4) Hypertension Hypertension type: unspecified Qualified Code(s): I10 - Essential (primary) hypertension
[2024-04-22] MEDS: ASPIRIN 81 MG ECTAB PO SCH (08:48)
[2024-04-22] MEDS: LOSARTAN POTASSIUM 50 MG TAB PO SCH (08:48)
[2024-04-22] MEDS: CLOPIDOGREL BISULFATE 75 MG TAB PO SCH (08:49)
--- NOTE | 2024-04-22 09:01 | Neurology Consultation ---
Date of Consultation April 22, 2024 Assessment & Plan (1) Stroke: (2) Cerebral amyloid angiopathy: (3) Carotid stenosis, left: Plan 68-year-old male with a history of hypertension, diabetes mellitus, presenting with a right hemiparesis beginning 4 days prior to his initial evaluation in the emergency department. Found to have an acute left thalamic infarct. He does inform me that he had decided to stop taking daily low-dose aspirin a month or so ago. His brain MRI has also revealed interval development of probable cerebral amyloid angiopathy compared with a previous MRI done in 2020. He does complain of some mild difficulty with short-term memory. I do not think he has Alzheimer's disease at this time. His speech is fluent and he has a generally intact mental status. CT angiography has revealed an incidental less than 50% stenosis of the left internal carotid artery. Would recommend aspirin 81 mg/day rather than Plavix. (He had been noncompliant with aspirin. Cerebral amyloid angiopathy is not a contraindication to antiplatelet therapy, although in his case, I would prefer aspirin over Plavix.) Patient's lipid panel is within acceptable range without taking a statin. Although goal LDL in individuals with stroke would be 70 or less, given that he has probable cerebral amyloid angiopathy, I would not recommend starting a statin at this time given the theoretical increased risk of bleeding with statins. Continue medical management of hypertension, goal blood pressure going forward less than 130/90. His stroke does not appear to be cardioembolic. However, a transthoracic echocardiogram with bubble study would not be unreasonable, could be completed as an inpatient or outpatient. Consultations with PT/OT Should not require additional outpatient neurology follow-up. 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 He had some difficulty standing, no associated change in speech or vision. His symptoms are mild, and perhaps modestly improved since onset. No headache. Past medical history notable for diabetes mellitus, hypertension, non-ST elevation PR. A CT of the head was negative for hemorrhage or acute process. CTA of the head and neck revealed a less than 50% stenosis of the proximal left ICA. A brain MRI revealed a 5 mm acute lacunar infarct within the left thalamus, chronic bilateral thalamic infarcts, moderate chronic microvascular ischemic disease, and scattered foci of susceptibility artifact suggestive of cerebral amyloid angiopathy, new since previous brain MRI done February 2021. I independently reviewed these images. He does remark that he has been experiencing mild difficulty with short-term memory over the past few months, although nothing that significantly impacts his functioning. He does inform me that he stopped taking his aspirin and metformin on his own a few months ago as he did not feel as if these medications were helpful or improving how he felt. Allergies Allergy/AdvReac Type Severity Reaction Status Date / Time Sulfa (Sulfonamide Allergy Intermediate Hives Verified 08/20/23 09:15 Antibiotics) NSAIDS (Non-Steroidal AdvReac Unknown HX OF Verified 08/20/23 09:15 Anti-Inflamma BLEEDING ULCER Home Medications Medication Instructions Recorded Confirmed Type metformin 500 mg tablet 500 mg PO BID 10/02/19 04/21/24 History aspirin 81 mg tablet,delayed 81 mg PO QAM #30 tabs 02/23/22 04/21/24 Rx release losartan 50 mg tablet 50 mg PO DAILY #0 tabs 02/23/22 04/21/24 Rx amlodipine 10 mg tablet 10 mg PO DAILY #90 tabs 02/27/22 04/21/24 Rx acetaminophen 500 mg capsule See Rx Instructions PO .COMPLEX 07/23/23 04/21/24 History PRN Pain ibuprofen 200 mg capsule 200 mg PO Q6H PRN Pain (Scale 07/23/23 04/21/24 History Score 1-3) Patient History Medical History Chronic anemia baseline hgb 12-13 range per chart review Morbid obesity Diabetes mellitus, type 2 NIDDM Spinal stenosis Surgical History History of tonsillectomy and adenoidectomy S/P epidural steroid injection History of esophagogastroduodenoscopy (EGD) EGD (10/02/19): MAC at [facility] Trigger finger Left hand trigger finger release History of carpal tunnel release R/L History of arthroscopy Right knee History of colonoscopy History of appendectomy History of tooth extraction Family History Father Family history of diabetes mellitus Mother Family history of diabetes mellitus Other No family history of adverse response to anesthesia Social History Smoking Status: Former smoker Tobacco Type: Cigarettes Smoking End Date: 2000; Second Hand Exposure: Yes (IN THE PAST); Do You Dip or Chew Tobacco: No; Hx Alcohol Use: Yes Alcohol type: beer Hx Substance Use: No Preferred Language: Georgian Communication Ability: Effective Loss Claim Clerk Required: No Beliefs That Will Affect Care: None marital status: Current Living Situation: Spouse Current Living Situation Comment: AND ADOPTED GRANDAUGHTER How many Children do You have: 2 Feels Safe at Home: Yes Safety Concerns: Feels Safe At This Time Assistive Devices: Glasses Review of Systems Constitutional: no fever and no chills Eyes: no blind spots and no diplopia Ear, Nose, Mouth, Throat: no hearing loss Respiratory: no cough and no dyspnea Cardiovascular: no chest pain and no palpitations Gastrointestinal: no nausea and no vomiting Genitourinary: no urinary incontinence Musculoskeletal: no myalgia Integumentary: no rash and no lesions Neurologic: as per Subjective / HPI Psychiatric: no depression and no anxiety Hematologic / Lymphatic: no easy bleeding and no easy bruising Exam (Neuro) Constitutional: well developed and well nourished; no acute distress Eyes: normal visual woody by confrontation, PERRL and EOM intact bilaterally; no nystagmus Neurologic: Oriented to:: Person, Place and Time Memory: Short Term Intact and Remote Intact Attention: Span Intact and Concentration Intact Speech Fluency: negative Dysarthria or Dysfluency Speech Aphasia: negative Aphasia Fund of Knowledge: Current Events, Past History and Vocabulary Cranial Nerves: Normal II, III, IV, , V, VII, VIII, IX, X, XI and XII Motor Strength: Hemiparesis (Very mild right hemiparesis, arm and leg) Laterality: Right; negative Normal Lower Extremities or Normal Upper Extremities Motor Tone: Normal Lower Extremities and Normal Upper Extremities Muscle Bulk/Involuntary Movements: No Involuntary Movements; negative Muscle Atrophy Sensation: Light Touch Intact, Pain/Temperature Intact, Vibration Intact and Proprioception Intact Coordination: Finger-Nose Abnormal Laterality: Right and Heel-Cevallos Abnormal Laterality: Right Deep Tendon Reflexes: Rt Triceps: 2+, Lt Triceps: 2+, Rt Biceps: 2+, Lt Biceps: 2+, Rt Brachioradialis: 2+, Lt Brachioradialis: 2+, Rt Patellar: 2+, Lt Patellar: 2+, Rt Ankle: 1+ and Lt Ankle: 1+ Special Tests: Babinski Present Results & Data Vital Signs (Past 12 Hours) Vital Signs Temp Pulse Pulse Resp BP Pulse Ox O2 Del Method 04/22/24 07:12 36.7 C 74 18 161/83 H 96 Room Air 04/22/24 04:56 36.9 C 77 17 180/83 H 96 Room Air 04/22/24 00:03 36.9 C 80 18 165/82 H 95 Room Air 04/21/24 22:29 78 Laboratory Results WBC 7.40, hemoglobin 12.4, hematocrit 38.8, platelet count 189, sodium 139, potassium 4.1, BUN 12, creatinine 1.15, glucose 141, hemoglobin A1c 7.5, calcium 8.7, magnesium 1.9, AST 11, ALT 12, triglycerides 112, cholesterol 135, LDL 79, VLDL 22, HDL 34 Diagnostic Findings Electrocardiogram reveals a normal sinus rhythm. CT of the head, CTA of the head and neck, and brain MRI are as described in the HPI, I independently reviewed these images. Coding Level of Care Code 65354 INT INP/OBS CARE MIN Diagnoses Stroke I63.9 Cerebral amyloid angiopathy E85.4; I68.0 Carotid stenosis, left I65.22 Time Spent (min) 90 Comment Total time includes patient contact, chart review, counseling, note preparation
[2024-04-22] MEDS: POLYETHYLENE (MIRALAX) 17 GM PACK PO SCH (13:51)
[2024-04-22] MEDS: amLODIPine BESYLATE 5 MG TAB PO SCH (13:51)
[2024-04-22] MEDS: ACETAMINOPHEN 325 MG TAB PO PRN (21:25)
--- NOTE | 2024-04-22 21:38 | XCELERA ---
[id number] \\[id number]
--- NOTE | 2024-04-23 07:13 | Hospitalist Progress Note ---
Date of Service April 23, 2024 Assessment & Plan (1) Cerebral amyloid angiopathy: (2) Stroke: (3) Diabetes mellitus: (4) Hypertension: (5) Sleep apnea: Plan Acute lacunar stroke Cerebral amyloid angiopathy - presented for 4 days R sided weakness pt had been noncompliant with his home medications which potentially put him at increased risk for CVA Patient noted to have significant weakness in the right upper and lower extremity with positive pronator drift and cerebellar testing in the right upper extremity on admission - MRI brain showed 5 mm acute lacunar stroke in L thalamus - MRI brain also showed "Old bilateral thalamic lacunar infarcts again noted. Moderate microvascular ischemic change. Interval development of multiple scattered punctate foci of susceptibility artifact within the brain suggestive of cerebral amyloid angiopathy." - neurology consulted; recommend aspirin over plavix, statin not recommended due to amyloid and increased bleeding risk in those with amyloid, to discharge on aspirin daily - TTE; EF 60-65%, no wall abnormality - PT/OT recommend rehab; pending Diabetes mellitus, type 2 - hemoglobin A1c 7.5% - hold metformin for now Monitor BSG ACHS, goal is [id number] Will start 5 units Lantus twice daily for now Start CF of 45 and CR 15 ACHS for now Hypertension Currently hypertensive with permissive pressures home losartan and home amlodipine Sleep apnea Patient reports noncompliance with at bedtime CPAP as previous machine broke Will order at bedtime CPAP and case management consult to see if they can obtain new machine prior to discharge Constipation - miralax prn Admission and Anticipated Discharge Date Admission Date: April 21, 2024 Supervising Physician Co-Signing Physician Notes I personally examined the patient and verified astudillo points of history and exam, discussed case, and agree with decision making and plan documented by Dr. Ramos. Patient states he is feeling well today, was able to walk with physical therapy with minimal assistance, feels optimistic to partake in rehab for his lacunar stroke. Patient does endorse some chronic right knee pain and swelling that affects his ability to ambulate at times, he reports to knee replacements on the right, x-ray shows no acute issues. Subjective Today, pt resting in bed comfortably. No chest pain or SOB. Was able to poop yesterday with the miralax. Feeling well today. No questions or complaints at this time, awaiting rehab. Review of Systems Review of Systems: Per HPI. Physical Exam Physical Exam: General:Alert and oriented, no acute distress, HEENT: Normocephalic, moist oral mucosa, Cardio: Regular rate and rhythm, no murmur, Resp:Lungs clear to auscultation b/l, no wheezes or rhonchi, Skin: Warm, pink, dry, Results & Data Results & Data Vital Signs (Past 12 Hours) Vital Signs Temp Pulse Pulse Resp BP Pulse Ox O2 Del Method 04/23/24 07:06 36.6 C 73 18 124/72 96 Room Air 04/23/24 02:59 36.7 C 79 17 159/86 H 95 Room Air 04/22/24 23:56 82 04/22/24 23:19 36.4 C L 82 18 149/84 H 96 Room Air 04/22/24 20:22 36.7 C 77 17 177/78 H 95 Room Air Resident Activity Tracking Resident Involvement: Resident Care Provided Care Provided: Adult Hospital Medicine (4) Hypertension Hypertension type: unspecified Qualified Code(s): I10 - Essential (primary) hypertension
[2024-04-23 07:39] LABS: Basophils # (auto) 0.05 K/uL (0.00-0.20); Basophils % (auto) 0.7 %; Eosinophils # (auto) 0.12 K/uL (0.00-0.50); Eosinophils % (auto) 1.7 %; Hematocrit (blood only) 42.6 % (42.0-52.0); Hemoglobin 13.1 g/dl (14.0-18.0); Immature Granulocytes # (auto) 0.02 K/uL (0.01-0.20); Immature Granulocytes % (auto) 0.3 %; Lymphocytes # (auto) 1.69 K/uL (1.20-3.40); Lymphocytes % (auto) 23.3 %; Mean Corpuscular Hemoglobin 25.7 pg (25.0-34.0); Mean Corpuscular Hgb Conc 30.8 g/dL (32.0-36.0); Mean Corpuscular Volume 83.5 fL (80.0-100.0); Mean Platelet Volume 11.4 fL (9.4-12.4); Monocytes # (auto) 0.45 K/uL (0.11-0.59); Monocytes % (auto) 6.2 %; Neutrophils # (auto) 4.91 K/uL (1.40-6.50); Neutrophils % (auto) 67.8 %; Platelet Count 168 K/uL (130-400); RDW Coefficient of Variation 14.7 % (11.5-14.5); RDW Standard Deviation 45.4 fL (36.4-46.3); White Blood Count 7.24 K/ul (4.8-10.8)
[2024-04-23 07:51] LABS: Albumin Level 3.9 gm/dl (3.4-5.0); Bilirubin,Total 0.4 mg/dl (0.2-1.0); Calcium 8.7 mg/dl (8.6-10.3); Potassium 4.3 mmol/L (3.5-5.1)
[2024-04-23 07:54] LABS: Prothrombin Time 11.1 Seconds (9.0-12.0)
[2024-04-23 07:57] LABS: Albumin Globulin Ratio 1.2 (0.9-2); BUN Creatinine Ratio 13.5 (10-20); Creatinine Clr Calc Pharmacy 73.8 ml/min; Est GFR (African American) 77.6 ml/min; Est GFR (Non-African American) 66.9 ml/min; Globulin 3.3 gm/dl (2.5-4.0); Total Protein 7.2 gm/dl (6.0-8.3)
[2024-04-23] MEDS ORDERED: POLYETHYLENE (MIRALAX) 17 GM PACK PO PRN (10:06)
--- NOTE | 2024-04-23 12:45 | XRay Report ---
XR knee RT 3V HISTORY: 68 years-old Male Knee pain acute right knee pain COMPARISON: 06/30/2023 TECHNIQUE: 3 views of the right knee FINDINGS: Hinged right knee total arthroplasty redemonstrated with patellar resurfacing. No evidence of hardwar e complication. Small joint effusion with suprapatellar calcifications. No acute fracture, dislocatio n or osseous erosion. IMPRESSION: No acute fracture or dislocation. ACT 112: Negative or not required by law. The above report was generated using voice recognition software. It may contain grammatical, syntax o r spelling errors. Electronically signed by: Abhishek Maharaj M.D. 04/23/2024 12:44 PM
--- NOTE | 2024-04-24 06:55 | Hospitalist Progress Note ---
Date of Service April 24, 2024 Assessment & Plan (1) Cerebral amyloid angiopathy: (2) Stroke: (3) Diabetes mellitus: (4) Hypertension: (5) Sleep apnea: Plan Acute lacunar stroke Cerebral amyloid angiopathy - presented for 4 days R sided weakness pt had been noncompliant with his home medications which potentially put him at increased risk for CVA Patient noted to have significant weakness in the right upper and lower extremity with positive pronator drift and cerebellar testing in the right upper extremity on admission - MRI brain showed 5 mm acute lacunar stroke in L thalamus - MRI brain also showed "Old bilateral thalamic lacunar infarcts again noted. Moderate microvascular ischemic change. Interval development of multiple scattered punctate foci of susceptibility artifact within the brain suggestive of cerebral amyloid angiopathy." - neurology consulted; recommend aspirin over plavix, statin not recommended due to amyloid and increased bleeding risk in those with amyloid, to discharge on aspirin daily - TTE; EF 60-65%, no wall abnormality - PT/OT recommend rehab; pending placement Diabetes mellitus, type 2 - hemoglobin A1c 7.5% - hold metformin for now Monitor BSG ACHS, goal is [id number] Will start 5 units Lantus twice daily for now Start CF of 45 and CR 15 ACHS for now Hypertension Currently hypertensive with permissive pressures home losartan (100 mg, may switch to olmesartan on discharge) and home amlodipine Sleep apnea Patient reports noncompliance with at bedtime CPAP as previous machine broke Will order at bedtime CPAP and case management consult to see if they can obtain new machine prior to discharge Constipation - miralax prn Admission and Anticipated Discharge Date Admission Date: April 21, 2024 Supervising Physician Co-Signing Physician Notes I personally examined the patient and verified all astudillo points of history and exam, discussed case, and agree with decision making with Dr Ramos Awaiting insurance approval for rehab. No acute complaints today. Looking forward to rehab. Vitals noted, in general he is awake and alert pleasant no distress. HEENT normocephalic atraumatic mucous membranes moist. Breathing unlabored no accessory muscle use good effort. Skin without rashes pallor or icterus. Stroke in the setting of cerebral amyloid angiopathygreatly appreciate neurology assistance. Continue current med management/secondary risk reduction. Anticipate rehab once insurance approves. Otherwise as above. Subjective Today, pt states he is feeling well. No questions or complaints. No chest pain or SOB. No nausea or vomiting. Awaiting rehab. Review of Systems Review of Systems: Per HPI. Physical Exam Physical Exam: General:Alert and oriented, no acute distress, HEENT: Normocephalic, moist oral mucosa, Cardio: Regular rate and rhythm, no murmur, Resp:Lungs clear to auscultation b/l, no wheezes or rhonchi, Skin: Warm, pink, dry, Results & Data Results & Data Vital Signs (Past 12 Hours) Vital Signs Temp Pulse Pulse Resp BP Pulse Ox O2 Del Method 04/24/24 04:24 36.8 C 75 18 173/83 H 96 Room Air 04/23/24 23:51 36.8 C 68 17 174/91 H 97 Room Air 04/23/24 23:01 73 04/23/24 20:08 36.4 C L 78 18 154/95 H 93 Room Air 04/23/24 19:51 Room Air Resident Activity Tracking Resident Involvement: Resident Care Provided Care Provided: Adult Hospital Medicine (4) Hypertension Hypertension type: unspecified Qualified Code(s): I10 - Essential (primary) hypertension
[2024-04-24 06:56] LABS: BUN Creatinine Ratio 14.3 (10-20); Calcium 8.9 mg/dl (8.6-10.3); Creatinine Clr Calc Pharmacy 71.2 ml/min; Est GFR (African American) 71.3 ml/min; Est GFR (Non-African American) 61.5 ml/min; Potassium 4.3 mmol/L (3.5-5.1)
[2024-04-24] MEDS: LOSARTAN POTASSIUM 50 MG TAB PO SCH (08:20)
--- NOTE | 2024-04-24 15:09 | Pharmacy Report ---
- Date of Service April 24, 2024 - Pharmacy CVA/TIA Medication Review Medications to Prevent Stroke handout has been added to the patients discharge packet. Antiplatelet(s) * aspirin 81 mg PO daily Cholesterol * High intensity statin deferred by neurology due to probable cerebral amyloid angiopathy DVT Prophylaxis * SCD knee Therapeutic Anticoagulation * No history of Afib/Aflutter noted Type 2 Diabetes * Patient has T2DM, discussed with Dr. Ramos, a diabetes medication with proven CVD benefit will likely be initiated at time of discharge. "Medications to prevent stroke" handout has already been added to the patient's discharge packet, which also instructs the patient to follow up with their outpatient provider to evaluate which diabetes medication with proven CVD benefit is best for them, in case one is not initiated.
--- NOTE | 2024-04-24 17:53 | Billing Data ---
Date of Service April 24, 2024 Coding Level of Care Code 06245 SUB INP/OBS CARE
--- NOTE | 2024-04-25 06:43 | Hospitalist Progress Note ---
Date of Service April 25, 2024 Assessment & Plan (1) Cerebral amyloid angiopathy: (2) Stroke: (3) Diabetes mellitus: (4) Hypertension: (5) Sleep apnea: Plan Pending placement to [facility]. Acute lacunar stroke Cerebral amyloid angiopathy - presented for 4 days R sided weakness pt had been noncompliant with his home medications which potentially put him at increased risk for CVA Patient noted to have significant weakness in the right upper and lower extremity with positive pronator drift and cerebellar testing in the right upper extremity on admission - MRI brain showed 5 mm acute lacunar stroke in L thalamus - MRI brain also showed "Old bilateral thalamic lacunar infarcts again noted. Moderate microvascular ischemic change. Interval development of multiple scattered punctate foci of susceptibility artifact within the brain suggestive of cerebral amyloid angiopathy." - neurology consulted; recommend aspirin over plavix, statin not recommended due to amyloid and increased bleeding risk in those with amyloid, to discharge on aspirin daily - TTE; EF 60-65%, no wall abnormality - PT/OT recommend rehab; [facility] Diabetes mellitus, type 2 - hemoglobin A1c 7.5% - hold metformin for now Monitor BSG ACHS, goal is [id number] Will start 5 units Lantus twice daily for now Start CF of 45 and CR 15 ACHS for now Hypertension Currently hypertensive with permissive pressures home losartan (100 mg, may switch to olmesartan on discharge) and home amlodipine Sleep apnea Patient reports noncompliance with at bedtime CPAP as previous machine broke Will order at bedtime CPAP and case management consult to see if they can obtain new machine prior to discharge Constipation - miralax prn Admission and Anticipated Discharge Date Admission Date: April 21, 2024 Subjective Today, pt states he os feeling well. No complaints, just hopeful and at this point ready to go to [facility] to start doing some rehab. Weakness reported to be about the same. He attempted to cut his [place] toast this morning with his R hand and it took some time but he was able to do so. No chest pain or SOB. No nausea or vomiting. Review of Systems Review of Systems: Per HPI. Physical Exam Physical Exam: General:Alert and oriented, no acute distress, HEENT: Normocephalic, moist oral mucosa, Cardio: Regular rate and rhythm, no murmur, Resp:No increased resp effort, no resp distress Skin: Warm, pink, dry, Results & Data Results & Data Vital Signs (Past 12 Hours) Vital Signs Temp Pulse Pulse Resp BP Pulse Ox O2 Del Method 04/25/24 03:00 36.9 C 68 18 127/83 98 Room Air 04/24/24 23:18 68 04/24/24 22:53 36.7 C 65 18 151/80 H 96 Room Air 04/24/24 19:47 37 C 75 18 137/76 96 Room Air Resident Activity Tracking Resident Involvement: Resident Care Provided Care Provided: Adult Hospital Medicine (4) Hypertension Hypertension type: unspecified Qualified Code(s): I10 - Essential (primary) hypertension
[2024-04-25 10:38] VITALS: PULSE 76; RESP 20; TEMP 98.6; O2SAT 96
--- NOTE | 2024-04-25 11:02 | Discharge Summary ---
Date of Service April 25, 2024 Admission HPI Per Admitting Provider Joe is a 68-year-old male with a past medical history significant for diabetes mellitus type 2, hypertension, QUOC, and hyperlipidemia who presented to the [facility] ED on 04/21/2024 due to persistent weakness in the right upper/lower extremities with associated intermittent numbness the past 4 days. Patient was noted to be hypertensive on arrival at 168/100 but otherwise stable. Labs including CBC, CMP, and coagulation labs were unremarkable. Chest x-ray noted cardiomegaly without active chest disease. CT of the head and brain/CTA of the head/neck was read as atherosclerotic plaque in the carotid bulbs causes less than 50% stenosis of the proximal left internal carotid artery but was otherwise negative for acute findings. The patient was given no medications prior to admission. Patient was sitting in bed in no acute distress at time of exam with his bedside, history obtained from both. Patient states that he woke the morning of 04/17/2024 and noticed mild right lower extremity weakness after he got out of bed. States that as the day progressed he started to develop paresthesias in the right lower extremity and increased weakness to the point that he was unable to bear weight on the leg on 04/18/2024. Began to develop right upper extremity weakness and paresthesias on 04/20/2024. Presented to the orthopedic clinic earlier today as he thought his right lower extremity weakness could be due to his previous right knee replacement. After evaluation they recommended he come to the ED for further assessment of possible stroke. Confirms that he has not been compliant with his home regimen of medications for the past 2 months. This includes his daily baby aspirin, amlodipine, losartan, and metformin. States that he would forget to take them and then just forgot to restart. His states that she tried to remind him multiple times but he did not listen to her. Patient expresses his intent to resume his home medications as he understands the severity of complications with noncompliance now. No recent headache, changes in vision, hearing, taste, smell, chest pain, palpitations, shortness of breath, abdominal pain, nausea/vomiting, dysuria, hematuria, diarrhea, lower extremity swelling, or recent trauma. When asked, states that he does have increased urinary frequency with the feeling of incomplete bladder emptying over the past few months. Denies recent tobacco or alcohol use. Confirms he is a full code and want his to make medical decisions for him if cannot make them himself. Please refer to Dr. Holley's attestation for any changes to the treatment plan Admission Exam Per Admitting Provider Physical Exam: General: In no acute distress, stated age, morbidly obese, nontoxic-appearing HEENT: Normocephalic, atraumatic, no scleral icterus, pupils around round, symmetrical, and reactive to light, moist mucus membranes, trachea midline, no thyromegaly Chest/Pulm: No respiratory distress, symmetrical chest expansion, clear breath sounds throughout Cardiac: RRR, no murmurs noted Abdomen: Negative for ascites and bruising, normoactive bowel sounds, soft, non- tender to palpation throughout Musculoskeletal: Symmetrical and without signs of acute trauma, right upper and lower extremity are weak compared to left extremities Extremities: Radial, dorsalis pedis, and posterior tibial pulses are intact and symmetrical, no edema noted in the BL LE's Skin: Warm, dry, no rashes , lesions, or scars noted Neuro: Alert and oriented to person, place, month, year, and president, no focal defects, CN II-XII tested and intact, patient with positive pronator drift and cerebellar testing in the right upper extremity negative in the left upper extremity, decreased sensation in the right upper extremity compared to left, symmetrical sensation in the bilateral lower extremities, no tremors noted Psych: No acute distress, calm and cooperative during the exam Principal Diagnosis Stroke Discharge Exam General:Alert and oriented, no acute distress, HEENT: Normocephalic, moist oral mucosa, Cardio: Regular rate and rhythm, no murmur, Resp:No increased resp effort, no resp distress Skin: Warm, pink, dry, Discharge Data Allergies Allergy/AdvReac Type Severity Reaction Status Date / Time Sulfa (Sulfonamide Allergy Intermediate Hives Verified 08/20/23 09:15 Antibiotics) NSAIDS (Non-Steroidal AdvReac Unknown HX OF Verified 08/20/23 09:15 Anti-Inflamma BLEEDING ULCER Consultations 04/21/24 16:39 Consult Neurology Routine Ordered Studies 04/21/24 13:38 CT head/brain wo con Stat 04/21/24 13:42 CTA head w con [CT angio head w con] Stat CTA neck with con [CT angio neck with con] Stat 09/06/24 14:50 MRI Brain [MR brain wo con] Stat Hospital Course (1) Cerebral amyloid angiopathy: (2) Stroke: (3) Diabetes mellitus: (4) Hypertension: (5) Sleep apnea: Plan Pt is a 68 yo male with a past med hx of HTN, type 2 diabetes, HLD, QUOC on CPAP who presented to the hospital on 04/21 for 4 days R sided weakness, found to have an acute lacunar stroke. Acute lacunar stroke Cerebral amyloid angiopathy - presented for 4 days R sided weakness pt had been noncompliant with his home medications which potentially put him at increased risk for CVA Patient noted to have significant weakness in the right upper and lower extremity with positive pronator drift and cerebellar testing in the right upper extremity on admission - MRI brain showed 5 mm acute lacunar stroke in L thalamus - MRI brain also showed "Old bilateral thalamic lacunar infarcts again noted. Moderate microvascular ischemic change. Interval development of multiple scattered punctate foci of susceptibility artifact within the brain suggestive of cerebral amyloid angiopathy." - neurology consulted; recommend aspirin over plavix, statin not recommended due to amyloid and increased bleeding risk in those with amyloid, to discharge on aspirin daily - TTE; EF 60-65%, no wall abnormality - PT/OT recommend rehab; pt discharged to [facility] for rehab - recommend probably starting on SGLT-2 or GLP-1 if agreeable, should discuss this with primary care physician at next office visit Hypertension goal per neurology would be <130/90 continue home losartan (100 mg, to switch to olmesartan on discharge) and home amlodipine Total Time Total Time Spent Total Time Spent (In Minutes): <30 Discharge Plan Discharge Items Patient Disposition: Transfer Inpatient Rehab Fac Reason For Visit: STROKE-LIKE SYMPTOMS Discharge Diagnosis: Stroke Activity: Resume your previous activity Non-emergency contact: Primary Care Provider and Neurologist Call non-emergency contact if: you have any medication questions and your symptoms worsen Follow-up/Referrals: PCP,NO [Primary Care Provider] - Diet: Regular and Heart Healthy Addtl Attending Provider Instructions: Pt is a 68 yo male with a past med hx of HTN, type 2 diabetes, HLD, QUOC on CPAP who presented to the hospital on 04/21 for 4 days R sided weakness, found to have an acute lacunar stroke. Acute lacunar stroke Cerebral amyloid angiopathy - presented for 4 days R sided weakness pt had been noncompliant with his home medications which potentially put him at increased risk for CVA Patient noted to have significant weakness in the right upper and lower extremity with positive pronator drift and cerebellar testing in the right upper extremity on admission - MRI brain showed 5 mm acute lacunar stroke in L thalamus - MRI brain also showed "Old bilateral thalamic lacunar infarcts again noted. Moderate microvascular ischemic change. Interval development of multiple scattered punctate foci of susceptibility artifact within the brain suggestive of cerebral amyloid angiopathy." - neurology consulted; recommend aspirin over plavix, statin not recommended due to amyloid and increased bleeding risk in those with amyloid, to discharge on aspirin daily - TTE; EF 60-65%, no wall abnormality - PT/OT recommend rehab; pt discharged to [facility] for rehab - recommend probably starting on SGLT-2 or GLP-1 if agreeable, should discuss this with primary care physician at next office visit Hypertension goal per neurology would be <130/90 continue home losartan (100 mg) and home amlodipine (10 mg) Pending Studies at Discharge: No Stand-Alone Forms: My [facility], Medications to Prevent Stroke Skilled Items Patient informed of condition?: Yes DNR: No Discharge Level of Care: Acute rehab Communicable Disease: No Discharge Prognosis: Stable Lines: None Urinary Catheter: No Medications and DC Order Prescriptions: New losartan 50 mg Tablet 100 mg PO DAILY 30 Days Qty: 60 1RF Continued acetaminophen 500 mg capsule See Rx Instructions PO .COMPLEX PRN (Reason: Pain) Rx Instructions: 1500mg orally BID PRN; ibuprofen 200 mg capsule 200 mg PO Q6H PRN (Reason: Pain (Scale Score 1-3)) amlodipine 10 mg tablet 10 mg PO DAILY Qty: 90 3RF metformin 500 mg tablet 500 mg PO BID aspirin 81 mg Tablet,Delayed Release (Dr/Ec) 81 mg PO QAM Qty: 30 0RF Discontinued losartan 50 mg tablet 50 mg PO DAILY Qty: 0 0RF Discharge Orders: Discharge Order (Routine); Ordered 04/25/24 Ordered By: Caroline Lagunas/Other Patient Handouts: Managing Type 2 Diabetes, Diabetes: Meal Planning Admission Data Admit Date/Time: 04/21/24 14:33 Attending Provider: Ru Hatch Admit Provider: José Holley Primary Care Provider: PCP,NO Other Providers: Nadia,Son A.; [facility] Other Interventions: Discharge Summary Assessment (RN) Last Done: 04/25/24 11:37 Supervising Physician Co-Signing Physician Notes I personally examined the patient and verified all astudillo points of history and exam, discussed case, and agree with decision making with Dr Ramos approved for rehab, going today. Vitals noted, in general he is awake and alert pleasant no distress. HEENT normocephalic atraumatic mucous membranes moist. Breathing unlabored no accessory muscle use good effort. Skin without rashes pallor or icterus. Stroke in the setting of cerebral amyloid angiopathygreatly appreciate neurology assistance. Continue current med management/secondary risk reduction. for rehab today. Otherwise as above. Resident Activity Tracking Resident Involvement: Resident Care Provided Care Provided: Adult Hospital Medicine
[2024-04-25] MEDS ORDERED: STROKE PATIENT DISCHARGE STA (11:13)
[2024-04-25 11:39] VITALS: BP 154/93
--- NOTE | 2024-04-25 17:54 | Billing Data ---
Date of Service April 25, 2024 Coding Level of Care Code 26677 IN/OBS DISCH 30 MIN/LESS
--- NOTE | 2024-04-26 10:28 | Coding Query ---
CODING QUERY To promote full compliance with coding requirements relating to patient care, provider participation is requested in all cases of host/hostess restaurant uncertainty. Please assist us with the question(s) below: Coding Question(s): The 04/22 Neurology Consultation documents Carotid Stenosis, Left, and also documents, "CT angiography has revealed an incidental less than 50% stenosis of the left internal carotid artery". There is no other documentation in the record of the diagnosis Left Carotid Stenosis. Please specify below, in your clinical opinion, regarding the diagnosis of Left Carotid Stenosis: ( ) Left Carotid Stenosis was a significant diagnosis that was monitored and/or treated during the admission (x ) Left Carotid Stenosis was not a significant diagnosis and was not monitored and/or treated during the admission Physician's Response(s): Thank you Crystal Johnson Principal Diagnosis: "that condition established after study, to be chiefly responsible for occasioning the admission of the patient to the hospital for care." Co-Existing Principal Diagnosis: "when two or more diagnoses equally meet the criteria for principal diagnosis as determined by the circumstances of admission, diagnostic work up, and/or therapy provided, and the Alphabetic Index, Tabular List, or another coding guideline does not provide sequencing direction, any one of the diagnoses may be sequenced first." "When the physician has documented what appears to be a current diagnosis in the body of the record, but has not included the diagnosis in the final diagnostic statement, the physician should be asked whether the diagnosis should be added." (Source Coding Clinic 2 QTR90. p3-4) MJ
== END 2024-04-25 15:26 | DRG 65 ==
LOC: ED 12:26 → SUATTDRO 14:33 → 2S 14:33
DX: I68.0 Cerebral amyloid angiopathy; T39.016A Underdosing of aspirin, initial encounter; Z88.2 Allergy status to sulfonamides; Z79.82 Long term (current) use of aspirin; Z79.899 Other long term (current) drug therapy; G81.91 Hemiplegia, unspecified affecting right dominant side; R20.2 Paresthesia of skin; Z79.84 Long term (current) use of oral hypoglycemic drugs; M19.90 Unspecified osteoarthritis, unspecified site; Z91.198 Patient's noncompliance with other medical treatment and regimen for other reason; Z87.891 Personal history of nicotine dependence; I63.81 Other cerebral infarction due to occlusion or stenosis of small artery; Z99.89 Dependence on other enabling machines and devices; Z88.6 Allergy status to analgesic agent; I10 Essential (primary) hypertension; K59.00 Constipation, unspecified; T46.5X6A Underdosing of other antihypertensive drugs, initial encounter; T38.3X6A Underdosing of insulin and oral hypoglycemic [antidiabetic] drugs, initial encounter; E11.9 Type 2 diabetes mellitus without complications; E85.4 Organ-limited amyloidosis; Z96.651 Presence of right artificial knee joint; G47.33 Obstructive sleep apnea (adult) (pediatric); Z68.36 Body mass index [BMI] 36.0-36.9, adult; Z91.128 Patient's intentional underdosing of medication regimen for other reason; I25.2 Old myocardial infarction; Z83.3 Family history of diabetes mellitus; E66.01 Morbid (severe) obesity due to excess calories; R29.702 NIHSS score 2